=== PATIENT | male | born 1940 | race Two or more races ===

== ENCOUNTER 2016-11-27 21:19 | Inpatient (IN) | payer MEDICARE, OTHER ==
[~2016-11-27] VITALS: Ht 175.3 cm; Wt 65.8 kg
[2016-11-27 21:32] VITALS: BP 90/44
[2016-11-27 21:45] LABS: MEAN CORPUSCULAR HEMOGLOBIN 26.6 PG (27.0-31.0); MEAN CORPUSCULAR HGB CONC 31.5 G/DL (32.0-36.0); MEAN CORPUSCULAR VOLUME 84 FL (80-99); MEAN PLATELET VOLUME 6.8 FL (6.5-10.1); PLATELET COUNT 624 K/UL (150-450); RED BLOOD COUNT 3.85 M/UL (4.70-6.10); RED CELL DISTRIBUTION WIDTH 17.9 % (11.6-14.8)
[2016-11-27 21:49] LABS: WHITE BLOOD COUNT 25.9 K/UL (4.8-10.8)
[2016-11-27 21:55] LABS: ALANINE AMINOTRANSFERASE 12 U/L (3-41); ALBUMIN/GLOBULIN RATIO 0.9 (1.0-2.7); ANION GAP 13 (5-15); ASPARTATE AMINO TRANSFERASE 22 U/L (5-40); CARBON DIOXIDE 32 mEQ/L (20-30); CHLORIDE 96 mEQ/L (98-107); CREATININE 1.5 mg/dL (0.7-1.2); HEMOLYSIS 3; POTASSIUM 4.6 mEQ/L (3.4-4.9); SODIUM 141 mEQ/L (135-145); TOTAL PROTEIN 6.3 g/dL (6.6-8.7); TROPONIN I < 0.30 ng/mL (<=0.30)
[2016-11-27 22:04] LABS: REFLEX LACTIC ACID YES OR NO YES
[2016-11-27 22:06] LABS: CALCIUM 14.7 mg/dL (8.6-10.2)
[2016-11-27] MEDS ORDERED: XANAX0.25 MG ORAL (22:08)
[2016-11-27] MEDS ORDERED: PANTOPRAZOLE SO40 MG GT (22:15)
[2016-11-27] MEDS ORDERED: MILK OF MA400 MG/51 GT (22:15)
[2016-11-27] MEDS ORDERED: ACETAMINOPHEN120 MG GT (22:15)
[2016-11-27] MEDS ORDERED: EPOGEN20000 UNI1 SUBQ (22:15)
[2016-11-27] MEDS ORDERED: FERROUS SULFAT325 MG GT (22:15)
[2016-11-27] MEDS ORDERED: HYDRALAZINE HCL10 MG GT (22:15)
[2016-11-27 22:16] LABS: APPEARANCE,URINE CLOUDY; KETONES,URINE NEGATIVE (NEGATIVE); LEUKOCYTE ESTERASE ,URINE 1+ (NEGATIVE); NITRITE,URINE NEGATIVE (NEGATIVE); PH,URINE 5 (4.5-8.0); PROTEIN,URINE 4+ (NEGATIVE); UROBILINOGEN,URINE NORMAL MG/DL (0.0-1.0)
[2016-11-27 22:24] LABS: RBC,URINE TNTC /HPF (0 - 0)
[2016-11-27 22:27] LABS: AMORPHOUS SEDIMENT,UR MANY /LPF; BACTERIA,URINE MODERATE /HPF
[2016-11-27] MEDS ORDERED: Cefepime HCl 1 GM in NS 55 ML IV ONE (22:30)
[2016-11-27] MEDS ORDERED: Azithromycin 500 MG in NS 275 ML IV ONE (22:30)
[2016-11-27 22:33] LABS: BAND NEUTROPHILS % (MANUAL) 1 % (0-8); EOSINOPHILS % (MANUAL) 1 % (0-3); LYMPHOCYTES % (MANUAL) 1 % (20-45); NEUTROPHILS % (MANUAL) 93 % (45-75); TOTAL CELLS COUNTED 100
[2016-11-27 22:34] LABS: ANISOCYTOSIS 2+; BASOPHILS % (MANUAL) 0 % (0-2); HYPOCHROMASIA 1+; PLATELET ESTIMATE INCREASED; PLATELET MORPHOLOGY NORMAL; POLYCHROMASIA 1+
[2016-11-27] MEDS ORDERED: Acetaminophen 650mg/20.3ml GT ONE (22:45)
[2016-11-27] MEDS ORDERED: Cefepime 1gm vial ONE (22:50)
[2016-11-27 23:13] VITALS: BP 99/44
[2016-11-28] VITALS (18 sets, daily range): BP systolic 85–139; BP diastolic 36–67
[2016-11-28] MEDS ORDERED: Azithromycin Inj IV ONE (00:47)
[2016-11-28] MEDS ORDERED: Lidocaine 1% MPF 10mg/ml 5ml ONE (01:03)
[2016-11-28] MEDS ORDERED: Levophed 4mg/4mL Inj IV ONE (01:26)
[2016-11-28] MEDS ORDERED: Vancomycin 1 GM in NS 275 ML IV ONE (01:45)
[2016-11-28] MEDS ORDERED: Vancomycin 1gm inj IVPB ONE (03:24)
--- NOTE | 2016-11-28 03:53 | Emergency Room Report ---
History of Present Illness General Chief Complaint: Altered Level of Consciousness Source: Family Member, EMS Present Illness HPI 76-year-old male presents ED for evaluation. Per EMS patient noted to be hypotensive and altered at his convalescent home starting today. Patient is on trach collar at facility. Upon arrival patient is hypotensive and tachycardic. Patient has fever in triage. Patient is unable to provide any additional history at this time. No reported cough or shortness of breath. No reported nausea or vomiting. Paperwork shows that patient is a "no code". PMD is Dr. Ayala. No other aggravating or relieving factors. Denies any other associated symptoms Allergies: Coded Allergies: No Known Allergies (Unverified , 11/27/16) Patient History Past Medical History: none Past Surgical History: other - trach Pertinent Family History: none Social History: Denies: alcohol use, drug use, smoking Immunizations: UTD Reviewed Nursing Documentation: PMH: Agreed, PSxH: Agreed Nursing Documentation-PMH Past Medical History: No History, Except For Hx Cardiac Problems: Yes - ANEMIA Hx Gastrointestinal Problems: Yes - BPH Review of Systems All Other Systems: negative except mentioned in HPI Physical Exam Vital Signs Date Time Temp Pulse Resp B/P Pulse Ox O2 Delivery O2 Flow Rate FiO2 11/27/16 21:09 144 12 107/54 98 Ambu-Bag 15.0 11/27/16 21:32 100.2 50 Sp02 EP Interpretation: reviewed, normal General Appearance: lethargic, thin Head: normocephalic Eyes: bilateral eye PERRL, bilateral eye normal inspection ENT: normal ENT inspection Neck: tracheotomy Respiratory: crackles Cardiovascular #1: tachycardia Gastrointestinal: normal inspection Rectal: deferred Genitourinary: no CVA tenderness Musculoskeletal: normal inspection Neurologic: other - altered Psychiatric: other - altered Skin: normal inspection Lymphatic: normal inspection Procedures Critical Care Time Critical Care Time i. I feel this is a highly complex case requiring extensive working including EKG/Rhythm strip, Xray/CT/US, Blood/urine lab work, repeat exams while in ED, and administration of strong opiates/narcotics for pain control, admission to hospital or close patient follow up. Total time: 30 min bedside evaluation and treatment excludes procedures (EKG). Reason for critical care: Septic shock, hypotensive Possible complications: hypotension, hypertension, RI, shock, arrhythmias, metabolic acidosis, end organ damage, respiratory failure. Interventions: Labs, IV fluids, EKG, chest x-ray. Antibiotics. Central line. Pressors Course: Patient brought in for tachycardia, hypotension. Tracheostomy. Labs show severe sepsis. Hypercalcemia. UTI. Chest x-ray shows large lower lobe infiltrate. Despite fluids patient remained hypotensive. Central line placed. Pressors started Consultations: nursing staff, EMS, family Performed by: Dr Hogan Tolerated well condition = critical j. because of unstable vital signs this patient had a condition that could potentially threaten life or limb. I feel this is a critical patient who required my full attention while patient was considered critical. Total Critical Care Time excluding procedures was greater than 35 minutes Central Line Central Line : Consent: Emergent Central Line Lumen: triple Maximal Sterile Barrier Tech: yes cap, yes mask, yes sterile gown, yes sterile gloves, yes large sterile sheet, yes hand hygiene, yes chlorhexidine prep Central Line Postion: femoral (R) Anesthesia: Lidocaine Complications: none Central Line Post Position: sutured, good blood return Attempts: One Patient Tolerated: Well Complications: None Medical Decision Making Diagnostic Impression: Primary Impression: Septic shock Additional Impressions: Pneumonia Qualified Codes: J18.9 - Pneumonia, unspecified organism UTI (urinary tract infection) Qualified Codes: N39.0 - Urinary tract infection, site not specified Hypercalcemia ARF (acute renal failure) Qualified Codes: N17.9 - Acute kidney failure, unspecified ER Course Hospital Course 76-year-old M presents to ED for evaluation of hypotension, tachycardia Differential diagnoses include: Pneumonia, UTI, sepsis, dehydration, RI/ unstable angina Clinical course Patient placed on stretcher. On monitoring analyst with hypotension, tachycardia. After initial history and physical, I ordered labs, IV fluids, EKG, chest x- ray, blood cultures, UA. Labs - BUN/Cr elevated, marked leukocytosis, hypercalcemia, troponins negative, lactate > 2, UA grossly positive for UTI CXR - large RLL infiltrate Abx given. After 30 mL per KG fluid bolus patient remained hypotensive. Right femoral line placed. Pressors started Case discussed with Dr Ayala and they agreed to admit patient to their service for further care and support I feel this is a highly complex case requiring extensive working including EKG/ Rhythm strip, Xray/CT/US, Blood/urine lab work, repeat exams while in ED, and administration of strong opiates/narcotics for pain control, admission to hospital or close patient follow up. Diagnosis - septic shock, pneumonia, UTI, hypercalcemia, ARF Patient admitted to ICU in critical condition Labs Test 11/27/16 21:23 11/27/16 21:58 11/27/16 23:30 White Blood Count 25.9 K/UL (4.8-10.8) Red Blood Count 3.85 M/UL (4.70-6.10) Hemoglobin 10.3 G/DL (14.2-18.0) Hematocrit 32.5 % (42.0-52.0) Mean Corpuscular Volume 84 FL (80-99) Mean Corpuscular Hemoglobin 26.6 PG (27.0-31.0) Mean Corpuscular Hemoglobin Concent 31.5 G/DL (32.0-36.0) Red Cell Distribution Width 17.9 % (11.6-14.8) Platelet Count 624 K/UL (150-450) Mean Platelet Volume 6.8 FL (6.5-10.1) Neutrophils (%) (Auto) % (45.0-75.0) Lymphocytes (%) (Auto) % (20.0-45.0) Monocytes (%) (Auto) % (1.0-10.0) Eosinophils (%) (Auto) % (0.0-3.0) Basophils (%) (Auto) % (0.0-2.0) Differential Total Cells Counted 100 Neutrophils % (Manual) 93 % (45-75) Lymphocytes % (Manual) 1 % (20-45) Monocytes % (Manual) 4 % (1-10) Eosinophils % (Manual) 1 % (0-3) Basophils % (Manual) 0 % (0-2) Band Neutrophils 1 % (0-8) Platelet Estimate Increased Platelet Morphology Normal Polychromasia 1+ Hypochromasia 1+ Anisocytosis 2+ Sodium Level 141 mEQ/L (135-145) Potassium Level 4.6 mEQ/L (3.4-4.9) Chloride Level 96 mEQ/L (98-107) Carbon Dioxide Level 32 mEQ/L (20-30) Anion Gap 13 (5-15) Blood Urea Nitrogen 68 mg/dL (7-23) Creatinine 1.5 mg/dL (0.7-1.2) Estimat Glomerular Filtration Rate mL/min (>60) Glucose Level 193 mg/dL (74-106) Lactic Acid Level 2.20 mmol/L (0.66-2.22) 2.10 mmol/L (0.66-2.22) Calcium Level 14.7 mg/dL (8.6-10.2) Total Bilirubin 0.4 mg/dL (0.0-1.2) Aspartate Amino Transf (AST/SGOT) 22 U/L (5-40) Alanine Aminotransferase (ALT/SGPT) 12 U/L (3-41) Alkaline Phosphatase 172 U/L (40-129) Total Creatine Kinase 26 U/L (38-174) Creatine Kinase MB 4.0 ng/mL (< 6.7) Creatine Kinase MB Relative Index 15.3 Troponin I < 0.30 ng/mL (<=0.30) Pro-B-Type Natriuretic Peptide 2217 pg/mL (0-450) Total Protein 6.3 g/dL (6.6-8.7) Albumin 3.0 g/dL (3.5-5.2) Globulin 3.3 g/dL Albumin/Globulin Ratio 0.9 (1.0-2.7) Urine Color Yellow Urine Appearance Cloudy Urine pH 5 (4.5-8.0) Urine Specific [place] 1.020 (1.005-1.035) Urine Protein 4+ (NEGATIVE) Urine Glucose (UA) Negative (NEGATIVE) Urine Ketones Negative (NEGATIVE) Urine Occult Blood 5+ (NEGATIVE) Urine Nitrite Negative (NEGATIVE) Urine Bilirubin Negative (NEGATIVE) Urine Urobilinogen Normal MG/DL (0.0-1.0) Urine Leukocyte Esterase 1+ (NEGATIVE) Urine RBC Tntc /HPF (0 - 0) Urine WBC 2-4 /HPF (0 - 0) Urine Squamous Epithelial Cells None /LPF (NONE/OCC) Urine Amorphous Sediment Many /LPF (NONE) Urine Bacteria Moderate /HPF (NONE) EKG Diagnostic Results Rate: tachycardiac Rhythm: NSR ST Segments: no acute changes ASA given to the pt in ED: No Rhythm Strip Diag. Results EP Interpretation: yes Rhythm: NSR, no PVC's, no ectopy Chest X-Ray Diagnostic Results EP Interpretation: Yes Findings: no pneumothorax, no acute cardiopulmonary disease, other - RLL infiltrate Number of Views: 1 Last Vital Signs Date Time Temp Pulse Resp B/P Pulse Ox O2 Delivery O2 Flow Rate FiO2 11/28/16 03:03 98.5 11/28/16 02:30 84 23 101/48 99 Endotracheal Tube 10.0 11/27/16 23:13 50 Status: improved Disposition: ADMITTED INPATIENT Condition: Critical Referrals: NON PHYSICIAN (PCP) DANIELA HOGAN M.D. Nov 28, 2016 03:53
[2016-11-28] MEDS ORDERED: Acetaminophen 650mg/20.3ml GT PRN (09:30)
--- NOTE | 2016-11-28 09:55 | Diagnostic Imaging Report ---
Clinical history: Shortness of breath Technique: Portable AP chest radiograph was obtained. Comparison: None Findings: The tip of a left chest subcutaneous port terminates in the lower SVC. Tracheostomy tube is noted. Lung volumes are low. Ill-defined basilar opacities may represent atelectasis or pneumonia. There is mild cardiomegaly with scattered interstitial and perihilar densities likely reflecting moderate pulmonary edema. Moderate right and small left pleural effusions are noted. Visualized osseous structures demonstrate no acute abnormality. Impression: 1. Tracheostomy tube. Left chest subcutaneous port with the catheter tip in the lower SVC. 2. Cardiomegaly with moderate pulmonary edema and small left and moderate right pleural effusions. 3. Low lung volumes with basilar atelectasis or pneumonia. Continued surveillance is recommended.
[2016-11-28] MEDS ORDERED: Pantoprazole Inj IVP SCH (10:00)
[2016-11-28] MEDS ORDERED: HydrALAZINE 10mg Tab GT PRN ×2 (10:00→16:00)
[2016-11-28] MEDS ORDERED: Heparin 5000 units/ml inj SUBQ SCH (10:00)
[2016-11-28] MEDS ORDERED: Ferrous Sulfate 300 MG/5 ML UDC NG SCH (10:00)
[2016-11-28] MEDS ORDERED: Piperacillin/Tazobactam 3.375 GM in D5W 110 ML IVPB SCH (12:00)
[2016-11-28 12:17] LABS: IONIZED CALCIUM 1.82 mmol/L (1.10-1.35)
[2016-11-28 12:21] LABS: ANION GAP 11 (5-15); CARBON DIOXIDE 29 mEQ/L (20-30); CHLORIDE 104 mEQ/L (98-107); CREATININE 1.3 mg/dL (0.7-1.2); HEMOLYSIS 0; POTASSIUM 3.9 mEQ/L (3.4-4.9); SODIUM 144 mEQ/L (135-145)
[2016-11-28 12:23] LABS: CALCIUM 13.3 mg/dL (8.6-10.2)
[2016-11-28] MEDS ORDERED: Pamidronate Disodium Inj 60 MG in Sodium Chloride 550 ML IVPB ONE (13:00)
[2016-11-28] MEDS ORDERED: ALPRAZolam 0.25mg tab GT PRN (14:00)
[2016-11-28] MEDS ORDERED: Tubing IV Secondary IV ONE (17:34)
[2016-11-28] MEDS ORDERED: NS 275ml ONE (17:34)
--- NOTE | 2016-11-28 19:29 | History and Physical Report ---
DATE OF ADMISSION: 11/27/2016 REASON FOR ADMISSION: Respiratory failure and sepsis. HISTORY OF PRESENT ILLNESS: This is a 76-year-old male, who does appear to be acutely ill. The patient was transferred by 911 . He came from the subacute facility. The patient was noted to be hypotensive and altered at the convalescent home as mentioned. The patient was started on pressors in the emergency room and also on IV antibiotics. The patient is not able to give any history at this time. The patient is admitted to the ICU for further intervention and management. On evaluation, the patient was noted to have significant leukocytosis consistent with sepsis as well as evidence of acute renal failure and profound hypercalcemia. The patient's case was discussed and reviewed. The patient's order history was noted and reviewed. The patient has been given antibiotics, as mentioned pressors, and cultures were obtained. The patient was also given IV hydration. PAST MEDICAL HISTORY: Notable for chronic anemia, hypertension, respiratory failure, tracheostomy, G-tube aspiration, chronic cervical myelopathy, history of malignancy of the lungs, and benign prostatic hyperplasia. MEDICATIONS: Reviewed, noted. ALLERGIES: There is no allergy. SOCIAL HISTORY: Resides in [facility], ventilator-dependant, and bedbound. REVIEW OF SYSTEMS: Unobtainable. PHYSICAL EXAMINATION: GENERAL: An ill-appearing male. VITAL SIGNS: Reviewed. Blood pressure 130/49, respirations 26, 82 and temperature is 98.5 degrees. The patient is on 10 liters oxygen flow, 30% FiO2. HEENT: Negative. Pupils are sluggish. No discharge from the nasal cavity. NECK: Supple. Trachea is midline. Carotids 2+. LUNGS: Coarse breath sounds. Moderate air entry. CARDIAC: S1 and S2. Overall, minimally tachycardic on admission. Now, regular rate and rhythm without murmurs, rubs, or gallops. ABDOMEN: Soft and nontender. G-tube in place. EXTREMITIES: No cyanosis and no clubbing. No significant edema. NEUROLOGIC: Poorly responsive and withdrawn. LABORATORY DATA: Reviewed. White count is 25.9, hemoglobin 10.3, and platelets 624,000. Chemistry, sodium 141, potassium 4.6, chloride 106, bicarbonate 32, BUN 68, and creatinine 1.5. Calcium is 14.7. BNP 2217. IMPRESSION: 1. Sepsis. 2. Profound leukocytosis. 3. Protein-calorie malnutrition. 4. Hypercalcemia, possibly due to malignancy. 5. Acute on chronic renal failure. 6. Metabolic alkalosis, possibly contraction in nature. 7. Anemia. 8. Thrombocytosis. 9. Tracheostomy and gastrostomy tube. 10. Chronic respiratory failure. RECOMMENDATIONS: Empiric antibiotics, vancomycin and Zosyn. We will give the patient Aredia and IV hydration. Followup labs. We recommend further to obtain followup x-rays and followup arterial blood gases. At present, the patient is on tracheostomy collar, appears to be comfortable. Taper off pressors with Levophed and optimize further as the patient is critical at present. We will follow up clinically and manage for further changes. [facility] We will consult with the family once available. Kev Ayala M.D. DR: CAR JOB#: [id number] CC: KATJA
[2016-11-28] MEDS ORDERED: Vancomycin 1gm/D5W 275ml IVPB SCH ×2 (20:00)
[2016-11-28] MEDS: Vancomycin 1 GM in D5W 275 ML IVPB SCH (20:10)
[2016-11-28] MEDS: Heparin 5000 units/ml inj SUBQ SCH (20:54)
[2016-11-28 21:28] LABS: ABG ALLEN TEST POSITIVE; ABG BASE EXCESS -2.8; ABG PCO2 68.4 mmHg (35.0-45.0)
[2016-11-28] MEDS: Piperacillin/Tazobactam 3.375 GM in D5W 110 ML IVPB SCH (21:51)
--- NOTE | 2016-11-28 21:59 | Consultation ---
DATE OF CONSULTATION: 11/28/2016 RENAL CONSULTATION CONSULTING PHYSICIAN: Corazon Beard M.D. REFERRING PHYSICIAN: Kev Ayala M.D. REASON FOR CONSULTATION: Hypercalcemia and IRASEMA. HISTORY OF PRESENT ILLNESS: This is a 76-year-old man with a history of CA lung, respiratory failure, on trach, status post cardiac arrest before and BPH. The patient was sent from the alf because of the hypotension episode and the patient was found to have hypotension in the ER and the Levophed was started, and also with the infection and hypercalcemia, normal saline bolus was given in a running 125 mL of normal saline and the Levophed was off this morning. Renal was consulted for the hypercalcemia and IRASEMA. The patient is a poor historian and nonverbal and could not get any detailed history. When I saw the patient in the intensive care unit, according to the nurse Levophed was off this morning and the patient is on intravenous fluid at 125 mL/h. No reported fever, chills, or diarrhea. The blood pressure now is 115/53. PAST MEDICAL HISTORY: 1. Respiratory failure, on trach and lung malignancy. 2. Malignancy of the esophagus cancer. 3. Status post percutaneous endoscopic gastrostomy. 4. History of cardiac arrest before. 5. History of hypertension. 6. BPH. 7. Muscle weakness. 8. Anemia. 9. Anxiety disorder. MEDICATIONS: Reviewed. The current medications are Epogen, magnesium hydroxide, , alprazolam, pamidronate, Zosyn, ferrous sulfate, hydralazine, pantoprazole, heparin subcutaneous, sodium chloride, and acetaminophen. ALLERGIES: No known drug allergies. SOCIAL HISTORY: Resides in the alf. No current smoking, alcohol, or drug use. FAMILY HISTORY: Noncontributory. REVIEW OF SYSTEMS: Could not get any review of systems, as the patient is nonverbal. PHYSICAL EXAMINATION: VITAL SIGNS: Blood pressure 130/49, heart rate 84, respiratory rate 26, temperature 98.5 degrees, and saturation is 97% on trach with FiO2 50%. GENERAL: On exam, the patient is in no acute distress, alert, awake, nonverbal, and on trach. HEENT: Atraumatic. NECK: Supple. LUNGS: Clear to auscultation bilaterally. No rales. No rhonchi. Mildly bibasilar crackles present. HEART: S1 and S2. Regular rate and rhythm. No murmur or gallop. ABDOMEN: Soft and nontender. Bowel sounds present. PEG present. EXTREMITIES: No edema. GENITOURINARY: Polanco catheter present. LABORATORY DATA: White count 25.9, hemoglobin 10.3, hematocrit 32.5, and platelet count is 624,000. Chemistry, sodium 141, potassium 4.6, chloride 96, bicarb 32, BUN 68, and creatinine 1.5. Glucose is 193. Calcium is 14.7. Lactic acid is 2.2. Troponin is less than 0.3. BNP 2217. Albumin is 3.0. The UA showed cloudy, specific gravity of 1.0204, 4+ protein, 5+ blood, negative nitrite, 1+ leukocyte esterase, bay-[id number]-count RBCs, 2 to 4 WBCs, and moderate bacteria. Chest x-ray showed the tracheostomy and the left chest, subcutaneous port, tubing in the lower superior vena cava, cardiomegaly with moderate pulmonary edema, and low lung volumes with basilar atelectasis and pneumonia. ASSESSMENT AND PLAN: 1. Hypercalcemia, most likely due to the cancer related plus dehydration. 2. Acute kidney injury versus chronic kidney disease. We do not have any previous laboratories to compare. Most likely, it is prerenal, secondary to the dehydration. 3. Disproportion of the BUN and creatinine, most likely is prerenal azotemia, but the patient needs to rule out the gastrointestinal bleed as well. 4. Anemia. 5. Sepsis with leukocytosis. 6. Pneumonia. PLan IV fluid renal US urine electrolytes monitor i/o, electrolytes check iron, ferritin, vit B12, folate stool OB Corazon Janice Beard M.D. DR: BENJAMIN JOB#: [id number] CC: KATJA
[2016-11-29] VITALS: BP 115/52
[2016-11-29] MEDS: ALPRAZolam 0.25mg tab GT PRN ×3 (01:18→21:45)
[2016-11-29 04:00] VITALS: BP 110/46
[2016-11-29] MEDS: Piperacillin/Tazobactam 3.375 GM in D5W 110 ML IVPB SCH ×3 (06:13→21:45)
[2016-11-29 06:34] LABS: MEAN CORPUSCULAR HGB CONC 30.4 G/DL (32.0-36.0); MEAN CORPUSCULAR VOLUME 85 FL (80-99); MEAN PLATELET VOLUME 7.4 FL (6.5-10.1); PLATELET COUNT 520 K/UL (150-450); RED CELL DISTRIBUTION WIDTH 18.1 % (11.6-14.8); WHITE BLOOD COUNT 17.3 K/UL (4.8-10.8)
[2016-11-29 06:54] LABS: ANION GAP 12 (5-15); CARBON DIOXIDE 25 mEQ/L (20-30); CHLORIDE 108 mEQ/L (98-107); CREATININE 1.4 mg/dL (0.7-1.2); HEMOLYSIS 24; POTASSIUM 3.9 mEQ/L (3.4-4.9); SODIUM 145 mEQ/L (135-145)
[2016-11-29 07:22] LABS: BAND NEUTROPHILS % (MANUAL) 3 % (0-8); BASOPHILS % (MANUAL) 0 % (0-2); EOSINOPHILS % (MANUAL) 7 % (0-3); LYMPHOCYTES % (MANUAL) 11 % (20-45); NEUTROPHILS % (MANUAL) 73 % (45-75); PLATELET ESTIMATE INCREASED; PLATELET MORPHOLOGY NORMAL; TOTAL CELLS COUNTED 100
[2016-11-29 08:00] VITALS: BP 110/64
--- NOTE | 2016-11-29 08:17 | Pulmonology Progress Note ---
Assessment/Plan Assessment/Plan IMPRESSION: 1. Sepsis. 2. Profound leukocytosis. 3. Protein-calorie malnutrition. 4. 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 5. Acute on chronic renal failure. 6. Metabolic alkalosis, possibly contraction in nature. 7. Anemia. 8. Thrombocytosis. 9. Tracheostomy and gastrostomy tube. 10. Chronic respiratory failure. PLAN supportive care antibiotics iv hydration follow up calcium level ionized calcium high ID evaluation follow up cultures stabilize prognosis poor impression, plan, and exam edited and reviewed in detail care discussed with RN Subjective ROS Limited/Unobtainable: Yes Allergies: Coded Allergies: No Known Allergies (Unverified , 11/27/16) Subjective off pressors on ventilator Objective Last 24 Hour Vital Signs Date Time Temp Pulse Resp B/P Pulse Ox O2 Delivery O2 Flow Rate FiO2 11/29/16 08:01 50 11/29/16 06:44 104 14 50 11/29/16 05:08 108 20 50 11/29/16 04:00 97.2 101 14 110/46 100 Mechanical Ventilator 50 11/29/16 03:46 109 11/29/16 03:16 89 14 50 11/29/16 01:18 102 18 50 11/29/16 00:00 110 11/29/16 00:00 97.4 108 18 115/52 100 Mechanical Ventilator 50 11/29/16 00:00 50 11/28/16 22:47 108 14 50 11/28/16 21:59 117 21 Mechanical Ventilator 50 11/28/16 21:54 117 21 50 11/28/16 20:00 116 11/28/16 19:59 97.7 117 20 139/62 93 11/28/16 16:00 112 11/28/16 16:00 97.3 112 20 133/60 99 11/28/16 14:07 112 32 138/52 97 Trach Collar 10.0 40 11/28/16 13:15 112 35 126/49 96 Trach Collar 10.0 40 11/28/16 12:00 118 11/28/16 12:00 96.8 117 37 139/50 96 Endotracheal Tube 10.0 11/28/16 11:00 100 35 117/48 98 Endotracheal Tube 10.0 11/28/16 10:00 97 34 112/48 98 Endotracheal Tube 10.0 11/28/16 09:00 92 30 112/42 98 Endotracheal Tube 10.0 Intake and Output 11/28/16 11/29/16 19:00 07:00 Intake Total 1420.0 ml 1887.500 ml Output Total 710 ml 1000 ml Balance 710.0 ml 887.500 ml Intake Free Water 100 ml IV Total 1410.0 ml 1607.500 ml Tube Feeding 10 ml 180 ml Output Urine Total 710 ml 1000 ml # Bowel Movements 2 Objective GENERAL: An ill-appearing male. HEENT: Negative. Pupils reactive. NECK: Supple. Trachea is midline. Carotids 2+. LUNGS: Coarse breath sounds. Moderate air entry. CARDIAC: S1 and S2. Overall, minimally tachycardic regular rhythm without murmurs, rubs, or gallops. ABDOMEN: Soft and nontender. G-tube in place. no HSM EXTREMITIES: No cyanosis and no clubbing. No significant edema. NEUROLOGIC: Poorly responsive and withdrawn. Microbiology Date/Time Source Procedure Growth Status 11/27/16 21:23 Blood Blood Culture - Preliminary NO GROWTH AFTER 24 HOURS Resulted 11/27/16 21:13 Blood Blood Culture - Preliminary NO GROWTH AFTER 24 HOURS Resulted Laboratory Tests 11/28/16 11:30: Sodium Level 144, Potassium Level 3.9, Chloride Level 104, Carbon Dioxide Level 29, Anion Gap 11, Blood Urea Nitrogen 53H, Creatinine 1.3H, Estimat Glomerular Filtration Rate , Glucose Level 118H, Calcium Level 13.3*H, Calcium (Send out) [ Pending], Ionized Calcium (Measured) 1.82*H, Angiotensin Converting Enzyme [ Pending], Vitamin D 25-Hydroxy [Pending], 25-Hydroxy Vitamin D2 [Pending], 25- Hydroxy Vitamin D3 [Pending], Parathyroid Hormone (Intact) [Pending], Parathyroid Hormone Related Protein [Pending] 11/28/16 21:11: Arterial Blood pH 7.199*L, Arterial Blood Partial Pressure CO2 68.4*H, Arterial Blood Partial Pressure O2 66.1L, Arterial Blood HCO3 26.1H, Arterial Blood Oxygen Saturation 87.8L, Arterial Blood Base Excess -2.8, Inderjit Test Positive 11/29/16 05:00: Sodium Level 145, Potassium Level 3.9, Chloride Level 108H, Carbon Dioxide Level 25, Anion Gap 12, Blood Urea Nitrogen 44H, Creatinine 1.4H, Estimat Glomerular Filtration Rate , Glucose Level 120H, Calcium Level 13.0H, White Blood Count 17.3H, Red Blood Count 3.20L, Hemoglobin 8.3L, Hematocrit 27.4L, Mean Corpuscular Volume 85, Mean Corpuscular Hemoglobin 26.0L, Mean Corpuscular Hemoglobin Concent 30.4L, Red Cell Distribution Width 18.1H, Platelet Count 520H , Mean Platelet Volume 7.4, Neutrophils (%) (Auto) , Lymphocytes (%) (Auto) , Monocytes (%) (Auto) , Eosinophils (%) (Auto) , Basophils (%) (Auto) , Differential Total Cells Counted 100, Neutrophils % (Manual) 73, Lymphocytes % ( Manual) 11L, Monocytes % (Manual) 6, Eosinophils % (Manual) 7H, Basophils % ( Manual) 0, Band Neutrophils 3, Platelet Estimate IncreasedH, Platelet Morphology Normal, Red Blood Cell Morphology Normal, Lactic Acid Level 1.40 Current Medications Medications (Trade) Dose Ordered Sig/Judith Route PRN Reason Start Time Stop Time Status Last Admin Dose Admin Acetaminophen (Tylenol) 650 mg Q4H PRN GT Mild Pain/Temp > 100.5 11/28/16 17:30 12/28/16 17:29 Alprazolam (Xanax) 0.25 mg Q8H PRN GT ANXIETY 11/28/16 22:00 12/05/16 21:59 11/29/16 01:18 Epoetin Azael (Procrit (for non ESRD use)) 10,000 units MON-WED-FRI SUBQ 11/29/16 21:00 12/29/16 20:59 Ferrous Sulfate (Feosol) 300 mg DAILY NG 11/29/16 09:00 12/29/16 08:59 Heparin Sodium (Porcine) (Heparin 5000 units/ml) 5,000 units Q12HR SUBQ 11/28/16 21:00 12/28/16 20:59 11/28/16 20:54 Hydralazine HCl (Apresoline) 5 mg Q6H PRN GT SBP>170 11/28/16 16:00 12/28/16 15:59 Magnesium Hydroxide (Mom) 30 ml DAILY GT 11/29/16 09:00 12/29/16 08:59 Pantoprazole (Protonix) 40 mg DAILY IVP 11/29/16 09:00 12/29/16 08:59 Piperacillin Sod/ Tazobactam Sod 3.375 gm/Dextrose 110 ml @ 27.5 mls/hr Q8HR IVPB 11/28/16 22:00 12/05/16 21:59 11/29/16 06:13 Sodium Chloride 1,000 ml @ 125 mls/hr Q8H IV 11/28/16 16:00 12/28/16 15:59 11/29/16 01:15 Vancomycin HCl (Vanco rx to dose) 1 ea DAILY PRN MISC Per rx protocol 11/28/16 09:00 12/28/16 08:59 Vancomycin HCl/ Dextrose (Vancomycin/D5W) 275 ml @ 183.708 mls/hr Q24H IVPB 11/28/16 20:00 12/03/16 19:59 11/28/16 20:10 RIZWAN SANDERS Nov 29, 2016 08:17
[2016-11-29] MEDS: Pantoprazole Inj IVP SCH (08:30)
[2016-11-29] MEDS: Ferrous Sulfate 300 MG/5 ML UDC NG SCH (08:30)
[2016-11-29] MEDS: Milk of Magnesia 30ml Ud GT SCH (08:31)
[2016-11-29] MEDS: Heparin 5000 units/ml inj SUBQ SCH ×2 (08:31→21:05)
[2016-11-29] MEDS ORDERED: Milk of Magnesia 30ml Ud GT SCH (09:00)
[2016-11-29 09:04] LABS: ABG ALLEN TEST POSITIVE; ABG BASE EXCESS 1.4; ABG PCO2 40.3 mmHg (35.0-45.0)
--- NOTE | 2016-11-29 09:06 | Cardiology Report ---
APPROVED REPORT EXAM: Two-dimensional and M-mode echocardiogram with Doppler and color Doppler. INDICATION Congestive Heart Failure M-Mode DIMENSIONS IVSd0.7 (0.7-1.1cm)Left Atrium (MM)3.5 (1.6-4.0cm) LVDd3.9 (3.5-5.6cm)Aortic Root2.7 (2.0-3.7cm) PWd1.0 (0.7-1.1cm)Aortic Cusp Exc.1.2 (1.5-2.0cm) LVDs2.4 (2.5-4.0cm) PWs0.8 cm Technically difficult study due to poor acoustic windows. Normal left ventricular chamber size, systolic function and wall motion. Left ventricular ejection fraction estimated to be 70-75%. No evidence of left ventricular hypertrophy. No evidence of pericardial fat or effusion. All other cardiac chamber sizes are within normal limits. Focal aortic valve sclerosis with adequate cusp excursion to extend visualized. Thickened mitral valve leaflets with normal excursion. Moderate mitral annulus and aortic root calcification. Pulmonic valve not well visualized. Normal tricuspid valve structure. IVC is normal in size with physiologic collapse. Echo density seen on anterior mitral valve leaflet (vegitation), consider ASPEN if clinically indicated. A color flow and spectral Doppler study was performed and revealed: No aortic regurgitation. No mitral regurgitation. Left ventricular diastolic dysfunction grade 1. Moderate tricuspid regurgitation. Tricuspid systolic velocities suggests peak right ventricular systolic pressure of 50 mmHg Consistent with moderate pulmonary hypertension.
--- NOTE | 2016-11-29 09:24 | Wound Care Consultation ---
Wound Assessment Wound Assessment : Wound Number: #1 Wound Present on Admission: Yes New Wound: No Status Change of Wound: No Wound Location Body Site Modif: mid Wound Location Body Site: sacral Wound Type: pressure ulcer Ashley Test: Does not Ashley Pressure Ulcer Stage: III - scattered stage III. Wound Thickness: Full Thickness Wound Length: 6.0 Wound Width: 9.0 Wound Depth: 0.3 Percent of Wound [place]/Red: 50 - open scattered wound beds are pink Percent of Wound Purple/Maroon: 50 - surrounding tissue is maroon. Wound Drainage Description: Serosanguineous Wound Drainage Amount: Scant Wound Drainage Odor: None/Absent Tissue Surrounding Wound: Macerated Wound General Appearance: Reddened Wound Comment #1 Mid Sacral scattered pressure ulcers stage III. Recommendation -Local wound care as ordered. -Apply low air loss overlay mattress for wound and skin management. -Turn and reposition. -Keep clean and dry. -Heel protectors. -Offload both feet and heels. -Optimize nutrition. -Avoid shear and friction. -Assess and notify MD for any changes of condition. ALYSON CULVER Nov 29, 2016 09:24
--- NOTE | 2016-11-29 10:04 | Cardiology Report ---
APPROVED REPORT EKG Measurement Heart [id number] Sinus tachycardia Otherwise normal ECG
--- NOTE | 2016-11-29 10:21 | Diagnostic Imaging Report ---
Indication:Elevated Bun and Creatinine. Flank pain Technique: Grayscale and duplex Doppler imaging of the kidneys performed. Comparison: None Findings: There is a questionable stone in the right kidney. There is no hydronephrosis. IVC and urinary bladder are unremarkable. Polanco catheter is present. The right kidney is 11.8 cm the left kidney 10.9 cm in length. Impression: Questionable nonobstructive stone in the right kidney. Suggest noncontrast CT for confirmation
[2016-11-29 12:00] VITALS: BP 117/59
--- NOTE | 2016-11-29 12:04 | Diagnostic Imaging Report ---
Indication: Dyspnea Comparison: 11/27/16 A single view chest radiograph was obtained. Findings: There is evidence of a moderate right pleural effusion and a small left effusion. Pulmonary vascularity is prominent. Tracheostomy is again noted. Heart size is stable. Impression: Bilateral pleural effusions. No interval change appreciated
[2016-11-29] MEDS ORDERED: Pamidronate Disodium Inj 60 MG in Sodium Chloride 550 ML IVPB ONE ×2 (13:00→16:00)
[2016-11-29] MEDS ORDERED: Tubing IV Secondary IV ONE (15:06)
--- NOTE | 2016-11-29 15:45 | Nephrology Progress Note ---
Assessment/Plan Plan Hypercalcemia iof Malignancy with AMS. Use Aredia. Subjective Subjective Very Confused Objective Objective Last 24 Hour Vital Signs Date Time Temp Pulse Resp B/P Pulse Ox O2 Delivery O2 Flow Rate FiO2 11/29/16 14:46 99 14 50 11/29/16 12:45 107 16 50 11/29/16 12:00 87 11/29/16 12:00 97.9 85 14 117/59 100 Mechanical Ventilator 50 11/29/16 11:30 116 16 50 11/29/16 08:30 112 18 50 11/29/16 08:01 50 11/29/16 08:00 98 11/29/16 08:00 97.2 105 14 110/64 100 Mechanical Ventilator 50 11/29/16 06:44 104 14 50 11/29/16 05:08 108 20 50 11/29/16 04:00 97.2 101 14 110/46 100 Mechanical Ventilator 50 11/29/16 03:46 109 11/29/16 03:16 89 14 50 11/29/16 01:18 102 18 50 11/29/16 00:00 110 11/29/16 00:00 97.4 108 18 115/52 100 Mechanical Ventilator 50 11/29/16 00:00 50 11/28/16 22:47 108 14 50 11/28/16 21:59 117 21 Mechanical Ventilator 50 11/28/16 21:54 117 21 50 11/28/16 20:00 116 11/28/16 19:59 97.7 117 20 139/62 93 11/28/16 16:00 112 11/28/16 16:00 97.3 112 20 133/60 99 Intake and Output 11/28/16 11/29/16 19:00 07:00 Intake Total 1420.0 ml 2070.000 ml Output Total 710 ml 1000 ml Balance 710.0 ml 1070.000 ml Intake Free Water 100 ml IV Total 1410.0 ml 1760.000 ml Tube Feeding 10 ml 210 ml Output Urine Total 710 ml 1000 ml # Bowel Movements 2 Laboratory Tests 11/28/16 21:11: Arterial Blood pH 7.199*L, Arterial Blood Partial Pressure CO2 68.4*H, Arterial Blood Partial Pressure O2 66.1L, Arterial Blood HCO3 26.1H, Arterial Blood Oxygen Saturation 87.8L, Arterial Blood Base Excess -2.8, Inderjit Test Positive 11/29/16 05:00: White Blood Count 17.3H, Red Blood Count 3.20L, Hemoglobin 8.3L, Hematocrit 27.4L, Mean Corpuscular Volume 85, Mean Corpuscular Hemoglobin 26.0L, Mean Corpuscular Hemoglobin Concent 30.4L, Red Cell Distribution Width 18.1H, Platelet Count 520H, Mean Platelet Volume 7.4, Neutrophils (%) (Auto) , Lymphocytes (%) (Auto) , Monocytes (%) (Auto) , Eosinophils (%) (Auto) , Basophils (%) (Auto) , Differential Total Cells Counted 100, Neutrophils % ( Manual) 73, Lymphocytes % (Manual) 11L, Monocytes % (Manual) 6, Eosinophils % ( Manual) 7H, Basophils % (Manual) 0, Band Neutrophils 3, Platelet Estimate IncreasedH, Platelet Morphology Normal, Red Blood Cell Morphology Normal, Sodium Level 145, Potassium Level 3.9, Chloride Level 108H, Carbon Dioxide Level 25, Anion Gap 12, Blood Urea Nitrogen 44H, Creatinine 1.4H, Estimat Glomerular Filtration Rate , Glucose Level 120H, Lactic Acid Level 1.40, Calcium Level 13.0H 11/29/16 08:30: Arterial Blood pH 7.426, Arterial Blood Partial Pressure CO2 40.3, Arterial Blood Partial Pressure O2 116.3H, Arterial Blood HCO3 25.9, Arterial Blood Oxygen Saturation 98.0, Arterial Blood Base Excess 1.4, Inderjit Test Positive Height (Feet): 5 Height (Inches): 9.00 Weight (Pounds): 145 Objective Cv Tach Lungs B Ronchi Abd SNT. BS + E No CCE GAGANDEEP PAEZ Nov 29, 2016 15:45
[2016-11-29 16:00] VITALS: BP 98/54
--- NOTE | 2016-11-29 17:28 | Consultation ---
DATE OF CONSULTATION: 11/29/2016 INFECTIOUS DISEASE CONSULTATION REFERRING PHYSICIAN: Kev Ayala M.D. REASON FOR CONSULTATION: Leukocytosis. HISTORY OF PRESENTING ILLNESS: This is a 76-year-old gentleman with history of hypertension, respiratory failure, status post tracheostomy and history of malignancy of the lung who came in with hypotension and leukocytosis. An Infectious Diseases consultation has been obtained for antibiotics. PAST MEDICAL HISTORY: 1. History of hypertension. 2. Respiratory failure, status post tracheostomy. 3. Status post G-tube placement. 4. Myelopathy. 5. Malignancy of the lungs. 6. Benign prostatic hypertrophy. MEDICATIONS: As an inpatient, the patient is on Epogen, ferrous sulfate, milk of magnesia, Protonix, Zosyn, Xanax, subcutaneous heparin, IV vancomycin, Tylenol and hydralazine. ALLERGIES: No known drug allergies. SOCIAL HISTORY: He is a resident of a correction facility. FAMILY HISTORY: Unknown. REVIEW OF SYSTEMS: Unable to obtain currently. PHYSICAL EXAMINATION: VITAL SIGNS: Temperature of 97.2 degrees, T-max of 98.5 degrees, pulse of 112, respiratory of 18, blood pressure 110/64 and O2 saturation of 100%. HEENT: Pupils equally reactive to light and accommodation. Mouth appears clean without thrush. NECK: Supple. No adenopathy. No JVD. CARDIOVASCULAR: Regular rate and rhythm. No murmurs. LUNGS: Clear to auscultation bilaterally. No crackles. No wheezes. ABDOMEN: Soft and nontender. G-tube site appears clean. EXTREMITIES: No cyanosis, no clubbing, and no edema. Right groin catheter noted. LABORATORY AND DIAGNOSTIC DATA: White count of 17.3 today and white count of 25.9 yesterday, hemoglobin 8.3, hematocrit 27.4, MCV 85, and platelet count of 520,000 with neutrophils of 73%. Sodium 145, potassium 3.9, chloride 108, bicarbonate 25, BUN 44, creatinine 1.4 and glucose 120. Calcium of 13. Total bilirubin 0.4. AST 22, ALT 12, and alkaline phosphatase 172. CK of 26 and CK-MB 4. Total protein 6.3. Albumin of 3. Urinalysis is showing 2-4 white cells and RBC too numerous to count. Blood cultures are negative from 11/27/2016. Urine cultures are negative from 11/17/2016. Chest x-ray showing tracheostomy tube left chest subcutaneous port within the catheter tips noted, moderate pulmonary edema, small left and moderate right-sided pleural effusion noted, possible atelectasis or pneumonia noted. Renal ultrasound showing possible nonobstructive stone in the right kidney. A 2D echo showing no aortic regurgitation, no mitral regurgitation, moderate tricuspid regurgitation, and possible echodensity on the anterior mitral valve leaflet noted. ASSESSMENT: 1. This is a 76-year-old gentleman with history of respiratory failure, who comes in with leukocytosis and is found to have possible pneumonia. 2. He could also possibly have an endocarditis where blood cultures are negative so far. 3. Leukocytosis is improving. 4. Respiratory failure. PLAN: 1. Continue vancomycin and Zosyn. 2. We will order sputum for Gram-stain and culture. 3. We will follow up cultures and adjust antibiotics accordingly. I would like to thank, Dr. Ayala, for this consultation. Dave Hernandez M.D. DR: NAJMA JOB#: [id number] CC: Kev Ayala M.D.
--- NOTE | 2016-11-29 19:48 | History and Physical Report ---
DATE OF ADMISSION: 11/27/2016 CHIEF COMPLAINT: Respiratory failure, sepsis, and shock. HISTORY OF PRESENT ILLNESS: The patient is an unfortunate 76-year-old male. He has a history of head and neck cancer, status post tracheostomy. He was transferred from a intermediate facility with complaints of hypotension and confusion. The patient apparently was doing well, but over the weekend developed hypotension and was noted to be significantly altered compared to his baseline. On evaluation in the emergency room, the patient had an elevated white count at 26,000. He had respiratory acidosis with a pH of 7.2 and PCO2 is 68. His ionized calcium was 1.8. Chest x-ray showed small left and moderate right-sided pleural effusions. Questionable pulmonary edema. The patient has been cultured and has been started broad-spectrum IV antibiotics. He is now admitted for further evaluation and care. PAST MEDICAL HISTORY: As above. History of respiratory failure, COPD, anemia, hypertension, and history head and neck cancer. CURRENT MEDICATIONS: Reconciled and reviewed. ALLERGIES: None. FAMILY HISTORY: None. SOCIAL HISTORY: There is no known history of tobacco, ethanol, or drugs. REVIEW OF SYSTEMS: Unobtainable as the patient is confused. PHYSICAL EXAMINATION: VITAL SIGNS: Temperature 97.2, pulse 101, respirations 14, and the patient's blood pressure 110/46. GENERAL: The patient is a chronic ill-appearing thin male. He is awake, but confused. NECK: Supple. Tracheostomy site is clean. HEART: Regular rate and rhythm. LUNGS: Significant for bilateral rhonchi. ABDOMEN: Soft, nontender, and nondistended. EXTREMITIES: Without cyanosis or clubbing. LABORATORY DATA: UA showed too numerous to count RBCs. White count 26, hemoglobin 10, hematocrit 32, and platelets 624,000. Sodium 144, potassium 3.9, creatinine 1.3, and calcium of 13.3 with an ionized calcium of 1.8. ASSESSMENT: This is an unfortunate male with a history of head and neck cancer, respiratory failure, chronic obstructive pulmonary disease, hypertension, and chronic anemia, admitted with sepsis. 1. Sepsis. 2. Hypercalcemia, likely secondary to malignancy. 3. Chronic obstructive pulmonary disease. 4. Chronic respiratory failure. 5. Respiratory acidosis. PLAN: 1. Vent support. 2. Broad-spectrum IV antibiotics. 3. IV fluids. Bisphosphonates for hypercalcemia. 4. Pulmonary and Endo consultations will be obtained, and ID consultation will be obtained. Cash Coughlin M.D. DR: LAQUITA JOB#: [id number] CC:
[2016-11-29 20:00] VITALS: BP 121/58
[2016-11-29] MEDS: Vancomycin 1 GM in D5W 275 ML IVPB SCH (20:59)
[2016-11-29] MEDS ORDERED: Epogen (for non ESRD use) SUBQ SCH (21:00)
[2016-11-29] MEDS: Epogen (for non ESRD use) SUBQ SCH (21:04)
[2016-11-29] MEDS: Acetaminophen 650mg/20.3ml GT PRN (21:45)
[2016-11-30] VITALS (7 sets, daily range): BP systolic 109–141; BP diastolic 52–67
[2016-11-30] MEDS: Piperacillin/Tazobactam 3.375 GM in D5W 110 ML IVPB SCH ×3 (05:39→22:06)
[2016-11-30 07:08] LABS: ANGIOTENSIN CONVERTING ENZYME 29 U/L (14-82)
--- NOTE | 2016-11-30 07:38 | General Progress Note ---
Assessment/Plan Problem List: (1) Hypercalcemia of malignancy ICD Codes: E83.52 - Hypercalcemia SNOMED: 12922973 (2) Esophageal adenocarcinoma ICD Codes: C15.9 - Malignant neoplasm of esophagus, unspecified SNOMED: 783448481 (3) Respiratory failure for > 28 days ICD Codes: J96.90 - Respiratory failure, unspecified, unspecified whether with hypoxia or hypercapnia SNOMED: 648002062 (4) Sepsis ICD Codes: A41.9 - Sepsis, unspecified organism SNOMED: 94815841 Status: stable Assessment/Plan ivf iv aredia as needed abx follow up cultures vent support and resp rx feeds Subjective ROS Limited/Unobtainable: Yes Constitutional: Reports: malaise, weakness HEENT: Reports: no symptoms Cardiovascular: Reports: no symptoms Respiratory: Reports: cough, shortness of breath, sputum Gastrointestinal/Abdominal: Reports: difficulty swallowing Genitourinary: Reports: no symptoms Neurologic/Psychiatric: Reports: no symptoms Endocrine: Reports: no symptoms Hematologic/Lymphatic: Reports: anemia Allergies: Coded Allergies: No Known Allergies (Unverified , 11/27/16) All Systems: reviewed and negative except above Subjective no events. on the vent. mild congested. labs noted. all cultures negative. wbc and ca trending down Objective Last 24 Hour Vital Signs Date Time Temp Pulse Resp B/P Pulse Ox O2 Delivery O2 Flow Rate FiO2 11/30/16 05:34 75 17 50 11/30/16 04:04 79 11/30/16 04:00 97.5 85 18 132/61 97 Mechanical Ventilator 50 11/30/16 03:24 66 14 50 11/30/16 01:43 95 16 50 11/30/16 00:00 66 11/30/16 00:00 50 11/30/16 00:00 97.5 88 16 122/55 99 Mechanical Ventilator 50 11/29/16 22:33 89 17 50 11/29/16 22:29 92 14 50 11/29/16 22:15 97.3 11/29/16 20:00 50 11/29/16 20:00 97.3 91 18 121/58 97 Mechanical Ventilator 50 11/29/16 20:00 89 11/29/16 19:27 89 14 50 11/29/16 16:43 98 14 50 11/29/16 16:00 50 11/29/16 16:00 97.8 102 18 98/54 100 Mechanical Ventilator 50 11/29/16 16:00 100 11/29/16 14:46 99 14 50 11/29/16 12:45 107 16 50 11/29/16 12:00 87 11/29/16 12:00 97.9 85 14 117/59 100 Mechanical Ventilator 50 11/29/16 11:30 116 16 50 11/29/16 08:30 112 18 50 11/29/16 08:01 50 11/29/16 08:00 98 11/29/16 08:00 97.2 105 14 110/64 100 Mechanical Ventilator 50 Intake and Output 11/29/16 11/30/16 19:00 07:00 Intake Total 2197.5 ml 2380.000 ml Output Total 200 ml 1050 ml Balance 1997.5 ml 1330.000 ml Intake Free Water 200 ml 100 ml IV Total 1567.5 ml 1760.000 ml Tube Feeding 400 ml 490 ml Other 30 ml 30 ml Output Urine Total 200 ml 1050 ml # Bowel Movements 2 Laboratory Tests 11/29/16 08:30: Arterial Blood pH 7.426, Arterial Blood Partial Pressure CO2 40.3, Arterial Blood Partial Pressure O2 116.3H, Arterial Blood HCO3 25.9, Arterial Blood Oxygen Saturation 98.0, Arterial Blood Base Excess 1.4, Inderjit Test Positive 11/29/16 19:55: Vancomycin Level Trough 13.7H Height (Feet): 5 Height (Inches): 9.00 Weight (Pounds): 145 General Appearance: WD/WN, confused Neck: supple Cardiovascular: normal rate, regular rhythm Respiratory/Chest: chest wall non-tender, rhonchi - bilaterally Abdomen: normal bowel sounds, non tender, soft, no organomegaly Neurologic: responsive, disoriented, aphasia Skin: normal pigmentation NANCY GARCIA Nov 30, 2016 07:38
[2016-11-30] MEDS: Ferrous Sulfate 300 MG/5 ML UDC NG SCH (08:14)
[2016-11-30] MEDS: Pantoprazole Inj IVP SCH (08:15)
[2016-11-30] MEDS: Heparin 5000 units/ml inj SUBQ SCH ×2 (08:16→20:05)
[2016-11-30] MEDS: Milk of Magnesia 30ml Ud GT SCH (08:18)
[2016-11-30] MEDS: ALPRAZolam 0.25mg tab GT PRN (10:51)
--- NOTE | 2016-11-30 10:56 | Pulmonology Progress Note ---
Assessment/Plan Assessment/Plan IMPRESSION: 1. Sepsis. 2. Profound leukocytosis. 3. Protein-calorie malnutrition. 4. 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 5. Acute on chronic renal failure. 6. Metabolic alkalosis, possibly contraction in nature. 7. Anemia. 8. Thrombocytosis. 9. Tracheostomy and gastrostomy tube. 10. Chronic respiratory failure. PLAN supportive care antibiotics iv hydration as is follow up calcium level ionized calcium high recheck labs ID evaluation noted renal noted follow up cultures stabilize prognosis poor impression, plan, and exam edited and reviewed in detail care discussed with RN Subjective ROS Limited/Unobtainable: Yes Allergies: Coded Allergies: No Known Allergies (Unverified , 11/27/16) Subjective in MORRIS on ventilator Objective Last 24 Hour Vital Signs Date Time Temp Pulse Resp B/P Pulse Ox O2 Delivery O2 Flow Rate FiO2 11/30/16 08:44 83 17 50 11/30/16 08:00 98.4 91 17 135/67 100 Mechanical Ventilator 50 11/30/16 08:00 87 11/30/16 07:55 50 11/30/16 07:27 82 18 50 11/30/16 05:34 75 17 50 11/30/16 04:04 79 11/30/16 04:00 97.5 85 18 132/61 97 Mechanical Ventilator 50 11/30/16 03:24 66 14 50 11/30/16 01:43 95 16 50 11/30/16 00:00 66 11/30/16 00:00 50 11/30/16 00:00 97.5 88 16 122/55 99 Mechanical Ventilator 50 11/29/16 22:33 89 17 50 11/29/16 22:29 92 14 50 11/29/16 22:15 97.3 11/29/16 20:00 50 11/29/16 20:00 97.3 91 18 121/58 97 Mechanical Ventilator 50 11/29/16 20:00 89 11/29/16 19:27 89 14 50 11/29/16 16:43 98 14 50 11/29/16 16:00 50 11/29/16 16:00 97.8 102 18 98/54 100 Mechanical Ventilator 50 11/29/16 16:00 100 11/29/16 14:46 99 14 50 11/29/16 12:45 107 16 50 11/29/16 12:00 87 11/29/16 12:00 97.9 85 14 117/59 100 Mechanical Ventilator 50 11/29/16 11:30 116 16 50 Intake and Output 11/29/16 11/30/16 19:00 07:00 Intake Total 2197.5 ml 2582.500 ml Output Total 200 ml 1050 ml Balance 1997.5 ml 1532.500 ml Intake Free Water 200 ml 100 ml IV Total 1567.5 ml 1912.500 ml Tube Feeding 400 ml 540 ml Other 30 ml 30 ml Output Urine Total 200 ml 1050 ml # Bowel Movements 2 Objective GENERAL: An ill-appearing male. reduced LOC HEENT: Negative. Pupils reactive. NECK: Supple. Trachea is midline. Carotids 2+. on vent LUNGS: Coarse breath sounds. Moderate air entry. without rhonchi CARDIAC: S1 and S2. Overall, regular rate rhythm without murmurs, rubs, or gallops. ABDOMEN: Soft and nontender. G-tube in place. no HSM EXTREMITIES: No cyanosis and no clubbing. No significant edema. NEUROLOGIC: Poorly responsive and withdrawn. Microbiology Date/Time Source Procedure Growth Status 11/27/16 21:23 Blood Blood Culture - Preliminary NO GROWTH AFTER 48 HOURS Resulted 11/27/16 21:13 Blood Blood Culture - Preliminary NO GROWTH AFTER 48 HOURS Resulted 11/29/16 16:00 Sputum Gram Stain - Final Resulted 11/29/16 16:00 Sputum Sputum Culture - Preliminary NO GROWTH Resulted 11/27/16 22:07 Nasal Nares MRSA Culture - Final NO METHICILLIN RESISTANT STAPH AUREUS... Complete 11/27/16 21:58 Urine,Clean Catch Urine Culture - Final NO GROWTH AFTER 48 HOURS Complete 11/27/16 22:07 Rectum VRE Culture - Final Enterococcus Faecalis - Vre Complete Laboratory Tests 11/29/16 19:55: Vancomycin Level Trough 13.7H Current Medications Medications (Trade) Dose Ordered Sig/Judith Route PRN Reason Start Time Stop Time Status Last Admin Dose Admin Acetaminophen (Tylenol) 650 mg Q4H PRN GT Mild Pain/Temp > 100.5 11/28/16 17:30 12/28/16 17:29 11/29/16 21:45 Alprazolam (Xanax) 0.25 mg Q8H PRN GT ANXIETY 11/28/16 22:00 12/05/16 21:59 11/30/16 10:51 Epoetin Azael (Procrit (for non ESRD use)) 10,000 units MON-WED-TUE SUBQ 11/29/16 21:00 12/29/16 20:59 11/29/16 21:04 Ferrous Sulfate (Feosol) 300 mg DAILY NG 11/29/16 09:00 12/29/16 08:59 11/30/16 08:14 Heparin Sodium (Porcine) (Heparin 5000 units/ml) 5,000 units Q12HR SUBQ 11/28/16 21:00 12/28/16 20:59 11/30/16 08:16 Hydralazine HCl (Apresoline) 5 mg Q6H PRN GT SBP>170 11/28/16 16:00 12/28/16 15:59 Magnesium Hydroxide (Mom) 30 ml DAILY GT 11/29/16 09:00 12/29/16 08:59 Pantoprazole (Protonix) 40 mg DAILY IVP 11/29/16 09:00 12/29/16 08:59 11/30/16 08:15 Piperacillin Sod/ Tazobactam Sod 3.375 gm/Dextrose 110 ml @ 27.5 mls/hr Q8HR IVPB 11/28/16 22:00 12/05/16 21:59 11/30/16 05:39 Sodium Chloride 1,000 ml @ 125 mls/hr Q8H IV 11/28/16 16:00 12/28/16 15:59 11/30/16 08:14 Vancomycin HCl (Vanco rx to dose) 1 ea DAILY PRN MISC Per rx protocol 11/28/16 09:00 12/28/16 08:59 Vancomycin HCl/ Dextrose (Vancomycin/D5W) 275 ml @ 183.708 mls/hr Q24H IVPB 11/28/16 20:00 12/03/16 19:59 11/29/16 20:59 RIZWAN SANDERS Nov 30, 2016 10:56
--- NOTE | 2016-11-30 10:59 | Infectious Diseases Prog Note ---
Assessment/Plan Assessment/Plan antibiotics : vancomycin iv, zosyn A 1. pneumonia 2. pleural effusions 3. respiratory failure 4. ? endocarditis 5. leucocytosis improving P 1. continue vancomycin iv, zosyn 2. will follow up cultures Subjective ROS Limited/Unobtainable: Yes Allergies: Coded Allergies: No Known Allergies (Unverified , 11/27/16) Objective Vital Signs Last 24 Hour Vital Signs Date Time Temp Pulse Resp B/P Pulse Ox O2 Delivery O2 Flow Rate FiO2 11/30/16 08:44 83 17 50 11/30/16 08:00 98.4 91 17 135/67 100 Mechanical Ventilator 50 11/30/16 08:00 87 11/30/16 07:55 50 11/30/16 07:27 82 18 50 11/30/16 05:34 75 17 50 11/30/16 04:04 79 11/30/16 04:00 97.5 85 18 132/61 97 Mechanical Ventilator 50 11/30/16 03:24 66 14 50 11/30/16 01:43 95 16 50 11/30/16 00:00 66 11/30/16 00:00 50 11/30/16 00:00 97.5 88 16 122/55 99 Mechanical Ventilator 50 11/29/16 22:33 89 17 50 11/29/16 22:29 92 14 50 11/29/16 22:15 97.3 11/29/16 20:00 50 11/29/16 20:00 97.3 91 18 121/58 97 Mechanical Ventilator 50 11/29/16 20:00 89 11/29/16 19:27 89 14 50 11/29/16 16:43 98 14 50 11/29/16 16:00 50 11/29/16 16:00 97.8 102 18 98/54 100 Mechanical Ventilator 50 11/29/16 16:00 100 11/29/16 14:46 99 14 50 11/29/16 12:45 107 16 50 11/29/16 12:00 87 11/29/16 12:00 97.9 85 14 117/59 100 Mechanical Ventilator 50 11/29/16 11:30 116 16 50 Height (Feet): 5 Height (Inches): 9.00 Weight (Pounds): 145 HEENT: status post trach Respiratory/Chest: lungs clear Cardiovascular: normal rate, regular rhythm, no gallop/murmur Abdomen: soft, non tender, other - GT Extremities: no edema, other - right groin catheter Microbiology Date/Time Source Procedure Growth Status 11/27/16 21:23 Blood Blood Culture - Preliminary NO GROWTH AFTER 48 HOURS Resulted 11/27/16 21:13 Blood Blood Culture - Preliminary NO GROWTH AFTER 48 HOURS Resulted 11/29/16 16:00 Sputum Gram Stain - Final Resulted 11/29/16 16:00 Sputum Sputum Culture - Preliminary NO GROWTH Resulted 11/27/16 22:07 Nasal Nares MRSA Culture - Final NO METHICILLIN RESISTANT STAPH AUREUS... Complete 11/27/16 21:58 Urine,Clean Catch Urine Culture - Final NO GROWTH AFTER 48 HOURS Complete 11/27/16 22:07 Rectum VRE Culture - Final Enterococcus Faecalis - Vre Complete Laboratory Tests Test 11/29/16 19:55 Vancomycin Level Trough 13.7 ug/mL (5.0-12.0) H JORDAN NUNEZ Nov 30, 2016 10:59
[2016-11-30 11:12] LABS: CALCIUM 12.3 mg/dL (8.6-10.2); PTH INTACT <6 pg/mL (15-65)
--- NOTE | 2016-11-30 14:22 | Nephrology Progress Note ---
Assessment/Plan Plan Hypercalcemia iof Malignancy with AMS. Use Aredia - done several days ago. F/u Labs. Subjective Subjective Very Confused Objective Objective Last 24 Hour Vital Signs Date Time Temp Pulse Resp B/P Pulse Ox O2 Delivery O2 Flow Rate FiO2 11/30/16 12:49 83 17 50 11/30/16 12:00 98.1 93 17 134/60 100 Mechanical Ventilator 50 11/30/16 12:00 80 11/30/16 11:53 50 11/30/16 10:47 85 17 50 11/30/16 08:44 83 17 50 11/30/16 08:00 98.4 91 17 135/67 100 Mechanical Ventilator 50 11/30/16 08:00 87 11/30/16 07:55 50 11/30/16 07:27 82 18 50 11/30/16 05:34 75 17 50 11/30/16 04:04 79 11/30/16 04:00 97.5 85 18 132/61 97 Mechanical Ventilator 50 11/30/16 03:24 66 14 50 11/30/16 01:43 95 16 50 11/30/16 00:00 66 11/30/16 00:00 50 11/30/16 00:00 97.5 88 16 122/55 99 Mechanical Ventilator 50 11/29/16 22:33 89 17 50 11/29/16 22:29 92 14 50 11/29/16 22:15 97.3 11/29/16 20:00 50 11/29/16 20:00 97.3 91 18 121/58 97 Mechanical Ventilator 50 11/29/16 20:00 89 11/29/16 19:27 89 14 50 11/29/16 16:43 98 14 50 11/29/16 16:00 50 11/29/16 16:00 97.8 102 18 98/54 100 Mechanical Ventilator 50 11/29/16 16:00 100 11/29/16 14:46 99 14 50 Intake and Output 11/29/16 11/30/16 19:00 07:00 Intake Total 2197.5 ml 2582.500 ml Output Total 200 ml 1050 ml Balance 1997.5 ml 1532.500 ml Intake Free Water 200 ml 100 ml IV Total 1567.5 ml 1912.500 ml Tube Feeding 400 ml 540 ml Other 30 ml 30 ml Output Urine Total 200 ml 1050 ml # Bowel Movements 2 Laboratory Tests 2/20/17 19:55: Vancomycin Level Trough 13.7H Height (Feet): 5 Height (Inches): 9.00 Weight (Pounds): 145 Objective Cv Tach Lungs B Oleg Huddleston SNT. BS + E No CCE GAGANDEEP PAEZ Nov 30, 2016 14:22
[2016-11-30] MEDS: Vancomycin 1 GM in D5W 275 ML IVPB SCH (20:04)
[2016-12-01] VITALS (10 sets, daily range): BP systolic 125–153; BP diastolic 54–79
[2016-12-01] MEDS: Piperacillin/Tazobactam 3.375 GM in D5W 110 ML IVPB SCH ×3 (05:23→22:03)
[2016-12-01 05:42] LABS: MEAN CORPUSCULAR HEMOGLOBIN 26.1 PG (27.0-31.0); MEAN CORPUSCULAR HGB CONC 30.5 G/DL (32.0-36.0); MEAN CORPUSCULAR VOLUME 86 FL (80-99); MEAN PLATELET VOLUME 6.8 FL (6.5-10.1); PLATELET COUNT 458 K/UL (150-450); RED BLOOD COUNT 2.79 M/UL (4.70-6.10); RED CELL DISTRIBUTION WIDTH 18.7 % (11.6-14.8); WHITE BLOOD COUNT 13.5 K/UL (4.8-10.8)
[2016-12-01 06:04] LABS: ANION GAP 11 (5-15); CALCIUM 10.5 mg/dL (8.6-10.2); CARBON DIOXIDE 24 mEQ/L (20-30); CHLORIDE 115 mEQ/L (98-107); CREATININE 1.2 mg/dL (0.7-1.2); HEMOLYSIS 0; POTASSIUM 3.4 mEQ/L (3.4-4.9); SODIUM 150 mEQ/L (135-145)
--- NOTE | 2016-12-01 08:59 | Pulmonology Progress Note ---
Assessment/Plan Assessment/Plan IMPRESSION: 1. Sepsis. 2. Profound leukocytosis. 3. Protein-calorie malnutrition. 4. 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 5. Acute on chronic renal failure. 6. Metabolic alkalosis, possibly contraction in nature. 7. Anemia. 8. Thrombocytosis. 9. Tracheostomy and gastrostomy tube. 10. Chronic respiratory failure. PLAN supportive care antibiotics iv hydration to hypotonic saline follow up calcium level better recheck labs in am ID evaluation noted renal noted follow up cultures stabilize prognosis poor hope to dc in am impression, plan, and exam edited and reviewed in detail care discussed with RN Subjective Allergies: Coded Allergies: No Known Allergies (Unverified , 11/27/16) Subjective in [place] on ventilator poor LOC Objective Last 24 Hour Vital Signs Date Time Temp Pulse Resp B/P Pulse Ox O2 Delivery O2 Flow Rate FiO2 12/01/16 05:25 90 19 50 12/01/16 04:00 88 12/01/16 04:00 98.2 101 20 130/60 100 Mechanical Ventilator 50 12/01/16 04:00 50 12/01/16 02:58 85 16 50 12/01/16 01:06 89 17 50 12/01/16 00:00 50 12/01/16 00:00 85 11/30/16 23:46 98.1 89 20 109/59 100 Mechanical Ventilator 50 11/30/16 23:06 89 18 50 11/30/16 21:13 83 17 50 11/30/16 20:00 98.0 90 18 135/61 99 Mechanical Ventilator 50 11/30/16 20:00 83 11/30/16 20:00 50 11/30/16 19:19 81 15 50 11/30/16 16:51 85 14 50 11/30/16 16:00 98.1 97 18 141/52 99 Mechanical Ventilator 50 11/30/16 16:00 88 11/30/16 16:00 50 11/30/16 14:55 86 14 50 11/30/16 12:49 83 17 50 11/30/16 12:00 98.1 93 17 134/60 100 Mechanical Ventilator 50 11/30/16 12:00 80 11/30/16 11:53 50 11/30/16 10:47 85 17 50 Intake and Output 11/30/16 12/01/16 19:00 07:00 Intake Total 2347.5 ml 2817.416 ml Output Total 475 ml 1700 ml Balance 1872.5 ml 1117.416 ml Intake Free Water 100 ml 200 ml IV Total 1507.5 ml 1897.416 ml Tube Feeding 710 ml 720 ml Other 30 ml Output Urine Total 475 ml 1700 ml # Bowel Movements 1 1 Objective GENERAL: An ill-appearing male. reduced LOC HEENT: Negative. Pupils reactive. NECK: Supple. Trachea is midline. Carotids 2+. on vent LUNGS: Coarse breath sounds. Moderate air entry. without rhonchi CARDIAC: S1 and S2. Overall, regular rate rhythm without murmurs, rubs, or gallops. ABDOMEN: Soft and nontender. G-tube in place. no HSM EXTREMITIES: No cyanosis and no clubbing. No significant edema. NEUROLOGIC: Poorly responsive and withdrawn. reviewed and edited Microbiology Date/Time Source Procedure Growth Status 11/29/16 16:00 Sputum Gram Stain - Final Resulted 11/29/16 16:00 Sputum Sputum Culture - Preliminary NO GROWTH Resulted Laboratory Tests 12/01/16 03:40: Sodium Level 150H, Potassium Level 3.4, Chloride Level 115H, Carbon Dioxide Level 24, Anion Gap 11, Blood Urea Nitrogen 28H, Creatinine 1.2, Estimat Glomerular Filtration Rate , Glucose Level 129H, Calcium Level 10.5H 12/01/16 04:00: White Blood Count 13.5H, Red Blood Count 2.79L, Hemoglobin 7.3L, Hematocrit 23.9L, Mean Corpuscular Volume 86, Mean Corpuscular Hemoglobin 26.1L, Mean Corpuscular Hemoglobin Concent 30.5L, Red Cell Distribution Width 18.7H, Platelet Count 458H, Mean Platelet Volume 6.8, Neutrophils (%) (Auto) , Lymphocytes (%) (Auto) , Monocytes (%) (Auto) , Eosinophils (%) (Auto) , Basophils (%) (Auto) , Neutrophils % (Manual) [Pending], Lymphocytes % (Manual) [Pending], Platelet Estimate [Pending], Platelet Morphology [Pending] Current Medications Medications (Trade) Dose Ordered Sig/Judith Route PRN Reason Start Time Stop Time Status Last Admin Dose Admin Acetaminophen (Tylenol) 650 mg Q4H PRN GT Mild Pain/Temp > 100.5 11/28/16 17:30 12/28/16 17:29 11/29/16 21:45 Alprazolam (Xanax) 0.25 mg Q8H PRN GT ANXIETY 11/28/16 22:00 12/05/16 21:59 11/30/16 10:51 Epoetin Azael (Procrit (for non ESRD use)) 10,000 units MON-WED-TUE SUBQ 11/29/16 21:00 12/29/16 20:59 11/29/16 21:04 Ferrous Sulfate (Feosol) 300 mg DAILY NG 11/29/16 09:00 12/29/16 08:59 11/30/16 08:14 Heparin Sodium (Porcine) (Heparin 5000 units/ml) 5,000 units Q12HR SUBQ 11/28/16 21:00 12/28/16 20:59 11/30/16 20:05 Hydralazine HCl (Apresoline) 5 mg Q6H PRN GT SBP>170 11/28/16 16:00 12/28/16 15:59 Magnesium Hydroxide (Mom) 30 ml DAILY GT 11/29/16 09:00 12/29/16 08:59 Pantoprazole (Protonix) 40 mg DAILY IVP 11/29/16 09:00 12/29/16 08:59 11/30/16 08:15 Piperacillin Sod/ Tazobactam Sod 3.375 gm/Dextrose 110 ml @ 27.5 mls/hr Q8HR IVPB 11/28/16 22:00 12/05/16 21:59 12/01/16 05:23 Sodium Chloride 1,000 ml @ 125 mls/hr Q8H IV 11/28/16 16:00 12/28/16 15:59 12/01/16 08:53 Vancomycin HCl (Vanco rx to dose) 1 ea DAILY PRN MISC Per rx protocol 11/28/16 09:00 12/28/16 08:59 Vancomycin HCl/ Dextrose (Vancomycin/D5W) 275 ml @ 183.708 mls/hr Q24H IVPB 11/28/16 20:00 12/03/16 19:59 11/30/16 20:04 RIZWAN SANDERS Dec 01, 2016 08:59
[2016-12-01] MEDS: Heparin 5000 units/ml inj SUBQ SCH ×2 (09:00→20:14)
[2016-12-01] MEDS: Milk of Magnesia 30ml Ud GT SCH (09:00)
[2016-12-01] MEDS: Pantoprazole Inj IVP SCH (09:30)
[2016-12-01] MEDS: Ferrous Sulfate 300 MG/5 ML UDC NG SCH (09:30)
[2016-12-01 10:58] LABS: BAND NEUTROPHILS % (MANUAL) 1 % (0-8); BASOPHILS % (MANUAL) 0 % (0-2); EOSINOPHILS % (MANUAL) 4 % (0-3); LYMPHOCYTES % (MANUAL) 9 % (20-45); NEUTROPHILS % (MANUAL) 83 % (45-75); PLATELET ESTIMATE INCREASED; PLATELET MORPHOLOGY NORMAL; TOTAL CELLS COUNTED 100
[2016-12-01 10:59] LABS: ANISOCYTOSIS 2+; HYPOCHROMASIA 2+
--- NOTE | 2016-12-01 14:02 | Infectious Diseases Prog Note ---
Assessment/Plan Assessment/Plan A 1. pneumonia 2. pleural effusions 3. respiratory failure 4. ? endocarditis 5. leucocytosis improving P 1. continue vancomycin iv, Zosyn 2. will follow up cultures Subjective ROS Limited/Unobtainable: Yes Allergies: Coded Allergies: No Known Allergies (Unverified , 11/27/16) Objective Vital Signs Last 24 Hour Vital Signs Date Time Temp Pulse Resp B/P Pulse Ox O2 Delivery O2 Flow Rate FiO2 12/01/16 13:06 69 15 50 12/01/16 11:09 89 16 50 12/01/16 09:21 82 16 50 12/01/16 08:22 83 14 50 12/01/16 08:00 99 12/01/16 08:00 97.9 97 21 146/77 100 Mechanical Ventilator 50 12/01/16 08:00 50 12/01/16 05:25 90 19 50 12/01/16 04:00 88 12/01/16 04:00 98.2 101 20 130/60 100 Mechanical Ventilator 50 12/01/16 04:00 50 12/01/16 02:58 85 16 50 12/01/16 01:06 89 17 50 12/01/16 00:00 50 12/01/16 00:00 85 11/30/16 23:46 98.1 89 20 109/59 100 Mechanical Ventilator 50 11/30/16 23:06 89 18 50 11/30/16 21:13 83 17 50 11/30/16 20:00 98.0 90 18 135/61 99 Mechanical Ventilator 50 11/30/16 20:00 83 11/30/16 20:00 50 11/30/16 19:19 81 15 50 11/30/16 16:51 85 14 50 11/30/16 16:00 98.1 97 18 141/52 99 Mechanical Ventilator 50 11/30/16 16:00 88 11/30/16 16:00 50 11/30/16 14:55 86 14 50 Height (Feet): 5 Height (Inches): 9.00 Weight (Pounds): 145 General Appearance: no acute distress HEENT: status post trach Respiratory/Chest: rhonchi - bilaterally, other - on ventilator Cardiovascular: normal rate, other - right femoral line Abdomen: soft, non tender, other - GT feeding Extremities: no edema Neurologic/Psychiatric: alert, responsive Musculoskeletal: atrophy Microbiology Date/Time Source Procedure Growth Status 11/29/16 16:00 Sputum Gram Stain - Final Resulted 11/29/16 16:00 Sputum Sputum Culture - Preliminary NO GROWTH Resulted Laboratory Tests Test 12/01/16 03:40 12/01/16 04:00 Sodium Level 150 mEQ/L (135-145) H Potassium Level 3.4 mEQ/L (3.4-4.9) Chloride Level 115 mEQ/L (98-107) H Carbon Dioxide Level 24 mEQ/L (20-30) Anion Gap 11 (5-15) Blood Urea Nitrogen 28 mg/dL (7-23) H Creatinine 1.2 mg/dL (0.7-1.2) Estimat Glomerular Filtration Rate mL/min (>60) Glucose Level 129 mg/dL (74-106) H Calcium Level 10.5 mg/dL (8.6-10.2) H White Blood Count 13.5 K/UL (4.8-10.8) H Red Blood Count 2.79 M/UL (4.70-6.10) L Hemoglobin 7.3 G/DL (14.2-18.0) L Hematocrit 23.9 % (42.0-52.0) L Mean Corpuscular Volume 86 FL (80-99) Mean Corpuscular Hemoglobin 26.1 PG (27.0-31.0) L Mean Corpuscular Hemoglobin Concent 30.5 G/DL (32.0-36.0) L Red Cell Distribution Width 18.7 % (11.6-14.8) H Platelet Count 458 K/UL (150-450) H Mean Platelet Volume 6.8 FL (6.5-10.1) Neutrophils (%) (Auto) % (45.0-75.0) Lymphocytes (%) (Auto) % (20.0-45.0) Monocytes (%) (Auto) % (1.0-10.0) Eosinophils (%) (Auto) % (0.0-3.0) Basophils (%) (Auto) % (0.0-2.0) Differential Total Cells Counted 100 Neutrophils % (Manual) 83 % (45-75) H Lymphocytes % (Manual) 9 % (20-45) L Monocytes % (Manual) 3 % (1-10) Eosinophils % (Manual) 4 % (0-3) H Basophils % (Manual) 0 % (0-2) Band Neutrophils 1 % (0-8) Platelet Estimate Increased H Platelet Morphology Normal Hypochromasia 2+ Anisocytosis 2+ Current Medications Medications (Trade) Dose Ordered Sig/Judith Route PRN Reason Start Time Stop Time Status Last Admin Dose Admin Acetaminophen (Tylenol) 650 mg Q4H PRN GT Mild Pain/Temp > 100.5 11/28/16 17:30 12/28/16 17:29 11/29/16 21:45 Alprazolam (Xanax) 0.25 mg Q8H PRN GT ANXIETY 11/28/16 22:00 12/05/16 21:59 11/30/16 10:51 Epoetin Azael (Procrit (for non ESRD use)) 10,000 units TUE-TUE-TUE SUBQ 11/29/16 21:00 12/29/16 20:59 11/29/16 21:04 Ferrous Sulfate (Feosol) 300 mg DAILY NG 11/29/16 09:00 12/29/16 08:59 12/01/16 09:30 Heparin Sodium (Porcine) (Heparin 5000 units/ml) 5,000 units Q12HR SUBQ 11/28/16 21:00 12/28/16 20:59 11/30/16 20:05 Hydralazine HCl (Apresoline) 5 mg Q6H PRN GT SBP>170 11/28/16 16:00 12/28/16 15:59 Magnesium Hydroxide (Mom) 30 ml DAILY GT 11/29/16 09:00 12/29/16 08:59 12/01/16 09:00 Pantoprazole (Protonix) 40 mg DAILY IVP 11/29/16 09:00 12/29/16 08:59 12/01/16 09:30 Piperacillin Sod/ Tazobactam Sod 3.375 gm/Dextrose 110 ml @ 27.5 mls/hr Q8HR IVPB 11/28/16 22:00 12/05/16 21:59 12/01/16 05:23 Sodium Chloride (0.45% NS 1000ml) 1,000 ml @ 100 mls/hr Q10H IV 12/01/16 09:30 12/31/16 09:29 12/01/16 09:51 Vancomycin HCl 1 ea 1 ea DAILY PRN MISC Per rx protocol 11/28/16 09:00 12/28/16 08:59 Vancomycin HCl/ Dextrose (Vancomycin/D5W) 275 ml @ 183.708 mls/hr Q24H IVPB 11/28/16 20:00 12/03/16 19:59 11/30/16 20:04 MELISSA BULLARD Dec 01, 2016 14:02
--- NOTE | 2016-12-01 15:11 | Nephrology Progress Note ---
Assessment/Plan Plan Hypercalcemia of Malignancy - calcium down from 13 to 10.5 and patient's mentation improving simultaneously post Aredia - done several days ago. Hypernatremia - IVF changed to 1/2 NS. Subjective Subjective Less Confused Objective Objective Last 24 Hour Vital Signs Date Time Temp Pulse Resp B/P Pulse Ox O2 Delivery O2 Flow Rate FiO2 12/01/16 13:06 69 15 50 12/01/16 12:00 97.3 79 22 153/56 100 Mechanical Ventilator 50 12/01/16 12:00 50 12/01/16 12:00 99 12/01/16 11:09 89 16 50 12/01/16 09:21 82 16 50 12/01/16 08:22 83 14 50 12/01/16 08:00 99 12/01/16 08:00 97.9 97 21 146/77 100 Mechanical Ventilator 50 12/01/16 08:00 50 12/01/16 05:25 90 19 50 12/01/16 04:00 88 12/01/16 04:00 98.2 101 20 130/60 100 Mechanical Ventilator 50 12/01/16 04:00 50 12/01/16 02:58 85 16 50 12/01/16 01:06 89 17 50 12/01/16 00:00 50 12/01/16 00:00 85 11/30/16 23:46 98.1 89 20 109/59 100 Mechanical Ventilator 50 11/30/16 23:06 89 18 50 11/30/16 21:13 83 17 50 11/30/16 20:00 98.0 90 18 135/61 99 Mechanical Ventilator 50 11/30/16 20:00 83 11/30/16 20:00 50 11/30/16 19:19 81 15 50 11/30/16 16:51 85 14 50 11/30/16 16:00 98.1 97 18 141/52 99 Mechanical Ventilator 50 11/30/16 16:00 88 11/30/16 16:00 50 Intake and Output 11/30/16 12/01/16 19:00 07:00 Intake Total 2347.5 ml 2817.416 ml Output Total 475 ml 1700 ml Balance 1872.5 ml 1117.416 ml Intake Free Water 100 ml 200 ml IV Total 1507.5 ml 1897.416 ml Tube Feeding 710 ml 720 ml Other 30 ml Output Urine Total 475 ml 1700 ml # Bowel Movements 1 1 Laboratory Tests 12/01/16 03:40: Sodium Level 150H, Potassium Level 3.4, Chloride Level 115H, Carbon Dioxide Level 24, Anion Gap 11, Blood Urea Nitrogen 28H, Creatinine 1.2, Estimat Glomerular Filtration Rate , Glucose Level 129H, Calcium Level 10.5H 12/01/16 04:00: White Blood Count 13.5H, Red Blood Count 2.79L, Hemoglobin 7.3L, Hematocrit 23.9L, Mean Corpuscular Volume 86, Mean Corpuscular Hemoglobin 26.1L, Mean Corpuscular Hemoglobin Concent 30.5L, Red Cell Distribution Width 18.7H, Platelet Count 458H, Mean Platelet Volume 6.8, Neutrophils (%) (Auto) , Lymphocytes (%) (Auto) , Monocytes (%) (Auto) , Eosinophils (%) (Auto) , Basophils (%) (Auto) , Differential Total Cells Counted 100, Neutrophils % ( Manual) 83H, Lymphocytes % (Manual) 9L, Monocytes % (Manual) 3, Eosinophils % ( Manual) 4H, Basophils % (Manual) 0, Band Neutrophils 1, Platelet Estimate IncreasedH, Platelet Morphology Normal, Hypochromasia 2+, Anisocytosis 2+ Height (Feet): 5 Height (Inches): 9.00 Weight (Pounds): 145 Objective Cv Tach Lungs B Ronchi Abd SNT. BS + E No CCE GAGANDEEP PAEZ Dec 01, 2016 15:11
[2016-12-01] MEDS: Vancomycin 1 GM in D5W 275 ML IVPB SCH (20:04)
[2016-12-01] MEDS: Epogen (for non ESRD use) SUBQ SCH (20:48)
[2016-12-02] VITALS: BP 156/74
[2016-12-02 04:00] VITALS: BP 142/68
[2016-12-02 05:28] LABS: MEAN CORPUSCULAR HEMOGLOBIN 27.3 PG (27.0-31.0); MEAN CORPUSCULAR HGB CONC 31.4 G/DL (32.0-36.0); MEAN CORPUSCULAR VOLUME 87 FL (80-99); MEAN PLATELET VOLUME 6.4 FL (6.5-10.1); PLATELET COUNT 427 K/UL (150-450); RED BLOOD COUNT 3.77 M/UL (4.70-6.10); RED CELL DISTRIBUTION WIDTH 17.1 % (11.6-14.8); WHITE BLOOD COUNT 17.5 K/UL (4.8-10.8)
[2016-12-02 05:59] LABS: ANION GAP 13 (5-15); CALCIUM 10.1 mg/dL (8.6-10.2); CARBON DIOXIDE 22 mEQ/L (20-30); CHLORIDE 111 mEQ/L (98-107); CREATININE 1.2 mg/dL (0.7-1.2); HEMOLYSIS 1; POTASSIUM 3.4 mEQ/L (3.4-4.9); SODIUM 146 mEQ/L (135-145)
[2016-12-02] MEDS: Piperacillin/Tazobactam 3.375 GM in D5W 110 ML IVPB SCH ×3 (06:09→21:18)
[2016-12-02 06:57] LABS: BAND NEUTROPHILS % (MANUAL) 0 % (0-8); BASOPHILS % (MANUAL) 0 % (0-2); EOSINOPHILS % (MANUAL) 2 % (0-3); HYPOCHROMASIA 1+; LYMPHOCYTES % (MANUAL) 8 % (20-45); NEUTROPHILS % (MANUAL) 88 % (45-75); PLATELET ESTIMATE ADEQUATE; TOTAL CELLS COUNTED 100
[2016-12-02 06:58] LABS: ANISOCYTOSIS 1+; PLATELET MORPHOLOGY NORMAL
--- NOTE | 2016-12-02 07:17 | Pulmonology Progress Note ---
Assessment/Plan Assessment/Plan IMPRESSION: 1. Sepsis. 2. Profound leukocytosis. 3. Protein-calorie malnutrition. 4. 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 5. Acute on chronic renal failure. 6. Metabolic alkalosis, possibly contraction in nature. 7. Anemia. 8. Thrombocytosis. 9. Tracheostomy and gastrostomy tube. 10. Chronic respiratory failure. PLAN supportive care antibiotics noted iv hydration to hypotonic saline; may dc soon labs reviwed ID evaluation noted renal noted follow up cultures and adjust antibiotics stabilize prognosis poor hope to dc soon; not ready yet impression, plan, and exam edited and reviewed in detail care discussed with RN Subjective ROS Limited/Unobtainable: Yes Allergies: Coded Allergies: No Known Allergies (Unverified , 11/27/16) Subjective in [place] on ventilator poor LOC tachycardia leukocytosis Objective Last 24 Hour Vital Signs Date Time Temp Pulse Resp B/P Pulse Ox O2 Delivery O2 Flow Rate FiO2 12/02/16 07:04 101 19 30 12/02/16 05:08 113 21 30 12/02/16 04:00 99.1 116 17 142/68 97 Mechanical Ventilator 30 12/02/16 04:00 50 12/02/16 03:45 119 12/02/16 03:28 117 19 30 12/02/16 01:22 121 24 30 12/02/16 00:00 98.8 116 24 156/74 97 12/02/16 00:00 50 12/01/16 23:50 127 12/01/16 23:02 102 22 30 12/01/16 22:30 98.6 86 22 139/72 100 12/01/16 21:11 92 22 30 12/01/16 20:00 50 12/01/16 20:00 83 12/01/16 19:30 96 27 30 12/01/16 19:15 98.7 82 21 138/79 100 12/01/16 19:00 98.6 84 22 138/72 100 12/01/16 18:40 98.7 88 22 148/74 100 12/01/16 17:21 84 19 50 12/01/16 16:40 98.6 78 21 125/60 100 12/01/16 16:25 98.4 80 21 138/62 100 12/01/16 16:00 98.4 80 21 138/54 100 12/01/16 16:00 50 12/01/16 16:00 71 12/01/16 15:14 81 22 50 12/01/16 13:06 69 15 50 12/01/16 12:00 97.3 79 22 153/56 100 Mechanical Ventilator 50 12/01/16 12:00 50 12/01/16 12:00 99 12/01/16 11:09 89 16 50 12/01/16 09:21 82 16 50 12/01/16 08:22 83 14 50 12/01/16 08:00 99 12/01/16 08:00 97.9 97 21 146/77 100 Mechanical Ventilator 50 12/01/16 08:00 50 Intake and Output 12/01/16 12/02/16 19:00 07:00 Intake Total 1955.0 ml 1693.708 ml Output Total 400 ml 1000 ml Balance 1555.0 ml 693.708 ml Intake Free Water 250 ml 100 ml IV Total 985.0 ml 993.708 ml Tube Feeding 720 ml 600 ml Output Urine Total 400 ml 1000 ml # Bowel Movements 1 Objective GENERAL: An ill-appearing male. reduced LOC HEENT: Negative. Pupils reactive. NECK: Supple. Trachea is midline. Carotids 2+. on vent LUNGS: Coarse breath sounds. Moderate air entry. without rhonchi CARDIAC: S1 and S2. Overall, tachycardic regular rhythm without murmurs, rubs, or gallops. ABDOMEN: Soft and nontender. G-tube in place. no HSM EXTREMITIES: No cyanosis and no clubbing. No significant edema. NEUROLOGIC: Poorly responsive and withdrawn. reviewed and edited Microbiology Date/Time Source Procedure Growth Status 11/29/16 16:00 Sputum Gram Stain - Final Resulted 11/29/16 16:00 Sputum Sputum Culture - Preliminary NO GROWTH Resulted Laboratory Tests 12/02/16 05:00: White Blood Count 17.5H, Red Blood Count 3.77L, Hemoglobin 10.3#L, Hematocrit 32.7#L, Mean Corpuscular Volume 87, Mean Corpuscular Hemoglobin 27.3, Mean Corpuscular Hemoglobin Concent 31.4L, Red Cell Distribution Width 17.1H, Platelet Count 427, Mean Platelet Volume 6.4L, Neutrophils (%) (Auto) , Lymphocytes (%) (Auto) , Monocytes (%) (Auto) , Eosinophils (%) (Auto) , Basophils (%) (Auto) , Differential Total Cells Counted 100, Neutrophils % ( Manual) 88H, Lymphocytes % (Manual) 8L, Monocytes % (Manual) 2, Eosinophils % ( Manual) 2, Basophils % (Manual) 0, Band Neutrophils 0, Platelet Estimate Adequate, Platelet Morphology Normal, Hypochromasia 1+, Anisocytosis 1+, Sodium Level 146H, Potassium Level 3.4, Chloride Level 111H, Carbon Dioxide Level 22, Anion Gap 13, Blood Urea Nitrogen 24H, Creatinine 1.2, Estimat Glomerular Filtration Rate , Glucose Level 103, Calcium Level 10.1 Current Medications Medications (Trade) Dose Ordered Sig/Judith Route PRN Reason Start Time Stop Time Status Last Admin Dose Admin Acetaminophen (Tylenol) 650 mg Q4H PRN GT Mild Pain/Temp > 100.5 11/28/16 17:30 12/28/16 17:29 11/29/16 21:45 Alprazolam (Xanax) 0.25 mg Q8H PRN GT ANXIETY 11/28/16 22:00 12/05/16 21:59 11/30/16 10:51 Epoetin Azael (Procrit (for non ESRD use)) 10,000 units MON-WED-FRI SUBQ 11/29/16 21:00 12/29/16 20:59 12/01/16 20:48 Ferrous Sulfate (Feosol) 300 mg DAILY NG 11/29/16 09:00 12/29/16 08:59 12/01/16 09:30 Heparin Sodium (Porcine) (Heparin 5000 units/ml) 5,000 units Q12HR SUBQ 11/28/16 21:00 12/28/16 20:59 11/30/16 20:05 Hydralazine HCl (Apresoline) 5 mg Q6H PRN GT SBP>170 11/28/16 16:00 12/28/16 15:59 Magnesium Hydroxide (Mom) 30 ml DAILY GT 11/29/16 09:00 12/29/16 08:59 12/01/16 09:00 Pantoprazole (Protonix) 40 mg DAILY IVP 11/29/16 09:00 12/29/16 08:59 12/01/16 09:30 Piperacillin Sod/ Tazobactam Sod 3.375 gm/Dextrose 110 ml @ 27.5 mls/hr Q8HR IVPB 11/28/16 22:00 12/05/16 21:59 12/02/16 06:09 Sodium Chloride (0.45% NS 1000ml) 1,000 ml @ 100 mls/hr Q10H IV 12/01/16 09:30 12/31/16 09:29 12/02/16 06:09 Vancomycin HCl 1 ea 1 ea DAILY PRN MISC Per rx protocol 11/28/16 09:00 12/28/16 08:59 Vancomycin HCl/ Dextrose (Vancomycin/D5W) 275 ml @ 183.708 mls/hr Q24H IVPB 11/28/16 20:00 12/03/16 19:59 12/01/16 20:04 RIZWAN SANDERS Dec 02, 2016 07:17
[2016-12-02 08:00] VITALS: BP 127/58
[2016-12-02] MEDS: Milk of Magnesia 30ml Ud GT SCH (09:00)
[2016-12-02] MEDS: Pantoprazole Inj IVP SCH (09:06)
[2016-12-02] MEDS: Ferrous Sulfate 300 MG/5 ML UDC NG SCH (09:06)
[2016-12-02] MEDS: Heparin 5000 units/ml inj SUBQ SCH ×2 (09:07→21:17)
[2016-12-02 09:16] LABS: OTHERS PATHOLOGIST COMMENT
--- NOTE | 2016-12-02 09:28 | Wound Nurse Progress Note ---
Wound RN Progress Note Wound Consult reassessment done to sacral, good progress noted, no further change noted, current treatment is effective. ALYSON CULVER Dec 02, 2016 09:28
--- NOTE | 2016-12-02 11:33 | Infectious Diseases Prog Note ---
Assessment/Plan Assessment/Plan A 1. pneumonia 2. pleural effusions 3. respiratory failure 4. ? endocarditis 5. leucocytosis worsening 6. VRE colonization P 1. continue vancomycin iv, Zosyn 2. will follow up cultures Subjective ROS Limited/Unobtainable: Yes Allergies: Coded Allergies: No Known Allergies (Unverified , 11/27/16) Objective Vital Signs Last 24 Hour Vital Signs Date Time Temp Pulse Resp B/P Pulse Ox O2 Delivery O2 Flow Rate FiO2 12/02/16 09:12 100 17 30 12/02/16 08:00 99 12/02/16 08:00 98.8 98 18 127/58 98 Mechanical Ventilator 30 12/02/16 08:00 50 12/02/16 07:04 101 19 30 12/02/16 05:08 113 21 30 12/02/16 04:00 99.1 116 17 142/68 97 Mechanical Ventilator 30 12/02/16 04:00 50 12/02/16 03:45 119 12/02/16 03:28 117 19 30 12/02/16 01:22 121 24 30 12/02/16 00:00 98.8 116 24 156/74 97 12/02/16 00:00 50 12/01/16 23:50 127 12/01/16 23:02 102 22 30 12/01/16 22:30 98.6 86 22 139/72 100 12/01/16 21:11 92 22 30 12/01/16 20:00 50 12/01/16 20:00 83 12/01/16 19:30 96 27 30 12/01/16 19:15 98.7 82 21 138/79 100 12/01/16 19:00 98.6 84 22 138/72 100 12/01/16 18:40 98.7 88 22 148/74 100 12/01/16 17:21 84 19 50 12/01/16 16:40 98.6 78 21 125/60 100 12/01/16 16:25 98.4 80 21 138/62 100 12/01/16 16:00 98.4 80 21 138/54 100 12/01/16 16:00 50 12/01/16 16:00 71 12/01/16 15:14 81 22 50 12/01/16 13:06 69 15 50 12/01/16 12:00 97.3 79 22 153/56 100 Mechanical Ventilator 50 12/01/16 12:00 50 12/01/16 12:00 99 Height (Feet): 5 Height (Inches): 9.00 Weight (Pounds): 145 General Appearance: no acute distress HEENT: status post trach Respiratory/Chest: lungs clear, other - on ventilator Cardiovascular: normal rate, other - R femoral line Extremities: no edema Neurologic/Psychiatric: alert, responsive Microbiology Date/Time Source Procedure Growth Status 11/29/16 16:00 Sputum Gram Stain - Final Resulted 11/29/16 16:00 Sputum Culture - Preliminary Escherichia Coli Gram Negative Bacillus 2 Resulted Laboratory Tests Test 12/02/16 05:00 White Blood Count 17.5 K/UL (4.8-10.8) H Red Blood Count 3.77 M/UL (4.70-6.10) L Hemoglobin 10.3 G/DL (14.2-18.0) #L Hematocrit 32.7 % (42.0-52.0) #L Mean Corpuscular Volume 87 FL (80-99) Mean Corpuscular Hemoglobin 27.3 PG (27.0-31.0) Mean Corpuscular Hemoglobin Concent 31.4 G/DL (32.0-36.0) L Red Cell Distribution Width 17.1 % (11.6-14.8) H Platelet Count 427 K/UL (150-450) Mean Platelet Volume 6.4 FL (6.5-10.1) L Neutrophils (%) (Auto) % (45.0-75.0) Lymphocytes (%) (Auto) % (20.0-45.0) Monocytes (%) (Auto) % (1.0-10.0) Eosinophils (%) (Auto) % (0.0-3.0) Basophils (%) (Auto) % (0.0-2.0) Differential Total Cells Counted 100 Neutrophils % (Manual) 88 % (45-75) H Lymphocytes % (Manual) 8 % (20-45) L Monocytes % (Manual) 2 % (1-10) Eosinophils % (Manual) 2 % (0-3) Basophils % (Manual) 0 % (0-2) Band Neutrophils 0 % (0-8) Platelet Estimate Adequate Platelet Morphology Normal Hypochromasia 1+ Anisocytosis 1+ Sodium Level 146 mEQ/L (135-145) H Potassium Level 3.4 mEQ/L (3.4-4.9) Chloride Level 111 mEQ/L (98-107) H Carbon Dioxide Level 22 mEQ/L (20-30) Anion Gap 13 (5-15) Blood Urea Nitrogen 24 mg/dL (7-23) H Creatinine 1.2 mg/dL (0.7-1.2) Estimat Glomerular Filtration Rate mL/min (>60) Glucose Level 103 mg/dL (74-106) Calcium Level 10.1 mg/dL (8.6-10.2) Current Medications Medications (Trade) Dose Ordered Sig/Judith Route PRN Reason Start Time Stop Time Status Last Admin Dose Admin Acetaminophen (Tylenol) 650 mg Q4H PRN GT Mild Pain/Temp > 100.5 11/28/16 17:30 12/28/16 17:29 11/29/16 21:45 Alprazolam (Xanax) 0.25 mg Q8H PRN GT ANXIETY 11/28/16 22:00 12/05/16 21:59 11/30/16 10:51 Epoetin Azael (Procrit (for non ESRD use)) 10,000 units MON-WED-TUE SUBQ 11/29/16 21:00 12/29/16 20:59 12/01/16 20:48 Ferrous Sulfate (Feosol) 300 mg DAILY NG 11/29/16 09:00 12/29/16 08:59 12/02/16 09:06 Heparin Sodium (Porcine) (Heparin 5000 units/ml) 5,000 units Q12HR SUBQ 11/28/16 21:00 12/28/16 20:59 12/02/16 09:07 Hydralazine HCl (Apresoline) 5 mg Q6H PRN GT SBP>170 11/28/16 16:00 12/28/16 15:59 Magnesium Hydroxide (Mom) 30 ml DAILY GT 11/29/16 09:00 12/29/16 08:59 12/01/16 09:00 Pantoprazole (Protonix) 40 mg DAILY IVP 11/29/16 09:00 12/29/16 08:59 12/02/16 09:06 Piperacillin Sod/ Tazobactam Sod 3.375 gm/Dextrose 110 ml @ 27.5 mls/hr Q8HR IVPB 11/28/16 22:00 12/05/16 21:59 12/02/16 06:09 Sodium Chloride (0.45% NS 1000ml) 1,000 ml @ 100 mls/hr Q10H IV 12/01/16 09:30 12/31/16 09:29 12/02/16 06:09 Vancomycin HCl 1 ea 1 ea DAILY PRN MISC Per rx protocol 11/28/16 09:00 12/28/16 08:59 Vancomycin HCl/ Dextrose (Vancomycin/D5W) 275 ml @ 183.708 mls/hr Q24H IVPB 11/28/16 20:00 12/03/16 19:59 12/01/16 20:04 MELISSA BULLARD Dec 02, 2016 11:33
[2016-12-02 12:00] VITALS: BP 146/68
[2016-12-02] MEDS: Acetaminophen 650mg/20.3ml GT PRN (13:12)
[2016-12-02 16:00] VITALS: BP 135/65
--- NOTE | 2016-12-02 17:56 | Nephrology Progress Note ---
Assessment/Plan Plan Hypercalcemia of Malignancy - calcium down from 13 to 10.5 and 10.1 today and patient's mentation improving simultaneously post Aredia - done several days ago. Hypernatremia - IVF changed to 1/2 NS. Subjective Subjective Less Confused Objective Objective Last 24 Hour Vital Signs Date Time Temp Pulse Resp B/P Pulse Ox O2 Delivery O2 Flow Rate FiO2 12/02/16 17:01 85 17 30 12/02/16 16:00 96.8 87 20 135/65 96 Trach Collar 30 12/02/16 16:00 50 12/02/16 16:00 81 12/02/16 14:57 83 16 30 12/02/16 13:40 97.9 12/02/16 12:45 98 17 30 12/02/16 12:36 50 12/02/16 12:00 104 12/02/16 12:00 97.9 104 21 146/68 98 Mechanical Ventilator 30 12/02/16 11:22 109 16 30 12/02/16 09:12 100 17 30 12/02/16 08:00 99 12/02/16 08:00 98.8 98 18 127/58 98 Mechanical Ventilator 30 12/02/16 08:00 50 12/02/16 07:04 101 19 30 12/02/16 05:08 113 21 30 12/02/16 04:00 99.1 116 17 142/68 97 Mechanical Ventilator 30 12/02/16 04:00 50 12/02/16 03:45 119 12/02/16 03:28 117 19 30 12/02/16 01:22 121 24 30 12/02/16 00:00 98.8 116 24 156/74 97 12/02/16 00:00 50 12/01/16 23:50 127 12/01/16 23:02 102 22 30 12/01/16 22:30 98.6 86 22 139/72 100 12/01/16 21:11 92 22 30 12/01/16 20:00 50 12/01/16 20:00 83 12/01/16 19:30 96 27 30 12/01/16 19:15 98.7 82 21 138/79 100 12/01/16 19:00 98.6 84 22 138/72 100 12/01/16 18:40 98.7 88 22 148/74 100 Intake and Output 12/01/16 12/02/16 19:00 07:00 Intake Total 1955.0 ml 2041.208 ml Output Total 400 ml 1000 ml Balance 1555.0 ml 1041.208 ml Intake Free Water 250 ml 100 ml IV Total 985.0 ml 1221.208 ml Tube Feeding 720 ml 720 ml Output Urine Total 400 ml 1000 ml # Bowel Movements 2 Laboratory Tests 12/02/16 05:00: White Blood Count 17.5H, Red Blood Count 3.77L, Hemoglobin 10.3#L, Hematocrit 32.7#L, Mean Corpuscular Volume 87, Mean Corpuscular Hemoglobin 27.3, Mean Corpuscular Hemoglobin Concent 31.4L, Red Cell Distribution Width 17.1H, Platelet Count 427, Mean Platelet Volume 6.4L, Neutrophils (%) (Auto) , Lymphocytes (%) (Auto) , Monocytes (%) (Auto) , Eosinophils (%) (Auto) , Basophils (%) (Auto) , Differential Total Cells Counted 100, Neutrophils % ( Manual) 88H, Lymphocytes % (Manual) 8L, Monocytes % (Manual) 2, Eosinophils % ( Manual) 2, Basophils % (Manual) 0, Band Neutrophils 0, Platelet Estimate Adequate, Platelet Morphology Normal, Hypochromasia 1+, Anisocytosis 1+, Sodium Level 146H, Potassium Level 3.4, Chloride Level 111H, Carbon Dioxide Level 22, Anion Gap 13, Blood Urea Nitrogen 24H, Creatinine 1.2, Estimat Glomerular Filtration Rate , Glucose Level 103, Calcium Level 10.1 Height (Feet): 5 Height (Inches): 9.00 Weight (Pounds): 145 Objective Cv Tach Lungs B Jordychi Abd SNT. BS + E No CCE GAGANDEEP PAEZ Dec 02, 2016 17:56
[2016-12-02 19:00] VITALS: BP 134/55
[2016-12-02] MEDS: Vancomycin 1 GM in D5W 275 ML IVPB SCH (19:52)
[2016-12-03] VITALS: BP 134/63
[2016-12-03 03:11] LABS: PTH-RELATED PROTEIN 2.7 pmol/L (.)
[2016-12-03 04:00] VITALS: BP 137/58
[2016-12-03 06:16] LABS: MEAN CORPUSCULAR HEMOGLOBIN 27.6 PG (27.0-31.0); MEAN CORPUSCULAR HGB CONC 31.9 G/DL (32.0-36.0); MEAN CORPUSCULAR VOLUME 86 FL (80-99); PLATELET COUNT 423 K/UL (150-450); RED BLOOD COUNT 3.64 M/UL (4.70-6.10); WHITE BLOOD COUNT 18.5 K/UL (4.8-10.8)
[2016-12-03] MEDS: Piperacillin/Tazobactam 3.375 GM in D5W 110 ML IVPB SCH ×3 (06:30→22:06)
[2016-12-03 07:04] LABS: ANION GAP 17 (5-15); CALCIUM 9.6 mg/dL (8.6-10.2); CARBON DIOXIDE 24 mEQ/L (20-30); CHLORIDE 101 mEQ/L (98-107); CREATININE 1.2 mg/dL (0.7-1.2); HEMOLYSIS 3; POTASSIUM 3.4 mEQ/L (3.4-4.9); SODIUM 142 mEQ/L (135-145)
--- NOTE | 2016-12-03 07:43 | Pulmonology Progress Note ---
Assessment/Plan Assessment/Plan IMPRESSION: 1. Sepsis. 2. Profound leukocytosis. 3. Protein-calorie malnutrition. 4. 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 5. Acute on chronic renal failure. 6. Metabolic alkalosis, possibly contraction in nature. 7. Anemia. 8. Thrombocytosis. 9. Tracheostomy and gastrostomy tube. 10. Chronic respiratory failure. PLAN supportive care antibiotics noted iv hydration dcd labs reviewed ID evaluation noted renal noted follow up for change stabilize prognosis poor hope to dc soon impression, plan, and exam edited and reviewed in detail care discussed with RN Subjective ROS Limited/Unobtainable: Yes Allergies: Coded Allergies: No Known Allergies (Unverified , 11/27/16) Subjective in [place] on ventilator no distress withdrawn Objective Last 24 Hour Vital Signs Date Time Temp Pulse Resp B/P Pulse Ox O2 Delivery O2 Flow Rate FiO2 12/03/16 07:15 101 21 30 12/03/16 05:22 93 17 30 12/03/16 04:00 98.9 93 20 137/58 99 Mechanical Ventilator 30 12/03/16 04:00 50 12/03/16 03:51 90 12/03/16 03:02 81 20 30 12/03/16 01:15 77 20 30 12/03/16 00:00 98.2 76 18 134/63 99 Mechanical Ventilator 30 12/03/16 00:00 50 12/02/16 23:38 75 12/02/16 23:15 75 20 30 12/02/16 22:30 77 12/02/16 20:40 50 12/02/16 20:30 75 15 30 12/02/16 19:00 97.5 74 20 134/55 99 Mechanical Ventilator 30 12/02/16 19:00 73 15 30 12/02/16 17:01 85 17 30 12/02/16 16:00 96.8 87 20 135/65 96 Mechanical Ventilator 30 12/02/16 16:00 50 12/02/16 16:00 81 12/02/16 14:57 83 16 30 12/02/16 13:40 97.9 12/02/16 12:45 98 17 30 12/02/16 12:36 50 12/02/16 12:00 104 12/02/16 12:00 97.9 104 21 146/68 98 Mechanical Ventilator 30 12/02/16 11:22 109 16 30 12/02/16 09:12 100 17 30 12/02/16 08:00 99 12/02/16 08:00 98.8 98 18 127/58 98 Mechanical Ventilator 30 12/02/16 08:00 50 Intake and Output 12/02/16 12/03/16 19:00 07:00 Intake Total 1570.0 ml 750 ml Output Total 750 ml 1900 ml Balance 820.0 ml -1150 ml Intake Free Water 50 ml 150 ml IV Total 755.0 ml Tube Feeding 720 ml 600 ml Other 45 ml Output Urine Total 750 ml 1900 ml # Bowel Movements 2 Objective GENERAL: An ill-appearing male. reduced LOC HEENT: Negative. Pupils reactive. NECK: Supple. Trachea is midline. Carotids 2+. on vent LUNGS: Coarse breath sounds. Moderate air entry. without rhonchi CARDIAC: S1 and S2. Overall, tachycardic regular rhythm without murmurs, rubs, or gallops. ABDOMEN: Soft and nontender. G-tube in place. no HSM EXTREMITIES: No cyanosis and no clubbing. some edema. NEUROLOGIC: Poorly responsive and withdrawn. reviewed and edited Laboratory Tests 12/03/16 05:20: White Blood Count 18.5H, Red Blood Count 3.64L, Hemoglobin 10.1L, Hematocrit 31.5L, Mean Corpuscular Volume 86, Mean Corpuscular Hemoglobin 27.6, Mean Corpuscular Hemoglobin Concent 31.9L, Red Cell Distribution Width 17.0H, Platelet Count 423, Mean Platelet Volume 7.0, Neutrophils (%) (Auto) , Lymphocytes (%) (Auto) , Monocytes (%) (Auto) , Eosinophils (%) (Auto) , Basophils (%) (Auto) , Neutrophils % (Manual) [Pending], Lymphocytes % (Manual) [Pending], Platelet Estimate [Pending], Platelet Morphology [Pending], Sodium Level 142, Potassium Level 3.4, Chloride Level 101, Carbon Dioxide Level 24, Anion Gap 17H, Blood Urea Nitrogen 23, Creatinine 1.2, Estimat Glomerular Filtration Rate , Glucose Level 117H, Calcium Level 9.6 Current Medications Medications (Trade) Dose Ordered Sig/Judith Route PRN Reason Start Time Stop Time Status Last Admin Dose Admin Acetaminophen (Tylenol) 650 mg Q4H PRN GT Mild Pain/Temp > 100.5 11/28/16 17:30 12/28/16 17:29 12/02/16 13:12 Alprazolam (Xanax) 0.25 mg Q8H PRN GT ANXIETY 11/28/16 22:00 12/05/16 21:59 11/30/16 10:51 Epoetin Azael (Procrit (for non ESRD use)) 10,000 units MON-WED-TUE SUBQ 11/29/16 21:00 12/29/16 20:59 12/01/16 20:48 Ferrous Sulfate (Feosol) 300 mg DAILY NG 11/29/16 09:00 12/29/16 08:59 12/02/16 09:06 Heparin Sodium (Porcine) (Heparin 5000 units/ml) 5,000 units Q12HR SUBQ 11/28/16 21:00 12/28/16 20:59 12/02/16 21:17 Hydralazine HCl (Apresoline) 5 mg Q6H PRN GT SBP>170 11/28/16 16:00 12/28/16 15:59 Magnesium Hydroxide (Mom) 30 ml DAILY GT 11/29/16 09:00 12/29/16 08:59 12/01/16 09:00 Pantoprazole (Protonix) 40 mg DAILY IVP 11/29/16 09:00 12/29/16 08:59 12/02/16 09:06 Piperacillin Sod/ Tazobactam Sod 3.375 gm/Dextrose 110 ml @ 27.5 mls/hr Q8HR IVPB 11/28/16 22:00 12/05/16 21:59 12/03/16 06:30 Vancomycin HCl (Vanco rx to dose) 1 ea DAILY PRN MISC Per rx protocol 11/28/16 09:00 12/28/16 08:59 Vancomycin HCl/ Dextrose (Vancomycin/D5W) 275 ml @ 183.708 mls/hr Q24H IVPB 11/28/16 20:00 12/07/16 19:59 12/02/16 19:52 RIZWAN SANDERS Dec 03, 2016 07:42
[2016-12-03 08:00] VITALS: BP 142/73
[2016-12-03] MEDS: Pantoprazole Inj IVP SCH (08:36)
[2016-12-03] MEDS: Ferrous Sulfate 300 MG/5 ML UDC NG SCH (08:36)
[2016-12-03] MEDS: Heparin 5000 units/ml inj SUBQ SCH ×2 (08:41→20:44)
[2016-12-03] MEDS: Milk of Magnesia 30ml Ud GT SCH (08:41)
[2016-12-03 09:47] LABS: ANISOCYTOSIS 1+; BAND NEUTROPHILS % (MANUAL) 1 % (0-8); BASOPHILS % (MANUAL) 0 % (0-2); EOSINOPHILS % (MANUAL) 3 % (0-3); HYPOCHROMASIA 1+; LYMPHOCYTES % (MANUAL) 5 % (20-45); NEUTROPHILS % (MANUAL) 84 % (45-75); PLATELET ESTIMATE ADEQUATE; PLATELET MORPHOLOGY NORMAL; POLYCHROMASIA 1+; TOTAL CELLS COUNTED 100
--- NOTE | 2016-12-03 10:59 | Infectious Diseases Prog Note ---
"Assessment/Plan Assessment/Plan antibiotics : vancomycin iv, zosyn A 1. e.coli | gram negative pneumonia 2. pleural effusions 3. respiratory failure 4. ? endocarditis 5. leucocytosis P 1. continue vancomycin iv, zosyn 2. stool for c.diff 3. add flagyl 4. will follow up cultures Subjective ROS Limited/Unobtainable: Yes Allergies: Coded Allergies: No Known Allergies (Unverified , 11/27/16) Objective Vital Signs Last 24 Hour Vital Signs Date Time Temp Pulse Resp B/P Pulse Ox O2 Delivery O2 Flow Rate FiO2 12/03/16 09:25 98 17 30 12/03/16 08:00 30 12/03/16 08:00 105 12/03/16 08:00 101 16 142/73 Mechanical Ventilator 30 12/03/16 07:15 101 21 30 12/03/16 05:22 93 17 30 12/03/16 04:00 98.9 93 20 137/58 99 Mechanical Ventilator 30 12/03/16 04:00 50 12/03/16 03:51 90 12/03/16 03:02 81 20 30 12/03/16 01:15 77 20 30 12/03/16 00:00 98.2 76 18 134/63 99 Mechanical Ventilator 30 12/03/16 00:00 50 12/02/16 23:38 75 12/02/16 23:15 75 20 30 12/02/16 22:30 77 12/02/16 20:40 50 12/02/16 20:30 75 15 30 12/02/16 19:00 97.5 74 20 134/55 99 Mechanical Ventilator 30 12/02/16 19:00 73 15 30 12/02/16 17:01 85 17 30 12/02/16 16:00 96.8 87 20 135/65 96 Mechanical Ventilator 30 12/02/16 16:00 50 12/02/16 16:00 81 12/02/16 14:57 83 16 30 12/02/16 13:40 97.9 12/02/16 12:45 98 17 30 12/02/16 12:36 50 12/02/16 12:00 104 12/02/16 12:00 97.9 104 21 146/68 98 Mechanical Ventilator 30 12/02/16 11:22 109 16 30 Height (Feet): 5 Height (Inches): 9.00 Weight (Pounds): 145 HEENT: status post trach Respiratory/Chest: lungs clear Cardiovascular: normal rate, regular rhythm, no gallop/murmur Abdomen: soft, non tender, other - GT Extremities: no edema, other - right groin catheter Laboratory Tests Test 12/03/16 05:20 White Blood Count 18.5 K/UL (4.8-10.8) H Red Blood Count 3.64 M/UL (4.70-6.10) L Hemoglobin 10.1 G/DL (14.2-18.0) L Hematocrit 31.5 % (42.0-52.0) L Mean Corpuscular Volume 86 FL (80-99) Mean Corpuscular Hemoglobin 27.6 PG (27.0-31.0) Mean Corpuscular Hemoglobin Concent 31.9 G/DL (32.0-36.0) L Red Cell Distribution Width 17.0 % (11.6-14.8) H Platelet Count 423 K/UL (150-450) Mean Platelet Volume 7.0 FL (6.5-10.1) Neutrophils (%) (Auto) % (45.0-75.0) Lymphocytes (%) (Auto) % (20.0-45.0) Monocytes (%) (Auto) % (1.0-10.0) Eosinophils (%) (Auto) % (0.0-3.0) Basophils (%) (Auto) % (0.0-2.0) Differential Total Cells Counted 100 Neutrophils % (Manual) 84 % (45-75) H Lymphocytes % (Manual) 5 % (20-45) L Monocytes % (Manual) 7 % (1-10) Eosinophils % (Manual) 3 % (0-3) Basophils % (Manual) 0 % (0-2) Band Neutrophils 1 % (0-8) Platelet Estimate Adequate Platelet Morphology Normal Polychromasia 1+ Hypochromasia 1+ Anisocytosis 1+ Sodium Level 142 mEQ/L (135-145) Potassium Level 3.4 mEQ/L (3.4-4.9) Chloride Level 101 mEQ/L (98-107) Carbon Dioxide Level 24 mEQ/L (20-30) Anion Gap 17 (5-15) H Blood Urea Nitrogen 23 mg/dL (7-23) Creatinine 1.2 mg/dL (0.7-1.2) Estimat Glomerular Filtration Rate mL/min (>60) Glucose Level 117 mg/dL (74-106) H Calcium Level 9.6 mg/dL (8.6-10.2) JORDAN NUNEZ Dec 03, 2016 10:59"
[2016-12-03 12:00] VITALS: BP 124/65
--- NOTE | 2016-12-03 12:35 | Nephrology Progress Note ---
Assessment/Plan Plan Hypercalcemia of Malignancy - calcium down from 13 to 9.6 today and patient's mentation improving simultaneously post Aredia - done several days ago. Hypernatremia - IVF changed to 1/2 NS. Subjective Subjective Less Confused Objective Objective Last 24 Hour Vital Signs Date Time Temp Pulse Resp B/P Pulse Ox O2 Delivery O2 Flow Rate FiO2 12/03/16 10:55 102 20 30 12/03/16 09:25 98 17 30 12/03/16 08:00 30 12/03/16 08:00 105 12/03/16 08:00 101 16 142/73 Mechanical Ventilator 30 12/03/16 07:15 101 21 30 12/03/16 05:22 93 17 30 12/03/16 04:00 98.9 93 20 137/58 99 Mechanical Ventilator 30 12/03/16 04:00 50 12/03/16 03:51 90 12/03/16 03:02 81 20 30 12/03/16 01:15 77 20 30 12/03/16 00:00 98.2 76 18 134/63 99 Mechanical Ventilator 30 12/03/16 00:00 50 12/02/16 23:38 75 12/02/16 23:15 75 20 30 12/02/16 22:30 77 12/02/16 20:40 50 12/02/16 20:30 75 15 30 12/02/16 19:00 97.5 74 20 134/55 99 Mechanical Ventilator 30 12/02/16 19:00 73 15 30 12/02/16 17:01 85 17 30 12/02/16 16:00 96.8 87 20 135/65 96 Mechanical Ventilator 30 12/02/16 16:00 50 12/02/16 16:00 81 12/02/16 14:57 83 16 30 12/02/16 13:40 97.9 12/02/16 12:45 98 17 30 12/02/16 12:36 50 Intake and Output 12/02/16 12/03/16 19:00 07:00 Intake Total 1570.0 ml 810 ml Output Total 750 ml 1900 ml Balance 820.0 ml -1090 ml Intake Free Water 50 ml 150 ml IV Total 755.0 ml Tube Feeding 720 ml 660 ml Other 45 ml Output Urine Total 750 ml 1900 ml # Bowel Movements 2 Laboratory Tests 12/03/16 05:20: White Blood Count 18.5H, Red Blood Count 3.64L, Hemoglobin 10.1L, Hematocrit 31.5L, Mean Corpuscular Volume 86, Mean Corpuscular Hemoglobin 27.6, Mean Corpuscular Hemoglobin Concent 31.9L, Red Cell Distribution Width 17.0H, Platelet Count 423, Mean Platelet Volume 7.0, Neutrophils (%) (Auto) , Lymphocytes (%) (Auto) , Monocytes (%) (Auto) , Eosinophils (%) (Auto) , Basophils (%) (Auto) , Differential Total Cells Counted 100, Neutrophils % ( Manual) 84H, Lymphocytes % (Manual) 5L, Monocytes % (Manual) 7, Eosinophils % ( Manual) 3, Basophils % (Manual) 0, Band Neutrophils 1, Platelet Estimate Adequate, Platelet Morphology Normal, Polychromasia 1+, Hypochromasia 1+, Anisocytosis 1+, Sodium Level 142, Potassium Level 3.4, Chloride Level 101, Carbon Dioxide Level 24, Anion Gap 17H, Blood Urea Nitrogen 23, Creatinine 1.2, Estimat Glomerular Filtration Rate , Glucose Level 117H, Calcium Level 9.6 Height (Feet): 5 Height (Inches): 9.00 Weight (Pounds): 145 Objective Cv Tach Lungs B Jordychi Abd SNT. BS + E No CCE GAGANDEEP PAEZ Dec 03, 2016 12:35
[2016-12-03] MEDS: metroNIDAZOLE 500mg tab ORAL SCH ×3 (12:38→22:06)
[2016-12-03] MEDS ORDERED: NS 275ml ONE (15:53)
[2016-12-03] MEDS ORDERED: Tubing IV Secondary IV ONE (15:53)
[2016-12-03] MEDS ORDERED: Sterile Water Irrig 1000ml IRRIG ONE (15:53)
[2016-12-03] MEDS ORDERED: 1/2 NS 1000ml IV ONE (15:53)
[2016-12-03 16:00] VITALS: BP 122/54
[2016-12-03 20:00] VITALS: BP 132/54
[2016-12-03] MEDS: Vancomycin 1 GM in D5W 275 ML IVPB SCH (20:27)
[2016-12-03] MEDS: Epogen (for non ESRD use) SUBQ SCH (21:54)
[2016-12-04] VITALS: BP 122/54
[2016-12-04] MEDS: ALPRAZolam 0.25mg tab GT PRN ×2 (00:49→09:38)
[2016-12-04 04:00] VITALS: BP_SYST 140; BP_SYST 143; BP_DIAS 70; BP_DIAS 74
[2016-12-04] MEDS: Piperacillin/Tazobactam 3.375 GM in D5W 110 ML IVPB SCH ×3 (05:00→22:10)
[2016-12-04] MEDS: metroNIDAZOLE 500mg tab ORAL SCH ×3 (06:18→22:10)
[2016-12-04 08:00] VITALS: BP 127/59
[2016-12-04] MEDS ORDERED: NS 275ml ONE (08:20)
[2016-12-04] MEDS ORDERED: 1/2 NS 1000ml IV ONE (08:20)
[2016-12-04] MEDS ORDERED: Tubing IV Secondary IV ONE (08:20)
[2016-12-04] MEDS: Milk of Magnesia 30ml Ud GT SCH (08:42)
[2016-12-04] MEDS: Pantoprazole Inj IVP SCH (08:43)
[2016-12-04] MEDS: Ferrous Sulfate 300 MG/5 ML UDC NG SCH (08:43)
[2016-12-04] MEDS: Acetaminophen 650mg/20.3ml GT PRN (08:43)
[2016-12-04] MEDS: Heparin 5000 units/ml inj SUBQ SCH ×2 (08:45→21:01)
--- NOTE | 2016-12-04 11:01 | Pulmonology Progress Note ---
Assessment/Plan Assessment/Plan IMPRESSION: 1. Sepsis. 2. Profound leukocytosis. 3. Protein-calorie malnutrition. 4. 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 5. Acute on chronic renal failure. 6. Metabolic alkalosis, possibly contraction in nature. 7. Anemia. 8. Thrombocytosis. 9. Tracheostomy and gastrostomy tube. 10. Chronic respiratory failure. PLAN supportive care antibiotics noted labs reviewed ID evaluation noted still with elevation of wbc renal noted follow up for change stabilize prognosis poor hope to dc soon once cleared by ID impression, plan, and exam edited and reviewed in detail care discussed with RN Subjective ROS Limited/Unobtainable: Yes Allergies: Coded Allergies: No Known Allergies (Unverified , 11/27/16) Subjective in [place] on ventilator no distress withdrawn Objective Last 24 Hour Vital Signs Date Time Temp Pulse Resp B/P Pulse Ox O2 Delivery O2 Flow Rate FiO2 12/04/16 09:14 108 15 30 12/04/16 09:13 99.5 12/04/16 08:00 124 12/04/16 08:00 101.5 117 22 127/59 97 Mechanical Ventilator 30 12/04/16 07:59 30 12/04/16 06:59 117 21 30 12/04/16 04:44 120 24 30 12/04/16 04:00 97.0 98 20 143/70 98 Mechanical Ventilator 12/04/16 04:00 30 12/04/16 04:00 98.9 85 16 140/74 100 Mechanical Ventilator 30 12/04/16 04:00 85 12/04/16 03:04 115 20 30 12/04/16 01:11 74 14 30 12/04/16 00:00 98.5 80 16 122/54 100 Mechanical Ventilator 30 12/04/16 00:00 30 12/03/16 23:48 80 12/03/16 23:25 81 14 30 12/03/16 22:48 90 14 Mechanical Ventilator 30 12/03/16 20:55 90 14 30 12/03/16 20:00 30 12/03/16 20:00 89 12/03/16 20:00 98.1 84 16 132/54 98 Mechanical Ventilator 30 12/03/16 18:32 94 20 30 12/03/16 16:50 94 15 30 12/03/16 16:02 30 12/03/16 16:00 84 12/03/16 16:00 98.1 87 16 122/54 98 Mechanical Ventilator 30 12/03/16 15:10 92 20 30 12/03/16 13:11 88 18 30 12/03/16 12:00 96 12/03/16 12:00 98.1 96 15 124/65 98 Mechanical Ventilator 30 12/03/16 12:00 30 Intake and Output 12/03/16 12/04/16 19:00 07:00 Intake Total 1032.5 ml 1085.0 ml Output Total 600 ml 900 ml Balance 432.5 ml 185.0 ml Intake Free Water 100 ml 150 ml IV Total 242.5 ml 165.0 ml Tube Feeding 660 ml 720 ml Other 30 ml 50 ml Output Urine Total 600 ml 900 ml Objective GENERAL: An ill-appearing male. reduced LOC HEENT: Negative. Pupils reactive. NECK: Supple. Trachea is midline. Carotids 2+. on vent LUNGS: Coarse breath sounds. Moderate air entry. without rhonchi CARDIAC: S1 and S2. Overall, tachycardic regular rhythm without murmurs, rubs, or gallops. ABDOMEN: Soft and nontender. G-tube in place. no HSM EXTREMITIES: No cyanosis and no clubbing. some edema. NEUROLOGIC: Poorly responsive and withdrawn. reviewed and edited Laboratory Tests 12/03/16 19:10: Vancomycin Level Trough 17.5H Current Medications Medications (Trade) Dose Ordered Sig/Judith Route PRN Reason Start Time Stop Time Status Last Admin Dose Admin Acetaminophen (Tylenol) 650 mg Q4H PRN GT Mild Pain/Temp > 100.5 11/28/16 17:30 12/28/16 17:29 12/04/16 08:43 Alprazolam (Xanax) 0.25 mg Q8H PRN GT ANXIETY 11/28/16 22:00 12/05/16 21:59 12/04/16 09:38 Epoetin Azael (Procrit (for non ESRD use)) 10,000 units MON-WED-FRI SUBQ 11/29/16 21:00 12/29/16 20:59 12/03/16 21:54 Ferrous Sulfate (Feosol) 300 mg DAILY NG 11/29/16 09:00 12/29/16 08:59 12/04/16 08:43 Heparin Sodium (Porcine) (Heparin 5000 units/ml) 5,000 units Q12HR SUBQ 11/28/16 21:00 12/28/16 20:59 12/04/16 08:45 Hydralazine HCl (Apresoline) 5 mg Q6H PRN GT SBP>170 11/28/16 16:00 12/28/16 15:59 Magnesium Hydroxide (Mom) 30 ml DAILY GT 11/29/16 09:00 12/29/16 08:59 12/04/16 08:42 Metronidazole (Flagyl) 500 mg EVERY 8 HOURS ORAL 12/03/16 11:00 12/10/16 10:59 12/04/16 06:18 Pantoprazole (Protonix) 40 mg DAILY IVP 11/29/16 09:00 12/29/16 08:59 12/04/16 08:43 Piperacillin Sod/ Tazobactam Sod/ Dextrose (Zosyn/D5W) 110 ml @ 27.5 mls/hr Q8HR IVPB 12/03/16 14:00 12/10/16 23:59 12/04/16 05:00 Vancomycin HCl 1 ea 1 ea DAILY PRN MISC Per rx protocol 11/28/16 09:00 12/28/16 08:59 Vancomycin HCl/ Dextrose (Vancomycin/D5W) 275 ml @ 183.708 mls/hr Q24H IVPB 11/28/16 20:00 12/07/16 19:59 12/03/16 20:27 RIZWAN SANDERS Dec 04, 2016 11:01
[2016-12-04 12:00] VITALS: BP 100/47
--- NOTE | 2016-12-04 12:12 | Infectious Diseases Prog Note ---
"Assessment/Plan Assessment/Plan antibiotics : vancomycin iv, zosyn, flagyl A 1. e.coli | pseudomonas pneumonia 2. pleural effusions 3. respiratory failure 4. ? endocarditis 5. leucocytosis P 1. continue vancomycin iv, zosyn, flagyl 2. will follow up cultures Subjective ROS Limited/Unobtainable: Yes Allergies: Coded Allergies: No Known Allergies (Unverified , 11/27/16) Objective Vital Signs Last 24 Hour Vital Signs Date Time Temp Pulse Resp B/P Pulse Ox O2 Delivery O2 Flow Rate FiO2 12/04/16 10:59 87 15 30 12/04/16 09:14 108 15 30 12/04/16 09:13 99.5 12/04/16 08:00 124 12/04/16 08:00 101.5 117 22 127/59 97 Mechanical Ventilator 30 12/04/16 07:59 30 12/04/16 06:59 117 21 30 12/04/16 04:44 120 24 30 12/04/16 04:00 97.0 98 20 143/70 98 Mechanical Ventilator 12/04/16 04:00 30 12/04/16 04:00 98.9 85 16 140/74 100 Mechanical Ventilator 30 12/04/16 04:00 85 12/04/16 03:04 115 20 30 12/04/16 01:11 74 14 30 12/04/16 00:00 98.5 80 16 122/54 100 Mechanical Ventilator 30 12/04/16 00:00 30 12/03/16 23:48 80 12/03/16 23:25 81 14 30 12/03/16 22:48 90 14 Mechanical Ventilator 30 12/03/16 20:55 90 14 30 12/03/16 20:00 30 12/03/16 20:00 89 12/03/16 20:00 98.1 84 16 132/54 98 Mechanical Ventilator 30 12/03/16 18:32 94 20 30 12/03/16 16:50 94 15 30 12/03/16 16:02 30 12/03/16 16:00 84 12/03/16 16:00 98.1 87 16 122/54 98 Mechanical Ventilator 30 12/03/16 15:10 92 20 30 12/03/16 13:11 88 18 30 Height (Feet): 5 Height (Inches): 9.00 Weight (Pounds): 145 HEENT: status post trach Respiratory/Chest: lungs clear Cardiovascular: normal rate, regular rhythm, no gallop/murmur Abdomen: soft, non tender, other - GT Extremities: no edema Laboratory Tests Test 12/03/16 19:10 Vancomycin Level Trough 17.5 ug/mL (5.0-12.0) H JORDAN NUNEZ Dec 04, 2016 12:12"
--- NOTE | 2016-12-04 13:36 | Nephrology Progress Note ---
Assessment/Plan Plan Hypercalcemia of Malignancy - calcium down from 13 to 9.6 yesterday. Patient's mentation improved simultaneously post Aredia, but today worse. Unclear why? Hypernatremia - IVF changed to 1/2 NS. Subjective Subjective More Confused Objective Objective Last 24 Hour Vital Signs Date Time Temp Pulse Resp B/P Pulse Ox O2 Delivery O2 Flow Rate FiO2 12/04/16 13:20 86 14 30 12/04/16 12:00 30 12/04/16 10:59 87 15 30 12/04/16 09:14 108 15 30 12/04/16 09:13 99.5 12/04/16 08:00 124 12/04/16 08:00 101.5 117 22 127/59 97 Mechanical Ventilator 30 12/04/16 07:59 30 12/04/16 06:59 117 21 30 12/04/16 04:44 120 24 30 12/04/16 04:00 97.0 98 20 143/70 98 Mechanical Ventilator 12/04/16 04:00 30 12/04/16 04:00 98.9 85 16 140/74 100 Mechanical Ventilator 30 12/04/16 04:00 85 12/04/16 03:04 115 20 30 12/04/16 01:11 74 14 30 12/04/16 00:00 98.5 80 16 122/54 100 Mechanical Ventilator 30 12/04/16 00:00 30 12/03/16 23:48 80 12/03/16 23:25 81 14 30 12/03/16 22:48 90 14 Mechanical Ventilator 30 12/03/16 20:55 90 14 30 12/03/16 20:00 30 12/03/16 20:00 89 12/03/16 20:00 98.1 84 16 132/54 98 Mechanical Ventilator 30 12/03/16 18:32 94 20 30 12/03/16 16:50 94 15 30 12/03/16 16:02 30 12/03/16 16:00 84 12/03/16 16:00 98.1 87 16 122/54 98 Mechanical Ventilator 30 12/03/16 15:10 92 20 30 Intake and Output 12/03/16 12/04/16 19:00 07:00 Intake Total 1032.5 ml 1085.0 ml Output Total 600 ml 900 ml Balance 432.5 ml 185.0 ml Intake Free Water 100 ml 150 ml IV Total 242.5 ml 165.0 ml Tube Feeding 660 ml 720 ml Other 30 ml 50 ml Output Urine Total 600 ml 900 ml Laboratory Tests 12/03/16 19:10: Vancomycin Level Trough 17.5H Height (Feet): 5 Height (Inches): 9.00 Weight (Pounds): 145 Objective Cv Tach Lungs B Oleg Huddleston SNT. BS + E No CCE GAGANDEEP PAEZ Dec 04, 2016 13:36
[2016-12-04 16:00] VITALS: BP 103/64
[2016-12-04 20:00] VITALS: BP_SYST 103; BP_SYST 130; BP_DIAS 64; BP_DIAS 69
[2016-12-04] MEDS: Vancomycin 1 GM in D5W 275 ML IVPB SCH (20:50)
[2016-12-05] VITALS (7 sets, daily range): BP systolic 100–134; BP diastolic 55–62
[2016-12-05 05:04] LABS: MEAN CORPUSCULAR HEMOGLOBIN 27.9 PG (27.0-31.0); MEAN CORPUSCULAR HGB CONC 32.5 G/DL (32.0-36.0); MEAN CORPUSCULAR VOLUME 86 FL (80-99); MEAN PLATELET VOLUME 7.8 FL (6.5-10.1); PLATELET COUNT 410 K/UL (150-450); RED BLOOD COUNT 3.83 M/UL (4.70-6.10); RED CELL DISTRIBUTION WIDTH 16.9 % (11.6-14.8)
[2016-12-05 05:14] LABS: WHITE BLOOD COUNT 26.9 K/UL (4.8-10.8)
[2016-12-05 05:49] LABS: ANION GAP 17 (5-15); CALCIUM 8.7 mg/dL (8.6-10.2); CARBON DIOXIDE 25 mEQ/L (20-30); CHLORIDE 101 mEQ/L (98-107); CREATININE 1.4 mg/dL (0.7-1.2); HEMOLYSIS 1; POTASSIUM 3.6 mEQ/L (3.4-4.9); SODIUM 143 mEQ/L (135-145)
[2016-12-05] MEDS: metroNIDAZOLE 500mg tab ORAL SCH ×3 (06:06→21:40)
[2016-12-05] MEDS: Piperacillin/Tazobactam 3.375 GM in D5W 110 ML IVPB SCH ×3 (06:06→21:40)
--- NOTE | 2016-12-05 07:37 | General Progress Note ---
Assessment/Plan Problem List: (1) Hypercalcemia of malignancy ICD Codes: E83.52 - Hypercalcemia SNOMED: 42526084 (2) Esophageal adenocarcinoma ICD Codes: C15.9 - Malignant neoplasm of esophagus, unspecified SNOMED: 807884442 (3) Respiratory failure for > 28 days ICD Codes: J96.90 - Respiratory failure, unspecified, unspecified whether with hypoxia or hypercapnia SNOMED: 707301240 (4) Sepsis ICD Codes: A41.9 - Sepsis, unspecified organism SNOMED: 52861703 Status: stable Assessment/Plan ivf per renal iv aredia as needed abx follow up cultures vent support and resp rx feeds monitor wbc id follow up Subjective ROS Limited/Unobtainable: Yes Constitutional: Reports: malaise, weakness HEENT: Reports: no symptoms Cardiovascular: Reports: no symptoms Respiratory: Reports: shortness of breath, sputum Gastrointestinal/Abdominal: Reports: difficulty swallowing Genitourinary: Reports: no symptoms Neurologic/Psychiatric: Reports: no symptoms Endocrine: Reports: no symptoms Hematologic/Lymphatic: Reports: anemia Allergies: Coded Allergies: No Known Allergies (Unverified , 11/27/16) All Systems: reviewed and negative except above Subjective no events. on the vent. c/o itching from pacer pads. wbc significantly elevated this am. d/w RN. no events. no diarrhea Objective Last 24 Hour Vital Signs Date Time Temp Pulse Resp B/P Pulse Ox O2 Delivery O2 Flow Rate FiO2 12/05/16 07:14 115 19 30 12/05/16 05:07 91 26 30 12/05/16 04:00 30 12/05/16 04:00 99.2 106 19 134/59 95 Mechanical Ventilator 30 12/05/16 04:00 104 12/05/16 03:52 104 12/05/16 02:48 89 26 30 12/05/16 01:01 95 18 30 12/05/16 00:00 98 12/05/16 00:00 30 12/05/16 00:00 97.7 104 19 125/56 97 Mechanical Ventilator 30 12/04/16 23:03 106 20 30 12/04/16 20:39 89 16 30 12/04/16 20:00 92 12/04/16 20:00 30 12/04/16 20:00 97.8 90 18 130/69 99 Mechanical Ventilator 12/04/16 18:49 94 22 30 12/04/16 17:21 91 15 30 12/04/16 16:41 77 12/04/16 16:00 98.1 87 18 103/64 99 Mechanical Ventilator 30 12/04/16 16:00 87 12/04/16 16:00 30 12/04/16 15:28 84 16 30 12/04/16 13:20 86 14 30 12/04/16 12:00 85 12/04/16 12:00 30 12/04/16 12:00 98.6 83 14 100/47 97 Mechanical Ventilator 30 12/04/16 10:59 87 15 30 12/04/16 09:14 108 15 30 12/04/16 09:13 99.5 12/04/16 08:00 124 12/04/16 08:00 101.5 117 22 127/59 97 Mechanical Ventilator 30 12/04/16 07:59 30 Intake and Output 12/04/16 12/05/16 19:00 07:00 Intake Total 765.0 ml 927.5 ml Output Total 125 ml 450 ml Balance 640.0 ml 477.5 ml Intake Free Water 100 ml 200 ml IV Total 165.0 ml 137.5 ml Tube Feeding 480 ml 540 ml Other 20 ml 50 ml Output Urine Total 125 ml 450 ml Laboratory Tests 12/05/16 03:20: White Blood Count 26.9*H, Red Blood Count 3.83L, Hemoglobin 10.7L, Hematocrit 33.0L, Mean Corpuscular Volume 86, Mean Corpuscular Hemoglobin 27.9, Mean Corpuscular Hemoglobin Concent 32.5, Red Cell Distribution Width 16.9H, Platelet Count 410, Mean Platelet Volume 7.8, Neutrophils (%) (Auto) , Lymphocytes (%) (Auto) , Monocytes (%) (Auto) , Eosinophils (%) (Auto) , Basophils (%) (Auto) , Neutrophils % (Manual) [Pending], Lymphocytes % (Manual) [Pending], Platelet Estimate [Pending], Platelet Morphology [Pending], Sodium Level 143, Potassium Level 3.6, Chloride Level 101, Carbon Dioxide Level 25, Anion Gap 17H, Blood Urea Nitrogen 28H, Creatinine 1.4H, Estimat Glomerular Filtration Rate , Glucose Level 157H, Calcium Level 8.7 Height (Feet): 5 Height (Inches): 9.00 Weight (Pounds): 145 General Appearance: WD/WN, alert, cachetic, thin Neck: supple Cardiovascular: regular rhythm Respiratory/Chest: chest wall non-tender, lungs clear, normal breath sounds, no respiratory distress, no accessory muscle use Abdomen: normal bowel sounds, non tender, soft, no organomegaly Edema: no edema noted Arm (L), no edema noted Arm (R), no edema noted Leg (L), no edema noted Leg (R), no edema noted Pedal (L), no edema noted Pedal (R), no edema noted Generalized Skin: normal pigmentation NANCY GARCIA Dec 05, 2016 07:37
[2016-12-05] MEDS: Milk of Magnesia 30ml Ud GT SCH (08:15)
[2016-12-05] MEDS: Ferrous Sulfate 300 MG/5 ML UDC NG SCH (08:15)
[2016-12-05] MEDS: Pantoprazole Inj IVP SCH (08:15)
[2016-12-05] MEDS: Heparin 5000 units/ml inj SUBQ SCH ×2 (08:18→20:55)
[2016-12-05] MEDS: Acetaminophen 650mg/20.3ml GT PRN (09:51)
[2016-12-05] MEDS: ALPRAZolam 0.25mg tab GT PRN (09:51)
--- NOTE | 2016-12-05 10:02 | Pulmonology Progress Note ---
Assessment/Plan Assessment/Plan IMPRESSION: 1. Sepsis. 2. Profound leukocytosis. now worse 3. Protein-calorie malnutrition. 4. 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 improved 5. Acute on chronic renal failure. 6. Metabolic alkalosis, possibly contraction in nature. 7. Anemia. 8. Thrombocytosis. 9. Tracheostomy and gastrostomy tube. 10. Chronic respiratory failure. PLAN supportive care antibiotics noted; defer to ID with noted elevation of wbc labs reviewed ID evaluation noted renal noted follow up for change stabilize no wean suction aspiration precautions prognosis poor hope to dc soon once once cleared by ID impression, plan, and exam edited and reviewed in detail care discussed with RN Subjective ROS Limited/Unobtainable: Yes Allergies: Coded Allergies: No Known Allergies (Unverified , 11/27/16) Subjective in [place] on ventilator wbc spike noted withdrawn Objective Last 24 Hour Vital Signs Date Time Temp Pulse Resp B/P Pulse Ox O2 Delivery O2 Flow Rate FiO2 12/05/16 09:30 104 18 30 12/05/16 08:00 104 12/05/16 08:00 98.1 110 22 123/62 95 Mechanical Ventilator 30 12/05/16 07:51 30 12/05/16 07:14 115 19 30 12/05/16 05:07 91 26 30 12/05/16 04:00 30 12/05/16 04:00 99.2 106 19 134/59 95 Mechanical Ventilator 30 12/05/16 04:00 104 12/05/16 03:52 104 12/05/16 02:48 89 26 30 12/05/16 01:01 95 18 30 12/05/16 00:00 98 12/05/16 00:00 30 12/05/16 00:00 97.7 104 19 125/56 97 Mechanical Ventilator 30 12/04/16 23:03 106 20 30 12/04/16 20:39 89 16 30 12/04/16 20:00 92 12/04/16 20:00 30 12/04/16 20:00 97.8 90 18 130/69 99 Mechanical Ventilator 12/04/16 18:49 94 22 30 12/04/16 17:21 91 15 30 12/04/16 16:41 77 12/04/16 16:00 98.1 87 18 103/64 99 Mechanical Ventilator 30 12/04/16 16:00 87 12/04/16 16:00 30 12/04/16 15:28 84 16 30 12/04/16 13:20 86 14 30 12/04/16 12:00 85 12/04/16 12:00 30 12/04/16 12:00 98.6 83 14 100/47 97 Mechanical Ventilator 30 12/04/16 10:59 87 15 30 Intake and Output 12/04/16 12/05/16 18:59 06:59 Intake Total 852.5 ml 900.0 ml Output Total 125 ml 450 ml Balance 727.5 ml 450.0 ml Intake Free Water 100 ml 200 ml IV Total 192.5 ml 110.0 ml Tube Feeding 540 ml 540 ml Other 20 ml 50 ml Output Urine Total 125 ml 450 ml Objective GENERAL: An ill-appearing male. reduced LOC HEENT: Negative. Pupils reactive. NECK: Supple. Trachea is midline. Carotids 2+. on vent LUNGS: Coarse breath sounds. Moderate air entry. no rhonchi or wheeze CARDIAC: S1 and S2. Overall, regular rhythm without murmurs, rubs, or gallops. ABDOMEN: Soft and nontender. G-tube in place. no HSM EXTREMITIES: No cyanosis and no clubbing. some mild edema. NEUROLOGIC: Poorly responsive and withdrawn. reviewed and edited Laboratory Tests 12/05/16 03:20: White Blood Count 26.9*H, Red Blood Count 3.83L, Hemoglobin 10.7L, Hematocrit 33.0L, Mean Corpuscular Volume 86, Mean Corpuscular Hemoglobin 27.9, Mean Corpuscular Hemoglobin Concent 32.5, Red Cell Distribution Width 16.9H, Platelet Count 410, Mean Platelet Volume 7.8, Neutrophils (%) (Auto) , Lymphocytes (%) (Auto) , Monocytes (%) (Auto) , Eosinophils (%) (Auto) , Basophils (%) (Auto) , Neutrophils % (Manual) [Pending], Lymphocytes % (Manual) [Pending], Platelet Estimate [Pending], Platelet Morphology [Pending], Sodium Level 143, Potassium Level 3.6, Chloride Level 101, Carbon Dioxide Level 25, Anion Gap 17H, Blood Urea Nitrogen 28H, Creatinine 1.4H, Estimat Glomerular Filtration Rate , Glucose Level 157H, Calcium Level 8.7 Current Medications Medications (Trade) Dose Ordered Sig/Judith Route PRN Reason Start Time Stop Time Status Last Admin Dose Admin Acetaminophen (Tylenol) 650 mg Q4H PRN GT Mild Pain/Temp > 100.5 11/28/16 17:30 12/28/16 17:29 12/05/16 09:51 Alprazolam (Xanax) 0.25 mg Q8H PRN GT ANXIETY 11/28/16 22:00 12/05/16 21:59 12/05/16 09:51 Epoetin Azael (Procrit (for non ESRD use)) 10,000 units TUE-TUE-TUE SUBQ 11/29/16 21:00 12/29/16 20:59 12/03/16 21:54 Ferrous Sulfate (Feosol) 300 mg DAILY NG 11/29/16 09:00 12/29/16 08:59 12/05/16 08:15 Heparin Sodium (Porcine) (Heparin 5000 units/ml) 5,000 units Q12HR SUBQ 11/28/16 21:00 12/28/16 20:59 12/05/16 08:18 Hydralazine HCl (Apresoline) 5 mg Q6H PRN GT SBP>170 11/28/16 16:00 12/28/16 15:59 Magnesium Hydroxide (Mom) 30 ml DAILY GT 11/29/16 09:00 12/29/16 08:59 12/05/16 08:15 Metronidazole (Flagyl) 500 mg EVERY 8 HOURS ORAL 12/03/16 11:00 12/10/16 10:59 12/05/16 06:06 Pantoprazole (Protonix) 40 mg DAILY IVP 11/29/16 09:00 12/29/16 08:59 12/05/16 08:15 Piperacillin Sod/ Tazobactam Sod/ Dextrose (Zosyn/D5W) 110 ml @ 27.5 mls/hr Q8HR IVPB 12/03/16 14:00 12/10/16 23:59 12/05/16 06:06 Vancomycin HCl 1 ea 1 ea DAILY PRN MISC Per rx protocol 11/28/16 09:00 12/28/16 08:59 Vancomycin HCl/ Dextrose (Vancomycin/D5W) 275 ml @ 183.708 mls/hr Q24H IVPB 11/28/16 20:00 12/07/16 19:59 12/04/16 20:50 RIZWAN SANDERS Dec 05, 2016 10:02
[2016-12-05 10:57] LABS: ANISOCYTOSIS 1+; BAND NEUTROPHILS % (MANUAL) 0 % (0-8); BASOPHILS % (MANUAL) 0 % (0-2); EOSINOPHILS % (MANUAL) 0 % (0-3); LYMPHOCYTES % (MANUAL) 6 % (20-45); NEUTROPHILS % (MANUAL) 90 % (45-75); PLATELET ESTIMATE INCREASED; PLATELET MORPHOLOGY NORMAL; TOTAL CELLS COUNTED 100
[2016-12-05 10:59] LABS: HYPOCHROMASIA 1+
--- NOTE | 2016-12-05 12:42 | Nephrology Progress Note ---
Assessment/Plan Plan Hypercalcemia of Malignancy - calcium down from 13 to 8.7 today. Patient's mentation improved simultaneously post aredia Subjective Subjective Confused Objective Objective Last 24 Hour Vital Signs Date Time Temp Pulse Resp B/P Pulse Ox O2 Delivery O2 Flow Rate FiO2 12/05/16 11:20 110 24 30 12/05/16 09:30 104 18 30 12/05/16 08:00 104 12/05/16 08:00 98.1 110 22 123/62 95 Mechanical Ventilator 30 12/05/16 07:51 30 12/05/16 07:14 115 19 30 12/05/16 05:07 91 26 30 12/05/16 04:00 30 12/05/16 04:00 99.2 106 19 134/59 95 Mechanical Ventilator 30 12/05/16 04:00 104 12/05/16 03:52 104 12/05/16 02:48 89 26 30 12/05/16 01:01 95 18 30 12/05/16 00:00 98 12/05/16 00:00 30 12/05/16 00:00 97.7 104 19 125/56 97 Mechanical Ventilator 30 12/04/16 23:03 106 20 30 12/04/16 20:39 89 16 30 12/04/16 20:00 92 12/04/16 20:00 30 12/04/16 20:00 97.8 90 18 130/69 99 Mechanical Ventilator 12/04/16 18:49 94 22 30 12/04/16 17:21 91 15 30 12/04/16 16:41 77 12/04/16 16:00 98.1 87 18 103/64 99 Mechanical Ventilator 30 12/04/16 16:00 87 12/04/16 16:00 30 12/04/16 15:28 84 16 30 12/04/16 13:20 86 14 30 Intake and Output 12/04/16 12/05/16 19:00 07:00 Intake Total 765.0 ml 927.5 ml Output Total 125 ml 450 ml Balance 640.0 ml 477.5 ml Intake Free Water 100 ml 200 ml IV Total 165.0 ml 137.5 ml Tube Feeding 480 ml 540 ml Other 20 ml 50 ml Output Urine Total 125 ml 450 ml Laboratory Tests 12/05/16 03:20: White Blood Count 26.9*H, Red Blood Count 3.83L, Hemoglobin 10.7L, Hematocrit 33.0L, Mean Corpuscular Volume 86, Mean Corpuscular Hemoglobin 27.9, Mean Corpuscular Hemoglobin Concent 32.5, Red Cell Distribution Width 16.9H, Platelet Count 410, Mean Platelet Volume 7.8, Neutrophils (%) (Auto) , Lymphocytes (%) (Auto) , Monocytes (%) (Auto) , Eosinophils (%) (Auto) , Basophils (%) (Auto) , Differential Total Cells Counted 100, Neutrophils % ( Manual) 90H, Lymphocytes % (Manual) 6L, Monocytes % (Manual) 4, Eosinophils % ( Manual) 0, Basophils % (Manual) 0, Band Neutrophils 0, Platelet Estimate IncreasedH, Platelet Morphology Normal, Hypochromasia 1+, Anisocytosis 1+, Sodium Level 143, Potassium Level 3.6, Chloride Level 101, Carbon Dioxide Level 25, Anion Gap 17H, Blood Urea Nitrogen 28H, Creatinine 1.4H, Estimat Glomerular Filtration Rate , Glucose Level 157H, Calcium Level 8.7 Height (Feet): 5 Height (Inches): 9.00 Weight (Pounds): 145 Objective Cv Tach Lungs B Oleg Huddleston SNT. BS + E No CCE GAGANDEEP PAEZ Dec 05, 2016 12:41
--- NOTE | 2016-12-05 14:05 | Infectious Diseases Prog Note ---
Assessment/Plan Assessment/Plan A 1. pneumonia 2. pleural effusions 3. respiratory failure 4. Probable endocarditis 5. leucocytosis worsening 6. VRE colonization P 1. continue vancomycin iv, Zosyn & Flagyl 2. will follow up cultures Subjective ROS Limited/Unobtainable: Yes Constitutional: Reports: other - no fever Gastrointestinal/Abdominal: Reports: other - no diarrhea Allergies: Coded Allergies: No Known Allergies (Unverified , 11/27/16) Objective Vital Signs Last 24 Hour Vital Signs Date Time Temp Pulse Resp B/P Pulse Ox O2 Delivery O2 Flow Rate FiO2 12/05/16 13:15 86 14 30 12/05/16 12:00 98.2 98 18 104/59 96 Mechanical Ventilator 30 12/05/16 12:00 30 12/05/16 12:00 99 12/05/16 11:20 110 24 30 12/05/16 09:30 104 18 30 12/05/16 08:00 104 12/05/16 08:00 98.1 110 22 123/62 95 Mechanical Ventilator 30 12/05/16 07:51 30 12/05/16 07:14 115 19 30 12/05/16 05:07 91 26 30 12/05/16 04:00 30 12/05/16 04:00 99.2 106 19 134/59 95 Mechanical Ventilator 30 12/05/16 04:00 104 12/05/16 03:52 104 12/05/16 02:48 89 26 30 12/05/16 01:01 95 18 30 12/05/16 00:00 98 12/05/16 00:00 30 12/05/16 00:00 97.7 104 19 125/56 97 Mechanical Ventilator 30 12/04/16 23:03 106 20 30 12/04/16 20:39 89 16 30 12/04/16 20:00 92 12/04/16 20:00 30 12/04/16 20:00 97.8 90 18 130/69 99 Mechanical Ventilator 12/04/16 18:49 94 22 30 12/04/16 17:21 91 15 30 12/04/16 16:41 77 12/04/16 16:00 98.1 87 18 103/64 99 Mechanical Ventilator 30 12/04/16 16:00 87 12/04/16 16:00 30 12/04/16 15:28 84 16 30 Height (Feet): 5 Height (Inches): 9.00 Weight (Pounds): 145 General Appearance: no acute distress HEENT: status post trach Respiratory/Chest: rhonchi - bilaterally, other - on ventilator Cardiovascular: normal rate Abdomen: soft, non tender, other - GT feeding Extremities: no edema Neurologic/Psychiatric: other - sleeping Laboratory Tests Test 12/05/16 03:20 White Blood Count 26.9 K/UL (4.8-10.8) *H Red Blood Count 3.83 M/UL (4.70-6.10) L Hemoglobin 10.7 G/DL (14.2-18.0) L Hematocrit 33.0 % (42.0-52.0) L Mean Corpuscular Volume 86 FL (80-99) Mean Corpuscular Hemoglobin 27.9 PG (27.0-31.0) Mean Corpuscular Hemoglobin Concent 32.5 G/DL (32.0-36.0) Red Cell Distribution Width 16.9 % (11.6-14.8) H Platelet Count 410 K/UL (150-450) Mean Platelet Volume 7.8 FL (6.5-10.1) Neutrophils (%) (Auto) % (45.0-75.0) Lymphocytes (%) (Auto) % (20.0-45.0) Monocytes (%) (Auto) % (1.0-10.0) Eosinophils (%) (Auto) % (0.0-3.0) Basophils (%) (Auto) % (0.0-2.0) Differential Total Cells Counted 100 Neutrophils % (Manual) 90 % (45-75) H Lymphocytes % (Manual) 6 % (20-45) L Monocytes % (Manual) 4 % (1-10) Eosinophils % (Manual) 0 % (0-3) Basophils % (Manual) 0 % (0-2) Band Neutrophils 0 % (0-8) Platelet Estimate Increased H Platelet Morphology Normal Hypochromasia 1+ Anisocytosis 1+ Sodium Level 143 mEQ/L (135-145) Potassium Level 3.6 mEQ/L (3.4-4.9) Chloride Level 101 mEQ/L (98-107) Carbon Dioxide Level 25 mEQ/L (20-30) Anion Gap 17 (5-15) H Blood Urea Nitrogen 28 mg/dL (7-23) H Creatinine 1.4 mg/dL (0.7-1.2) H Estimat Glomerular Filtration Rate mL/min (>60) Glucose Level 157 mg/dL (74-106) H Calcium Level 8.7 mg/dL (8.6-10.2) Current Medications Medications (Trade) Dose Ordered Sig/Judith Route PRN Reason Start Time Stop Time Status Last Admin Dose Admin Acetaminophen (Tylenol) 650 mg Q4H PRN GT Mild Pain/Temp > 100.5 11/28/16 17:30 12/28/16 17:29 12/05/16 09:51 Alprazolam (Xanax) 0.25 mg Q8H PRN GT ANXIETY 11/28/16 22:00 12/05/16 21:59 12/05/16 09:51 Epoetin Azael (Procrit (for non ESRD use)) 10,000 units TUE-WED-TUE SUBQ 11/29/16 21:00 12/29/16 20:59 12/03/16 21:54 Ferrous Sulfate (Feosol) 300 mg DAILY NG 11/29/16 09:00 12/29/16 08:59 12/05/16 08:15 Heparin Sodium (Porcine) (Heparin 5000 units/ml) 5,000 units Q12HR SUBQ 11/28/16 21:00 12/28/16 20:59 12/05/16 08:18 Hydralazine HCl (Apresoline) 5 mg Q6H PRN GT SBP>170 11/28/16 16:00 12/28/16 15:59 Magnesium Hydroxide (Mom) 30 ml DAILY GT 11/29/16 09:00 12/29/16 08:59 12/05/16 08:15 Metronidazole (Flagyl) 500 mg EVERY 8 HOURS ORAL 12/03/16 11:00 12/10/16 10:59 12/05/16 06:06 Pantoprazole (Protonix) 40 mg DAILY IVP 11/29/16 09:00 12/29/16 08:59 12/05/16 08:15 Piperacillin Sod/ Tazobactam Sod/ Dextrose (Zosyn/D5W) 110 ml @ 27.5 mls/hr Q8HR IVPB 12/03/16 14:00 12/10/16 23:59 12/05/16 06:06 Vancomycin HCl 1 ea 1 ea DAILY PRN MISC Per rx protocol 11/28/16 09:00 12/28/16 08:59 Vancomycin HCl/ Dextrose (Vancomycin/D5W) 275 ml @ 183.708 mls/hr Q24H IVPB 11/28/16 20:00 12/07/16 19:59 12/04/16 20:50 MELISSA BULLARD Dec 05, 2016 14:05
--- NOTE | 2016-12-05 17:23 | Wound Care Consultation ---
Wound Assessment Wound Assessment #1: Wound Present on Admission: Yes New Wound: No Status Change of Wound: No Wound Location Body Site Modif: mid Wound Location Body Site: sacral Wound Type: pressure ulcer Ashley Test: Does not Ashley Pressure Ulcer Stage: III - scattered stage III. Wound Thickness: Full Thickness Wound Length: 6.0 Wound Width: 9.0 Wound Depth: 0.3 Percent of Wound [place]/Red: 50 - open scattered wound beds are pink Percent of Wound Purple/Maroon: 50 - surrounding tissue is maroon. Wound Drainage Description: Serosanguineous Wound Drainage Amount: Scant Wound Drainage Odor: None/Absent Tissue Surrounding Wound: Macerated Wound General Appearance: Reddened Wound Assessment #2: Wound Number: #2 Wound Present on Admission: Yes New Wound: No Status Change of Wound: No Wound Location Body Site Modif: mid Wound Location Body Site: sacral - and perineal Wound Type: rash Aslhey Test: Does not Ashley Wound Drainage Amount: None Wound Drainage Odor: None/Absent Tissue Surrounding Wound: Erythemic Wound General Appearance: Reddened Wound Comment #2 sacral and perineal fungal rash Recommendation -Cleanse with saline pat dry apply Nystatin powder TID -Keep clean and dry -Turn and reposition -Optimize nutrition -Cont same treatment plan for scattered stage III pressure ulcers -Assess and f/u accordingly for any changes MYESHA SAWYER RN Dec 05, 2016 17:23
[2016-12-05] MEDS: Nystatin Powder 100,000 units/gm 15gm TOPIC SCH (18:23)
[2016-12-05] MEDS: Vancomycin 1 GM in D5W 275 ML IVPB SCH (19:59)
[2016-12-06] VITALS: BP 122/62
[2016-12-06 04:00] VITALS: BP 112/58
[2016-12-06] MEDS: metroNIDAZOLE 500mg tab ORAL SCH ×3 (05:25→21:00)
[2016-12-06] MEDS: Piperacillin/Tazobactam 3.375 GM in D5W 110 ML IVPB SCH ×3 (05:25→22:41)
[2016-12-06 07:16] LABS: ALANINE AMINOTRANSFERASE 7 U/L (3-41); ALBUMIN/GLOBULIN RATIO 0.4 (1.0-2.7); ANION GAP 15 (5-15); ASPARTATE AMINO TRANSFERASE 14 U/L (5-40); CALCIUM 8.4 mg/dL (8.6-10.2); CARBON DIOXIDE 26 mEQ/L (20-30); CHLORIDE 98 mEQ/L (98-107); CREATININE 1.5 mg/dL (0.7-1.2); HEMOLYSIS 5; POTASSIUM 3.8 mEQ/L (3.4-4.9); SODIUM 139 mEQ/L (135-145); TOTAL PROTEIN 5.3 g/dL (6.6-8.7)
[2016-12-06 07:17] LABS: MEAN CORPUSCULAR HEMOGLOBIN 27.9 PG (27.0-31.0); MEAN CORPUSCULAR HGB CONC 32.3 G/DL (32.0-36.0); MEAN CORPUSCULAR VOLUME 86 FL (80-99); MEAN PLATELET VOLUME 7.8 FL (6.5-10.1); PLATELET COUNT 412 K/UL (150-450); RED BLOOD COUNT 3.72 M/UL (4.70-6.10); RED CELL DISTRIBUTION WIDTH 17.4 % (11.6-14.8)
[2016-12-06 07:28] LABS: WHITE BLOOD COUNT 25.4 K/UL (4.8-10.8)
[2016-12-06 08:00] VITALS: BP_SYST 105; BP_SYST 113; BP_DIAS 60; BP_DIAS 72
--- NOTE | 2016-12-06 08:41 | Nephrology Progress Note ---
Assessment/Plan Plan Hypercalcemia of Malignancy - calcium down from 13 to 8.7 yesterday. Patient's mentation improved simultaneously post aredia Subjective Subjective Confused Objective Objective Last 24 Hour Vital Signs Date Time Temp Pulse Resp B/P Pulse Ox O2 Delivery O2 Flow Rate FiO2 12/06/16 07:10 103 22 30 12/06/16 05:10 98 15 30 12/06/16 04:00 30 12/06/16 04:00 90 12/06/16 04:00 99.0 95 20 112/58 100 Mechanical Ventilator 30 12/06/16 02:52 95 20 30 12/06/16 01:20 82 16 30 12/06/16 00:00 98.1 93 18 122/62 100 Mechanical Ventilator 30 12/06/16 00:00 30 12/06/16 00:00 88 12/05/16 23:21 85 21 30 12/05/16 21:07 86 15 30 12/05/16 20:00 82 12/05/16 20:00 30 12/05/16 20:00 97.5 82 18 112/61 100 Mechanical Ventilator 30 12/05/16 19:18 86 18 30 12/05/16 16:46 78 14 30 12/05/16 16:00 97.5 80 18 100/55 100 Mechanical Ventilator 30 12/05/16 16:00 85 12/05/16 16:00 30 12/05/16 15:23 84 15 30 12/05/16 13:15 86 14 30 12/05/16 12:00 98.2 98 18 104/59 96 Mechanical Ventilator 30 12/05/16 12:00 30 12/05/16 12:00 99 12/05/16 11:20 110 24 30 12/05/16 09:30 104 18 30 Intake and Output 12/05/16 12/06/16 19:00 07:00 Intake Total 910.0 ml 1410.0 ml Output Total 350 ml 750 ml Balance 560.0 ml 660.0 ml Intake Free Water 50 ml 200 ml IV Total 110.0 ml 440.0 ml Tube Feeding 720 ml 660 ml Other 30 ml 110 ml Output Urine Total 350 ml 750 ml Laboratory Tests 12/06/16 05:55: White Blood Count 25.4*H, Red Blood Count 3.72L, Hemoglobin 10.4L, Hematocrit 32.2L, Mean Corpuscular Volume 86, Mean Corpuscular Hemoglobin 27.9, Mean Corpuscular Hemoglobin Concent 32.3, Red Cell Distribution Width 17.4H, Platelet Count 412, Mean Platelet Volume 7.8, Neutrophils (%) (Auto) , Lymphocytes (%) (Auto) , Monocytes (%) (Auto) , Eosinophils (%) (Auto) , Basophils (%) (Auto) , Neutrophils % (Manual) [Pending], Lymphocytes % (Manual) [Pending], Platelet Estimate [Pending], Platelet Morphology [Pending], Sodium Level 139, Potassium Level 3.8, Chloride Level 98, Carbon Dioxide Level 26, Anion Gap 15, Blood Urea Nitrogen 33H, Creatinine 1.5H, Estimat Glomerular Filtration Rate , Glucose Level 123H, Calcium Level 8.4L, Total Bilirubin 0.5, Aspartate Amino Transf (AST/SGOT) 14, Alanine Aminotransferase (ALT/SGPT) 7, Alkaline Phosphatase 117, Total Protein 5.3L, Albumin 1.7L, Globulin 3.6, Albumin/Globulin Ratio 0.4L Height (Feet): 5 Height (Inches): 9.00 Weight (Pounds): 145 Objective Cv Tach Lungs B Jordychi Karo SNT. BS + E No ERIKE GAGANDEEP PAEZ Dec 06, 2016 08:41
[2016-12-06] MEDS: Nystatin Powder 100,000 units/gm 15gm TOPIC SCH ×3 (09:00→18:41)
--- NOTE | 2016-12-06 09:24 | Pulmonology Progress Note ---
Assessment/Plan Assessment/Plan IMPRESSION: 1. Sepsis. 2. Profound leukocytosis. now worse 3. Protein-calorie malnutrition. 4. 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 improved 5. Acute on chronic renal failure. 6. Metabolic alkalosis, possibly contraction in nature. 7. Anemia. 8. Thrombocytosis. 9. Tracheostomy and gastrostomy tube. 10. Chronic respiratory failure. PLAN exams without change supportive care antibiotics noted; per ID labs reviewed ID evaluation noted renal noted and discussed follow up for change stabilize no wean suction aspiration precautions prognosis poor hope to dc soon once once cleared by ID not ready as patient likely septic impression, plan, and exam edited and reviewed in detail care discussed with RN Subjective ROS Limited/Unobtainable: Yes Allergies: Coded Allergies: No Known Allergies (Unverified , 11/27/16) Subjective in [place] on ventilator wbc spike noted and not improved d/w ID withdrawn Objective Last 24 Hour Vital Signs Date Time Temp Pulse Resp B/P Pulse Ox O2 Delivery O2 Flow Rate FiO2 12/06/16 09:14 95 20 30 12/06/16 07:10 103 22 30 12/06/16 05:10 98 15 30 12/06/16 04:00 30 12/06/16 04:00 90 12/06/16 04:00 99.0 95 20 112/58 100 Mechanical Ventilator 30 12/06/16 02:52 95 20 30 12/06/16 01:20 82 16 30 12/06/16 00:00 98.1 93 18 122/62 100 Mechanical Ventilator 30 12/06/16 00:00 30 12/06/16 00:00 88 12/05/16 23:21 85 21 30 12/05/16 21:07 86 15 30 12/05/16 20:00 82 12/05/16 20:00 30 12/05/16 20:00 97.5 82 18 112/61 100 Mechanical Ventilator 30 12/05/16 19:18 86 18 30 12/05/16 16:46 78 14 30 12/05/16 16:00 97.5 80 18 100/55 100 Mechanical Ventilator 30 12/05/16 16:00 85 12/05/16 16:00 30 12/05/16 15:23 84 15 30 12/05/16 13:15 86 14 30 12/05/16 12:00 98.2 98 18 104/59 96 Mechanical Ventilator 30 12/05/16 12:00 30 12/05/16 12:00 99 12/05/16 11:20 110 24 30 12/05/16 09:30 104 18 30 Intake and Output 12/05/16 12/06/16 19:00 07:00 Intake Total 910.0 ml 1410.0 ml Output Total 350 ml 750 ml Balance 560.0 ml 660.0 ml Intake Free Water 50 ml 200 ml IV Total 110.0 ml 440.0 ml Tube Feeding 720 ml 660 ml Other 30 ml 110 ml Output Urine Total 350 ml 750 ml Objective GENERAL: An ill-appearing male. reduced LOC HEENT: Negative. Pupils reactive. NECK: Supple. Trachea is midline. Carotids 2+. on vent LUNGS: Coarse breath sounds. Moderate air entry. no rhonchi or wheeze CARDIAC: S1 and S2. Overall, regular rhythm without murmurs, rubs, or gallops. ABDOMEN: Soft and nontender. G-tube in place. no HSM no distention EXTREMITIES: No cyanosis and no clubbing. some mild edema. NEUROLOGIC: Poorly responsive and withdrawn. reviewed and edited Laboratory Tests 12/06/16 05:55: White Blood Count 25.4*H, Red Blood Count 3.72L, Hemoglobin 10.4L, Hematocrit 32.2L, Mean Corpuscular Volume 86, Mean Corpuscular Hemoglobin 27.9, Mean Corpuscular Hemoglobin Concent 32.3, Red Cell Distribution Width 17.4H, Platelet Count 412, Mean Platelet Volume 7.8, Neutrophils (%) (Auto) , Lymphocytes (%) (Auto) , Monocytes (%) (Auto) , Eosinophils (%) (Auto) , Basophils (%) (Auto) , Neutrophils % (Manual) [Pending], Lymphocytes % (Manual) [Pending], Platelet Estimate [Pending], Platelet Morphology [Pending], Sodium Level 139, Potassium Level 3.8, Chloride Level 98, Carbon Dioxide Level 26, Anion Gap 15, Blood Urea Nitrogen 33H, Creatinine 1.5H, Estimat Glomerular Filtration Rate , Glucose Level 123H, Calcium Level 8.4L, Total Bilirubin 0.5, Aspartate Amino Transf (AST/SGOT) 14, Alanine Aminotransferase (ALT/SGPT) 7, Alkaline Phosphatase 117, Total Protein 5.3L, Albumin 1.7L, Globulin 3.6, Albumin/Globulin Ratio 0.4L Current Medications Medications (Trade) Dose Ordered Sig/Judith Route PRN Reason Start Time Stop Time Status Last Admin Dose Admin Acetaminophen (Tylenol) 650 mg Q4H PRN GT Mild Pain/Temp > 100.5 11/28/16 17:30 12/28/16 17:29 12/05/16 09:51 Epoetin Azael (Procrit (for non ESRD use)) 10,000 units TUE-TUE-TUE SUBQ 11/29/16 21:00 12/29/16 20:59 12/03/16 21:54 Ferrous Sulfate (Feosol) 300 mg DAILY NG 11/29/16 09:00 12/29/16 08:59 12/05/16 08:15 Heparin Sodium (Porcine) (Heparin 5000 units/ml) 5,000 units Q12HR SUBQ 11/28/16 21:00 12/28/16 20:59 12/05/16 20:55 Hydralazine HCl (Apresoline) 5 mg Q6H PRN GT SBP>170 11/28/16 16:00 12/28/16 15:59 Magnesium Hydroxide (Mom) 30 ml DAILY GT 11/29/16 09:00 12/29/16 08:59 12/05/16 08:15 Metronidazole (Flagyl) 500 mg EVERY 8 HOURS ORAL 12/03/16 11:00 12/10/16 10:59 12/06/16 05:25 Nystatin (Nystop Powder) 1 applic THREE TIMES A DAY TOPIC 12/05/16 18:00 01/04/17 17:59 12/05/16 18:23 Pantoprazole (Protonix) 40 mg DAILY IVP 11/29/16 09:00 12/29/16 08:59 12/05/16 08:15 Piperacillin Sod/ Tazobactam Sod/ Dextrose (Zosyn/D5W) 110 ml @ 27.5 mls/hr Q8HR IVPB 12/03/16 14:00 12/10/16 23:59 12/06/16 05:25 Vancomycin HCl 1 ea 1 ea DAILY PRN MISC Per rx protocol 11/28/16 09:00 12/28/16 08:59 Vancomycin HCl/ Dextrose (Vancomycin/D5W) 275 ml @ 183.708 mls/hr Q24H IVPB 11/28/16 20:00 12/07/16 19:59 12/05/16 19:59 RIZWAN SANDERS Dec 06, 2016 09:24
[2016-12-06] MEDS: Heparin 5000 units/ml inj SUBQ SCH ×2 (09:27→21:02)
[2016-12-06] MEDS: Milk of Magnesia 30ml Ud GT SCH (09:28)
[2016-12-06] MEDS: Ferrous Sulfate 300 MG/5 ML UDC NG SCH (09:28)
[2016-12-06] MEDS: Pantoprazole Inj IVP SCH (09:28)
--- NOTE | 2016-12-06 10:12 | Infectious Diseases Prog Note ---
Assessment/Plan Assessment/Plan A 1. pneumonia 2. pleural effusions 3. respiratory failure 4. Probable endocarditis 5. leucocytosis worsening 6. VRE colonization P 1. continue vancomycin iv, Zosyn & Flagyl 2. will follow up cultures Subjective ROS Limited/Unobtainable: Yes Respiratory: Reports: other - discomfort with tracheostomy tube Allergies: Coded Allergies: No Known Allergies (Unverified , 11/27/16) Objective Vital Signs Last 24 Hour Vital Signs Date Time Temp Pulse Resp B/P Pulse Ox O2 Delivery O2 Flow Rate FiO2 12/06/16 09:14 95 20 30 12/06/16 08:00 98.4 97 20 113/60 100 Mechanical Ventilator 30 12/06/16 08:00 102 12/06/16 08:00 98.4 97 16 113/60 98 Mechanical Ventilator 30 12/06/16 08:00 30 12/06/16 07:10 103 22 30 12/06/16 05:10 98 15 30 12/06/16 04:00 30 12/06/16 04:00 90 12/06/16 04:00 99.0 95 20 112/58 100 Mechanical Ventilator 30 12/06/16 02:52 95 20 30 12/06/16 01:20 82 16 30 12/06/16 00:00 98.1 93 18 122/62 100 Mechanical Ventilator 30 12/06/16 00:00 30 12/06/16 00:00 88 12/05/16 23:21 85 21 30 12/05/16 21:07 86 15 30 12/05/16 20:00 82 12/05/16 20:00 30 12/05/16 20:00 97.5 82 18 112/61 100 Mechanical Ventilator 30 12/05/16 19:18 86 18 30 12/05/16 16:46 78 14 30 12/05/16 16:00 97.5 80 18 100/55 100 Mechanical Ventilator 12/05/16 16:00 85 12/05/16 16:00 30 12/05/16 15:23 84 15 30 12/05/16 13:15 86 14 30 12/05/16 12:00 98.2 98 18 104/59 96 Mechanical Ventilator 30 12/05/16 12:00 30 12/05/16 12:00 99 12/05/16 11:20 110 24 30 Height (Feet): 5 Height (Inches): 9.00 Weight (Pounds): 145 General Appearance: no acute distress HEENT: status post trach Respiratory/Chest: rhonchi - bilaterally, other - on ventilator Cardiovascular: normal rate Abdomen: soft, non tender, other - GT feeding Extremities: no edema Neurologic/Psychiatric: alert, responsive Laboratory Tests Test 12/06/16 05:55 White Blood Count 25.4 K/UL (4.8-10.8) *H Red Blood Count 3.72 M/UL (4.70-6.10) L Hemoglobin 10.4 G/DL (14.2-18.0) L Hematocrit 32.2 % (42.0-52.0) L Mean Corpuscular Volume 86 FL (80-99) Mean Corpuscular Hemoglobin 27.9 PG (27.0-31.0) Mean Corpuscular Hemoglobin Concent 32.3 G/DL (32.0-36.0) Red Cell Distribution Width 17.4 % (11.6-14.8) H Platelet Count 412 K/UL (150-450) Mean Platelet Volume 7.8 FL (6.5-10.1) Neutrophils (%) (Auto) % (45.0-75.0) Lymphocytes (%) (Auto) % (20.0-45.0) Monocytes (%) (Auto) % (1.0-10.0) Eosinophils (%) (Auto) % (0.0-3.0) Basophils (%) (Auto) % (0.0-2.0) Neutrophils % (Manual) Pending Lymphocytes % (Manual) Pending Platelet Estimate Pending Platelet Morphology Pending Sodium Level 139 mEQ/L (135-145) Potassium Level 3.8 mEQ/L (3.4-4.9) Chloride Level 98 mEQ/L (98-107) Carbon Dioxide Level 26 mEQ/L (20-30) Anion Gap 15 (5-15) Blood Urea Nitrogen 33 mg/dL (7-23) H Creatinine 1.5 mg/dL (0.7-1.2) H Estimat Glomerular Filtration Rate mL/min (>60) Glucose Level 123 mg/dL (74-106) H Calcium Level 8.4 mg/dL (8.6-10.2) L Total Bilirubin 0.5 mg/dL (0.0-1.2) Aspartate Amino Transf (AST/SGOT) 14 U/L (5-40) Alanine Aminotransferase (ALT/SGPT) 7 U/L (3-41) Alkaline Phosphatase 117 U/L (40-129) Total Protein 5.3 g/dL (6.6-8.7) L Albumin 1.7 g/dL (3.5-5.2) L Globulin 3.6 g/dL Albumin/Globulin Ratio 0.4 (1.0-2.7) L Current Medications Medications (Trade) Dose Ordered Sig/Judith Route PRN Reason Start Time Stop Time Status Last Admin Dose Admin Acetaminophen (Tylenol) 650 mg Q4H PRN GT Mild Pain/Temp > 100.5 11/28/16 17:30 12/28/16 17:29 12/05/16 09:51 Epoetin Azael (Procrit (for non ESRD use)) 10,000 units TUE-TUE-TUE SUBQ 11/29/16 21:00 12/29/16 20:59 12/03/16 21:54 Ferrous Sulfate (Feosol) 300 mg DAILY NG 11/29/16 09:00 12/29/16 08:59 12/06/16 09:28 Heparin Sodium (Porcine) (Heparin 5000 units/ml) 5,000 units Q12HR SUBQ 11/28/16 21:00 12/28/16 20:59 12/06/16 09:27 Hydralazine HCl (Apresoline) 5 mg Q6H PRN GT SBP>170 11/28/16 16:00 12/28/16 15:59 Magnesium Hydroxide (Mom) 30 ml DAILY GT 11/29/16 09:00 12/29/16 08:59 12/06/16 09:28 Metronidazole (Flagyl) 500 mg EVERY 8 HOURS ORAL 12/03/16 11:00 12/10/16 10:59 12/06/16 05:25 Nystatin (Nystop Powder) 1 applic THREE TIMES A DAY TOPIC 12/05/16 18:00 01/04/17 17:59 12/05/16 18:23 Pantoprazole (Protonix) 40 mg DAILY IVP 11/29/16 09:00 12/29/16 08:59 12/06/16 09:28 Piperacillin Sod/ Tazobactam Sod/ Dextrose (Zosyn/D5W) 110 ml @ 27.5 mls/hr Q8HR IVPB 12/03/16 14:00 12/10/16 23:59 12/06/16 05:25 Vancomycin HCl 1 ea 1 ea DAILY PRN MISC Per rx protocol 11/28/16 09:00 12/28/16 08:59 Vancomycin HCl/ Dextrose (Vancomycin/D5W) 275 ml @ 183.708 mls/hr Q24H IVPB 11/28/16 20:00 12/07/16 19:59 12/05/16 19:59 MELISSA BULLARD Dec 06, 2016 10:12
[2016-12-06 10:30] LABS: ANISOCYTOSIS 1+; BAND NEUTROPHILS % (MANUAL) 0 % (0-8); BASOPHILS % (MANUAL) 0 % (0-2); EOSINOPHILS % (MANUAL) 2 % (0-3); HYPOCHROMASIA 1+; LYMPHOCYTES % (MANUAL) 4 % (20-45); NEUTROPHILS % (MANUAL) 92 % (45-75); PLATELET ESTIMATE ADEQUATE; PLATELET MORPHOLOGY NORMAL; TOTAL CELLS COUNTED 100
[2016-12-06 12:00] VITALS: BP 119/65
--- NOTE | 2016-12-06 12:20 | Diagnostic Imaging Report ---
Indications: Shortness of breath Technique: Portable AP chest Findings: Comparison: 11/29/2016 Cardiac silhouette remains partially obscured. Pulmonary vascular redistribution, bilateral interstitial infiltrates, bibasal pleural effusions, suggestion of left retrocardiac opacification persists, unchanged. Lines and tubes remain in place. No new abnormality identified. IMPRESSION: Stable bilateral congestive changes Underlying atelectasis or pneumonia in left lower lobe not excludable, unchanged
[2016-12-06] MEDS: Acetaminophen 650mg/20.3ml GT PRN (13:45)
[2016-12-06 14:20] LABS: VITAMIN D 25-OH TOTAL 42 ng/mL (.)
[2016-12-06 16:00] VITALS: BP 117/62
--- NOTE | 2016-12-06 18:04 | General Progress Note ---
Assessment/Plan Problem List: (1) Hypercalcemia of malignancy ICD Codes: E83.52 - Hypercalcemia SNOMED: 49060943 (2) Esophageal adenocarcinoma ICD Codes: C15.9 - Malignant neoplasm of esophagus, unspecified SNOMED: 970854916 (3) Respiratory failure for > 28 days ICD Codes: J96.90 - Respiratory failure, unspecified, unspecified whether with hypoxia or hypercapnia SNOMED: 786963427 (4) Sepsis ICD Codes: A41.9 - Sepsis, unspecified organism SNOMED: 34111072 Status: stable, not improved, unchanged Assessment/Plan ivf per renal iv aredia as needed. monitor Ca level abx follow up cultures vent support and resp rx feeds monitor wbc- significantly elevated id follow up Subjective ROS Limited/Unobtainable: No Constitutional: Reports: malaise, weakness HEENT: Reports: no symptoms Cardiovascular: Reports: no symptoms Respiratory: Reports: cough, sputum Gastrointestinal/Abdominal: Reports: difficulty swallowing Genitourinary: Reports: no symptoms Neurologic/Psychiatric: Reports: no symptoms Endocrine: Reports: no symptoms Hematologic/Lymphatic: Reports: anemia Allergies: Coded Allergies: No Known Allergies (Unverified , 11/27/16) All Systems: reviewed and negative except above Subjective no events. on the vent. id and pulm noted. on multiple iv abx. WBC remains elevated >20K. pt w/o complaints. no distress. Objective Last 24 Hour Vital Signs Date Time Temp Pulse Resp B/P Pulse Ox O2 Delivery O2 Flow Rate FiO2 12/06/16 17:15 90 15 30 12/06/16 16:00 30 12/06/16 16:00 84 12/06/16 16:00 97.5 91 15 117/62 97 Mechanical Ventilator 30 12/06/16 14:40 88 15 30 12/06/16 13:03 98 18 30 12/06/16 12:00 98.1 102 16 119/65 97 Mechanical Ventilator 30 12/06/16 12:00 86 12/06/16 12:00 30 12/06/16 10:30 96 19 30 12/06/16 09:14 95 20 30 12/06/16 08:00 89 12/06/16 08:00 98.4 97 20 113/60 100 Mechanical Ventilator 30 12/06/16 08:00 98.4 97 16 113/60 98 Mechanical Ventilator 30 12/06/16 08:00 30 12/06/16 07:10 103 22 30 12/06/16 05:10 98 15 30 12/06/16 04:00 30 12/06/16 04:00 90 12/06/16 04:00 99.0 95 20 112/58 100 Mechanical Ventilator 30 12/06/16 02:52 95 20 30 12/06/16 01:20 82 16 30 12/06/16 00:00 98.1 93 18 122/62 100 Mechanical Ventilator 30 12/06/16 00:00 30 12/06/16 00:00 88 12/05/16 23:21 85 21 30 12/05/16 21:07 86 15 30 12/05/16 20:00 82 12/05/16 20:00 30 12/05/16 20:00 97.5 82 18 112/61 100 Mechanical Ventilator 30 12/05/16 19:18 86 18 30 Intake and Output 12/05/16 12/06/16 19:00 07:00 Intake Total 910.0 ml 1570.0 ml Output Total 350 ml 750 ml Balance 560.0 ml 820.0 ml Intake Free Water 50 ml 300 ml IV Total 110.0 ml 440.0 ml Tube Feeding 720 ml 720 ml Other 30 ml 110 ml Output Urine Total 350 ml 750 ml Laboratory Tests 12/06/16 05:55: White Blood Count 25.4*H, Red Blood Count 3.72L, Hemoglobin 10.4L, Hematocrit 32.2L, Mean Corpuscular Volume 86, Mean Corpuscular Hemoglobin 27.9, Mean Corpuscular Hemoglobin Concent 32.3, Red Cell Distribution Width 17.4H, Platelet Count 412, Mean Platelet Volume 7.8, Neutrophils (%) (Auto) , Lymphocytes (%) (Auto) , Monocytes (%) (Auto) , Eosinophils (%) (Auto) , Basophils (%) (Auto) , Differential Total Cells Counted 100, Neutrophils % ( Manual) 92H, Lymphocytes % (Manual) 4L, Monocytes % (Manual) 2, Eosinophils % ( Manual) 2, Basophils % (Manual) 0, Band Neutrophils 0, Platelet Estimate Adequate, Platelet Morphology Normal, Hypochromasia 1+, Anisocytosis 1+, Sodium Level 139, Potassium Level 3.8, Chloride Level 98, Carbon Dioxide Level 26, Anion Gap 15, Blood Urea Nitrogen 33H, Creatinine 1.5H, Estimat Glomerular Filtration Rate , Glucose Level 123H, Calcium Level 8.4L, Total Bilirubin 0.5, Aspartate Amino Transf (AST/SGOT) 14, Alanine Aminotransferase (ALT/SGPT) 7, Alkaline Phosphatase 117, Total Protein 5.3L, Albumin 1.7L, Globulin 3.6, Albumin/Globulin Ratio 0.4L Height (Feet): 5 Height (Inches): 9.00 Weight (Pounds): 145 Objective General Appearance: WD/WN, alert, cachetic, thin Neck: supple Cardiovascular: regular rhythm Respiratory/Chest: chest wall non-tender, lungs clear, normal breath sounds, no respiratory distress, no accessory muscle use Abdomen: normal bowel sounds, non tender, soft, no organomegaly Edema: no edema noted Arm (L), no edema noted Arm (R), no edema noted Leg (L), no edema noted Leg (R), no edema noted Pedal (L), no edema noted Pedal (R), no edema noted Generalized Skin: normal pigmentation NANCY GARCIA Dec 06, 2016 18:04
[2016-12-06 20:00] VITALS: BP 117/59
[2016-12-06] MEDS ORDERED: Vancomycin 750 MG in D5W 275 ML IVPB SCH (20:00)
[2016-12-06] MEDS: Epogen (for non ESRD use) SUBQ SCH (21:06)
[2016-12-07] VITALS: BP 103/57
[2016-12-07 04:00] VITALS: BP 126/64
[2016-12-07] MEDS: Piperacillin/Tazobactam 3.375 GM in D5W 110 ML IVPB SCH ×3 (06:00→21:36)
[2016-12-07 08:00] VITALS: BP 122/62
--- NOTE | 2016-12-07 08:26 | Pulmonology Progress Note ---
Assessment/Plan Assessment/Plan IMPRESSION: 1. Sepsis. 2. Profound leukocytosis. now worse 3. Protein-calorie malnutrition. 4. 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 improved 5. Acute on chronic renal failure. 6. Metabolic alkalosis, possibly contraction in nature. 7. Anemia. 8. Thrombocytosis. 9. Tracheostomy and gastrostomy tube. 10. Chronic respiratory failure. PLAN exams without change from yesterday supportive care antibiotics noted; per ID labs reviewed ID evaluation noted and discussed follow up for change stabilize no wean suction aspiration precautions prognosis poor hope to dc soon once once cleared by ID not ready as patient likely septic with noted elevation of wbc impression, plan, and exam edited and reviewed in detail care discussed with RN Subjective ROS Limited/Unobtainable: Yes Allergies: Coded Allergies: No Known Allergies (Unverified , 11/27/16) Subjective in [place] on ventilator wbc spike noted d/w ID-abx noted withdrawn Objective Last 24 Hour Vital Signs Date Time Temp Pulse Resp B/P Pulse Ox O2 Delivery O2 Flow Rate FiO2 12/07/16 04:57 90 18 30 12/07/16 04:00 30 12/07/16 04:00 105 12/07/16 04:00 98.4 105 20 126/64 98 Room Air 12/07/16 03:12 91 18 30 12/07/16 01:30 87 18 30 12/07/16 00:00 30 12/07/16 00:00 97.4 73 14 103/57 98 Room Air 12/07/16 00:00 84 12/06/16 23:30 75 14 30 12/06/16 21:30 75 16 30 12/06/16 20:00 85 12/06/16 20:00 97.0 82 14 117/59 98 Room Air 12/06/16 20:00 30 12/06/16 19:30 78 14 30 12/06/16 17:15 90 15 30 12/06/16 16:00 30 12/06/16 16:00 84 12/06/16 16:00 97.5 91 15 117/62 97 Mechanical Ventilator 30 12/06/16 14:40 88 15 30 12/06/16 13:03 98 18 30 12/06/16 12:00 98.1 102 16 119/65 97 Mechanical Ventilator 30 12/06/16 12:00 86 12/06/16 12:00 30 12/06/16 10:30 96 19 30 12/06/16 09:14 95 20 30 Intake and Output 12/06/16 12/07/16 19:00 07:00 Intake Total 800.0 ml 700 ml Output Total 250 ml 500 ml Balance 550.0 ml 200 ml Intake Free Water 150 ml 100 ml IV Total 110.0 ml Tube Feeding 540 ml 600 ml Output Urine Total 250 ml 500 ml # Bowel Movements 1 Objective GENERAL: An ill-appearing male. reduced LOC HEENT: Negative. Pupils reactive. NECK: Supple. Trachea is midline. Carotids 2+. on vent LUNGS: Coarse breath sounds. Moderate air entry. no rhonchi or wheeze CARDIAC: S1 and S2. Overall, regular rhythm without murmurs, rubs, or gallops. ABDOMEN: Soft and nontender. G-tube in place. no HSM no distention EXTREMITIES: No cyanosis and no clubbing. some mild edema. NEUROLOGIC: Poorly responsive and withdrawn. reviewed and edited Current Medications Medications (Trade) Dose Ordered Sig/Judith Route PRN Reason Start Time Stop Time Status Last Admin Dose Admin Acetaminophen (Tylenol) 650 mg Q4H PRN GT Mild Pain/Temp > 100.5 11/28/16 17:30 12/28/16 17:29 12/06/16 13:45 Epoetin Azael (Procrit (for non ESRD use)) 10,000 units MON-WED-FRI SUBQ 11/29/16 21:00 12/29/16 20:59 12/06/16 21:06 Ferrous Sulfate (Feosol) 300 mg DAILY NG 11/29/16 09:00 12/29/16 08:59 12/06/16 09:28 Heparin Sodium (Porcine) (Heparin 5000 units/ml) 5,000 units Q12HR SUBQ 11/28/16 21:00 12/28/16 20:59 12/06/16 21:02 Hydralazine HCl (Apresoline) 5 mg Q6H PRN GT SBP>170 11/28/16 16:00 12/28/16 15:59 Magnesium Hydroxide (Mom) 30 ml DAILY GT 11/29/16 09:00 12/29/16 08:59 12/06/16 09:28 Metronidazole (Flagyl) 500 mg EVERY 8 HOURS ORAL 12/03/16 11:00 12/10/16 10:59 12/06/16 21:00 Nystatin 1 applic 1 applic THREE TIMES A DAY TOPIC 12/05/16 18:00 01/04/17 17:59 12/06/16 18:41 Pantoprazole (Protonix) 40 mg DAILY IVP 11/29/16 09:00 12/29/16 08:59 12/06/16 09:28 Piperacillin Sod/ Tazobactam Sod/ Dextrose (Zosyn/D5W) 110 ml @ 27.5 mls/hr Q8HR IVPB 12/03/16 14:00 12/10/16 23:59 12/07/16 06:00 Vancomycin HCl 1 ea 1 ea DAILY PRN MISC Per rx protocol 11/28/16 09:00 12/28/16 08:59 Vancomycin HCl/ Dextrose (Vancomycin/D5W) 275 ml @ 183.708 mls/hr Q24H IVPB 12/06/16 20:00 12/11/16 19:59 12/06/16 22:35 RIZWAN SANDERS Dec 07, 2016 08:26
[2016-12-07] MEDS: Pantoprazole Inj IVP SCH (08:42)
[2016-12-07] MEDS: Ferrous Sulfate 300 MG/5 ML UDC NG SCH (08:42)
[2016-12-07] MEDS: Heparin 5000 units/ml inj SUBQ SCH ×2 (08:44→20:48)
[2016-12-07] MEDS: Milk of Magnesia 30ml Ud GT SCH (08:49)
[2016-12-07] MEDS: Nystatin Powder 100,000 units/gm 15gm TOPIC SCH ×3 (08:50→17:38)
[2016-12-07 09:40] LABS: MEAN CORPUSCULAR HEMOGLOBIN 27.4 PG (27.0-31.0); MEAN CORPUSCULAR HGB CONC 31.7 G/DL (32.0-36.0); MEAN CORPUSCULAR VOLUME 86 FL (80-99); MEAN PLATELET VOLUME 7.9 FL (6.5-10.1); PLATELET COUNT 432 K/UL (150-450); RED BLOOD COUNT 3.67 M/UL (4.70-6.10); RED CELL DISTRIBUTION WIDTH 17.2 % (11.6-14.8); WHITE BLOOD COUNT 19.3 K/UL (4.8-10.8)
[2016-12-07] MEDS: metroNIDAZOLE 500mg tab ORAL SCH ×3 (09:58→21:36)
[2016-12-07 10:20] LABS: EOSINOPHILS % (MANUAL) 3 % (0-3); LYMPHOCYTES % (MANUAL) 2 % (20-45); NEUTROPHILS % (MANUAL) 90 % (45-75); TOTAL CELLS COUNTED 100
[2016-12-07 10:21] LABS: BAND NEUTROPHILS % (MANUAL) 0 % (0-8); BASOPHILS % (MANUAL) 0 % (0-2); PLATELET ESTIMATE INCREASED; PLATELET MORPHOLOGY NORMAL
[2016-12-07 10:22] LABS: HYPOCHROMASIA 1+
[2016-12-07 10:23] LABS: ANISOCYTOSIS 1+
[2016-12-07 12:00] VITALS: BP 125/63
--- NOTE | 2016-12-07 12:20 | Infectious Diseases Prog Note ---
"Assessment/Plan Assessment/Plan antibiotics : vancomycin iv, zosyn, flagyl A 1. e.coli | pseudomonas pneumonia 2. pleural effusions 3. respiratory failure 4. ? endocarditis 5. leucocytosis improving P 1. continue zosyn, flagyl 2. d/c iv vancomycin 3. will follow up cultures Subjective ROS Limited/Unobtainable: Yes Allergies: Coded Allergies: No Known Allergies (Unverified , 11/27/16) Objective Vital Signs Last 24 Hour Vital Signs Date Time Temp Pulse Resp B/P Pulse Ox O2 Delivery O2 Flow Rate FiO2 12/07/16 08:00 98.2 109 20 122/62 97 Room Air 30 12/07/16 08:00 110 12/07/16 08:00 30 12/07/16 06:44 91 22 30 12/07/16 04:57 90 18 30 12/07/16 04:00 30 12/07/16 04:00 105 12/07/16 04:00 98.4 105 20 126/64 98 Room Air 12/07/16 03:12 91 18 30 12/07/16 01:30 87 18 30 12/07/16 00:00 30 12/07/16 00:00 97.4 73 14 103/57 98 Room Air 12/07/16 00:00 84 12/06/16 23:30 75 14 30 12/06/16 21:30 75 16 30 12/06/16 20:00 85 12/06/16 20:00 97.0 82 14 117/59 98 Room Air 12/06/16 20:00 30 12/06/16 19:30 78 14 30 12/06/16 17:15 90 15 30 12/06/16 16:00 30 12/06/16 16:00 84 12/06/16 16:00 97.5 91 15 117/62 97 Mechanical Ventilator 30 12/06/16 14:40 88 15 30 12/06/16 13:03 98 18 30 Height (Feet): 5 Height (Inches): 9.00 Weight (Pounds): 145 HEENT: status post trach Respiratory/Chest: lungs clear Cardiovascular: normal rate, regular rhythm, no gallop/murmur Abdomen: soft, non tender, other - GT Extremities: no edema Laboratory Tests Test 12/07/16 09:00 White Blood Count 19.3 K/UL (4.8-10.8) H Red Blood Count 3.67 M/UL (4.70-6.10) L Hemoglobin 10.1 G/DL (14.2-18.0) L Hematocrit 31.7 % (42.0-52.0) L Mean Corpuscular Volume 86 FL (80-99) Mean Corpuscular Hemoglobin 27.4 PG (27.0-31.0) Mean Corpuscular Hemoglobin Concent 31.7 G/DL (32.0-36.0) L Red Cell Distribution Width 17.2 % (11.6-14.8) H Platelet Count 432 K/UL (150-450) Mean Platelet Volume 7.9 FL (6.5-10.1) Neutrophils (%) (Auto) % (45.0-75.0) Lymphocytes (%) (Auto) % (20.0-45.0) Monocytes (%) (Auto) % (1.0-10.0) Eosinophils (%) (Auto) % (0.0-3.0) Basophils (%) (Auto) % (0.0-2.0) Differential Total Cells Counted 100 Neutrophils % (Manual) 90 % (45-75) H Lymphocytes % (Manual) 2 % (20-45) L Monocytes % (Manual) 5 % (1-10) Eosinophils % (Manual) 3 % (0-3) Basophils % (Manual) 0 % (0-2) Band Neutrophils 0 % (0-8) Platelet Estimate Increased H Platelet Morphology Normal Hypochromasia 1+ Anisocytosis 1+ JORDAN NUNEZ Dec 07, 2016 12:20"
--- NOTE | 2016-12-07 15:03 | Nephrology Progress Note ---
Assessment/Plan Plan Hypercalcemia of Malignancy - calcium down from 13 to 8.7 yesterday. Today 8.4. Patient's mentation improved simultaneously post aredia Subjective Subjective Confused Objective Objective Last 24 Hour Vital Signs Date Time Temp Pulse Resp B/P Pulse Ox O2 Delivery O2 Flow Rate FiO2 12/07/16 12:00 30 12/07/16 11:13 95 14 30 12/07/16 09:12 96 19 30 12/07/16 08:00 98.2 109 20 122/62 97 Mechanical Ventilator 30 12/07/16 08:00 110 12/07/16 08:00 30 12/07/16 06:44 91 22 30 12/07/16 04:57 90 18 30 12/07/16 04:00 30 12/07/16 04:00 105 12/07/16 04:00 98.4 105 20 126/64 98 Room Air 12/07/16 03:12 91 18 30 12/07/16 01:30 87 18 30 12/07/16 00:00 30 12/07/16 00:00 97.4 73 14 103/57 98 Room Air 12/07/16 00:00 84 12/06/16 23:30 75 14 30 12/06/16 21:30 75 16 30 12/06/16 20:00 85 12/06/16 20:00 97.0 82 14 117/59 98 Room Air 12/06/16 20:00 30 12/06/16 19:30 78 14 30 12/06/16 17:15 90 15 30 12/06/16 16:00 30 12/06/16 16:00 84 12/06/16 16:00 97.5 91 15 117/62 97 Mechanical Ventilator 30 Intake and Output 12/06/16 12/07/16 19:00 07:00 Intake Total 800.0 ml 700 ml Output Total 250 ml 500 ml Balance 550.0 ml 200 ml Intake Free Water 150 ml 100 ml IV Total 110.0 ml Tube Feeding 540 ml 600 ml Output Urine Total 250 ml 500 ml # Bowel Movements 1 Laboratory Tests 12/07/16 09:00: White Blood Count 19.3H, Red Blood Count 3.67L, Hemoglobin 10.1L, Hematocrit 31.7L, Mean Corpuscular Volume 86, Mean Corpuscular Hemoglobin 27.4, Mean Corpuscular Hemoglobin Concent 31.7L, Red Cell Distribution Width 17.2H, Platelet Count 432, Mean Platelet Volume 7.9, Neutrophils (%) (Auto) , Lymphocytes (%) (Auto) , Monocytes (%) (Auto) , Eosinophils (%) (Auto) , Basophils (%) (Auto) , Differential Total Cells Counted 100, Neutrophils % ( Manual) 90H, Lymphocytes % (Manual) 2L, Monocytes % (Manual) 5, Eosinophils % ( Manual) 3, Basophils % (Manual) 0, Band Neutrophils 0, Platelet Estimate IncreasedH, Platelet Morphology Normal, Hypochromasia 1+, Anisocytosis 1+ Height (Feet): 5 Height (Inches): 9.00 Weight (Pounds): 145 Objective Cv Tach Lungs B Ronchi Abd SNT. BS + E No CCE GAGANDEEP PAEZ Dec 07, 2016 15:03
[2016-12-07 16:00] VITALS: BP 111/54
--- NOTE | 2016-12-07 17:15 | General Progress Note ---
Assessment/Plan Problem List: (1) Hypercalcemia of malignancy ICD Codes: E83.52 - Hypercalcemia SNOMED: 15629697 (2) Esophageal adenocarcinoma ICD Codes: C15.9 - Malignant neoplasm of esophagus, unspecified SNOMED: 807390203 (3) Respiratory failure for > 28 days ICD Codes: J96.90 - Respiratory failure, unspecified, unspecified whether with hypoxia or hypercapnia SNOMED: 266415892 (4) Sepsis ICD Codes: A41.9 - Sepsis, unspecified organism SNOMED: 63338037 Status: stable, progressing Assessment/Plan iv aredia as needed. monitor Ca level abx follow up cultures vent support and resp rx feeds monitor wbc- significantly elevated id follow up monitor bun/cr- may need to resume ivf or increase water flush Subjective ROS Limited/Unobtainable: No Constitutional: Reports: malaise, weakness HEENT: Reports: no symptoms Cardiovascular: Reports: no symptoms Respiratory: Reports: cough, shortness of breath, sputum Gastrointestinal/Abdominal: Reports: difficulty swallowing Genitourinary: Reports: no symptoms Neurologic/Psychiatric: Reports: pre-existing deficit Endocrine: Reports: no symptoms Hematologic/Lymphatic: Reports: anemia Allergies: Coded Allergies: No Known Allergies (Unverified , 11/27/16) All Systems: reviewed and negative except above Subjective no events. on the vent. id and pulm noted. on multiple iv abx. WBC remains elevated. cr slightly higher. pt w/o complaints. Objective Last 24 Hour Vital Signs Date Time Temp Pulse Resp B/P Pulse Ox O2 Delivery O2 Flow Rate FiO2 12/07/16 16:49 86 14 30 12/07/16 16:00 97.9 90 18 111/54 98 Mechanical Ventilator 30 12/07/16 15:30 93 15 30 12/07/16 13:23 96 15 30 12/07/16 12:00 30 12/07/16 12:00 98.2 106 28 125/63 97 Mechanical Ventilator 30 12/07/16 11:13 95 14 30 12/07/16 09:12 96 19 30 12/07/16 08:00 98.2 109 20 122/62 97 Mechanical Ventilator 30 12/07/16 08:00 110 12/07/16 08:00 30 12/07/16 06:44 91 22 30 12/07/16 04:57 90 18 30 12/07/16 04:00 30 12/07/16 04:00 105 12/07/16 04:00 98.4 105 20 126/64 98 Room Air 12/07/16 03:12 91 18 30 12/07/16 01:30 87 18 30 12/07/16 00:00 30 12/07/16 00:00 97.4 73 14 103/57 98 Room Air 12/07/16 00:00 84 12/06/16 23:30 75 14 30 12/06/16 21:30 75 16 30 12/06/16 20:00 85 12/06/16 20:00 97.0 82 14 117/59 98 Room Air 12/06/16 20:00 30 12/06/16 19:30 78 14 30 12/06/16 17:15 90 15 30 Intake and Output 12/06/16 12/07/16 19:00 07:00 Intake Total 800.0 ml 760 ml Output Total 250 ml 500 ml Balance 550.0 ml 260 ml Intake Free Water 150 ml 100 ml IV Total 110.0 ml Tube Feeding 540 ml 660 ml Output Urine Total 250 ml 500 ml # Bowel Movements 1 Laboratory Tests 12/07/16 09:00: White Blood Count 19.3H, Red Blood Count 3.67L, Hemoglobin 10.1L, Hematocrit 31.7L, Mean Corpuscular Volume 86, Mean Corpuscular Hemoglobin 27.4, Mean Corpuscular Hemoglobin Concent 31.7L, Red Cell Distribution Width 17.2H, Platelet Count 432, Mean Platelet Volume 7.9, Neutrophils (%) (Auto) , Lymphocytes (%) (Auto) , Monocytes (%) (Auto) , Eosinophils (%) (Auto) , Basophils (%) (Auto) , Differential Total Cells Counted 100, Neutrophils % ( Manual) 90H, Lymphocytes % (Manual) 2L, Monocytes % (Manual) 5, Eosinophils % ( Manual) 3, Basophils % (Manual) 0, Band Neutrophils 0, Platelet Estimate IncreasedH, Platelet Morphology Normal, Hypochromasia 1+, Anisocytosis 1+ Height (Feet): 5 Height (Inches): 9.00 Weight (Pounds): 145 Objective General Appearance: WD/WN, alert, cachetic, thin Neck: supple Cardiovascular: regular rhythm Respiratory/Chest: chest wall non-tender, lungs clear, normal breath sounds, no respiratory distress, no accessory muscle use Abdomen: normal bowel sounds, non tender, soft, no organomegaly Edema: no edema noted Arm (L), no edema noted Arm (R), no edema noted Leg (L), no edema noted Leg (R), no edema noted Pedal (L), no edema noted Pedal (R), no edema noted Generalized Skin: normal pigmentation NANCY GARCIA Dec 07, 2016 17:15
[2016-12-07 20:00] VITALS: BP 129/60
[2016-12-08] VITALS (19 sets, daily range): BP systolic 82–134; BP diastolic 23–68
[2016-12-08] MEDS: metroNIDAZOLE 500mg tab ORAL SCH ×3 (05:11→21:31)
[2016-12-08] MEDS: Piperacillin/Tazobactam 3.375 GM in D5W 110 ML IVPB SCH ×3 (05:11→21:31)
[2016-12-08 06:03] LABS: MEAN CORPUSCULAR HEMOGLOBIN 27.2 PG (27.0-31.0); MEAN CORPUSCULAR VOLUME 88 FL (80-99); MEAN PLATELET VOLUME 7.4 FL (6.5-10.1); PLATELET COUNT 444 K/UL (150-450); RED BLOOD COUNT 4.03 M/UL (4.70-6.10); RED CELL DISTRIBUTION WIDTH 17.4 % (11.6-14.8); WHITE BLOOD COUNT 17.7 K/UL (4.8-10.8)
[2016-12-08 07:30] LABS: BAND NEUTROPHILS % (MANUAL) 0 % (0-8); BASOPHILS % (MANUAL) 0 % (0-2); EOSINOPHILS % (MANUAL) 4 % (0-3); LYMPHOCYTES % (MANUAL) 5 % (20-45); NEUTROPHILS % (MANUAL) 84 % (45-75); PLATELET ESTIMATE ADEQUATE; PLATELET MORPHOLOGY NORMAL; TOTAL CELLS COUNTED 100
--- NOTE | 2016-12-08 08:07 | General Progress Note ---
Assessment/Plan Problem List: (1) Hypercalcemia of malignancy ICD Codes: E83.52 - Hypercalcemia SNOMED: 93295367 (2) Esophageal adenocarcinoma ICD Codes: C15.9 - Malignant neoplasm of esophagus, unspecified SNOMED: 756739773 (3) Respiratory failure for > 28 days ICD Codes: J96.90 - Respiratory failure, unspecified, unspecified whether with hypoxia or hypercapnia SNOMED: 118043083 (4) Sepsis ICD Codes: A41.9 - Sepsis, unspecified organism SNOMED: 70126514 Status: stable, progressing Assessment/Plan iv aredia as needed. monitor Ca level abx follow up cultures vent support and resp rx feeds monitor wbc-remains high but is trending down id follow up monitor bun/cr- may need to resume ivf or increase water flush poor mcc prognosis Subjective ROS Limited/Unobtainable: No Constitutional: Reports: malaise, weakness HEENT: Reports: no symptoms Cardiovascular: Reports: no symptoms Respiratory: Reports: shortness of breath, sputum Gastrointestinal/Abdominal: Reports: difficulty swallowing Genitourinary: Reports: no symptoms Neurologic/Psychiatric: Reports: no symptoms Endocrine: Reports: no symptoms Hematologic/Lymphatic: Reports: anemia Allergies: Coded Allergies: No Known Allergies (Unverified , 11/27/16) All Systems: reviewed and negative except above Subjective no events. on the vent. id and pulm noted. on multiple iv abx. WBC remains elevated but is trending down. pt w/o complaints. Objective Last 24 Hour Vital Signs Date Time Temp Pulse Resp B/P Pulse Ox O2 Delivery O2 Flow Rate FiO2 12/08/16 06:56 88 15 30 12/08/16 05:25 86 15 30 12/08/16 04:00 96.9 83 18 134/68 99 Mechanical Ventilator 12/08/16 04:00 82 12/08/16 04:00 30 12/08/16 03:08 86 22 30 12/08/16 01:30 85 21 30 12/08/16 00:00 85 12/08/16 00:00 97.5 82 18 117/60 99 Mechanical Ventilator 12/08/16 00:00 30 12/07/16 23:15 78 16 30 12/07/16 21:30 71 14 30 12/07/16 20:00 30 12/07/16 20:00 97.8 84 18 129/60 99 Mechanical Ventilator 30 12/07/16 20:00 84 12/07/16 19:30 81 16 30 12/07/16 16:49 86 14 30 12/07/16 16:00 30 12/07/16 16:00 84 12/07/16 16:00 97.9 90 18 111/54 98 Mechanical Ventilator 30 12/07/16 15:30 93 15 30 12/07/16 13:23 96 15 30 12/07/16 12:00 30 12/07/16 12:00 98.2 106 28 125/63 97 Mechanical Ventilator 30 12/07/16 12:00 101 12/07/16 11:13 95 14 30 12/07/16 09:12 96 19 30 Intake and Output 12/07/16 12/08/16 19:00 07:00 Intake Total 650.0 ml 985.0 ml Output Total 340 ml 600 ml Balance 310.0 ml 385.0 ml IV Total 110.0 ml 165.0 ml Tube Feeding 540 ml 720 ml Other 100 ml Output Urine Total 340 ml 600 ml # Bowel Movements 3 1 Laboratory Tests 12/07/16 09:00: White Blood Count 19.3H, Red Blood Count 3.67L, Hemoglobin 10.1L, Hematocrit 31.7L, Mean Corpuscular Volume 86, Mean Corpuscular Hemoglobin 27.4, Mean Corpuscular Hemoglobin Concent 31.7L, Red Cell Distribution Width 17.2H, Platelet Count 432, Mean Platelet Volume 7.9, Neutrophils (%) (Auto) , Lymphocytes (%) (Auto) , Monocytes (%) (Auto) , Eosinophils (%) (Auto) , Basophils (%) (Auto) , Differential Total Cells Counted 100, Neutrophils % ( Manual) 90H, Lymphocytes % (Manual) 2L, Monocytes % (Manual) 5, Eosinophils % ( Manual) 3, Basophils % (Manual) 0, Band Neutrophils 0, Platelet Estimate IncreasedH, Platelet Morphology Normal, Hypochromasia 1+, Anisocytosis 1+ 12/08/16 03:50: White Blood Count 17.7H, Red Blood Count 4.03L, Hemoglobin 11.0L, Hematocrit 35.4L, Mean Corpuscular Volume 88, Mean Corpuscular Hemoglobin 27.2, Mean Corpuscular Hemoglobin Concent 31.0L, Red Cell Distribution Width 17.4H, Platelet Count 444, Mean Platelet Volume 7.4, Neutrophils (%) (Auto) , Lymphocytes (%) (Auto) , Monocytes (%) (Auto) , Eosinophils (%) (Auto) , Basophils (%) (Auto) , Differential Total Cells Counted 100, Neutrophils % ( Manual) 84H, Lymphocytes % (Manual) 5L, Monocytes % (Manual) 7, Eosinophils % ( Manual) 4H, Basophils % (Manual) 0, Band Neutrophils 0, Platelet Estimate Adequate, Platelet Morphology Normal, Red Blood Cell Morphology Normal Height (Feet): 5 Height (Inches): 9.00 Weight (Pounds): 145 Objective General Appearance: WD/WN, alert, cachetic, thin Neck: supple Cardiovascular: regular rhythm Respiratory/Chest: chest wall non-tender, lungs clear, normal breath sounds, no respiratory distress, no accessory muscle use Abdomen: normal bowel sounds, non tender, soft, no organomegaly Edema: no edema noted Arm (L), no edema noted Arm (R), no edema noted Leg (L), no edema noted Leg (R), no edema noted Pedal (L), no edema noted Pedal (R), no edema noted Generalized Skin: normal pigmentation NANCY GARCIA Dec 08, 2016 08:07
[2016-12-08] MEDS: Ferrous Sulfate 300 MG/5 ML UDC NG SCH (08:20)
[2016-12-08] MEDS: Milk of Magnesia 30ml Ud GT SCH (08:20)
[2016-12-08] MEDS: Pantoprazole Inj IVP SCH (08:21)
[2016-12-08] MEDS: Nystatin Powder 100,000 units/gm 15gm TOPIC SCH ×3 (08:22→17:45)
[2016-12-08] MEDS: Heparin 5000 units/ml inj SUBQ SCH ×2 (08:25→20:37)
--- NOTE | 2016-12-08 09:58 | Pulmonology Progress Note ---
Assessment/Plan Assessment/Plan IMPRESSION: 1. Sepsis. 2. Profound leukocytosis. 3. Protein-calorie malnutrition. 4. Hypercalcemia, 5. Acute on chronic renal failure. 6. Metabolic alkalosis, possibly contraction in nature. 7. Anemia. 8. Thrombocytosis. 9. Tracheostomy and gastrostomy tube. 10. Chronic respiratory failure. PLAN exams edited supportive care antibiotics noted; per ID labs reviewed ID evaluation noted and discussed follow up for change stabilize no wean at present suction aspiration precautions prognosis poor hope to dc soon once once cleared by ID need to see further improvement in WBC care discussed in detail impression, plan, and exam edited and reviewed in detail care discussed with RN Subjective ROS Limited/Unobtainable: Yes Allergies: Coded Allergies: No Known Allergies (Unverified , 11/27/16) Subjective in [place] on ventilator wbc improved ID recommendations noted withdrawn Objective Last 24 Hour Vital Signs Date Time Temp Pulse Resp B/P Pulse Ox O2 Delivery O2 Flow Rate FiO2 12/08/16 09:37 87 18 30 12/08/16 08:00 97.9 89 18 118/61 99 Mechanical Ventilator 30 12/08/16 08:00 30 12/08/16 06:56 88 15 30 12/08/16 05:25 86 15 30 12/08/16 04:00 96.9 83 18 134/68 99 Mechanical Ventilator 12/08/16 04:00 82 12/08/16 04:00 30 12/08/16 03:08 86 22 30 12/08/16 01:30 85 21 30 12/08/16 00:00 85 12/08/16 00:00 97.5 82 18 117/60 99 Mechanical Ventilator 12/08/16 00:00 30 12/07/16 23:15 78 16 30 12/07/16 21:30 71 14 30 12/07/16 20:00 30 12/07/16 20:00 97.8 84 18 129/60 99 Mechanical Ventilator 30 12/07/16 20:00 84 12/07/16 19:30 81 16 30 12/07/16 16:49 86 14 30 12/07/16 16:00 30 12/07/16 16:00 84 12/07/16 16:00 97.9 90 18 111/54 98 Mechanical Ventilator 30 12/07/16 15:30 93 15 30 12/07/16 13:23 96 15 30 12/07/16 12:00 30 12/07/16 12:00 98.2 106 28 125/63 97 Mechanical Ventilator 30 12/07/16 12:00 101 12/07/16 11:13 95 14 30 Intake and Output 12/07/16 12/08/16 19:00 07:00 Intake Total 650.0 ml 985.0 ml Output Total 340 ml 600 ml Balance 310.0 ml 385.0 ml IV Total 110.0 ml 165.0 ml Tube Feeding 540 ml 720 ml Other 100 ml Output Urine Total 340 ml 600 ml # Bowel Movements 3 1 Objective GENERAL: An ill-appearing male. reduced LOC HEENT: Negative. Pupils reactive. NECK: Supple. Trachea is midline. Carotids 2+. on vent LUNGS: Coarse breath sounds. Moderate air entry. no rhonchi or wheeze CARDIAC: S1 and S2. Overall, regular rhythm without murmurs, rubs, or gallops. ABDOMEN: Soft and nontender. G-tube in place. no HSM no distention EXTREMITIES: No cyanosis and no clubbing. some mild edema. NEUROLOGIC: Poorly responsive and withdrawn. reduced LOC reviewed and edited Laboratory Tests 12/08/16 03:50: White Blood Count 17.7H, Red Blood Count 4.03L, Hemoglobin 11.0L, Hematocrit 35.4L, Mean Corpuscular Volume 88, Mean Corpuscular Hemoglobin 27.2, Mean Corpuscular Hemoglobin Concent 31.0L, Red Cell Distribution Width 17.4H, Platelet Count 444, Mean Platelet Volume 7.4, Neutrophils (%) (Auto) , Lymphocytes (%) (Auto) , Monocytes (%) (Auto) , Eosinophils (%) (Auto) , Basophils (%) (Auto) , Differential Total Cells Counted 100, Neutrophils % ( Manual) 84H, Lymphocytes % (Manual) 5L, Monocytes % (Manual) 7, Eosinophils % ( Manual) 4H, Basophils % (Manual) 0, Band Neutrophils 0, Platelet Estimate Adequate, Platelet Morphology Normal, Red Blood Cell Morphology Normal Current Medications Medications (Trade) Dose Ordered Sig/Judith Route PRN Reason Start Time Stop Time Status Last Admin Dose Admin Acetaminophen (Tylenol) 650 mg Q4H PRN GT Mild Pain/Temp > 100.5 11/28/16 17:30 12/28/16 17:29 12/06/16 13:45 Epoetin Azael (Procrit (for non ESRD use)) 10,000 units MON-WED-TUE SUBQ 11/29/16 21:00 12/29/16 20:59 12/06/16 21:06 Ferrous Sulfate (Feosol) 300 mg DAILY NG 11/29/16 09:00 12/29/16 08:59 12/08/16 08:20 Heparin Sodium (Porcine) (Heparin 5000 units/ml) 5,000 units Q12HR SUBQ 11/28/16 21:00 12/28/16 20:59 12/08/16 08:25 Hydralazine HCl (Apresoline) 5 mg Q6H PRN GT SBP>170 11/28/16 16:00 12/28/16 15:59 Magnesium Hydroxide (Mom) 30 ml DAILY GT 11/29/16 09:00 12/29/16 08:59 12/08/16 08:20 Metronidazole (Flagyl) 500 mg EVERY 8 HOURS ORAL 12/03/16 11:00 12/10/16 10:59 12/08/16 05:11 Nystatin (Nystop Powder) 1 applic THREE TIMES A DAY TOPIC 12/05/16 18:00 01/04/17 17:59 12/08/16 08:22 Pantoprazole 40 mg 40 mg DAILY IVP 11/29/16 09:00 12/29/16 08:59 12/08/16 08:21 Piperacillin Sod/ Tazobactam Sod/ Dextrose (Zosyn/D5W) 110 ml @ 27.5 mls/hr Q8HR IVPB 12/03/16 14:00 12/10/16 23:59 12/08/16 05:11 RIZWAN SANDERS Dec 08, 2016 09:58
[2016-12-08] MEDS: Acetaminophen 650mg/20.3ml GT PRN (11:59)
[2016-12-08] MEDS ORDERED: Surgicel 4in x 8in TOPIC ONE ×2 (12:03)
--- NOTE | 2016-12-08 12:43 | Nephrology Progress Note ---
Assessment/Plan Plan Hypercalcemia of Malignancy - calcium down from 13 t8.4. Patient's mentation improved simultaneously post aredia Subjective Subjective Confused Objective Objective Last 24 Hour Vital Signs Date Time Temp Pulse Resp B/P Pulse Ox O2 Delivery O2 Flow Rate FiO2 12/08/16 12:37 97.9 12/08/16 12:04 85 20 30 12/08/16 12:00 30 12/08/16 09:37 87 18 30 12/08/16 08:00 97.9 89 18 118/61 99 Mechanical Ventilator 30 12/08/16 08:00 30 12/08/16 08:00 88 12/08/16 06:56 88 15 30 12/08/16 05:25 86 15 30 12/08/16 04:00 96.9 83 18 134/68 99 Mechanical Ventilator 12/08/16 04:00 82 12/08/16 04:00 30 12/08/16 03:08 86 22 30 12/08/16 01:30 85 21 30 12/08/16 00:00 85 12/08/16 00:00 97.5 82 18 117/60 99 Mechanical Ventilator 12/08/16 00:00 30 12/07/16 23:15 78 16 30 12/07/16 21:30 71 14 30 12/07/16 20:00 30 12/07/16 20:00 97.8 84 18 129/60 99 Mechanical Ventilator 30 12/07/16 20:00 84 12/07/16 19:30 81 16 30 12/07/16 16:49 86 14 30 12/07/16 16:00 30 12/07/16 16:00 84 12/07/16 16:00 97.9 90 18 111/54 98 Mechanical Ventilator 30 12/07/16 15:30 93 15 30 12/07/16 13:23 96 15 30 Intake and Output 12/07/16 12/08/16 19:00 07:00 Intake Total 650.0 ml 985.0 ml Output Total 340 ml 600 ml Balance 310.0 ml 385.0 ml IV Total 110.0 ml 165.0 ml Tube Feeding 540 ml 720 ml Other 100 ml Output Urine Total 340 ml 600 ml # Bowel Movements 3 1 Laboratory Tests 12/08/16 03:50: White Blood Count 17.7H, Red Blood Count 4.03L, Hemoglobin 11.0L, Hematocrit 35.4L, Mean Corpuscular Volume 88, Mean Corpuscular Hemoglobin 27.2, Mean Corpuscular Hemoglobin Concent 31.0L, Red Cell Distribution Width 17.4H, Platelet Count 444, Mean Platelet Volume 7.4, Neutrophils (%) (Auto) , Lymphocytes (%) (Auto) , Monocytes (%) (Auto) , Eosinophils (%) (Auto) , Basophils (%) (Auto) , Differential Total Cells Counted 100, Neutrophils % ( Manual) 84H, Lymphocytes % (Manual) 5L, Monocytes % (Manual) 7, Eosinophils % ( Manual) 4H, Basophils % (Manual) 0, Band Neutrophils 0, Platelet Estimate Adequate, Platelet Morphology Normal, Red Blood Cell Morphology Normal 12/08/16 12:15: Prothrombin Time [Pending], Prothromb Time International Ratio [Pending] Height (Feet): 5 Height (Inches): 9.00 Weight (Pounds): 145 Objective Cv Tach Lungs B Oleg Huddleston SNT. BS + E No CCE GAGANDEEP PAEZ Dec 08, 2016 12:43
[2016-12-08 12:47] LABS: INR 1.2 (0.9-1.1); PROTHROMBIN TIME 12.7 SEC (9.30-11.50)
[2016-12-08] MEDS ORDERED: Diltiazem 25mg/5ml IV ONE (14:30)
[2016-12-08] MEDS ORDERED: Amiodarone 200mg tab ORAL SCH (14:30)
--- NOTE | 2016-12-08 14:43 | Infectious Diseases Prog Note ---
Assessment/Plan Assessment/Plan A 1. pneumonia with Pseudomonas & E. coli 2. pleural effusions 3. respiratory failure 4. Probable endocarditis 5. leucocytosis worsening 6. VRE colonization 7. GI bleeding P 1. continue Zosyn & Flagyl 2. will follow up cultures Subjective ROS Limited/Unobtainable: Yes Constitutional: Reports: no symptoms Cardiovascular: Reports: palpitations Gastrointestinal/Abdominal: Reports: other - fresh bleeding from GT site Allergies: Coded Allergies: No Known Allergies (Unverified , 11/27/16) Objective Vital Signs Last 24 Hour Vital Signs Date Time Temp Pulse Resp B/P Pulse Ox O2 Delivery O2 Flow Rate FiO2 12/08/16 14:26 144 106/52 12/08/16 12:42 114 17 30 12/08/16 12:37 97.9 12/08/16 12:04 85 20 30 12/08/16 12:00 30 12/08/16 12:00 113 12/08/16 12:00 97.9 107 19 104/56 100 Mechanical Ventilator 30 12/08/16 09:37 87 18 30 12/08/16 08:00 97.9 89 18 118/61 99 Mechanical Ventilator 30 12/08/16 08:00 30 12/08/16 08:00 88 12/08/16 06:56 88 15 30 12/08/16 05:25 86 15 30 12/08/16 04:00 96.9 83 18 134/68 99 Mechanical Ventilator 12/08/16 04:00 82 12/08/16 04:00 30 12/08/16 03:08 86 22 30 12/08/16 01:30 85 21 30 12/08/16 00:00 85 12/08/16 00:00 97.5 82 18 117/60 99 Mechanical Ventilator 12/08/16 00:00 30 12/07/16 23:15 78 16 30 12/07/16 21:30 71 14 30 12/07/16 20:00 30 12/07/16 20:00 97.8 84 18 129/60 99 Mechanical Ventilator 30 12/07/16 20:00 84 12/07/16 19:30 81 16 30 12/07/16 16:49 86 14 30 12/07/16 16:00 30 12/07/16 16:00 84 12/07/16 16:00 97.9 90 18 111/54 98 Mechanical Ventilator 30 12/07/16 15:30 93 15 30 Height (Feet): 5 Height (Inches): 9.00 Weight (Pounds): 145 HEENT: status post trach Respiratory/Chest: rhonchi - bilaterally, other - on venilator Cardiovascular: tachycardia Abdomen: soft, non tender, other - bleeding around GT Extremities: no edema Neurologic/Psychiatric: alert, responsive Laboratory Tests Test 12/08/16 03:50 12/08/16 12:15 White Blood Count 17.7 K/UL (4.8-10.8) H Red Blood Count 4.03 M/UL (4.70-6.10) L Hemoglobin 11.0 G/DL (14.2-18.0) L Hematocrit 35.4 % (42.0-52.0) L Mean Corpuscular Volume 88 FL (80-99) Mean Corpuscular Hemoglobin 27.2 PG (27.0-31.0) Mean Corpuscular Hemoglobin Concent 31.0 G/DL (32.0-36.0) L Red Cell Distribution Width 17.4 % (11.6-14.8) H Platelet Count 444 K/UL (150-450) Mean Platelet Volume 7.4 FL (6.5-10.1) Neutrophils (%) (Auto) % (45.0-75.0) Lymphocytes (%) (Auto) % (20.0-45.0) Monocytes (%) (Auto) % (1.0-10.0) Eosinophils (%) (Auto) % (0.0-3.0) Basophils (%) (Auto) % (0.0-2.0) Differential Total Cells Counted 100 Neutrophils % (Manual) 84 % (45-75) H Lymphocytes % (Manual) 5 % (20-45) L Monocytes % (Manual) 7 % (1-10) Eosinophils % (Manual) 4 % (0-3) H Basophils % (Manual) 0 % (0-2) Band Neutrophils 0 % (0-8) Platelet Estimate Adequate Platelet Morphology Normal Red Blood Cell Morphology Normal Prothrombin Time 12.7 SEC (9.30-11.50) H Prothromb Time International Ratio 1.2 (0.9-1.1) H Current Medications Medications (Trade) Dose Ordered Sig/Judith Route PRN Reason Start Time Stop Time Status Last Admin Dose Admin Acetaminophen (Tylenol) 650 mg Q4H PRN GT Mild Pain/Temp > 100.5 11/28/16 17:30 12/28/16 17:29 12/08/16 11:59 Amiodarone HCl (Cordarone) 200 mg EVERY 12 HOURS ORAL 12/08/16 14:30 01/07/17 14:29 12/08/16 14:37 Epoetin Azael (Procrit (for non ESRD use)) 10,000 units TUE-TUE-TUE SUBQ 11/29/16 21:00 12/29/16 20:59 12/06/16 21:06 Ferrous Sulfate (Feosol) 300 mg DAILY NG 11/29/16 09:00 12/29/16 08:59 12/08/16 08:20 Heparin Sodium (Porcine) (Heparin 5000 units/ml) 5,000 units Q12HR SUBQ 11/28/16 21:00 12/28/16 20:59 12/08/16 08:25 Hydralazine HCl (Apresoline) 5 mg Q6H PRN GT SBP>170 11/28/16 16:00 12/28/16 15:59 Magnesium Hydroxide (Mom) 30 ml DAILY GT 11/29/16 09:00 12/29/16 08:59 12/08/16 08:20 Metronidazole (Flagyl) 500 mg EVERY 8 HOURS ORAL 12/03/16 11:00 12/10/16 10:59 12/08/16 13:18 Nystatin (Nystop Powder) 1 applic THREE TIMES A DAY TOPIC 12/05/16 18:00 01/04/17 17:59 12/08/16 13:17 Pantoprazole 40 mg 40 mg DAILY IVP 11/29/16 09:00 12/29/16 08:59 12/08/16 08:21 Piperacillin Sod/ Tazobactam Sod/ Dextrose (Zosyn/D5W) 110 ml @ 27.5 mls/hr Q8HR IVPB 12/03/16 14:00 12/10/16 23:59 12/08/16 13:16 MELISSA BULLARD Dec 08, 2016 14:43
[2016-12-08] MEDS ORDERED: DuoNeb 0.5-3(2.5)mg/3ml neb HHN PRN ×2 (16:15→20:15)
[2016-12-08] MEDS: Epogen (for non ESRD use) SUBQ SCH (21:00)
[2016-12-08] MEDS: Amiodarone 200mg tab ORAL SCH (21:00)
[2016-12-08 21:15] LABS: ALANINE AMINOTRANSFERASE 9 U/L (3-41); ALBUMIN/GLOBULIN RATIO 0.4 (1.0-2.7); ANION GAP 18 (5-15); ASPARTATE AMINO TRANSFERASE 23 U/L (5-40); CALCIUM 8.4 mg/dL (8.6-10.2); CARBON DIOXIDE 24 mEQ/L (20-30); CHLORIDE 100 mEQ/L (98-107); CREATININE 1.4 mg/dL (0.7-1.2); HEMOLYSIS 9; POTASSIUM 3.7 mEQ/L (3.4-4.9); SODIUM 142 mEQ/L (135-145); TOTAL PROTEIN 5.6 g/dL (6.6-8.7)
[2016-12-08] MEDS ORDERED: HydrALAZINE 10mg Tab GT PRN (22:00)
--- NOTE | 2016-12-08 23:51 | Cardiology Report ---
APPROVED REPORT EKG Measurement Heart [id number] Normal sinus rhythm Septal infarct, age undetermined Nonspecific T wave abnormality Abnormal ECG
[2016-12-09] VITALS (33 sets, daily range): BP systolic 98–149; BP diastolic 33–107
[2016-12-09] MEDS: Piperacillin/Tazobactam 3.375 GM in D5W 110 ML IVPB SCH ×3 (05:40→21:42)
[2016-12-09] MEDS: metroNIDAZOLE 500mg tab ORAL SCH ×3 (05:40→21:41)
[2016-12-09 06:23] LABS: MEAN CORPUSCULAR HEMOGLOBIN 27.5 PG (27.0-31.0); MEAN CORPUSCULAR HGB CONC 31.5 G/DL (32.0-36.0); MEAN CORPUSCULAR VOLUME 87 FL (80-99); MEAN PLATELET VOLUME 8.1 FL (6.5-10.1); PLATELET COUNT 404 K/UL (150-450); RED BLOOD COUNT 2.56 M/UL (4.70-6.10); RED CELL DISTRIBUTION WIDTH 17.7 % (11.6-14.8)
[2016-12-09 06:28] LABS: WHITE BLOOD COUNT 25.3 K/UL (4.8-10.8)
--- NOTE | 2016-12-09 06:28 | Consultation ---
DATE OF CONSULTATION: 12/08/2016 Cardiology Consultation REQUESTING PHYSICIAN: Kev Ayala M.D. HISTORY OF PRESENT ILLNESS: This is a debilitated male, who is presently on mechanical ventilation due to respiratory failure and esophageal adenocarcinoma complicated by hypercalcemia as well as sepsis with positive sputum cultures and concern over endocarditis has prompted this consultation. The patient had an echocardiogram on 11/28/2016 which revealed a normal ejection fraction with thickened mitral valve leaflet, focal aortic valve sclerosis, and moderate tricuspid regurgitation with pulmonary hypertension. The patient also had transient episodes of supraventricular tachycardia, and was started on amiodarone today. PAST MEDICAL HISTORY: Chronic obstructive pulmonary disease. PHYSICAL EXAMINATION: VITAL SIGNS: Afebrile, blood pressure 108/60, pulse 104, and respirations 18. HEENT: Trachea with thin secretions. Ventilated with bilateral breath sounds and few rhonchi. HEART: Regular rhythm and rate. Normal S1 and S2 with no murmur. ABDOMEN: Soft. EXTREMITIES: Revealed trace edema. LABORATORY DATA: Reviewed. IMPRESSION: Adenocarcinoma of the esophagus with complications including respiratory failure, sepsis, pneumonia and hypercalcemia. He is certainly at risk for endocarditis. He has had episodes of supraventricular tachycardia, and secondary sinus tachycardia. PLAN: Because of his malignancy involving the esophagus and prior history of head and neck cancer transesophageal echocardiogram is contraindicated due to extremely high risk of complications such as perforation. I recommend reculture, if positive blood cultures, empiric therapy for endocarditis should be considered. Otherwise, management of current infection with antibiotics as usual course. With regard to his arrhythmias, IV cardizem can be given prn for sustained SVT. Will reassess benefit of continued use of amiodarone over next 24 hrs. Emil Duarte M.D. DR: Sheldon JOB#: [id number] CC: [id number]
[2016-12-09 07:34] LABS: ALANINE AMINOTRANSFERASE 52 U/L (3-41); ALBUMIN/GLOBULIN RATIO 0.6 (1.0-2.7); ANION GAP 16 (5-15); ASPARTATE AMINO TRANSFERASE 133 U/L (5-40); CALCIUM 7.5 mg/dL (8.6-10.2); CARBON DIOXIDE 25 mEQ/L (20-30); CHLORIDE 102 mEQ/L (98-107); HEMOLYSIS 3; POTASSIUM 3.7 mEQ/L (3.4-4.9); SODIUM 143 mEQ/L (135-145); TOTAL PROTEIN 4.8 g/dL (6.6-8.7)
[2016-12-09] MEDS: Amiodarone 200mg tab ORAL SCH ×2 (08:11→21:41)
[2016-12-09] MEDS: Pantoprazole Inj IVP SCH (08:12)
[2016-12-09] MEDS: Heparin 5000 units/ml inj SUBQ SCH ×2 (08:14→21:00)
[2016-12-09] MEDS: Nystatin Powder 100,000 units/gm 15gm TOPIC SCH ×3 (08:17→18:08)
[2016-12-09 08:42] LABS: ANISOCYTOSIS 1+; HYPOCHROMASIA 1+; LYMPHOCYTES % (MANUAL) 5 % (20-45); NEUTROPHILS % (MANUAL) 92 % (45-75); TOTAL CELLS COUNTED 100
[2016-12-09 08:43] LABS: POLYCHROMASIA OCCASIONAL
[2016-12-09] MEDS ORDERED: Milk of Magnesia 30ml Ud GT SCH (09:00)
[2016-12-09] MEDS ORDERED: Ferrous Sulfate 300 MG/5 ML UDC NG SCH (09:00)
--- NOTE | 2016-12-09 09:26 | Infectious Diseases Prog Note ---
Assessment/Plan Assessment/Plan A 1. pneumonia with Pseudomonas & E. coli 2. pleural effusions 3. respiratory failure 4. Probable endocarditis 5. leucocytosis worsening 6. VRE colonization 7. GI bleeding 8. Esophageal cancer P 1. continue Zosyn & Flagyl 2. will follow up cultures Subjective ROS Limited/Unobtainable: Yes Constitutional: Reports: other - transferred to ICU Allergies: Coded Allergies: No Known Allergies (Unverified , 11/27/16) Objective Vital Signs Last 24 Hour Vital Signs Date Time Temp Pulse Resp B/P Pulse Ox O2 Delivery O2 Flow Rate FiO2 12/09/16 08:00 30 12/09/16 07:00 92 20 149/43 100 Mechanical Ventilator 80 12/09/16 06:52 84 15 30 12/09/16 06:00 81 20 119/44 100 Mechanical Ventilator 80 12/09/16 05:08 81 14 30 12/09/16 05:00 84 24 147/99 100 Mechanical Ventilator 80 12/09/16 04:00 91 12/09/16 04:00 80 12/09/16 04:00 97.4 92 16 126/48 100 Mechanical Ventilator 80 12/09/16 03:16 96 20 30 12/09/16 03:00 91 15 112/99 100 Mechanical Ventilator 80 12/09/16 02:45 90 14 128/49 100 Mechanical Ventilator 80 12/09/16 02:30 88 14 106/85 100 Mechanical Ventilator 80 12/09/16 02:15 89 14 120/39 100 Mechanical Ventilator 80 12/09/16 02:00 92 19 115/41 100 Mechanical Ventilator 80 12/09/16 01:45 93 15 133/33 100 Mechanical Ventilator 80 12/09/16 01:30 100 18 115/47 100 Mechanical Ventilator 80 12/09/16 01:15 89 15 133/47 100 Mechanical Ventilator 80 12/09/16 01:11 98 20 30 12/09/16 01:00 92 21 120/40 100 Mechanical Ventilator 80 12/09/16 00:45 90 17 128/53 100 Mechanical Ventilator 80 12/09/16 00:30 89 20 112/44 100 Mechanical Ventilator 80 12/09/16 00:15 94 17 126/47 100 Mechanical Ventilator 80 12/09/16 00:00 80 12/09/16 00:00 94 18 131/53 100 Mechanical Ventilator 80 12/09/16 00:00 100 3/1/17 23:45 92 19 125/54 100 Mechanical Ventilator 80 12/08/16 23:30 91 19 108/23 100 Mechanical Ventilator 80 12/08/16 23:30 104 20 30 12/08/16 23:00 90 16 102/42 100 Mechanical Ventilator 80 12/08/16 22:45 92 15 121/42 100 Mechanical Ventilator 80 12/08/16 22:30 98 21 82/39 98 Mechanical Ventilator 80 12/08/16 22:15 98 16 115/49 98 Mechanical Ventilator 80 12/08/16 22:00 93 21 112/39 98 Mechanical Ventilator 80 12/08/16 21:54 96 14 Mechanical Ventilator 30 12/08/16 21:45 93 21 106/28 98 Mechanical Ventilator 80 12/08/16 21:30 98 21 82/39 98 Mechanical Ventilator 80 12/08/16 21:25 97 18 30 12/08/16 21:15 97 21 89/34 98 Mechanical Ventilator 80 12/08/16 21:00 98 21 82/39 98 Mechanical Ventilator 80 12/08/16 21:00 75/34 12/08/16 20:00 100 12/08/16 20:00 98.9 97 19 108/34 90 Mechanical Ventilator 100 12/08/16 20:00 100 12/08/16 19:15 108/34 12/08/16 19:00 102 19 88/43 90 Mechanical Ventilator 100 12/08/16 18:36 89 26 30 12/08/16 18:30 115 12/08/16 18:30 100 12/08/16 18:30 99.7 113 19 85/55 90 Mechanical Ventilator 100 12/08/16 17:45 137 28 30 12/08/16 16:00 121 12/08/16 16:00 98.2 128 20 87/48 98 Mechanical Ventilator 30 12/08/16 16:00 30 12/08/16 14:32 62 22 30 12/08/16 14:26 144 106/52 12/08/16 12:42 114 17 30 12/08/16 12:37 97.9 12/08/16 12:04 85 20 30 12/08/16 12:00 30 12/08/16 12:00 113 12/08/16 12:00 97.9 107 19 104/56 100 Mechanical Ventilator 30 12/08/16 09:37 87 18 30 Height (Feet): 5 Height (Inches): 9.00 Weight (Pounds): 145 General Appearance: no acute distress HEENT: status post trach Respiratory/Chest: lungs clear, other - on ventilator Cardiovascular: normal rate, other - left chest PortaCath Abdomen: soft, non tender, other - GT in place Extremities: no edema Neurologic/Psychiatric: alert, responsive Laboratory Tests Test 12/08/16 12:15 12/09/16 04:15 Prothrombin Time 12.7 SEC (9.30-11.50) H Prothromb Time International Ratio 1.2 (0.9-1.1) H White Blood Count 25.3 K/UL (4.8-10.8) *H Red Blood Count 2.56 M/UL (4.70-6.10) L Hemoglobin 7.0 G/DL (14.2-18.0) #L Hematocrit 22.3 % (42.0-52.0) #L Mean Corpuscular Volume 87 FL (80-99) Mean Corpuscular Hemoglobin 27.5 PG (27.0-31.0) Mean Corpuscular Hemoglobin Concent 31.5 G/DL (32.0-36.0) L Red Cell Distribution Width 17.7 % (11.6-14.8) H Platelet Count 404 K/UL (150-450) Mean Platelet Volume 8.1 FL (6.5-10.1) Neutrophils (%) (Auto) % (45.0-75.0) Lymphocytes (%) (Auto) % (20.0-45.0) Monocytes (%) (Auto) % (1.0-10.0) Eosinophils (%) (Auto) % (0.0-3.0) Basophils (%) (Auto) % (0.0-2.0) Differential Total Cells Counted 100 Neutrophils % (Manual) 92 % (45-75) H Lymphocytes % (Manual) 5 % (20-45) L Monocytes % (Manual) 3 % (1-10) Platelet Estimate Pending Platelet Morphology Pending Polychromasia Occasional Hypochromasia 1+ Anisocytosis 1+ Sodium Level 143 mEQ/L (135-145) Potassium Level 3.7 mEQ/L (3.4-4.9) Chloride Level 102 mEQ/L (98-107) Carbon Dioxide Level 25 mEQ/L (20-30) Anion Gap 16 (5-15) H Blood Urea Nitrogen 44 mg/dL (7-23) H Creatinine 2.0 mg/dL (0.7-1.2) H Estimat Glomerular Filtration Rate mL/min (>60) Glucose Level 147 mg/dL (74-106) H Calcium Level 7.5 mg/dL (8.6-10.2) L Total Bilirubin 0.4 mg/dL (0.0-1.2) Aspartate Amino Transf (AST/SGOT) 133 U/L (5-40) H Alanine Aminotransferase (ALT/SGPT) 52 U/L (3-41) H Alkaline Phosphatase 106 U/L (40-129) Total Protein 4.8 g/dL (6.6-8.7) L Albumin 1.8 g/dL (3.5-5.2) L Globulin 3.0 g/dL Albumin/Globulin Ratio 0.6 (1.0-2.7) L Current Medications Medications (Trade) Dose Ordered Sig/Judith Route PRN Reason Start Time Stop Time Status Last Admin Dose Admin Acetaminophen (Tylenol) 650 mg Q4H PRN GT Mild Pain/Temp > 100.5 12/08/16 19:00 01/07/17 18:59 Albuterol/ Ipratropium (DuoNeb 0.5-3(2.5)mg/3ml) 3 ml Q4H PRN HHN Shortness of Breath 12/08/16 20:15 12/13/16 20:14 Amiodarone HCl (Cordarone) 200 mg EVERY 12 HOURS ORAL 12/08/16 21:00 01/07/17 20:59 12/09/16 08:11 Epoetin Azael (Procrit (for non ESRD use)) 10,000 units MON-WED-FRI SUBQ 12/08/16 21:00 01/07/17 20:59 Heparin Sodium (Porcine) (Heparin 5000 units/ml) 5,000 units Q12HR SUBQ 12/08/16 21:00 01/07/17 20:59 12/09/16 08:14 Hydralazine HCl (Apresoline) 5 mg Q6H PRN GT SBP>170 12/08/16 22:00 01/07/17 21:59 Metronidazole (Flagyl) 500 mg EVERY 8 HOURS ORAL 12/08/16 22:00 12/15/16 21:59 12/09/16 05:40 Norepinephrine Bitartrate 4 mg/ Dextrose 250 ml @ 0 mls/hr Q24H IV 12/08/16 19:15 01/07/17 19:14 12/08/16 21:00 Nystatin (Nystop Powder) 1 applic THREE TIMES A DAY TOPIC 12/09/16 09:00 01/08/17 08:59 12/09/16 08:17 Pantoprazole (Protonix) 40 mg DAILY IVP 12/09/16 09:00 01/08/17 08:59 12/09/16 08:12 Piperacillin Sod/ Tazobactam Sod/ Dextrose (Zosyn/D5W) 110 ml @ 27.5 mls/hr Q8HR IVPB 12/08/16 22:00 12/15/16 21:59 12/09/16 05:40 Silver Nitrate (Silver Nitrate Applicators) 10 applic ONCE ONCE TOPIC 12/09/16 10:00 12/09/16 10:01 MELISSA BULLARD Dec 09, 2016 09:26
--- NOTE | 2016-12-09 09:34 | General Progress Note ---
Assessment/Plan Assessment/Plan Assessment - GT site bleeding - GT site TF leak - Esophageal CA - Resp failure / Trach - Dysphagia/PEG - hypotension - off pressors now - Azotemia Recommendations - transfuse - IVF - EGD in am - PPI - d/c FeSO4 - d/c MOM Thank you Ginger Meeks MD Subjective Allergies: Coded Allergies: No Known Allergies (Unverified , 11/27/16) Objective Last 24 Hour Vital Signs Date Time Temp Pulse Resp B/P Pulse Ox O2 Delivery O2 Flow Rate FiO2 12/09/16 08:00 30 12/09/16 07:00 92 20 149/43 100 Mechanical Ventilator 80 12/09/16 06:52 84 15 30 12/09/16 06:00 81 20 119/44 100 Mechanical Ventilator 80 12/09/16 05:08 81 14 30 12/09/16 05:00 84 24 147/99 100 Mechanical Ventilator 80 12/09/16 04:00 91 12/09/16 04:00 80 12/09/16 04:00 97.4 92 16 126/48 100 Mechanical Ventilator 80 12/09/16 03:16 96 20 30 12/09/16 03:00 91 15 112/99 100 Mechanical Ventilator 80 12/09/16 02:45 90 14 128/49 100 Mechanical Ventilator 80 12/09/16 02:30 88 14 106/85 100 Mechanical Ventilator 80 12/09/16 02:15 89 14 120/39 100 Mechanical Ventilator 80 12/09/16 02:00 92 19 115/41 100 Mechanical Ventilator 80 12/09/16 01:45 93 15 133/33 100 Mechanical Ventilator 80 12/09/16 01:30 100 18 115/47 100 Mechanical Ventilator 80 12/09/16 01:15 89 15 133/47 100 Mechanical Ventilator 80 12/09/16 01:11 98 20 30 12/09/16 01:00 92 21 120/40 100 Mechanical Ventilator 80 12/09/16 00:45 90 17 128/53 100 Mechanical Ventilator 80 12/09/16 00:30 89 20 112/44 100 Mechanical Ventilator 80 12/09/16 00:15 94 17 126/47 100 Mechanical Ventilator 80 12/09/16 00:00 80 12/09/16 00:00 94 18 131/53 100 Mechanical Ventilator 80 12/09/16 00:00 100 12/08/16 23:45 92 19 125/54 100 Mechanical Ventilator 80 12/08/16 23:30 91 19 108/23 100 Mechanical Ventilator 80 12/08/16 23:30 104 20 30 12/08/16 23:00 90 16 102/42 100 Mechanical Ventilator 80 12/08/16 22:45 92 15 121/42 100 Mechanical Ventilator 80 12/08/16 22:30 98 21 82/39 98 Mechanical Ventilator 80 12/08/16 22:15 98 16 115/49 98 Mechanical Ventilator 80 12/08/16 22:00 93 21 112/39 98 Mechanical Ventilator 80 12/08/16 21:54 96 14 Mechanical Ventilator 30 12/08/16 21:45 93 21 106/28 98 Mechanical Ventilator 80 12/08/16 21:30 98 21 82/39 98 Mechanical Ventilator 80 12/08/16 21:25 97 18 30 12/08/16 21:15 97 21 89/34 98 Mechanical Ventilator 80 12/08/16 21:00 98 21 82/39 98 Mechanical Ventilator 80 12/08/16 21:00 75/34 12/08/16 20:00 100 12/08/16 20:00 98.9 97 19 108/34 90 Mechanical Ventilator 100 12/08/16 20:00 100 12/08/16 19:15 108/34 12/08/16 19:00 102 19 88/43 90 Mechanical Ventilator 100 12/08/16 18:36 89 26 30 12/08/16 18:30 115 12/08/16 18:30 100 12/08/16 18:30 99.7 113 19 85/55 90 Mechanical Ventilator 100 12/08/16 17:45 137 28 30 12/08/16 16:00 121 12/08/16 16:00 98.2 128 20 87/48 98 Mechanical Ventilator 30 12/08/16 16:00 30 12/08/16 14:32 62 22 30 12/08/16 14:26 144 106/52 12/08/16 12:42 114 17 30 12/08/16 12:37 97.9 12/08/16 12:04 85 20 30 12/08/16 12:00 30 12/08/16 12:00 113 12/08/16 12:00 97.9 107 19 104/56 100 Mechanical Ventilator 30 12/08/16 09:37 87 18 30 Intake and Output 12/08/16 12/09/16 19:00 07:00 Intake Total 340.0 ml 877.45 ml Output Total 500 ml 370 ml Balance -160.0 ml 507.45 ml IV Total 110.0 ml 227.45 ml Tube Feeding 180 ml 600 ml Other 50 ml 50 ml Output Urine Total 500 ml 170 ml Stool Total 200 ml # Bowel Movements 5 1 Laboratory Tests 12/08/16 12:15: Prothrombin Time 12.7H, Prothromb Time International Ratio 1.2H 12/09/16 04:15: White Blood Count 25.3*H, Red Blood Count 2.56L, Hemoglobin 7.0#L, Hematocrit 22.3#L, Mean Corpuscular Volume 87, Mean Corpuscular Hemoglobin 27.5, Mean Corpuscular Hemoglobin Concent 31.5L, Red Cell Distribution Width 17.7H, Platelet Count 404, Mean Platelet Volume 8.1, Neutrophils (%) (Auto) , Lymphocytes (%) (Auto) , Monocytes (%) (Auto) , Eosinophils (%) (Auto) , Basophils (%) (Auto) , Differential Total Cells Counted 100, Neutrophils % ( Manual) 92H, Lymphocytes % (Manual) 5L, Monocytes % (Manual) 3, Platelet Estimate [Pending], Platelet Morphology [Pending], Polychromasia Occasional, Hypochromasia 1+, Anisocytosis 1+, Sodium Level 143, Potassium Level 3.7, Chloride Level 102, Carbon Dioxide Level 25, Anion Gap 16H, Blood Urea Nitrogen 44H, Creatinine 2.0H, Estimat Glomerular Filtration Rate , Glucose Level 147H, Calcium Level 7.5L, Total Bilirubin 0.4, Aspartate Amino Transf (AST/SGOT) 133H , Alanine Aminotransferase (ALT/SGPT) 52H, Alkaline Phosphatase 106, Total Protein 4.8L, Albumin 1.8L, Globulin 3.0, Albumin/Globulin Ratio 0.6L Height (Feet): 5 Height (Inches): 9.00 Weight (Pounds): 145 GINGER MEEKS Dec 09, 2016 09:34
[2016-12-09 09:56] LABS: BAND NEUTROPHILS % (MANUAL) 0 % (0-8); BASOPHILS % (MANUAL) 0 % (0-2); EOSINOPHILS % (MANUAL) 0 % (0-3); PLATELET ESTIMATE ADEQUATE; PLATELET MORPHOLOGY NORMAL
[2016-12-09] MEDS ORDERED: Silver Nitrate Stick TOPIC ONE (10:00)
--- NOTE | 2016-12-09 11:05 | Nephrology Progress Note ---
Assessment/Plan Plan Hypercalcemia of Malignancy - calcium down. Now hypocalcemic 7.5. Patient's mentation improved simultaneously post aredia GI bleed MOF Poor Prognosis Subjective Subjective Transferred to ICU due to GI bleed and Shock. Objective Objective Last 24 Hour Vital Signs Date Time Temp Pulse Resp B/P Pulse Ox O2 Delivery O2 Flow Rate FiO2 12/09/16 10:00 91 22 114/42 100 Mechanical Ventilator 30 12/09/16 09:08 93 20 30 12/09/16 09:00 93 22 132/107 100 Mechanical Ventilator 30 12/09/16 08:00 97.0 96 22 146/94 100 Mechanical Ventilator 30 12/09/16 08:00 30 12/09/16 07:00 92 20 149/43 100 Mechanical Ventilator 80 12/09/16 06:52 84 15 30 12/09/16 06:00 81 20 119/44 100 Mechanical Ventilator 80 12/09/16 05:08 81 14 30 12/09/16 05:00 84 24 147/99 100 Mechanical Ventilator 80 12/09/16 04:00 91 12/09/16 04:00 80 12/09/16 04:00 97.4 92 16 126/48 100 Mechanical Ventilator 80 12/09/16 03:16 96 20 30 12/09/16 03:00 91 15 112/99 100 Mechanical Ventilator 80 12/09/16 02:45 90 14 128/49 100 Mechanical Ventilator 80 12/09/16 02:30 88 14 106/85 100 Mechanical Ventilator 80 12/09/16 02:15 89 14 120/39 100 Mechanical Ventilator 80 12/09/16 02:00 92 19 115/41 100 Mechanical Ventilator 80 12/09/16 01:45 93 15 133/33 100 Mechanical Ventilator 80 12/09/16 01:30 100 18 115/47 100 Mechanical Ventilator 80 12/09/16 01:15 89 15 133/47 100 Mechanical Ventilator 80 12/09/16 01:11 98 20 30 12/09/16 01:00 92 21 120/40 100 Mechanical Ventilator 80 12/09/16 00:45 90 17 128/53 100 Mechanical Ventilator 80 12/09/16 00:30 89 20 112/44 100 Mechanical Ventilator 80 12/09/16 00:15 94 17 126/47 100 Mechanical Ventilator 80 12/09/16 00:00 80 12/09/16 00:00 94 18 131/53 100 Mechanical Ventilator 80 12/09/16 00:00 100 12/08/16 23:45 92 19 125/54 100 Mechanical Ventilator 80 12/08/16 23:30 91 19 108/23 100 Mechanical Ventilator 80 12/08/16 23:30 104 20 30 12/08/16 23:00 90 16 102/42 100 Mechanical Ventilator 80 12/08/16 22:45 92 15 121/42 100 Mechanical Ventilator 80 12/08/16 22:30 98 21 82/39 98 Mechanical Ventilator 80 12/08/16 22:15 98 16 115/49 98 Mechanical Ventilator 80 12/08/16 22:00 93 21 112/39 98 Mechanical Ventilator 80 12/08/16 21:54 96 14 Mechanical Ventilator 30 12/08/16 21:45 93 21 106/28 98 Mechanical Ventilator 80 12/08/16 21:30 98 21 82/39 98 Mechanical Ventilator 80 12/08/16 21:25 97 18 30 12/08/16 21:15 97 21 89/34 98 Mechanical Ventilator 80 12/08/16 21:00 98 21 82/39 98 Mechanical Ventilator 80 12/08/16 21:00 75/34 12/08/16 20:00 100 12/08/16 20:00 98.9 97 19 108/34 90 Mechanical Ventilator 100 12/08/16 20:00 100 12/08/16 19:15 108/34 12/08/16 19:00 102 19 88/43 90 Mechanical Ventilator 100 12/08/16 18:36 89 26 30 12/08/16 18:30 115 12/08/16 18:30 100 12/08/16 18:30 99.7 113 19 85/55 90 Mechanical Ventilator 100 12/08/16 17:45 137 28 30 12/08/16 16:00 121 12/08/16 16:00 98.2 128 20 87/48 98 Mechanical Ventilator 30 12/08/16 16:00 30 12/08/16 14:32 62 22 30 12/08/16 14:26 144 106/52 12/08/16 12:42 114 17 30 12/08/16 12:37 97.9 12/08/16 12:04 85 20 30 12/08/16 12:00 30 12/08/16 12:00 113 12/08/16 12:00 97.9 107 19 104/56 100 Mechanical Ventilator 30 Intake and Output 12/08/16 12/09/16 19:00 07:00 Intake Total 340.0 ml 877.45 ml Output Total 500 ml 370 ml Balance -160.0 ml 507.45 ml IV Total 110.0 ml 227.45 ml Tube Feeding 180 ml 600 ml Other 50 ml 50 ml Output Urine Total 500 ml 170 ml Stool Total 200 ml # Bowel Movements 5 1 Laboratory Tests 12/08/16 12:15: Prothrombin Time 12.7H, Prothromb Time International Ratio 1.2H 12/09/16 04:15: White Blood Count 25.3*H, Red Blood Count 2.56L, Hemoglobin 7.0#L, Hematocrit 22.3#L, Mean Corpuscular Volume 87, Mean Corpuscular Hemoglobin 27.5, Mean Corpuscular Hemoglobin Concent 31.5L, Red Cell Distribution Width 17.7H, Platelet Count 404, Mean Platelet Volume 8.1, Neutrophils (%) (Auto) , Lymphocytes (%) (Auto) , Monocytes (%) (Auto) , Eosinophils (%) (Auto) , Basophils (%) (Auto) , Differential Total Cells Counted 100, Neutrophils % ( Manual) 92H, Lymphocytes % (Manual) 5L, Monocytes % (Manual) 3, Eosinophils % ( Manual) 0, Basophils % (Manual) 0, Band Neutrophils 0, Platelet Estimate Adequate, Platelet Morphology Normal, Polychromasia Occasional, Hypochromasia 1+ , Anisocytosis 1+, Sodium Level 143, Potassium Level 3.7, Chloride Level 102, Carbon Dioxide Level 25, Anion Gap 16H, Blood Urea Nitrogen 44H, Creatinine 2.0H , Estimat Glomerular Filtration Rate , Glucose Level 147H, Calcium Level 7.5L, Total Bilirubin 0.4, Aspartate Amino Transf (AST/SGOT) 133H, Alanine Aminotransferase (ALT/SGPT) 52H, Alkaline Phosphatase 106, Total Protein 4.8L, Albumin 1.8L, Globulin 3.0, Albumin/Globulin Ratio 0.6L Height (Feet): 5 Height (Inches): 9.00 Weight (Pounds): 145 Objective Pale On vent Cv Tach Lungs B Ronchi Abd SNT. BS + E No CCE GAGANDEEP PAEZ Dec 09, 2016 11:05
--- NOTE | 2016-12-09 14:10 | General Progress Note ---
Assessment/Plan Problem List: (1) Hypercalcemia of malignancy ICD Codes: E83.52 - Hypercalcemia SNOMED: 59083790 (2) Esophageal adenocarcinoma ICD Codes: C15.9 - Malignant neoplasm of esophagus, unspecified SNOMED: 958798857 (3) Respiratory failure for > 28 days ICD Codes: J96.90 - Respiratory failure, unspecified, unspecified whether with hypoxia or hypercapnia SNOMED: 297878807 (4) Sepsis ICD Codes: A41.9 - Sepsis, unspecified organism SNOMED: 26871084 Status: stable, progressing Assessment/Plan monitor h/h transfuse prn EGD abx follow up cultures vent support and resp rx feeds monitor wbc-remains high but is trending down id follow up monitor for svt poor [place] terminal supervisor prognosis Subjective ROS Limited/Unobtainable: No Constitutional: Reports: malaise, weakness HEENT: Reports: no symptoms Cardiovascular: Reports: no symptoms Respiratory: Reports: no symptoms Gastrointestinal/Abdominal: Reports: blood in stool, tarry stools Genitourinary: Reports: no symptoms Neurologic/Psychiatric: Reports: no symptoms Endocrine: Reports: no symptoms Hematologic/Lymphatic: Reports: anemia Allergies: Coded Allergies: No Known Allergies (Unverified , 11/27/16) All Systems: reviewed and negative except above Subjective transferred to icu for svt and gib. s/p transfusion. awake and alert. denies pain. Objective Last 24 Hour Vital Signs Date Time Temp Pulse Resp B/P Pulse Ox O2 Delivery O2 Flow Rate FiO2 12/09/16 13:11 91 21 30 12/09/16 12:00 92 12/09/16 12:00 30 12/09/16 10:51 81 17 30 12/09/16 10:00 91 22 114/42 100 Mechanical Ventilator 30 12/09/16 09:08 93 20 30 12/09/16 09:00 93 22 132/107 100 Mechanical Ventilator 30 12/09/16 08:00 90 12/09/16 08:00 97.0 96 22 146/94 100 Mechanical Ventilator 30 12/09/16 08:00 30 12/09/16 07:00 92 20 149/43 100 Mechanical Ventilator 80 12/09/16 06:52 84 15 30 12/09/16 06:00 81 20 119/44 100 Mechanical Ventilator 80 12/09/16 05:08 81 14 30 12/09/16 05:00 84 24 147/99 100 Mechanical Ventilator 80 12/09/16 04:00 91 12/09/16 04:00 80 12/09/16 04:00 97.4 92 16 126/48 100 Mechanical Ventilator 80 3 03:16 96 20 30 12/09/16 03:00 91 15 112/99 100 Mechanical Ventilator 80 3 02:45 90 14 128/49 100 Mechanical Ventilator 80 3 02:30 88 14 106/85 100 Mechanical Ventilator 80 12/09/16 02:15 89 14 120/39 100 Mechanical Ventilator 80 12/09/16 02:00 92 19 115/41 100 Mechanical Ventilator 80 12/09/16 01:45 93 15 133/33 100 Mechanical Ventilator 80 12/09/16 01:30 100 18 115/47 100 Mechanical Ventilator 80 12/09/16 01:15 89 15 133/47 100 Mechanical Ventilator 80 12/09/16 01:11 98 20 30 12/09/16 01:00 92 21 120/40 100 Mechanical Ventilator 80 12/09/16 00:45 90 17 128/53 100 Mechanical Ventilator 80 12/09/16 00:30 89 20 112/44 100 Mechanical Ventilator 80 12/09/16 00:15 94 17 126/47 100 Mechanical Ventilator 80 12/09/16 00:00 80 12/09/16 00:00 94 18 131/53 100 Mechanical Ventilator 80 12/09/16 00:00 100 12/08/16 23:45 92 19 125/54 100 Mechanical Ventilator 80 12/08/16 23:30 91 19 108/23 100 Mechanical Ventilator 80 12/08/16 23:30 104 20 30 12/08/16 23:00 90 16 102/42 100 Mechanical Ventilator 80 12/08/16 22:45 92 15 121/42 100 Mechanical Ventilator 80 12/08/16 22:30 98 21 82/39 98 Mechanical Ventilator 80 12/08/16 22:15 98 16 115/49 98 Mechanical Ventilator 80 12/08/16 22:00 93 21 112/39 98 Mechanical Ventilator 80 12/08/16 21:54 96 14 Mechanical Ventilator 30 12/08/16 21:45 93 21 106/28 98 Mechanical Ventilator 80 12/08/16 21:30 98 21 82/39 98 Mechanical Ventilator 80 12/08/16 21:25 97 18 30 12/08/16 21:15 97 21 89/34 98 Mechanical Ventilator 80 12/08/16 21:00 98 21 82/39 98 Mechanical Ventilator 80 12/08/16 21:00 75/34 12/08/16 20:00 100 12/08/16 20:00 98.9 97 19 108/34 90 Mechanical Ventilator 100 12/08/16 20:00 100 12/08/16 19:15 108/34 12/08/16 19:00 102 19 88/43 90 Mechanical Ventilator 100 12/08/16 18:36 89 26 30 12/08/16 18:30 115 12/08/16 18:30 100 12/08/16 18:30 99.7 113 19 85/55 90 Mechanical Ventilator 100 12/08/16 17:45 137 28 30 12/08/16 16:00 121 12/08/16 16:00 98.2 128 20 87/48 98 Mechanical Ventilator 30 12/08/16 16:00 30 12/08/16 14:32 62 22 30 12/08/16 14:26 144 106/52 Intake and Output 12/08/16 12/09/16 19:00 07:00 Intake Total 340.0 ml 877.45 ml Output Total 500 ml 370 ml Balance -160.0 ml 507.45 ml IV Total 110.0 ml 227.45 ml Tube Feeding 180 ml 600 ml Other 50 ml 50 ml Output Urine Total 500 ml 170 ml Stool Total 200 ml # Bowel Movements 5 1 Laboratory Tests 12/09/16 04:15: White Blood Count 25.3*H, Red Blood Count 2.56L, Hemoglobin 7.0#L, Hematocrit 22.3#L, Mean Corpuscular Volume 87, Mean Corpuscular Hemoglobin 27.5, Mean Corpuscular Hemoglobin Concent 31.5L, Red Cell Distribution Width 17.7H, Platelet Count 404, Mean Platelet Volume 8.1, Neutrophils (%) (Auto) , Lymphocytes (%) (Auto) , Monocytes (%) (Auto) , Eosinophils (%) (Auto) , Basophils (%) (Auto) , Differential Total Cells Counted 100, Neutrophils % ( Manual) 92H, Lymphocytes % (Manual) 5L, Monocytes % (Manual) 3, Eosinophils % ( Manual) 0, Basophils % (Manual) 0, Band Neutrophils 0, Platelet Estimate Adequate, Platelet Morphology Normal, Polychromasia Occasional, Hypochromasia 1+ , Anisocytosis 1+, Sodium Level 143, Potassium Level 3.7, Chloride Level 102, Carbon Dioxide Level 25, Anion Gap 16H, Blood Urea Nitrogen 44H, Creatinine 2.0H , Estimat Glomerular Filtration Rate , Glucose Level 147H, Calcium Level 7.5L, Total Bilirubin 0.4, Aspartate Amino Transf (AST/SGOT) 133H, Alanine Aminotransferase (ALT/SGPT) 52H, Alkaline Phosphatase 106, Total Protein 4.8L, Albumin 1.8L, Globulin 3.0, Albumin/Globulin Ratio 0.6L Height (Feet): 5 Height (Inches): 9.00 Weight (Pounds): 145 Objective General Appearance: WD/WN, alert, cachetic, thin Neck: supple Cardiovascular: regular rhythm Respiratory/Chest: chest wall non-tender, lungs clear, normal breath sounds, no respiratory distress, no accessory muscle use Abdomen: normal bowel sounds, non tender, soft, no organomegaly Edema: no edema noted Arm (L), no edema noted Arm (R), no edema noted Leg (L), no edema noted Leg (R), no edema noted Pedal (L), no edema noted Pedal (R), no edema noted Generalized Skin: normal pigmentation NANCY GARCIA Dec 09, 2016 14:10
--- NOTE | 2016-12-09 16:30 | Consultation ---
DATE OF CONSULTATION: 12/09/2016 GASTROLOGY CONSULTATION CONSULTING PHYSICIAN: Ginger Meeks M.D. CHIEF COMPLAINT: I was asked to see this patient by Dr. Kev Ayala for evaluation of anemia and gastrostomy site bleeding . HISTORY OF PRESENT ILLNESS: The patient is a debilitated 76-year-old man, who is tracheostomy and gastrostomy tube patient from a long-term, was brought into the hospital due to acute episode of respiratory failure and sepsis. The patient himself is unable to provide any history and I discussed the matter with his daughter, Carmenza over the phone. She was able to give some scattered information there but no details available since none of his previous care was in this hospital. The patient reportedly has had a history of esophageal cancer which apparently was diagnosed about two years ago. There is also malignancy in her lungs in the medical records. According to the daughter, the patient was diagnosed with esophageal cancer about three years ago. At that time, he had this gastrostomy tube placed which has been used since. The patient had received some form of treatment and apparently there was some degree of remission but esophageal cancer returned late last year and at that time the patient had a tracheostomy tube placed which is about three months ago. The patient reportedly had course of chemotherapy. The results responsive is not clear. Now the patient is in a long-term long-term facility and he receives [id number]-tcp-tpsor care. He has a gastrostomy tube which has had some degree of bloody drainage around it. His hematocrit yesterday was reasonably intact but overnight he was somewhat hypotensive and received some intravenous fluid boluses and now his hematocrit dropped significantly. In addition, the he also has azotemia which is worsening. He did have a finding of urolithiasis on ultrasound which was done on his renal system a few days ago. The patient has been receiving tube feeding and has been tolerating well. PAST MEDICAL HISTORY: History of esophageal cancer, respiratory failure status post tracheostomy tube placement, dysphagia status post gastrostomy tube placement, renal failure, urolithiasis, history of chronic anemia according to chart records, history of cervical myelopathy, benign prostatic hyperplasia, chronic obstructive pulmonary disease, hypertension. MEDICATIONS: See chart list for details. FAMILY HISTORY: Noncontributory. SOCIAL HISTORY: The patient has a known history of smoking or drinking. REVIEW OF SYSTEMS: Otherwise negative. PHYSICAL EXAMINATION: GENERAL: The patient is a debilitated elderly man, seen in his room in the intensive care unit HEENT: Normocephalic and atraumatic. Tracheostomy catheter was in place. CHEST: Coarse breath sounds. CARDIOVASCULAR: Regular rate. ABDOMEN: Soft. There is a gastrostomy tube in the left upper quadrant. Gastrostomy tube appeared old both functional, it was in good position but there appeared to be some leaking of tube feeding and bloody gastric secretions around it. EXTREMITIES: Revealed no edema. RECTAL: Attached to the bag which had thin dark liquid. The patient is on iron as well as milk of magnesia on his medications. ASSESSMENT: This patient's hematocrit dropped overnight which may be mostly due to intravenous hydration and not gastrointestinal bleeding. His stool effluent in the rectal bag is dark but it appears to be type of dark that typically seen with iron tablets and not classic melena color. In addition, he takes milk of magnesia which should be held for now. He does have some degree of worsening azotemia and renal service is following him for this. He should be monitored closely for that. In addition, his gastrostomy tube appears to have some degree of possible tunnel Infection. Endoscopy can be done to look into the stomach to see if there is any internal bleeding or bleeding source. He has had esophageal cancer and therefore there is a concern that endoscopy may not be feasible or physically challenging. This will be evaluated at time of procedure. The indications risks, alternatives, and possible complications of endoscopy and dilation were explained to the patient's daughter and all questions were answered. An attempt will also be made to possibly change gastrostomy tube if possible at the time of endoscopy since the current gastrostomy appears to be somewhat old. If necessary then possible treatment with silver nitrate sticks can also be given to the gastrostomy tube tunnel to reduce bleeding. RECOMMENDATIONS: Per above discussion and per orders written in the chart. Thank you for asking me to participate in the care of this patient. Ginger Meeks M.D. DR: Vernon JOB#: [id number] CC:
--- NOTE | 2016-12-09 19:55 | Pulmonology Progress Note ---
Assessment/Plan Assessment/Plan IMPRESSION: 1. Sepsis. 2. Profound leukocytosis. 3. Protein-calorie malnutrition. 4. Hypercalcemia, 5. Acute on chronic renal failure. 6. Metabolic alkalosis, possibly contraction in nature. 7. Anemia. 8. Thrombocytosis. 9. Tracheostomy and gastrostomy tube. 10. Chronic respiratory failure. 11. tachyarrythmias 12. hypotension 13. GT site bleeding 14. esophageal ca PLAN exams edited and reviewed supportive care antibiotics noted; labs reviewed ID evaluation noted follow up for change stabilize WBC worse EGD in am hold feeds no wean at present suction aspiration precautions prognosis poor amiodarone ICU care reviewed in detail medications/laboratory data/nursing notes/ICU care reviewed in detail note reviewed and edited care discussed with RN and RT ICU time spent 36 minutes Subjective ROS Limited/Unobtainable: Yes Allergies: Coded Allergies: No Known Allergies (Unverified , 11/27/16) Subjective t/f to icu tachycardic gt site bleeding hypotensive specialist noted and discussed Objective Last 24 Hour Vital Signs Date Time Temp Pulse Resp B/P Pulse Ox O2 Delivery O2 Flow Rate FiO2 12/09/16 19:03 88 15 30 12/09/16 17:02 95 23 30 12/09/16 16:38 30 12/09/16 16:00 90 12/09/16 15:00 85 21 115/45 100 Mechanical Ventilator 30 12/09/16 14:55 93 25 30 12/09/16 14:00 91 21 119/43 100 Mechanical Ventilator 30 12/09/16 13:11 91 21 30 12/09/16 13:00 93 21 110/43 100 Mechanical Ventilator 30 12/09/16 12:00 92 12/09/16 12:00 97.0 91 22 111/40 100 Mechanical Ventilator 30 12/09/16 12:00 30 12/09/16 11:00 94 21 98/41 100 Mechanical Ventilator 30 12/09/16 10:51 81 17 30 12/09/16 10:00 91 22 114/42 100 Mechanical Ventilator 30 12/09/16 09:08 93 20 30 12/09/16 09:00 93 22 132/107 100 Mechanical Ventilator 30 12/09/16 08:00 90 12/09/16 08:00 97.0 96 22 146/94 100 Mechanical Ventilator 30 12/09/16 08:00 30 12/09/16 07:00 92 20 149/43 100 Mechanical Ventilator 80 12/09/16 06:52 84 15 30 12/09/16 06:00 81 20 119/44 100 Mechanical Ventilator 80 12/09/16 05:08 81 14 30 12/09/16 05:00 84 24 147/99 100 Mechanical Ventilator 80 12/09/16 04:00 91 12/09/16 04:00 80 12/09/16 04:00 97.4 92 16 126/48 100 Mechanical Ventilator 80 12/09/16 03:16 96 20 30 12/09/16 03:00 91 15 112/99 100 Mechanical Ventilator 80 12/09/16 02:45 90 14 128/49 100 Mechanical Ventilator 80 12/09/16 02:30 88 14 106/85 100 Mechanical Ventilator 80 12/09/16 02:15 89 14 120/39 100 Mechanical Ventilator 80 12/09/16 02:00 92 19 115/41 100 Mechanical Ventilator 80 12/09/16 01:45 93 15 133/33 100 Mechanical Ventilator 80 12/09/16 01:30 100 18 115/47 100 Mechanical Ventilator 80 12/09/16 01:15 89 15 133/47 100 Mechanical Ventilator 80 12/09/16 01:11 98 20 30 12/09/16 01:00 92 21 120/40 100 Mechanical Ventilator 80 12/09/16 00:45 90 17 128/53 100 Mechanical Ventilator 80 12/09/16 00:30 89 20 112/44 100 Mechanical Ventilator 80 12/09/16 00:15 94 17 126/47 100 Mechanical Ventilator 80 12/09/16 00:00 80 12/09/16 00:00 94 18 131/53 100 Mechanical Ventilator 80 12/09/16 00:00 100 12/08/16 23:45 92 19 125/54 100 Mechanical Ventilator 80 12/08/16 23:30 91 19 108/23 100 Mechanical Ventilator 80 12/08/16 23:30 104 20 30 12/08/16 23:00 90 16 102/42 100 Mechanical Ventilator 80 12/08/16 22:45 92 15 121/42 100 Mechanical Ventilator 80 12/08/16 22:30 98 21 82/39 98 Mechanical Ventilator 80 12/08/16 22:15 98 16 115/49 98 Mechanical Ventilator 80 12/08/16 22:00 93 21 112/39 98 Mechanical Ventilator 80 12/08/16 21:54 96 14 Mechanical Ventilator 30 12/08/16 21:45 93 21 106/28 98 Mechanical Ventilator 80 12/08/16 21:30 98 21 82/39 98 Mechanical Ventilator 80 12/08/16 21:25 97 18 30 12/08/16 21:15 97 21 89/34 98 Mechanical Ventilator 80 12/08/16 21:00 98 21 82/39 98 Mechanical Ventilator 80 12/08/16 21:00 75/34 12/08/16 20:00 100 12/08/16 20:00 98.9 97 19 108/34 90 Mechanical Ventilator 100 12/08/16 20:00 100 Intake and Output 12/08/16 12/09/16 19:00 07:00 Intake Total 340.0 ml 877.45 ml Output Total 500 ml 370 ml Balance -160.0 ml 507.45 ml IV Total 110.0 ml 227.45 ml Tube Feeding 180 ml 600 ml Other 50 ml 50 ml Output Urine Total 500 ml 170 ml Stool Total 200 ml # Bowel Movements 5 1 Objective GENERAL: An ill-appearing male. reduced LOC HEENT: Negative. Pupils reactive. NECK: Supple. Trachea is midline. Carotids 2+. on vent LUNGS: Coarse breath sounds. Moderate air entry. no rhonchi or wheeze CARDIAC: S1 and S2. Overall, regular rhythm without murmurs, rubs, or gallops. now with rate control ABDOMEN: Soft and nontender. G-tube in place. no HSM no distention; bleeding noted EXTREMITIES: No cyanosis and no clubbing. some mild edema. now worse NEUROLOGIC: Poorly responsive and withdrawn. reduced LOC reviewed and edited Microbiology Date/Time Source Procedure Growth Status 12/08/16 10:50 Stool Clostridium difficile Toxin Assay - Final Complete Laboratory Tests 12/09/16 04:15: White Blood Count 25.3*H, Red Blood Count 2.56L, Hemoglobin 7.0#L, Hematocrit 22.3#L, Mean Corpuscular Volume 87, Mean Corpuscular Hemoglobin 27.5, Mean Corpuscular Hemoglobin Concent 31.5L, Red Cell Distribution Width 17.7H, Platelet Count 404, Mean Platelet Volume 8.1, Neutrophils (%) (Auto) , Lymphocytes (%) (Auto) , Monocytes (%) (Auto) , Eosinophils (%) (Auto) , Basophils (%) (Auto) , Differential Total Cells Counted 100, Neutrophils % ( Manual) 92H, Lymphocytes % (Manual) 5L, Monocytes % (Manual) 3, Eosinophils % ( Manual) 0, Basophils % (Manual) 0, Band Neutrophils 0, Platelet Estimate Adequate, Platelet Morphology Normal, Polychromasia Occasional, Hypochromasia 1+ , Anisocytosis 1+, Sodium Level 143, Potassium Level 3.7, Chloride Level 102, Carbon Dioxide Level 25, Anion Gap 16H, Blood Urea Nitrogen 44H, Creatinine 2.0H , Estimat Glomerular Filtration Rate , Glucose Level 147H, Calcium Level 7.5L, Total Bilirubin 0.4, Aspartate Amino Transf (AST/SGOT) 133H, Alanine Aminotransferase (ALT/SGPT) 52H, Alkaline Phosphatase 106, Total Protein 4.8L, Albumin 1.8L, Globulin 3.0, Albumin/Globulin Ratio 0.6L Current Medications Medications (Trade) Dose Ordered Sig/Judith Route PRN Reason Start Time Stop Time Status Last Admin Dose Admin Acetaminophen (Tylenol) 650 mg Q4H PRN GT Mild Pain/Temp > 100.5 12/08/16 19:00 01/07/17 18:59 Albuterol/ Ipratropium (DuoNeb 0.5-3(2.5)mg/3ml) 3 ml Q4H PRN HHN Shortness of Breath 12/08/16 20:15 12/13/16 20:14 Amiodarone HCl (Cordarone) 200 mg EVERY 12 HOURS ORAL 12/08/16 21:00 01/07/17 20:59 12/09/16 08:11 Epoetin Azael (Procrit (for non ESRD use)) 10,000 units TUE-TUE-TUE SUBQ 12/08/16 21:00 01/07/17 20:59 Heparin Sodium (Porcine) (Heparin 5000 units/ml) 5,000 units Q12HR SUBQ 12/08/16 21:00 01/07/17 20:59 12/09/16 08:14 Hydralazine HCl (Apresoline) 5 mg Q6H PRN GT SBP>170 12/08/16 22:00 01/07/17 21:59 Metronidazole (Flagyl) 500 mg EVERY 8 HOURS ORAL 12/08/16 22:00 12/15/16 21:59 12/09/16 14:23 Norepinephrine Bitartrate 4 mg/ Dextrose 250 ml @ 0 mls/hr Q24H IV 12/08/16 19:15 01/07/17 19:14 12/08/16 21:00 Nystatin (Nystop Powder) 1 applic THREE TIMES A DAY TOPIC 12/09/16 09:00 01/08/17 08:59 12/09/16 18:08 Pantoprazole (Protonix) 40 mg DAILY IVP 12/09/16 09:00 01/08/17 08:59 12/09/16 08:12 Piperacillin Sod/ Tazobactam Sod/ Dextrose (Zosyn/D5W) 110 ml @ 27.5 mls/hr Q8HR IVPB 12/08/16 22:00 12/15/16 21:59 12/09/16 14:23 Silver Nitrate (Silver Nitrate Applicators) 10 applic ONCE ONCE TOPIC 12/10/16 09:00 12/10/16 09:01 RIZWAN SANDERS Dec 09, 2016 19:55
[2016-12-10] VITALS (16 sets, daily range): BP systolic 111–137; BP diastolic 39–60
--- NOTE | 2016-12-10 02:49 | Progress Note ---
DATE: 12/09/2016 SUBJECTIVE: The patient remains critical. Prognosis is grave. He is in the intensive care unit. OBJECTIVE: VITAL SIGNS: Blood pressure 140/42, pulse 91, and respiratory rate 22. HEART: Monitored sinus and sinus tachycardia. NECK: Orally intubated. Thin trach secretions. LUNGS: Bilateral breath sounds. CARDIAC: Regular rhythm and rate. ABDOMEN: Soft. EXTREMITIES: No edema. LABORATORY DATA: White count 25 and hemoglobin 7. Sodium 143, potassium 3.7, bicarbonate 25, BUN 44, and creatinine 2.0. Albumin 1.8. IMPRESSION: 1. Respiratory failure. 2. Sepsis. 3. Hypercalcemia. 4. Malignancy. 5. Metastatic carcinoma involving the esophagus. 6. Bacteremia. 7. Paroxysmal supraventricular tachycardia, secondary sinus tachycardia. PLAN: 1. Discontinue amiodarone for now. IV Cardizem for supraventricular arrhythmias. 2. Antibiotics per Infectious Disease area development consultant. No plan for a transesophageal echocardiogram in view of high risk of perforation in setting of esophageal carcinoma. Emil Duarte M.D. DR: SAMARA JOB#: [id number] CC:
[2016-12-10] MEDS: Piperacillin/Tazobactam 3.375 GM in D5W 110 ML IVPB SCH ×3 (05:50→21:59)
[2016-12-10] MEDS: metroNIDAZOLE 500mg tab ORAL SCH ×4 (05:50→22:47)
[2016-12-10 06:12] LABS: MEAN CORPUSCULAR HGB CONC 32.3 G/DL (32.0-36.0); MEAN CORPUSCULAR VOLUME 87 FL (80-99); PLATELET COUNT 387 K/UL (150-450); RED BLOOD COUNT 3.33 M/UL (4.70-6.10); RED CELL DISTRIBUTION WIDTH 16.4 % (11.6-14.8); WHITE BLOOD COUNT 19.7 K/UL (4.8-10.8)
[2016-12-10 06:30] LABS: ALANINE AMINOTRANSFERASE 39 U/L (3-41); ALBUMIN/GLOBULIN RATIO 0.5 (1.0-2.7); ANION GAP 17 (5-15); ASPARTATE AMINO TRANSFERASE 56 U/L (5-40); CALCIUM 7.7 mg/dL (8.6-10.2); CARBON DIOXIDE 23 mEQ/L (20-30); CHLORIDE 105 mEQ/L (98-107); CREATININE 2.3 mg/dL (0.7-1.2); HEMOLYSIS 2; POTASSIUM 3.4 mEQ/L (3.4-4.9); SODIUM 145 mEQ/L (135-145); TOTAL PROTEIN 5.1 g/dL (6.6-8.7)
--- NOTE | 2016-12-10 07:05 | Anethesia Preoperative Eval ---
Anesthesia Pre-op PMH/ROS General Date of Evaluation: Dec 10, 2016 Time of Evaluation: 07:03 Anesthesiologist: Ed ASA Score: ASA 3 Mallampati Score Class I : Soft palate, uvula, fauces, pillars visible Class II: Soft palate, uvula, fauces visible Class III: Soft palate, base of uvula visible Class IV: Only hard plate visible Mallampati Classification: Class III Surgeon: sita Diagnosis: GERD/ Colon polyp Surgical Procedure: EGD/Colonoscopy Anesthesia History: none Family History: no anesthesia problems Allergies: Coded Allergies: No Known Allergies (Unverified , 11/27/16) Medications: see eMAR Past Medical History Cardiovascular: Reports: HTN Pulmonary: Denies: COPD, [place], asthma, other Gastrointestinal/Genitourinary: Reports: GERD Neurologic/Psychiatric: Reports: dementia Endocrine: Denies: DM, hypothyroidism, other, steroids HEENT: Denies: [place] (L), [place] (R), cataract (L), cataract (R), glaucoma, other Hematology/Immune: Reports: anemia Musculoskeletal/Integumentary: Denies: DDD, DJD, OA, RA, edema, other PMH Narrative: esophageal cancer, respiratory failure status post tracheostomy tube placement, dysphagia status post gastrostomy tube placement, renal failure, urolithiasis, history of chronic anemia according to chart records, history of cervical myelopathy, benign prostatic hyperplasia, chronic obstructive pulmonary disease, hypertension. PSxH Narrative: EGD/Colonoscopy Anesthesia Pre-op Phys. Exam Physician Exam Last Vital Signs Date Time Temp Pulse Resp B/P Pulse Ox O2 Delivery O2 Flow Rate FiO2 12/10/16 05:25 97 20 30 12/10/16 04:00 97.8 115/45 100 Mechanical Ventilator Constitutional: NAD Neurologic: CN 2-12 intact Cardiovascular: RRR Respiratory: CTA Gastrointestinal: S/NT/ND Airway Exam Mallampati Classification 2 Mallampati Score: Class II MO: full ROM: full Dentures: no lower, no upper Anesthesia Pre-op A/P Labs Hematology Test 12/10/16 04:00 White Blood Count 19.7 K/UL (4.8-10.8) H Red Blood Count 3.33 M/UL (4.70-6.10) L Hemoglobin 9.3 G/DL (14.2-18.0) #L Hematocrit 28.9 % (42.0-52.0) L Mean Corpuscular Volume 87 FL (80-99) Mean Corpuscular Hemoglobin 28.0 PG (27.0-31.0) Mean Corpuscular Hemoglobin Concent 32.3 G/DL (32.0-36.0) Red Cell Distribution Width 16.4 % (11.6-14.8) H Platelet Count 387 K/UL (150-450) Mean Platelet Volume 8.0 FL (6.5-10.1) Neutrophils (%) (Auto) % (45.0-75.0) Lymphocytes (%) (Auto) % (20.0-45.0) Monocytes (%) (Auto) % (1.0-10.0) Eosinophils (%) (Auto) % (0.0-3.0) Basophils (%) (Auto) % (0.0-2.0) Neutrophils % (Manual) Pending Lymphocytes % (Manual) Pending Platelet Estimate Pending Platelet Morphology Pending Coagulation Test 12/10/16 04:00 Activated Partial Thromboplast Time 33 SEC (23-33) Chemistry Test 12/10/16 04:00 Sodium Level 145 mEQ/L (135-145) Potassium Level 3.4 mEQ/L (3.4-4.9) Chloride Level 105 mEQ/L (98-107) Carbon Dioxide Level 23 mEQ/L (20-30) Anion Gap 17 (5-15) H Blood Urea Nitrogen 50 mg/dL (7-23) H Creatinine 2.3 mg/dL (0.7-1.2) H Estimat Glomerular Filtration Rate mL/min (>60) Glucose Level 121 mg/dL (74-106) H Calcium Level 7.7 mg/dL (8.6-10.2) L Total Bilirubin 0.6 mg/dL (0.0-1.2) Aspartate Amino Transf (AST/SGOT) 56 U/L (5-40) H Alanine Aminotransferase (ALT/SGPT) 39 U/L (3-41) Alkaline Phosphatase 107 U/L (40-129) Total Protein 5.1 g/dL (6.6-8.7) L Albumin 1.8 g/dL (3.5-5.2) L Globulin 3.3 g/dL Albumin/Globulin Ratio 0.5 (1.0-2.7) L Risk Assessment & Plan Plan: mac Status Change Before Surgery: No Pre-Antibiotics Drug: none LIV GRIMES CRNA Dec 10, 2016 07:05
--- NOTE | 2016-12-10 07:53 | Anethesia Preoperative Eval ---
Anesthesia Pre-op PMH/ROS General Date of Evaluation: Dec 10, 2016 Time of Evaluation: 07:51 Anesthesiologist: inga ASA Score: ASA 3 Mallampati Score Class I : Soft palate, uvula, fauces, pillars visible Class II: Soft palate, uvula, fauces visible Class III: Soft palate, base of uvula visible Class IV: Only hard plate visible Mallampati Classification: Class III Surgeon: sita Anesthesia History: none Family History: no anesthesia problems Allergies: Coded Allergies: No Known Allergies (Unverified , 11/27/16) Medications: see eMAR Past Medical History Neurologic/Psychiatric: Reports: dementia HEENT: Denies: [place]R), cataract (L), cataract (R), glaucoma, other Hematology/Immune: Reports: anemia Musculoskeletal/Integumentary: Denies: DDD, DJD, OA, RA, edema, other PMH Narrative: history of esophageal cancer, respiratory failure status post tracheostomy tube placement, dysphagia status post gastrostomy tube placement, renal failure, urolithiasis, history of chronic anemia according to chart records, history of cervical myelopathy, benign prostatic hyperplasia, chronic obstructive pulmonary disease, hypertension. Anesthesia Pre-op Phys. Exam Physician Exam Last Vital Signs Date Time Temp Pulse Resp B/P Pulse Ox O2 Delivery O2 Flow Rate FiO2 12/10/16 06:45 99 20 30 12/10/16 06:00 115/60 100 Mechanical Ventilator 12/10/16 04:00 97.8 Constitutional: NAD Neurologic: CN 2-12 intact Cardiovascular: RRR Respiratory: CTA Gastrointestinal: S/NT/ND Airway Exam Mallampati Score: Class II Dentures: no lower, no upper Anesthesia Pre-op A/P Labs Hematology Test 12/10/16 04:00 White Blood Count 19.7 K/UL (4.8-10.8) H Red Blood Count 3.33 M/UL (4.70-6.10) L Hemoglobin 9.3 G/DL (14.2-18.0) #L Hematocrit 28.9 % (42.0-52.0) L Mean Corpuscular Volume 87 FL (80-99) Mean Corpuscular Hemoglobin 28.0 PG (27.0-31.0) Mean Corpuscular Hemoglobin Concent 32.3 G/DL (32.0-36.0) Red Cell Distribution Width 16.4 % (11.6-14.8) H Platelet Count 387 K/UL (150-450) Mean Platelet Volume 8.0 FL (6.5-10.1) Neutrophils (%) (Auto) % (45.0-75.0) Lymphocytes (%) (Auto) % (20.0-45.0) Monocytes (%) (Auto) % (1.0-10.0) Eosinophils (%) (Auto) % (0.0-3.0) Basophils (%) (Auto) % (0.0-2.0) Neutrophils % (Manual) Pending Lymphocytes % (Manual) Pending Platelet Estimate Pending Platelet Morphology Pending Coagulation Test 12/10/16 04:00 Activated Partial Thromboplast Time 33 SEC (23-33) Chemistry Test 12/10/16 04:00 Sodium Level 145 mEQ/L (135-145) Potassium Level 3.4 mEQ/L (3.4-4.9) Chloride Level 105 mEQ/L (98-107) Carbon Dioxide Level 23 mEQ/L (20-30) Anion Gap 17 (5-15) H Blood Urea Nitrogen 50 mg/dL (7-23) H Creatinine 2.3 mg/dL (0.7-1.2) H Estimat Glomerular Filtration Rate mL/min (>60) Glucose Level 121 mg/dL (74-106) H Calcium Level 7.7 mg/dL (8.6-10.2) L Total Bilirubin 0.6 mg/dL (0.0-1.2) Aspartate Amino Transf (AST/SGOT) 56 U/L (5-40) H Alanine Aminotransferase (ALT/SGPT) 39 U/L (3-41) Alkaline Phosphatase 107 U/L (40-129) Total Protein 5.1 g/dL (6.6-8.7) L Albumin 1.8 g/dL (3.5-5.2) L Globulin 3.3 g/dL Albumin/Globulin Ratio 0.5 (1.0-2.7) L Risk Assessment & Plan Plan: LIV Guevara CRNA Dec 10, 2016 07:53
[2016-12-10 08:12] LABS: ANISOCYTOSIS 1+; BAND NEUTROPHILS % (MANUAL) 1 % (0-8); HYPOCHROMASIA 1+; LYMPHOCYTES % (MANUAL) 4 % (20-45); NEUTROPHILS % (MANUAL) 90 % (45-75); POLYCHROMASIA OCCASIONAL; TOTAL CELLS COUNTED 100
--- NOTE | 2016-12-10 08:15 | General Progress Note ---
Assessment/Plan Problem List: (1) Hypercalcemia of malignancy ICD Codes: E83.52 - Hypercalcemia SNOMED: 36246287 (2) Esophageal adenocarcinoma ICD Codes: C15.9 - Malignant neoplasm of esophagus, unspecified SNOMED: 516092372 (3) Respiratory failure for > 28 days ICD Codes: J96.90 - Respiratory failure, unspecified, unspecified whether with hypoxia or hypercapnia SNOMED: 469476114 (4) Sepsis ICD Codes: A41.9 - Sepsis, unspecified organism SNOMED: 98769714 Status: stable Assessment/Plan monitor h/h transfuse prn EGD today abx follow up cultures vent support and resp rx feeds monitor wbc-remains high but is trending down id follow up monitor for svt repeat renal ayah- poor nursing home prognosis Subjective ROS Limited/Unobtainable: No Constitutional: Reports: malaise, weakness HEENT: Reports: no symptoms Cardiovascular: Reports: no symptoms Respiratory: Reports: no symptoms Gastrointestinal/Abdominal: Reports: blood in stool Genitourinary: Reports: no symptoms Neurologic/Psychiatric: Reports: pre-existing deficit Endocrine: Reports: no symptoms Hematologic/Lymphatic: Reports: anemia Allergies: Coded Allergies: No Known Allergies (Unverified , 11/27/16) All Systems: reviewed and negative except above Subjective transferred to icu for svt and gib. s/p transfusion. awake and alert. denies pain. renal fxn worse. no bleeding. npo for endoscopy. Objective Last 24 Hour Vital Signs Date Time Temp Pulse Resp B/P Pulse Ox O2 Delivery O2 Flow Rate FiO2 12/10/16 07:00 98.2 104 24 125/52 100 Mechanical Ventilator 30 12/10/16 06:45 99 20 30 12/10/16 06:00 90 17 115/60 100 Mechanical Ventilator 30 12/10/16 05:25 97 20 30 12/10/16 05:00 91 17 125/50 100 Mechanical Ventilator 30 12/10/16 04:00 97.8 85 14 115/45 100 Mechanical Ventilator 30 12/10/16 04:00 80 12/10/16 04:00 30 12/10/16 03:09 83 16 30 12/10/16 03:00 89 12 123/50 100 Mechanical Ventilator 30 12/10/16 02:00 98 20 129/50 99 Mechanical Ventilator 30 12/10/16 01:30 82 14 30 12/10/16 01:00 75 20 137/49 100 Mechanical Ventilator 30 12/10/16 00:00 30 12/10/16 00:00 77 12/10/16 00:00 96.8 76 19 120/48 100 Mechanical Ventilator 30 12/09/16 23:08 85 14 30 12/09/16 23:01 90 19 126/48 100 Mechanical Ventilator 30 12/09/16 22:00 93 18 117/46 100 Mechanical Ventilator 30 12/09/16 21:14 90 18 30 12/09/16 21:00 87 17 110/62 100 Mechanical Ventilator 30 12/09/16 20:00 97.2 87 16 107/44 100 Mechanical Ventilator 30 12/09/16 20:00 91 12/09/16 20:00 30 12/09/16 19:03 88 15 30 12/09/16 19:00 87 17 109/45 100 Mechanical Ventilator 30 12/09/16 18:00 89 16 117/46 100 Mechanical Ventilator 30 12/09/16 17:02 95 23 30 12/09/16 17:00 88 15 118/45 100 Mechanical Ventilator 30 12/09/16 16:38 30 12/09/16 16:00 97.2 87 16 107/44 100 Mechanical Ventilator 30 12/09/16 16:00 90 12/09/16 15:00 85 21 115/45 100 Mechanical Ventilator 30 12/09/16 14:55 93 25 30 12/09/16 14:00 91 21 119/43 100 Mechanical Ventilator 30 12/09/16 13:11 91 21 30 12/09/16 13:00 93 21 110/43 100 Mechanical Ventilator 30 12/09/16 12:00 92 12/09/16 12:00 97.0 91 22 111/40 100 Mechanical Ventilator 30 12/09/16 12:00 30 12/09/16 11:00 94 21 98/41 100 Mechanical Ventilator 30 12/09/16 10:51 81 17 30 12/09/16 10:00 91 22 114/42 100 Mechanical Ventilator 30 12/09/16 09:08 93 20 30 12/09/16 09:00 93 22 132/107 100 Mechanical Ventilator 30 Intake and Output 12/09/16 12/10/16 19:00 07:00 Intake Total 56477.04 ml 420.0 ml Output Total 690 ml 1160 ml Balance 49751.04 ml -740.0 ml IV Total 90637.04 ml 110.0 ml Tube Feeding 480 ml Blood Product 260 ml Other 50 ml Output Urine Total 340 ml 510 ml Stool Total 350 ml 650 ml # Voids 70 # Bowel Movements 2 Laboratory Tests 12/10/16 04:00: White Blood Count 19.7H, Red Blood Count 3.33L, Hemoglobin 9.3#L, Hematocrit 28.9L, Mean Corpuscular Volume 87, Mean Corpuscular Hemoglobin 28.0, Mean Corpuscular Hemoglobin Concent 32.3, Red Cell Distribution Width 16.4H, Platelet Count 387, Mean Platelet Volume 8.0, Neutrophils (%) (Auto) , Lymphocytes (%) (Auto) , Monocytes (%) (Auto) , Eosinophils (%) (Auto) , Basophils (%) (Auto) , Neutrophils % (Manual) [Pending], Lymphocytes % (Manual) [Pending], Platelet Estimate [Pending], Platelet Morphology [Pending], Activated Partial Thromboplast Time 33, Sodium Level 145, Potassium Level 3.4, Chloride Level 105, Carbon Dioxide Level 23, Anion Gap 17H, Blood Urea Nitrogen 50H, Creatinine 2.3H, Estimat Glomerular Filtration Rate , Glucose Level 121H, Calcium Level 7.7L, Total Bilirubin 0.6, Aspartate Amino Transf (AST/SGOT) 56H, Alanine Aminotransferase (ALT/SGPT) 39, Alkaline Phosphatase 107, Total Protein 5.1L, Albumin 1.8L, Globulin 3.3, Albumin/Globulin Ratio 0.5L Height (Feet): 5 Height (Inches): 9.00 Weight (Pounds): 145 Objective General Appearance: WD/WN, alert, cachetic, thin Neck: supple Cardiovascular: regular rhythm Respiratory/Chest: chest wall non-tender, lungs clear, normal breath sounds, no respiratory distress, no accessory muscle use Abdomen: normal bowel sounds, non tender, soft, no organomegaly Edema: no edema noted Arm (L), no edema noted Arm (R), no edema noted Leg (L), no edema noted Leg (R), no edema noted Pedal (L), no edema noted Pedal (R), no edema noted Generalized Skin: normal pigmentation NANCY GARCIA Dec 10, 2016 08:15
--- NOTE | 2016-12-10 08:59 | Immediate Post-Op Evaluation ---
Immediate Post-Op Evalulation Immediate Post-Op Evalulation Procedure: EGD Date of Evaluation: Dec 10, 2016 Time of Evaluation: 08:50 IV Fluids: 200 Blood Pressure Systolic: 94 Blood Pressure Diastolic: 30 Pulse Rate: 95 O2 Sat by Pulse Oximetry: 98 Nausea: No Vomiting: No Complications none Patient Status: awake, patent, ventilated Hydration Status: adequate Drug: none LIV GRIMES CRNA Dec 10, 2016 08:59
[2016-12-10] MEDS: KCl 10% 20 mEq/15ml liquid NG ONE ×2 (09:00→11:00)
[2016-12-10] MEDS: Pantoprazole Inj IVP SCH (09:00)
[2016-12-10] MEDS: Nystatin Powder 100,000 units/gm 15gm TOPIC SCH ×3 (09:00→18:00)
[2016-12-10] MEDS: Heparin 5000 units/ml inj SUBQ SCH ×2 (09:00→21:11)
[2016-12-10] MEDS ORDERED: Silver Nitrate Stick TOPIC ONE (09:00)
--- NOTE | 2016-12-10 09:01 | 48 Hour Post Anesthesia Eval ---
Post Anesthesia Evaluation Procedure: EGD Date of Evaluation: Dec 10, 2016 Time of Evaluation: 09:00 Blood Pressure Systolic: 105 0: 70 Pulse Rate: 95 Respiratory Rate: 14 O2 Sat by Pulse Oximetry: 100 Airway: patent, other - trached and vented Nausea: No Vomiting: No Hydration Status: adequate Mental Status/LOC: patient returned to baseline Post-Anesthesia Complications: baseline /see anesthesia record Follow-up care needed: N/A LIV GRIMES CRNA Dec 10, 2016 09:01
--- NOTE | 2016-12-10 09:08 | Pulmonology Progress Note ---
Assessment/Plan Assessment/Plan IMPRESSION: 1. Sepsis. 2. Profound leukocytosis. 3. Protein-calorie malnutrition. 4. Hypercalcemia, 5. Acute on chronic renal failure. 6. Metabolic alkalosis, possibly contraction in nature. 7. Anemia. 8. Thrombocytosis. 9. Tracheostomy and gastrostomy tube. 10. Chronic respiratory failure. 11. tachyarrythmias 12. hypotension 13. GT site bleeding 14. esophageal ca PLAN exams edited and reviewed supportive care antibiotics noted; labs reviewed ID evaluation noted follow up for change stabilize transfuse WBC still elevated EGD today hold feeds no wean at present suction aspiration precautions prognosis poor amiodarone and titrate support and advise family as to update ICU care reviewed in detail medications/laboratory data/nursing notes/ICU care reviewed in detail note reviewed and edited care discussed with RN and RT ICU time spent 35 minutes Subjective ROS Limited/Unobtainable: Yes Allergies: Coded Allergies: No Known Allergies (Unverified , 11/27/16) Subjective t/f to icu tachycardia better gt site bleeding for endoscopy hypotension better specialist noted and discussed Objective Last 24 Hour Vital Signs Date Time Temp Pulse Resp B/P Pulse Ox O2 Delivery O2 Flow Rate FiO2 12/10/16 09:01 95 14 100 12/10/16 08:59 95 98 12/10/16 08:00 97.5 95 19 128/52 100 Mechanical Ventilator 30 12/10/16 08:00 95 12/10/16 08:00 30 12/10/16 07:00 98.2 104 24 125/52 100 Mechanical Ventilator 30 12/10/16 06:45 99 20 30 12/10/16 06:00 90 17 115/60 100 Mechanical Ventilator 30 12/10/16 05:25 97 20 30 12/10/16 05:00 91 17 125/50 100 Mechanical Ventilator 30 12/10/16 04:00 97.8 85 14 115/45 100 Mechanical Ventilator 30 12/10/16 04:00 80 12/10/16 04:00 30 12/10/16 03:09 83 16 30 12/10/16 03:00 89 12 123/50 100 Mechanical Ventilator 30 12/10/16 02:00 98 20 129/50 99 Mechanical Ventilator 30 12/10/16 01:30 82 14 30 12/10/16 01:00 75 20 137/49 100 Mechanical Ventilator 30 12/10/16 00:00 30 12/10/16 00:00 77 12/10/16 00:00 96.8 76 19 120/48 100 Mechanical Ventilator 30 12/09/16 23:08 85 14 30 12/09/16 23:01 90 19 126/48 100 Mechanical Ventilator 30 12/09/16 22:00 93 18 117/46 100 Mechanical Ventilator 30 12/09/16 21:14 90 18 30 12/09/16 21:00 87 17 110/62 100 Mechanical Ventilator 30 12/09/16 20:00 97.2 87 16 107/44 100 Mechanical Ventilator 30 12/09/16 20:00 91 12/09/16 20:00 30 12/09/16 19:03 88 15 30 12/09/16 19:00 87 17 109/45 100 Mechanical Ventilator 30 12/09/16 18:00 89 16 117/46 100 Mechanical Ventilator 30 12/09/16 17:02 95 23 30 12/09/16 17:00 88 15 118/45 100 Mechanical Ventilator 30 12/09/16 16:38 30 12/09/16 16:00 97.2 87 16 107/44 100 Mechanical Ventilator 30 12/09/16 16:00 90 12/09/16 15:00 85 21 115/45 100 Mechanical Ventilator 30 12/09/16 14:55 93 25 30 12/09/16 14:00 91 21 119/43 100 Mechanical Ventilator 30 12/09/16 13:11 91 21 30 12/09/16 13:00 93 21 110/43 100 Mechanical Ventilator 30 12/09/16 12:00 92 12/09/16 12:00 97.0 91 22 111/40 100 Mechanical Ventilator 30 12/09/16 12:00 30 12/09/16 11:00 94 21 98/41 100 Mechanical Ventilator 30 12/09/16 10:51 81 17 30 12/09/16 10:00 91 22 114/42 100 Mechanical Ventilator 30 12/09/16 09:08 93 20 30 Intake and Output 12/09/16 12/10/16 19:00 07:00 Intake Total 35801.04 ml 420.0 ml Output Total 690 ml 1160 ml Balance 75102.04 ml -740.0 ml IV Total 50956.04 ml 110.0 ml Tube Feeding 480 ml Blood Product 260 ml Other 50 ml Output Urine Total 340 ml 510 ml Stool Total 350 ml 650 ml # Voids 70 # Bowel Movements 2 Objective GENERAL: An ill-appearing male. reduced LOC HEENT: Negative. Pupils reactive. NECK: Supple. Trachea is midline. Carotids 2+. on vent; trach in place LUNGS: Coarse breath sounds. Moderate air entry. no rhonchi or wheeze CARDIAC: S1 and S2. Overall, regular rhythm without murmurs, rubs, or gallops. mostly rate control ABDOMEN: Soft and nontender. G-tube in place. no HSM no distention; EXTREMITIES: No cyanosis and no clubbing. some edema. NEUROLOGIC: Poorly responsive and withdrawn. reduced LOC reviewed and edited Microbiology Date/Time Source Procedure Growth Status 12/08/16 10:50 Stool Clostridium difficile Toxin Assay - Final Complete Laboratory Tests 12/10/16 04:00: White Blood Count 19.7H, Red Blood Count 3.33L, Hemoglobin 9.3#L, Hematocrit 28.9L, Mean Corpuscular Volume 87, Mean Corpuscular Hemoglobin 28.0, Mean Corpuscular Hemoglobin Concent 32.3, Red Cell Distribution Width 16.4H, Platelet Count 387, Mean Platelet Volume 8.0, Neutrophils (%) (Auto) , Lymphocytes (%) (Auto) , Monocytes (%) (Auto) , Eosinophils (%) (Auto) , Basophils (%) (Auto) , Differential Total Cells Counted 100, Neutrophils % ( Manual) 90H, Lymphocytes % (Manual) 4L, Monocytes % (Manual) 5, Band Neutrophils 1, Platelet Estimate [Pending], Platelet Morphology [Pending], Polychromasia Occasional, Hypochromasia 1+, Anisocytosis 1+, Activated Partial Thromboplast Time 33, Sodium Level 145, Potassium Level 3.4, Chloride Level 105 , Carbon Dioxide Level 23, Anion Gap 17H, Blood Urea Nitrogen 50H, Creatinine 2.3H, Estimat Glomerular Filtration Rate , Glucose Level 121H, Calcium Level 7.7L, Total Bilirubin 0.6, Aspartate Amino Transf (AST/SGOT) 56H, Alanine Aminotransferase (ALT/SGPT) 39, Alkaline Phosphatase 107, Total Protein 5.1L, Albumin 1.8L, Globulin 3.3, Albumin/Globulin Ratio 0.5L Current Medications Medications (Trade) Dose Ordered Sig/Judith Route PRN Reason Start Time Stop Time Status Last Admin Dose Admin Acetaminophen (Tylenol) 650 mg Q4H PRN GT Mild Pain/Temp > 100.5 12/08/16 19:00 01/07/17 18:59 Albuterol/ Ipratropium (DuoNeb 0.5-3(2.5)mg/3ml) 3 ml Q4H PRN HHN Shortness of Breath 12/08/16 20:15 12/13/16 20:14 Dextrose/Sodium Chloride (D5ns) 1,000 ml @ 100 mls/hr Q10H IV 12/10/16 09:00 01/09/17 08:59 Epoetin Azael (Procrit (for non ESRD use)) 10,000 units TUE-TUE-TUE SUBQ 12/08/16 21:00 01/07/17 20:59 Heparin Sodium (Porcine) (Heparin 5000 units/ml) 5,000 units Q12HR SUBQ 12/08/16 21:00 01/07/17 20:59 12/09/16 08:14 Hydralazine HCl (Apresoline) 5 mg Q6H PRN GT SBP>170 12/08/16 22:00 01/07/17 21:59 Metronidazole (Flagyl) 500 mg EVERY 8 HOURS ORAL 12/08/16 22:00 12/15/16 21:59 12/09/16 21:41 Norepinephrine Bitartrate 4 mg/ Dextrose 250 ml @ 0 mls/hr Q24H IV 12/08/16 19:15 01/07/17 19:14 12/08/16 21:00 Nystatin (Nystop Powder) 1 applic THREE TIMES A DAY TOPIC 12/09/16 09:00 01/08/17 08:59 12/09/16 18:08 Pantoprazole 40 mg 40 mg DAILY IVP 12/09/16 09:00 01/08/17 08:59 12/09/16 08:12 Piperacillin Sod/ Tazobactam Sod/ Dextrose (Zosyn/D5W) 110 ml @ 27.5 mls/hr Q8HR IVPB 12/08/16 22:00 12/15/16 21:59 12/10/16 05:50 RIZWAN SANDERS 3, 2017 09:08
[2016-12-10 09:47] LABS: BASOPHILS % (MANUAL) 0 % (0-2); EOSINOPHILS % (MANUAL) 0 % (0-3); PLATELET ESTIMATE ADEQUATE; PLATELET MORPHOLOGY NORMAL
--- NOTE | 2016-12-10 10:14 | Nephrology Progress Note ---
Assessment/Plan Plan Hypercalcemia of Malignancy - calcium down. Now hypocalcemic 7.2. MOF Acute Renal Failure Poor Prognosis Subjective Subjective In ICU due to GI bleed and Shock. Objective Objective Last 24 Hour Vital Signs Date Time Temp Pulse Resp B/P Pulse Ox O2 Delivery O2 Flow Rate FiO2 12/10/16 10:00 97.5 90 15 113/44 100 Mechanical Ventilator 30 12/10/16 09:10 95 20 30 12/10/16 09:01 95 14 100 12/10/16 09:00 97.6 91 18 111/44 100 Mechanical Ventilator 30 12/10/16 08:59 95 98 12/10/16 08:00 97.5 95 19 128/52 100 Mechanical Ventilator 30 12/10/16 08:00 95 12/10/16 08:00 30 12/10/16 07:00 98.2 104 24 125/52 100 Mechanical Ventilator 30 12/10/16 06:45 99 20 30 12/10/16 06:00 90 17 115/60 100 Mechanical Ventilator 30 12/10/16 05:25 97 20 30 12/10/16 05:00 91 17 125/50 100 Mechanical Ventilator 30 12/10/16 04:00 97.8 85 14 115/45 100 Mechanical Ventilator 30 12/10/16 04:00 80 12/10/16 04:00 30 12/10/16 03:09 83 16 30 12/10/16 03:00 89 12 123/50 100 Mechanical Ventilator 30 12/10/16 02:00 98 20 129/50 99 Mechanical Ventilator 30 12/10/16 01:30 82 14 30 12/10/16 01:00 75 20 137/49 100 Mechanical Ventilator 30 12/10/16 00:00 30 12/10/16 00:00 77 12/10/16 00:00 96.8 76 19 120/48 100 Mechanical Ventilator 30 12/09/16 23:08 85 14 30 12/09/16 23:01 90 19 126/48 100 Mechanical Ventilator 30 12/09/16 22:00 93 18 117/46 100 Mechanical Ventilator 30 12/09/16 21:14 90 18 30 12/09/16 21:00 87 17 110/62 100 Mechanical Ventilator 30 12/09/16 20:00 97.2 87 16 107/44 100 Mechanical Ventilator 30 12/09/16 20:00 91 12/09/16 20:00 30 12/09/16 19:03 88 15 30 12/09/16 19:00 87 17 109/45 100 Mechanical Ventilator 30 12/09/16 18:00 89 16 117/46 100 Mechanical Ventilator 30 12/09/16 17:02 95 23 30 12/09/16 17:00 88 15 118/45 100 Mechanical Ventilator 30 12/09/16 16:38 30 12/09/16 16:00 97.2 87 16 107/44 100 Mechanical Ventilator 30 12/09/16 16:00 90 12/09/16 15:00 85 21 115/45 100 Mechanical Ventilator 30 12/09/16 14:55 93 25 30 12/09/16 14:00 91 21 119/43 100 Mechanical Ventilator 30 12/09/16 13:11 91 21 30 12/09/16 13:00 93 21 110/43 100 Mechanical Ventilator 30 12/09/16 12:00 92 12/09/16 12:00 97.0 91 22 111/40 100 Mechanical Ventilator 30 12/09/16 12:00 30 12/09/16 11:00 94 21 98/41 100 Mechanical Ventilator 30 12/09/16 10:51 81 17 30 Intake and Output 12/09/16 12/10/16 19:00 07:00 Intake Total 30923.04 ml 420.0 ml Output Total 690 ml 1160 ml Balance 37115.04 ml -740.0 ml IV Total 20298.04 ml 110.0 ml Tube Feeding 480 ml Blood Product 260 ml Other 50 ml Output Urine Total 340 ml 510 ml Stool Total 350 ml 650 ml # Voids 70 # Bowel Movements 2 Laboratory Tests 12/10/16 04:00: White Blood Count 19.7H, Red Blood Count 3.33L, Hemoglobin 9.3#L, Hematocrit 28.9L, Mean Corpuscular Volume 87, Mean Corpuscular Hemoglobin 28.0, Mean Corpuscular Hemoglobin Concent 32.3, Red Cell Distribution Width 16.4H, Platelet Count 387, Mean Platelet Volume 8.0, Neutrophils (%) (Auto) , Lymphocytes (%) (Auto) , Monocytes (%) (Auto) , Eosinophils (%) (Auto) , Basophils (%) (Auto) , Differential Total Cells Counted 100, Neutrophils % ( Manual) 90H, Lymphocytes % (Manual) 4L, Monocytes % (Manual) 5, Eosinophils % ( Manual) 0, Basophils % (Manual) 0, Band Neutrophils 1, Platelet Estimate Adequate, Platelet Morphology Normal, Polychromasia Occasional, Hypochromasia 1+ , Anisocytosis 1+, Activated Partial Thromboplast Time 33, Sodium Level 145, Potassium Level 3.4, Chloride Level 105, Carbon Dioxide Level 23, Anion Gap 17H , Blood Urea Nitrogen 50H, Creatinine 2.3H, Estimat Glomerular Filtration Rate , Glucose Level 121H, Calcium Level 7.7L, Total Bilirubin 0.6, Aspartate Amino Transf (AST/SGOT) 56H, Alanine Aminotransferase (ALT/SGPT) 39, Alkaline Phosphatase 107, Total Protein 5.1L, Albumin 1.8L, Globulin 3.3, Albumin/ Globulin Ratio 0.5L Height (Feet): 5 Height (Inches): 9.00 Weight (Pounds): 145 Objective Pale On vent Cv Tach Lungs B Oleg Huddleston SNT. BS + E No CCE GAGANDEEP PAEZ Dec 10, 2016 10:14
[2016-12-10] MEDS: D5NS 1,000 ML IV SCH ×3 (11:02→21:59)
--- NOTE | 2016-12-10 11:54 | Infectious Diseases Prog Note ---
"Assessment/Plan Assessment/Plan antibiotics : zosyn, flagyl A 1. e.coli | pseudomonas pneumonia 2. pleural effusions 3. respiratory failure 4. ? endocarditis 5. leucocytosis improving 6. shock P 1. continue zosyn, flagyl 2. will follow up cultures Subjective ROS Limited/Unobtainable: Yes Allergies: Coded Allergies: No Known Allergies (Unverified , 11/27/16) Objective Vital Signs Last 24 Hour Vital Signs Date Time Temp Pulse Resp B/P Pulse Ox O2 Delivery O2 Flow Rate FiO2 12/10/16 11:15 93 18 30 12/10/16 10:00 97.5 90 15 113/44 100 Mechanical Ventilator 30 12/10/16 09:10 95 20 30 12/10/16 09:01 95 14 100 12/10/16 09:00 97.6 91 18 111/44 100 Mechanical Ventilator 30 12/10/16 08:59 95 98 12/10/16 08:00 97.5 95 19 128/52 100 Mechanical Ventilator 30 12/10/16 08:00 95 12/10/16 08:00 30 12/10/16 07:00 98.2 104 24 125/52 100 Mechanical Ventilator 30 12/10/16 06:45 99 20 30 12/10/16 06:00 90 17 115/60 100 Mechanical Ventilator 30 12/10/16 05:25 97 20 30 12/10/16 05:00 91 17 125/50 100 Mechanical Ventilator 30 12/10/16 04:00 97.8 85 14 115/45 100 Mechanical Ventilator 30 12/10/16 04:00 80 12/10/16 04:00 30 12/10/16 03:09 83 16 30 12/10/16 03:00 89 12 123/50 100 Mechanical Ventilator 30 12/10/16 02:00 98 20 129/50 99 Mechanical Ventilator 30 12/10/16 01:30 82 14 30 12/10/16 01:00 75 20 137/49 100 Mechanical Ventilator 30 12/10/16 00:00 30 12/10/16 00:00 77 12/10/16 00:00 96.8 76 19 120/48 100 Mechanical Ventilator 30 12/09/16 23:08 85 14 30 12/09/16 23:01 90 19 126/48 100 Mechanical Ventilator 30 12/09/16 22:00 93 18 117/46 100 Mechanical Ventilator 30 12/09/16 21:14 90 18 30 12/09/16 21:00 87 17 110/62 100 Mechanical Ventilator 30 12/09/16 20:00 97.2 87 16 107/44 100 Mechanical Ventilator 30 12/09/16 20:00 91 12/09/16 20:00 30 12/09/16 19:03 88 15 30 12/09/16 19:00 87 17 109/45 100 Mechanical Ventilator 30 12/09/16 18:00 89 16 117/46 100 Mechanical Ventilator 30 12/09/16 17:02 95 23 30 12/09/16 17:00 88 15 118/45 100 Mechanical Ventilator 30 12/09/16 16:38 30 12/09/16 16:00 97.2 87 16 107/44 100 Mechanical Ventilator 30 12/09/16 16:00 90 12/09/16 15:00 85 21 115/45 100 Mechanical Ventilator 30 12/09/16 14:55 93 25 30 12/09/16 14:00 91 21 119/43 100 Mechanical Ventilator 30 12/09/16 13:11 91 21 30 12/09/16 13:00 93 21 110/43 100 Mechanical Ventilator 30 12/09/16 12:00 92 12/09/16 12:00 97.0 91 22 111/40 100 Mechanical Ventilator 30 12/09/16 12:00 30 Height (Feet): 5 Height (Inches): 9.00 Weight (Pounds): 145 HEENT: status post trach Respiratory/Chest: lungs clear Cardiovascular: normal rate, regular rhythm, no gallop/murmur Abdomen: soft, non tender, other - GT Extremities: no edema, other - left subclavian Microbiology Date/Time Source Procedure Growth Status 12/08/16 10:50 Stool Clostridium difficile Toxin Assay - Final Complete Laboratory Tests Test 12/10/16 04:00 White Blood Count 19.7 K/UL (4.8-10.8) H Red Blood Count 3.33 M/UL (4.70-6.10) L Hemoglobin 9.3 G/DL (14.2-18.0) #L Hematocrit 28.9 % (42.0-52.0) L Mean Corpuscular Volume 87 FL (80-99) Mean Corpuscular Hemoglobin 28.0 PG (27.0-31.0) Mean Corpuscular Hemoglobin Concent 32.3 G/DL (32.0-36.0) Red Cell Distribution Width 16.4 % (11.6-14.8) H Platelet Count 387 K/UL (150-450) Mean Platelet Volume 8.0 FL (6.5-10.1) Neutrophils (%) (Auto) % (45.0-75.0) Lymphocytes (%) (Auto) % (20.0-45.0) Monocytes (%) (Auto) % (1.0-10.0) Eosinophils (%) (Auto) % (0.0-3.0) Basophils (%) (Auto) % (0.0-2.0) Differential Total Cells Counted 100 Neutrophils % (Manual) 90 % (45-75) H Lymphocytes % (Manual) 4 % (20-45) L Monocytes % (Manual) 5 % (1-10) Eosinophils % (Manual) 0 % (0-3) Basophils % (Manual) 0 % (0-2) Band Neutrophils 1 % (0-8) Platelet Estimate Adequate Platelet Morphology Normal Polychromasia Occasional Hypochromasia 1+ Anisocytosis 1+ Activated Partial Thromboplast Time 33 SEC (23-33) Sodium Level 145 mEQ/L (135-145) Potassium Level 3.4 mEQ/L (3.4-4.9) Chloride Level 105 mEQ/L (98-107) Carbon Dioxide Level 23 mEQ/L (20-30) Anion Gap 17 (5-15) H Blood Urea Nitrogen 50 mg/dL (7-23) H Creatinine 2.3 mg/dL (0.7-1.2) H Estimat Glomerular Filtration Rate mL/min (>60) Glucose Level 121 mg/dL (74-106) H Calcium Level 7.7 mg/dL (8.6-10.2) L Total Bilirubin 0.6 mg/dL (0.0-1.2) Aspartate Amino Transf (AST/SGOT) 56 U/L (5-40) H Alanine Aminotransferase (ALT/SGPT) 39 U/L (3-41) Alkaline Phosphatase 107 U/L (40-129) Total Protein 5.1 g/dL (6.6-8.7) L Albumin 1.8 g/dL (3.5-5.2) L Globulin 3.3 g/dL Albumin/Globulin Ratio 0.5 (1.0-2.7) L JORDAN NUNEZ Dec 10, 2016 11:54"
[2016-12-10 12:28] LABS: OTHERS PATHOLOGIST COMMENT
--- NOTE | 2016-12-10 16:14 | Diagnostic Imaging Report ---
Indications: Acute renal failure, elevated renal function tests Technique: Transabdominal real-time grayscale and duplex Doppler imaging of the kidneys, retroperitoneum, and urinary bladder was performed Findings: Comparison: 11/28/16 Right kidney measures 12.5 cm in length. Normal contour, echotexture, cortical thickness. 12 mm circumscribed anechoic focus in the upper pole cortex. Small linear echogenic non-shadowing focus in lower pole sinus. No additional focal lesions, hydronephrosis, or obvious perinephric abnormalities. Left kidney measures 11.4 cm in length. Normal contour, echotexture, cortical thickness. No stones, other focal lesions, hydronephrosis, or obvious perinephric abnormalities. The intrahepatic portion of inferior vena cava is patent and normal caliber. Left pleural effusion incidentally noted. The urinary bladder is collapsed around Polanco catheter. Enlarged heterogeneous prostate, 7.4 x 5.3 x 6.8 cm, volume not calculated.. Impression: Small right renal cortical cyst Small right renal sinus echogenic focus likely vascular or other nonspecific specular reflector, less likely stone Otherwise sonographically unremarkable kidneys Enlarged heterogeneous prostate Left pleural effusion
--- NOTE | 2016-12-10 16:43 | General Progress Note ---
Assessment/Plan Assessment/Plan Assessment - GT site bilious leak - GT site TF leak - Esophageal CA - unable to do EGD - Resp failure / Trach - Dysphagia/PEG - hypotension - off pressors now - Azotemia Recommendations - transfuse PRN - check CT N/C/A/P - IVF - PPI - f/u path from EGD/Bx - consider oncology opinion Subjective Allergies: Coded Allergies: No Known Allergies (Unverified , 11/27/16) Subjective GT with significant bilious leak d/w family unable to do EGD due to pharyngeal obstruction with tumor family not sure of tumor type they will try to get me prior oncologist name Objective Last 24 Hour Vital Signs Date Time Temp Pulse Resp B/P Pulse Ox O2 Delivery O2 Flow Rate FiO2 12/10/16 14:40 90 18 30 12/10/16 14:00 97.9 87 16 116/42 100 Mechanical Ventilator 30 12/10/16 13:02 92 16 30 12/10/16 13:00 98.2 82 19 112/48 100 Mechanical Ventilator 30 12/10/16 12:00 30 12/10/16 12:00 78 14 117/39 100 Mechanical Ventilator 30.0 12/10/16 12:00 78 12/10/16 11:15 93 18 30 12/10/16 11:00 92 15 124/51 100 Mechanical Ventilator 30 12/10/16 10:00 97.5 90 15 113/44 100 Mechanical Ventilator 30 12/10/16 09:10 95 20 30 12/10/16 09:01 95 14 100 12/10/16 09:00 97.6 91 18 111/44 100 Mechanical Ventilator 30 12/10/16 08:59 95 98 12/10/16 08:00 97.5 95 19 128/52 100 Mechanical Ventilator 30 12/10/16 08:00 95 12/10/16 08:00 30 12/10/16 07:00 98.2 104 24 125/52 100 Mechanical Ventilator 30 12/10/16 06:45 99 20 30 12/10/16 06:00 90 17 115/60 100 Mechanical Ventilator 30 12/10/16 05:25 97 20 30 12/10/16 05:00 91 17 125/50 100 Mechanical Ventilator 30 12/10/16 04:00 97.8 85 14 115/45 100 Mechanical Ventilator 30 12/10/16 04:00 80 12/10/16 04:00 30 12/10/16 03:09 83 16 30 12/10/16 03:00 89 12 123/50 100 Mechanical Ventilator 30 12/10/16 02:00 98 20 129/50 99 Mechanical Ventilator 30 12/10/16 01:30 82 14 30 12/10/16 01:00 75 20 137/49 100 Mechanical Ventilator 30 12/10/16 00:00 30 12/10/16 00:00 77 12/10/16 00:00 96.8 76 19 120/48 100 Mechanical Ventilator 30 12/09/16 23:08 85 14 30 12/09/16 23:01 90 19 126/48 100 Mechanical Ventilator 30 12/09/16 22:00 93 18 117/46 100 Mechanical Ventilator 30 12/09/16 21:14 90 18 30 12/09/16 21:00 87 17 110/62 100 Mechanical Ventilator 30 12/09/16 20:00 97.2 87 16 107/44 100 Mechanical Ventilator 30 12/09/16 20:00 91 12/09/16 20:00 30 12/09/16 19:03 88 15 30 12/09/16 19:00 87 17 109/45 100 Mechanical Ventilator 30 12/09/16 18:00 89 16 117/46 100 Mechanical Ventilator 30 12/09/16 17:02 95 23 30 12/09/16 17:00 88 15 118/45 100 Mechanical Ventilator 30 12/09/16 16:38 30 Intake and Output 12/09/16 12/10/16 19:00 07:00 Intake Total 52038.04 ml 420.0 ml Output Total 690 ml 1160 ml Balance 12119.04 ml -740.0 ml IV Total 06054.04 ml 110.0 ml Tube Feeding 480 ml Blood Product 260 ml Other 50 ml Output Urine Total 340 ml 510 ml Stool Total 350 ml 650 ml # Voids 70 # Bowel Movements 2 Laboratory Tests 12/10/16 04:00: White Blood Count 19.7H, Red Blood Count 3.33L, Hemoglobin 9.3#L, Hematocrit 28.9L, Mean Corpuscular Volume 87, Mean Corpuscular Hemoglobin 28.0, Mean Corpuscular Hemoglobin Concent 32.3, Red Cell Distribution Width 16.4H, Platelet Count 387, Mean Platelet Volume 8.0, Neutrophils (%) (Auto) , Lymphocytes (%) (Auto) , Monocytes (%) (Auto) , Eosinophils (%) (Auto) , Basophils (%) (Auto) , Differential Total Cells Counted 100, Neutrophils % ( Manual) 90H, Lymphocytes % (Manual) 4L, Monocytes % (Manual) 5, Eosinophils % ( Manual) 0, Basophils % (Manual) 0, Band Neutrophils 1, Platelet Estimate Adequate, Platelet Morphology Normal, Polychromasia Occasional, Hypochromasia 1+ , Anisocytosis 1+, Activated Partial Thromboplast Time 33, Sodium Level 145, Potassium Level 3.4, Chloride Level 105, Carbon Dioxide Level 23, Anion Gap 17H , Blood Urea Nitrogen 50H, Creatinine 2.3H, Estimat Glomerular Filtration Rate , Glucose Level 121H, Calcium Level 7.7L, Total Bilirubin 0.6, Aspartate Amino Transf (AST/SGOT) 56H, Alanine Aminotransferase (ALT/SGPT) 39, Alkaline Phosphatase 107, Total Protein 5.1L, Albumin 1.8L, Globulin 3.3, Albumin/ Globulin Ratio 0.5L Height (Feet): 5 Height (Inches): 9.00 Weight (Pounds): 145 Objective WDWN NCAT (+) trach CTA RRR Soft Flat, GT with significant bilious drainage no edema JA CHAHAL Dec 10, 2016 16:43
[2016-12-10] MEDS: Epogen (for non ESRD use) SUBQ SCH (21:10)
[2016-12-10] MEDS ORDERED: Tubing Blood Filter IV ONE (22:50)
[2016-12-10] MEDS ORDERED: NS 275ml ONE (22:50)
--- NOTE | 2016-12-10 23:08 | Progress Note ---
DATE: 12/10/2016 CARDIOLOGY PROGRESS NOTE: SUBJECTIVE: The patient remains in the intensive care unit. Condition remains critical. Prognosis guarded. The patient is on full ventilator support. OBJECTIVE: VITAL SIGNS: Blood pressure 113/44, heart rate 90, respiratory rate 20, monitored sinus rhythm and sinus tachycardia. No history of supraventricular tachycardias. LUNGS: Bilateral breath sounds. Scattered rhonchi. HEART: Regular rhythm and rate. Normal S1, S2. ABDOMEN: Soft. EXTREMITIES: No edema. LABORATORY DATA: White count 19.7 and hemoglobin 9.3. Potassium 3.4, BUN 50, and creatinine 2.3. PTT 33. IMPRESSION: 1. Respiratory failure. 2. Sepsis with shock. 3. Metastatic esophageal carcinoma. 4. Paroxysmal supraventricular tachycardia, now resolved. 5. Anemia, multifactorial. PLAN: Antibiotics. No plan for transesophageal echocardiogram. Transfuse for hemoglobin less than 8. Monitor calcium. Correction has been able with pamidronate and/or hydration. Beta-blockade for arrhythmia suppression and be given p.r.n. by IV route. No role for amiodarone at this time. Tapering of pressors as able. Emil Duarte M.D. DR: Jackelyn JOB#: [id number] CC:
[2016-12-11] VITALS: BP 107/60
[2016-12-11 04:00] VITALS: BP 116/59
[2016-12-11] MEDS: Piperacillin/Tazobactam 3.375 GM in D5W 110 ML IVPB SCH ×3 (05:19→22:15)
[2016-12-11] MEDS: metroNIDAZOLE 500mg tab ORAL SCH ×3 (05:19→22:15)
[2016-12-11 08:00] VITALS: BP 128/59
[2016-12-11] MEDS: D5NS 1,000 ML IV SCH ×2 (08:33→22:22)
[2016-12-11] MEDS: Pantoprazole Inj IVP SCH (08:34)
[2016-12-11] MEDS: Nystatin Powder 100,000 units/gm 15gm TOPIC SCH ×3 (08:37→18:12)
[2016-12-11] MEDS: Heparin 5000 units/ml inj SUBQ SCH ×2 (08:37→22:16)
--- NOTE | 2016-12-11 09:05 | General Progress Note ---
Assessment/Plan Problem List: (1) Hypercalcemia of malignancy ICD Codes: E83.52 - Hypercalcemia SNOMED: 20006283 (2) Esophageal adenocarcinoma ICD Codes: C15.9 - Malignant neoplasm of esophagus, unspecified SNOMED: 790061978 (3) Respiratory failure for > 28 days ICD Codes: J96.90 - Respiratory failure, unspecified, unspecified whether with hypoxia or hypercapnia SNOMED: 587386345 (4) Sepsis ICD Codes: A41.9 - Sepsis, unspecified organism SNOMED: 42035790 Status: stable Assessment/Plan monitor h/h transfuse prn abx follow up biopsy results vent support and resp rx feeds monitor wbc-remains high but is trending down id follow up monitor for svt renal ayah noted ivf/monitor renal fxn poor jail prognosis Subjective ROS Limited/Unobtainable: No Constitutional: Reports: malaise, weakness HEENT: Reports: no symptoms Cardiovascular: Reports: no symptoms Respiratory: Reports: shortness of breath Gastrointestinal/Abdominal: Reports: difficulty swallowing Genitourinary: Reports: no symptoms Neurologic/Psychiatric: Reports: no symptoms Endocrine: Reports: no symptoms Hematologic/Lymphatic: Reports: anemia Allergies: Coded Allergies: No Known Allergies (Unverified , 11/27/16) All Systems: reviewed and negative except above Subjective gi noted- obstructing tumor in the esophagus. unable to pass peds scope. no signs of additional bleeding. remains on the vent without distress. Objective Last 24 Hour Vital Signs Date Time Temp Pulse Resp B/P Pulse Ox O2 Delivery O2 Flow Rate FiO2 12/11/16 06:36 87 18 30 12/11/16 04:53 82 18 30 12/11/16 04:00 70 12/11/16 04:00 98.1 86 17 116/59 98 Mechanical Ventilator 30 12/11/16 04:00 30 12/11/16 02:48 81 18 30 12/11/16 01:10 80 18 30 12/11/16 00:00 78 12/11/16 00:00 30 12/11/16 00:00 97.7 85 14 107/60 100 Mechanical Ventilator 30 12/10/16 22:55 83 18 30 12/10/16 20:45 89 18 30 12/10/16 20:00 76 12/10/16 20:00 30 12/10/16 20:00 98.0 91 22 111/59 99 Mechanical Ventilator 30 12/10/16 18:32 86 18 30 12/10/16 16:30 88 18 30 12/10/16 16:00 30 12/10/16 16:00 80 12/10/16 14:40 90 18 30 12/10/16 14:00 97.9 87 16 116/42 100 Mechanical Ventilator 30 12/10/16 13:02 92 16 30 12/10/16 13:00 98.2 82 19 112/48 100 Mechanical Ventilator 30 12/10/16 12:00 30 12/10/16 12:00 78 14 117/39 100 Mechanical Ventilator 30.0 12/10/16 12:00 78 12/10/16 11:15 93 18 30 12/10/16 11:00 92 15 124/51 100 Mechanical Ventilator 30 12/10/16 10:00 97.5 90 15 113/44 100 Mechanical Ventilator 30 12/10/16 09:10 95 20 30 Intake and Output 12/10/16 12/11/16 19:00 07:00 Intake Total 910 ml 1165.0 ml Output Total 250 ml 1600 ml Balance 660 ml -435.0 ml IV Total 910 ml 1165.0 ml Output Urine Total 1100 ml Stool Total 250 ml 500 ml # Voids 330 # Bowel Movements 1 Height (Feet): 5 Height (Inches): 9.00 Weight (Pounds): 145 Objective General Appearance: WD/WN, alert, cachetic, thin Neck: supple Cardiovascular: regular rhythm Respiratory/Chest: chest wall non-tender, lungs clear, normal breath sounds, no respiratory distress, no accessory muscle use Abdomen: normal bowel sounds, non tender, soft, no organomegaly Edema: no edema noted Arm (L), no edema noted Arm (R), no edema noted Leg (L), no edema noted Leg (R), no edema noted Pedal (L), no edema noted Pedal (R), no edema noted Generalized Skin: normal pigmentation NANCY GARCIA Dec 11, 2016 09:05
--- NOTE | 2016-12-11 10:55 | Infectious Diseases Prog Note ---
"Assessment/Plan Assessment/Plan antibiotics : zosyn, flagyl A 1. e.coli | pseudomonas pneumonia 2. pleural effusions 3. respiratory failure 4. esophageal cancer 5. leucocytosis improving 6. shock resolved 7. renal failure P 1. continue zosyn, flagyl 2. will follow up cultures Subjective ROS Limited/Unobtainable: Yes Allergies: Coded Allergies: No Known Allergies (Unverified , 11/27/16) Objective Vital Signs Last 24 Hour Vital Signs Date Time Temp Pulse Resp B/P Pulse Ox O2 Delivery O2 Flow Rate FiO2 12/11/16 08:00 98.1 100 22 128/59 98 Mechanical Ventilator 30 12/11/16 08:00 82 12/11/16 08:00 30 12/11/16 06:36 87 18 30 12/11/16 04:53 82 18 30 12/11/16 04:00 70 12/11/16 04:00 98.1 86 17 116/59 98 Mechanical Ventilator 30 12/11/16 04:00 30 12/11/16 02:48 81 18 30 12/11/16 01:10 80 18 30 12/11/16 00:00 78 12/11/16 00:00 30 12/11/16 00:00 97.7 85 14 107/60 100 Mechanical Ventilator 30 12/10/16 22:55 83 18 30 12/10/16 20:45 89 18 30 12/10/16 20:00 76 12/10/16 20:00 30 12/10/16 20:00 98.0 91 22 111/59 99 Mechanical Ventilator 30 12/10/16 18:32 86 18 30 12/10/16 16:30 88 18 30 12/10/16 16:00 30 12/10/16 16:00 80 12/10/16 14:40 90 18 30 12/10/16 14:00 97.9 87 16 116/42 100 Mechanical Ventilator 30 12/10/16 13:02 92 16 30 12/10/16 13:00 98.2 82 19 112/48 100 Mechanical Ventilator 30 12/10/16 12:00 30 12/10/16 12:00 78 14 117/39 100 Mechanical Ventilator 30.0 12/10/16 12:00 78 12/10/16 11:15 93 18 30 12/10/16 11:00 92 15 124/51 100 Mechanical Ventilator 30 Height (Feet): 5 Height (Inches): 9.00 Weight (Pounds): 145 HEENT: status post trach Respiratory/Chest: lungs clear Cardiovascular: normal rate, regular rhythm, no gallop/murmur Abdomen: soft, non tender, other - GT Extremities: no edema JORDAN NUNEZ Dec 11, 2016 10:55"
--- NOTE | 2016-12-11 11:52 | General Progress Note ---
Assessment/Plan Problem List: (1) Sepsis ICD Codes: A41.9 - Sepsis, unspecified organism SNOMED: 65130140 (2) Esophageal adenocarcinoma ICD Codes: C15.9 - Malignant neoplasm of esophagus, unspecified SNOMED: 971742600 (3) Hypercalcemia of malignancy ICD Codes: E83.52 - Hypercalcemia SNOMED: 99576588 (4) Respiratory failure for > 28 days ICD Codes: J96.90 - Respiratory failure, unspecified, unspecified whether with hypoxia or hypercapnia SNOMED: 868876812 Assessment/Plan TF fu H&H prn blood transfusion fu oncology recs overall poor prognosis Subjective ROS Limited/Unobtainable: No Allergies: Coded Allergies: No Known Allergies (Unverified , 11/27/16) Objective Last 24 Hour Vital Signs Date Time Temp Pulse Resp B/P Pulse Ox O2 Delivery O2 Flow Rate FiO2 12/11/16 11:05 93 17 30 12/11/16 08:48 91 18 30 12/11/16 08:00 98.1 100 22 128/59 98 Mechanical Ventilator 30 12/11/16 08:00 82 12/11/16 08:00 30 12/11/16 06:36 87 18 30 12/11/16 04:53 82 18 30 12/11/16 04:00 70 12/11/16 04:00 98.1 86 17 116/59 98 Mechanical Ventilator 30 12/11/16 04:00 30 12/11/16 02:48 81 18 30 12/11/16 01:10 80 18 30 12/11/16 00:00 78 12/11/16 00:00 30 12/11/16 00:00 97.7 85 14 107/60 100 Mechanical Ventilator 30 12/10/16 22:55 83 18 30 12/10/16 20:45 89 18 30 12/10/16 20:00 76 12/10/16 20:00 30 12/10/16 20:00 98.0 91 22 111/59 99 Mechanical Ventilator 30 12/10/16 18:32 86 18 30 12/10/16 16:30 88 18 30 12/10/16 16:00 30 12/10/16 16:00 80 12/10/16 14:40 90 18 30 12/10/16 14:00 97.9 87 16 116/42 100 Mechanical Ventilator 30 12/10/16 13:02 92 16 30 3/3/17 13:00 98.2 82 19 112/48 100 Mechanical Ventilator 30 12/10/16 12:00 30 12/10/16 12:00 78 14 117/39 100 Mechanical Ventilator 30.0 12/10/16 12:00 78 Intake and Output 12/10/16 12/11/16 19:00 07:00 Intake Total 910 ml 1165.0 ml Output Total 250 ml 1600 ml Balance 660 ml -435.0 ml IV Total 910 ml 1165.0 ml Output Urine Total 1100 ml Stool Total 250 ml 500 ml # Voids 330 # Bowel Movements 1 Height (Feet): 5 Height (Inches): 9.00 Weight (Pounds): 145 General Appearance: no apparent distress EENT: normal ENT inspection Neck: supple Cardiovascular: normal rate Respiratory/Chest: decreased breath sounds Abdomen: normal bowel sounds, non tender, soft Extremities: non-tender ROHAN JAIME Dec 11, 2016 11:52
[2016-12-11 12:00] VITALS: BP 136/80
[2016-12-11 16:55] VITALS: BP 112/56
[2016-12-11] MEDS ORDERED: NS 275ml ONE (17:32)
[2016-12-11] MEDS ORDERED: Tubing Blood Filter IV ONE (17:32)
[2016-12-11 20:00] VITALS: BP 112/65
--- NOTE | 2016-12-11 21:30 | Pulmonology Progress Note ---
Assessment/Plan Assessment/Plan IMPRESSION: 1. Sepsis. 2. Leukocytosis. 3. Protein-calorie malnutrition. 4. Hypercalcemia, 5. Acute on chronic renal failure. 6. Metabolic alkalosis, possibly contraction in nature. 7. Anemia. 8. Thrombocytosis. 9. Tracheostomy and gastrostomy tube. 10. Chronic respiratory failure. 11. tachyarrythmias 12. hypotension 13. GT site bleeding 14. esophageal ca PLAN exams edited and reviewed supportive care antibiotics noted; labs reviewed ID evaluation noted GI recom noted stabilize no wean at present suction aspiration precautions prognosis poor amiodarone support and advise family as to update onco evaluation medications/laboratory data/nursing notes reviewed in detail note reviewed and edited care discussed with RN and RT Subjective ROS Limited/Unobtainable: Yes Allergies: Coded Allergies: No Known Allergies (Unverified , 11/27/16) Subjective t/f to [facility] tachycardia better GI noted needs onco opinion Objective Last 24 Hour Vital Signs Date Time Temp Pulse Resp B/P Pulse Ox O2 Delivery O2 Flow Rate FiO2 12/11/16 20:39 86 22 30 12/11/16 19:20 91 23 30 12/11/16 17:30 89 20 30 12/11/16 16:55 98.0 94 19 112/56 97 Mechanical Ventilator 30 12/11/16 16:00 30 12/11/16 16:00 94 12/11/16 14:59 85 17 30 12/11/16 13:07 92 25 30 12/11/16 12:00 102 12/11/16 12:00 97.7 102 21 136/80 98 Mechanical Ventilator 30 12/11/16 12:00 30 12/11/16 11:05 93 17 30 12/11/16 08:48 91 18 30 12/11/16 08:00 98.1 100 22 128/59 98 Mechanical Ventilator 30 12/11/16 08:00 82 12/11/16 08:00 30 12/11/16 06:36 87 18 30 12/11/16 04:53 82 18 30 12/11/16 04:00 70 12/11/16 04:00 98.1 86 17 116/59 98 Mechanical Ventilator 30 12/11/16 04:00 30 12/11/16 02:48 81 18 30 12/11/16 01:10 80 18 30 12/11/16 00:00 78 12/11/16 00:00 30 12/11/16 00:00 97.7 85 14 107/60 100 Mechanical Ventilator 30 12/10/16 22:55 83 18 30 Intake and Output 12/10/16 12/11/16 19:00 07:00 Intake Total 910 ml 1265.0 ml Output Total 250 ml 1600 ml Balance 660 ml -335.0 ml IV Total 910 ml 1265.0 ml Output Urine Total 1100 ml Stool Total 250 ml 500 ml # Voids 330 # Bowel Movements 1 Objective GENERAL: An ill-appearing male. reduced LOC HEENT: Negative. Pupils reactive. NECK: Supple. Trachea is midline. Carotids 2+. on vent; trach in place LUNGS: Coarse breath sounds. Moderate air entry. no rhonchi or wheeze CARDIAC: S1 and S2. Overall, regular rhythm without murmurs, rubs, or gallops. rate control ABDOMEN: Soft and nontender. G-tube in place. no HSM no distention; EXTREMITIES: No cyanosis and no clubbing. some edema. NEUROLOGIC: Poorly responsive and withdrawn. reduced LOC reviewed and edited Current Medications Medications (Trade) Dose Ordered Sig/Judith Route PRN Reason Start Time Stop Time Status Last Admin Dose Admin Acetaminophen (Tylenol) 650 mg Q4H PRN GT Mild Pain/Temp > 100.5 12/08/16 19:00 01/07/17 18:59 Albuterol/ Ipratropium (DuoNeb 0.5-3(2.5)mg/3ml) 3 ml Q4H PRN HHN Shortness of Breath 12/08/16 20:15 12/13/16 20:14 Dextrose/Sodium Chloride (D5ns) 1,000 ml @ 100 mls/hr Q10H IV 12/10/16 09:00 01/09/17 08:59 12/11/16 08:33 Epoetin Azael (Procrit (for non ESRD use)) 10,000 units MON-WED-FRI SUBQ 12/08/16 21:00 01/07/17 20:59 12/10/16 21:10 Heparin Sodium (Porcine) (Heparin 5000 units/ml) 5,000 units Q12HR SUBQ 12/08/16 21:00 01/07/17 20:59 12/11/16 08:37 Hydralazine HCl (Apresoline) 5 mg Q6H PRN GT SBP>170 12/08/16 22:00 01/07/17 21:59 Metronidazole (Flagyl) 500 mg EVERY 8 HOURS ORAL 12/08/16 22:00 12/15/16 21:59 12/11/16 13:40 Nystatin (Nystop Powder) 1 applic THREE TIMES A DAY TOPIC 12/09/16 09:00 01/08/17 08:59 12/11/16 18:12 Pantoprazole 40 mg 40 mg DAILY IVP 12/09/16 09:00 01/08/17 08:59 12/11/16 08:34 Piperacillin Sod/ Tazobactam Sod/ Dextrose (Zosyn/D5W) 110 ml @ 27.5 mls/hr Q8HR IVPB 12/08/16 22:00 12/15/16 21:59 12/11/16 13:40 RIZWAN SANDERS Dec 11, 2016 21:30
[2016-12-12] VITALS: BP 132/64
[2016-12-12 04:00] VITALS: BP 135/65
[2016-12-12] MEDS: Piperacillin/Tazobactam 3.375 GM in D5W 110 ML IVPB SCH ×3 (05:32→21:22)
[2016-12-12] MEDS: metroNIDAZOLE 500mg tab ORAL SCH ×3 (05:32→21:22)
[2016-12-12 05:59] LABS: MEAN CORPUSCULAR HEMOGLOBIN 28.3 PG (27.0-31.0); MEAN CORPUSCULAR HGB CONC 31.8 G/DL (32.0-36.0); MEAN CORPUSCULAR VOLUME 89 FL (80-99); MEAN PLATELET VOLUME 7.1 FL (6.5-10.1); PLATELET COUNT 459 K/UL (150-450); RED BLOOD COUNT 3.21 M/UL (4.70-6.10); RED CELL DISTRIBUTION WIDTH 17.2 % (11.6-14.8)
[2016-12-12 06:53] LABS: CALCIUM 7.9 mg/dL (8.6-10.2); CARBON DIOXIDE 22 mEQ/L (20-30); CHLORIDE 113 mEQ/L (98-107); CREATININE 1.6 mg/dL (0.7-1.2); HEMOLYSIS 2; SODIUM 150 mEQ/L (135-145)
[2016-12-12 06:58] LABS: ANION GAP 15 (5-15); POTASSIUM 2.8 mEQ/L (3.4-4.9)
[2016-12-12 08:00] VITALS: BP 147/60
[2016-12-12] MEDS: Pantoprazole Inj IVP SCH (09:21)
[2016-12-12] MEDS: Nystatin Powder 100,000 units/gm 15gm TOPIC SCH ×3 (09:21→17:34)
[2016-12-12] MEDS: Heparin 5000 units/ml inj SUBQ SCH ×2 (09:24→21:29)
[2016-12-12] MEDS ORDERED: KCl 10% 40mEq/30ml liquid NG ONE (09:30)
[2016-12-12] MEDS: D5NS 1,000 ML IV SCH (10:56)
--- NOTE | 2016-12-12 11:32 | General Progress Note ---
Assessment/Plan Problem List: (1) Sepsis ICD Codes: A41.9 - Sepsis, unspecified organism SNOMED: 70415505 (2) Esophageal adenocarcinoma ICD Codes: C15.9 - Malignant neoplasm of esophagus, unspecified SNOMED: 805615126 (3) Hypercalcemia of malignancy ICD Codes: E83.52 - Hypercalcemia SNOMED: 59860624 (4) Respiratory failure for > 28 days ICD Codes: J96.90 - Respiratory failure, unspecified, unspecified whether with hypoxia or hypercapnia SNOMED: 302118365 Assessment/Plan TF GT was changed yesterday fu H&H prn blood transfusion fu oncology recs overall poor prognosis Subjective ROS Limited/Unobtainable: No Allergies: Coded Allergies: No Known Allergies (Unverified , 11/27/16) Objective Last 24 Hour Vital Signs Date Time Temp Pulse Resp B/P Pulse Ox O2 Delivery O2 Flow Rate FiO2 12/12/16 11:06 86 16 30 12/12/16 09:11 94 17 30 12/12/16 08:00 97.5 102 24 147/60 100 Mechanical Ventilator 30 12/12/16 08:00 96 12/12/16 08:00 30 12/12/16 06:58 102 20 30 12/12/16 05:20 93 14 30 12/12/16 04:00 97.9 89 16 135/65 100 Mechanical Ventilator 12/12/16 04:00 80 12/12/16 04:00 30 12/12/16 03:13 89 14 30 12/12/16 01:15 92 19 30 12/12/16 00:00 82 12/12/16 00:00 30 12/12/16 00:00 97.5 97 18 132/64 100 Mechanical Ventilator 12/11/16 22:54 88 14 30 12/11/16 20:39 86 22 30 12/11/16 20:00 78 12/11/16 20:00 30 12/11/16 20:00 98.2 86 14 112/65 99 Mechanical Ventilator 30 12/11/16 19:20 91 23 30 12/11/16 17:30 89 20 30 12/11/16 16:55 98.0 94 19 112/56 97 Mechanical Ventilator 30 12/11/16 16:00 30 12/11/16 16:00 94 12/11/16 14:59 85 17 30 12/11/16 13:07 92 25 30 12/11/16 12:00 102 12/11/16 12:00 97.7 102 21 136/80 98 Mechanical Ventilator 30 12/11/16 12:00 30 Intake and Output 12/11/16 12/12/16 19:00 07:00 Intake Total 1345.0 ml 1402.5 ml Output Total 450 ml 730 ml Balance 895.0 ml 672.5 ml Intake Free Water 50 ml 100 ml IV Total 1210.0 ml 937.5 ml Tube Feeding 85 ml 365 ml Output Urine Total 450 ml 580 ml Stool Total 150 ml Laboratory Tests 12/12/16 04:00: White Blood Count 14.0H, Red Blood Count 3.21L, Hemoglobin 9.1L, Hematocrit 28.6L, Mean Corpuscular Volume 89, Mean Corpuscular Hemoglobin 28.3, Mean Corpuscular Hemoglobin Concent 31.8L, Red Cell Distribution Width 17.2H, Platelet Count 459H, Mean Platelet Volume 7.1, Neutrophils (%) (Auto) , Lymphocytes (%) (Auto) , Monocytes (%) (Auto) , Eosinophils (%) (Auto) , Basophils (%) (Auto) , Sodium Level 150H, Potassium Level 2.8L, Chloride Level 113H, Carbon Dioxide Level 22, Anion Gap 15, Blood Urea Nitrogen 29H, Creatinine 1.6H, Estimat Glomerular Filtration Rate , Glucose Level 139H, Calcium Level 7.9L Height (Feet): 5 Height (Inches): 9.00 Weight (Pounds): 145 General Appearance: no apparent distress EENT: normal ENT inspection Neck: supple Cardiovascular: normal rate Respiratory/Chest: decreased breath sounds Abdomen: normal bowel sounds, non tender, soft Extremities: non-tender ROHAN JAIME Dec 12, 2016 11:32
[2016-12-12 12:00] VITALS: BP 105/56
--- NOTE | 2016-12-12 13:49 | General Progress Note ---
Assessment/Plan Problem List: (1) Hypercalcemia of malignancy ICD Codes: E83.52 - Hypercalcemia SNOMED: 73504484 (2) Esophageal adenocarcinoma ICD Codes: C15.9 - Malignant neoplasm of esophagus, unspecified SNOMED: 159199301 (3) Respiratory failure for > 28 days ICD Codes: J96.90 - Respiratory failure, unspecified, unspecified whether with hypoxia or hypercapnia SNOMED: 103941407 (4) Sepsis ICD Codes: A41.9 - Sepsis, unspecified organism SNOMED: 50307365 Status: stable, progressing Assessment/Plan monitor h/h transfuse prn abx follow up biopsy results vent support and resp rx feeds id follow up monitor for svt ivf/monitor renal fxn poor nursing home prognosis Subjective ROS Limited/Unobtainable: No Constitutional: Reports: malaise, weakness HEENT: Reports: no symptoms Cardiovascular: Reports: no symptoms Respiratory: Reports: cough, shortness of breath, sputum Gastrointestinal/Abdominal: Reports: blood in stool Genitourinary: Reports: no symptoms Neurologic/Psychiatric: Reports: no symptoms Endocrine: Reports: no symptoms Hematologic/Lymphatic: Reports: anemia Allergies: Coded Allergies: No Known Allergies (Unverified , 11/27/16) All Systems: reviewed and negative except above Subjective no overnite events. obstructing tumor in the esophagus. unable to pass peds scope. no signs of additional bleeding. remains on the vent without distress. low k noted. sodium trending up Objective Last 24 Hour Vital Signs Date Time Temp Pulse Resp B/P Pulse Ox O2 Delivery O2 Flow Rate FiO2 12/12/16 11:06 86 16 30 12/12/16 09:11 94 17 30 12/12/16 08:00 97.5 102 24 147/60 100 Mechanical Ventilator 30 12/12/16 08:00 96 12/12/16 08:00 30 12/12/16 06:58 102 20 30 12/12/16 05:20 93 14 30 12/12/16 04:00 97.9 89 16 135/65 100 Mechanical Ventilator 12/12/16 04:00 80 12/12/16 04:00 30 12/12/16 03:13 89 14 30 12/12/16 01:15 92 19 30 12/12/16 00:00 82 12/12/16 00:00 30 3/5/17 00:00 97.5 97 18 132/64 100 Mechanical Ventilator 12/11/16 22:54 88 14 30 12/11/16 20:39 86 22 30 12/11/16 20:00 78 12/11/16 20:00 30 12/11/16 20:00 98.2 86 14 112/65 99 Mechanical Ventilator 30 12/11/16 19:20 91 23 30 12/11/16 17:30 89 20 30 12/11/16 16:55 98.0 94 19 112/56 97 Mechanical Ventilator 30 12/11/16 16:00 30 12/11/16 16:00 94 12/11/16 14:59 85 17 30 Intake and Output 12/11/16 12/12/16 19:00 07:00 Intake Total 1345.0 ml 1402.5 ml Output Total 450 ml 730 ml Balance 895.0 ml 672.5 ml Intake Free Water 50 ml 100 ml IV Total 1210.0 ml 937.5 ml Tube Feeding 85 ml 365 ml Output Urine Total 450 ml 580 ml Stool Total 150 ml Laboratory Tests 12/12/16 04:00: White Blood Count 14.0H, Red Blood Count 3.21L, Hemoglobin 9.1L, Hematocrit 28.6L, Mean Corpuscular Volume 89, Mean Corpuscular Hemoglobin 28.3, Mean Corpuscular Hemoglobin Concent 31.8L, Red Cell Distribution Width 17.2H, Platelet Count 459H, Mean Platelet Volume 7.1, Neutrophils (%) (Auto) , Lymphocytes (%) (Auto) , Monocytes (%) (Auto) , Eosinophils (%) (Auto) , Basophils (%) (Auto) , Sodium Level 150H, Potassium Level 2.8L, Chloride Level 113H, Carbon Dioxide Level 22, Anion Gap 15, Blood Urea Nitrogen 29H, Creatinine 1.6H, Estimat Glomerular Filtration Rate , Glucose Level 139H, Calcium Level 7.9L Height (Feet): 5 Height (Inches): 9.00 Weight (Pounds): 145 Objective General Appearance: WD/WN, alert, cachetic, thin Neck: supple Cardiovascular: regular rhythm Respiratory/Chest: chest wall non-tender, lungs clear, normal breath sounds, no respiratory distress, no accessory muscle use Abdomen: normal bowel sounds, non tender, soft, no organomegaly Edema: no edema noted Arm (L), no edema noted Arm (R), no edema noted Leg (L), no edema noted Leg (R), no edema noted Pedal (L), no edema noted Pedal (R), no edema noted Generalized Skin: normal pigmentation NANCY GARCIA Dec 12, 2016 13:49
--- NOTE | 2016-12-12 13:59 | Pulmonology Progress Note ---
Assessment/Plan Assessment/Plan IMPRESSION: 1. Sepsis. 2. Leukocytosis. 3. Protein-calorie malnutrition. 4. Hypercalcemia, 5. Acute on chronic renal failure. 6. Metabolic alkalosis, possibly contraction in nature. 7. Anemia. 8. Thrombocytosis. 9. Tracheostomy and gastrostomy tube. 10. Chronic respiratory failure. 11. tachyarrythmias 12. hypotension 13. GT site bleeding 14. esophageal ca PLAN exams edited and reviewed supportive care antibiotics noted; labs reviewed ID evaluation noted and discussed GI recom noted stabilize no wean at present suction aspiration precautions prognosis poor amiodarone support and advise family as to update onco evaluation if able stabilize and dc once improved medications/laboratory data/nursing notes reviewed in detail note reviewed and edited care discussed with RN and RT Subjective ROS Limited/Unobtainable: Yes Allergies: Coded Allergies: No Known Allergies (Unverified , 11/27/16) Subjective t/f to [facility] hemodynamics improved GI noted needs oncology opinion Objective Last 24 Hour Vital Signs Date Time Temp Pulse Resp B/P Pulse Ox O2 Delivery O2 Flow Rate FiO2 12/12/16 11:06 86 16 30 12/12/16 09:11 94 17 30 12/12/16 08:00 97.5 102 24 147/60 100 Mechanical Ventilator 30 12/12/16 08:00 96 12/12/16 08:00 30 12/12/16 06:58 102 20 30 12/12/16 05:20 93 14 30 12/12/16 04:00 97.9 89 16 135/65 100 Mechanical Ventilator 12/12/16 04:00 80 12/12/16 04:00 30 12/12/16 03:13 89 14 30 12/12/16 01:15 92 19 30 12/12/16 00:00 82 12/12/16 00:00 30 12/12/16 00:00 97.5 97 18 132/64 100 Mechanical Ventilator 12/11/16 22:54 88 14 30 12/11/16 20:39 86 22 30 12/11/16 20:00 78 12/11/16 20:00 30 12/11/16 20:00 98.2 86 14 112/65 99 Mechanical Ventilator 30 12/11/16 19:20 91 23 30 12/11/16 17:30 89 20 30 12/11/16 16:55 98.0 94 19 112/56 97 Mechanical Ventilator 30 12/11/16 16:00 30 12/11/16 16:00 94 12/11/16 14:59 85 17 30 Intake and Output 12/11/16 12/12/16 19:00 07:00 Intake Total 1345.0 ml 1402.5 ml Output Total 450 ml 730 ml Balance 895.0 ml 672.5 ml Intake Free Water 50 ml 100 ml IV Total 1210.0 ml 937.5 ml Tube Feeding 85 ml 365 ml Output Urine Total 450 ml 580 ml Stool Total 150 ml Objective GENERAL: An ill-appearing male. reduced LOC HEENT: Negative. Pupils reactive. NECK: Supple. Trachea is midline. Carotids 2+. on vent; trach in place LUNGS: Coarse breath sounds. Moderate air entry. no rhonchi or wheeze CARDIAC: S1 and S2. Overall, regular rhythm without murmurs, rubs, or gallops. rate control ABDOMEN: Soft and nontender. G-tube in place. no HSM no distention; EXTREMITIES: No cyanosis and no clubbing. some edema. NEUROLOGIC: Poorly responsive and withdrawn. reduced LOC reviewed and edited Laboratory Tests 12/12/16 04:00: White Blood Count 14.0H, Red Blood Count 3.21L, Hemoglobin 9.1L, Hematocrit 28.6L, Mean Corpuscular Volume 89, Mean Corpuscular Hemoglobin 28.3, Mean Corpuscular Hemoglobin Concent 31.8L, Red Cell Distribution Width 17.2H, Platelet Count 459H, Mean Platelet Volume 7.1, Neutrophils (%) (Auto) , Lymphocytes (%) (Auto) , Monocytes (%) (Auto) , Eosinophils (%) (Auto) , Basophils (%) (Auto) , Sodium Level 150H, Potassium Level 2.8L, Chloride Level 113H, Carbon Dioxide Level 22, Anion Gap 15, Blood Urea Nitrogen 29H, Creatinine 1.6H, Estimat Glomerular Filtration Rate , Glucose Level 139H, Calcium Level 7.9L Current Medications Medications (Trade) Dose Ordered Sig/Judith Route PRN Reason Start Time Stop Time Status Last Admin Dose Admin Acetaminophen (Tylenol) 650 mg Q4H PRN GT Mild Pain/Temp > 100.5 12/08/16 19:00 01/07/17 18:59 Albuterol/ Ipratropium (DuoNeb 0.5-3(2.5)mg/3ml) 3 ml Q4H PRN HHN Shortness of Breath 12/08/16 20:15 12/13/16 20:14 Dextrose/Sodium Chloride (D5ns) 1,000 ml @ 100 mls/hr Q10H IV 12/10/16 09:00 01/09/17 08:59 12/12/16 10:56 Epoetin Azael (Procrit (for non ESRD use)) 10,000 units TUE-TUE-TUE SUBQ 12/08/16 21:00 01/07/17 20:59 12/10/16 21:10 Heparin Sodium (Porcine) (Heparin 5000 units/ml) 5,000 units Q12HR SUBQ 12/08/16 21:00 01/07/17 20:59 12/12/16 09:24 Hydralazine HCl (Apresoline) 5 mg Q6H PRN GT SBP>170 12/08/16 22:00 01/07/17 21:59 Metronidazole (Flagyl) 500 mg EVERY 8 HOURS ORAL 12/08/16 22:00 12/15/16 21:59 12/12/16 05:32 Nystatin (Nystop Powder) 1 applic THREE TIMES A DAY TOPIC 12/09/16 09:00 01/08/17 08:59 12/12/16 13:05 Pantoprazole 40 mg 40 mg DAILY IVP 12/09/16 09:00 01/08/17 08:59 12/12/16 09:21 Piperacillin Sod/ Tazobactam Sod/ Dextrose (Zosyn/D5W) 110 ml @ 27.5 mls/hr Q8HR IVPB 12/08/16 22:00 12/15/16 21:59 12/12/16 13:05 RIZWAN SANDERS Dec 12, 2016 13:59
[2016-12-12] MEDS ORDERED: Tubing IV Secondary IV ONE (15:17)
[2016-12-12] MEDS ORDERED: D5NS 1000ml IV ONE (15:17)
[2016-12-12 16:00] VITALS: BP 121/65
--- NOTE | 2016-12-12 17:48 | Progress Note ---
DATE: 12/11/2016 CARDIOLOGY PROGRESS NOTE SUBJECTIVE: The patient remains in the intensive care unit. No new tachyarrhythmias noted, but he continues to have episodes of sinus tachycardia, less frequent. Blood pressure has stabilized. The patient is off pressors. OBJECTIVE: LUNGS: Bilateral breath sounds. Diminished at bases. CARDIOVASCULAR: Regular rhythm and rate. Normal S1 and S2. ABDOMEN: Distended with ascites and dependent edema. LABORATORY AND DIAGNOSTIC DATA: No new labs today. IMPRESSION: 1. Respiratory failure. 2. Sepsis with recovering shock. 3. 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 4. Paroxysmal supraventricular tachycardia without recurrence. 5. Anemia, multifactorial. PLAN: 1. Ventilator support. 2. No antiarrhythmics at this time other than beta-jony with titration based on clinical parameters. 3. Avoid pressors. 4. Oncology followup management of ascites, long time may require diuretic therapy. Emil Duarte M.D. DR: MAX JOB#: [id number] CC:
[2016-12-12 20:00] VITALS: BP 123/57
[2016-12-12] MEDS: LORazepam Inj 2mg/ml 1ml IV PRN (21:23)
--- NOTE | 2016-12-12 22:28 | Operative Note - Dictated ---
DATE OF OPERATION: 12/10/2016 PROCEDURE: An attempt at upper gastrointestinal endoscopy resulting in esophagoscopy with biopsy. SURGEON: Ginger Meeks M.D. ANESTHESIA: Please see the separate anesthesiologist notes for details. PREENDOSCOPIC DIAGNOSES: Dysphagia and gastrointestinal bleeding. POSTENDOSCOPIC DIAGNOSES: Upper esophageal and oropharyngeal tumor causing complete obstruction and obstruction of the lumen, status post biopsy. DESCRIPTION OF PROCEDURE: The procedure, its risks, indications, alternatives, and possible complications were explained to the patient's family and informed consent was obtained. The patient was then sedated in the supine position and a diagnostic upper endoscope was introduced through the oropharynx and advanced to the pharynx. At this juncture near the airway inlet, there was complete occlusion up to esophageal lumen with a tumor-like material. It was not feasible to pass the endoscope beyond this area. The biopsy of the tumor was sent to Pathology for review. The endoscope was removed and the patient left to recovery in good condition. COMPLICATIONS: None. ASSESSMENT: This patient has an advanced tumor of the upper esophagus versus pharynx. The procedure, therefore, could not be completed as such. The patient's family was counseled and further plan should be made accordingly. RECOMMENDATIONS: 1. Resume current intensive care unit care. 2. discussion with the family. 3. Follow up biopsy results. Ginger Meeks M.D. DR: JOYA JOB#: [id number] CC:
[2016-12-13] VITALS: BP 119/68
[2016-12-13 04:00] VITALS: BP 126/64
[2016-12-13] MEDS: Piperacillin/Tazobactam 3.375 GM in D5W 110 ML IVPB SCH ×3 (05:09→21:43)
[2016-12-13] MEDS: metroNIDAZOLE 500mg tab ORAL SCH ×3 (05:32→21:42)
[2016-12-13 06:55] LABS: ALANINE AMINOTRANSFERASE 49 U/L (3-41); ALBUMIN/GLOBULIN RATIO 0.5 (1.0-2.7); ANION GAP 17 (5-15); ASPARTATE AMINO TRANSFERASE 50 U/L (5-40); CALCIUM 7.7 mg/dL (8.6-10.2); CARBON DIOXIDE 18 mEQ/L (20-30); CHLORIDE 113 mEQ/L (98-107); CREATININE 1.6 mg/dL (0.7-1.2); HEMOLYSIS 12; MAGNESIUM 1.6 mg/dL (1.7-2.5); POTASSIUM 3.1 mEQ/L (3.4-4.9); SODIUM 148 mEQ/L (135-145); TOTAL PROTEIN 4.9 g/dL (6.6-8.7)
[2016-12-13 08:00] VITALS: BP 145/119
--- NOTE | 2016-12-13 08:09 | Diagnostic Imaging Report ---
Indication: Esophageal cancer and dysphagia Technique: CT scan of the neck was performed utilizing automated exposure control without intravenous contrast material. Continuous helical scanning was obtained with displayed 5 mm sections in axial, sagittal and coronal planes. Comparison: None CT dose: Total DLP 957 mGycm; CTDI vol 14.2 mGy Findings: Nasopharynx is grossly unremarkable. The bilateral parotid and submandibular glands are unremarkable. There is an irregular mass with ulceration seen within the upper cervical esophagus and hypopharynx with apparent invasion of the left thyroid lobe measuring 4.7 x 6.7 x 10.2 cm. Fluid is noted dependently in the oropharynx. Left supraclavicular adenopathy is present measuring up to 1.5 cm.Tracheostomy is present. Degenerative changes of the cervical spine are seen. Left mastoid and paranasal sinus disease are seen. The oral tongue, tongue base and floor of mouth demonstrate no obvious mass. Impression: Irregular mass with ulceration seen within the hypopharynx/upper esophagus measuring approximately 4.7 x 6.7 x 10.2 cm with apparent invasion of the left thyroid lobe. Dependent fluid in the oropharynx. Findings compatible with reported history of esophageal cancer with suspected obstruction. Clinical correlation recommended. Left supraclavicular adenopathy. Other findings as above. The CT scanner at [facility] is accredited by the [employer] and the scans are performed using protocols designed to limit radiation exposure to as low as reasonably achievable to attain images of sufficient resolution adequate for diagnostic evaluation.
--- NOTE | 2016-12-13 08:09 | Diagnostic Imaging Report ---
Indication: Esophageal cancer and respiratory failure Technique: CT chest was performed utilizing automated exposure control without intravenous contrast material. Axial and coronal images were generated. CT dose: Total DLP 957 mGycm; CTDI vol 14.2 mGy Findings: Tracheostomy is present with secretions within the bilateral mainstem bronchi. Moderate left greater than right bilateral pleural effusions are seen with compressive atelectasis. The right lower lobe 8.2 cm necrotic mass is present. Bilateral lung nodules are demonstrated measuring up to 1.5 cm in the left upper lobe, 1.6 cm in the right upper lobe and 1.8 cm in the lingula. Bilateral emphysema is noted. There is mediastinal adenopathy measuring up to 1.6 cm in the pretracheal location. The heart size is normal. Atherosclerotic changes are present. There is a left chest Port-A-Cath. Subcutaneous edema is noted of the chest wall. Chronic appearing left-sided rib fracture deformities are seen. Degenerative changes of the spine are noted. Impression: Tracheostomy with secretions of the bilateral mainstem bronchi. Moderate left greater than right pleural effusions. Approximately 8.2 cm right lower lobe necrotic mass or infectious/inflammatory process. Bilateral lung nodules suggestive of metastatic disease. Mediastinal adenopathy described above. Small pericardial effusion. Chronic left rib fracture deformities. Other findings as above. The CT scanner at [facility] is accredited by the [employer] and the scans are performed using protocols designed to limit radiation exposure to as low as reasonably achievable to attain images of sufficient resolution adequate for diagnostic evaluation.
--- NOTE | 2016-12-13 08:09 | Diagnostic Imaging Report ---
Indication: Dysphagia and esophageal cancer Technique: CT scan of the abdomen and pelvis utilizing automated exposure control without intravenous or oral contrast. Axial, sagittal and coronal images were obtained. CT dose: Total DLP 957 mGycm; CTDI vol 14.2 mGy Comparison: None Findings: Evaluation of the solid organs is limited without intravenous contrast material. Percutaneous gastrostomy is present within the stomach without adjacent drainable fluid collection. Liver, adrenal glands, spleen and pancreas are grossly unremarkable. The gallbladder is distended. There is no hydronephrosis. Punctate nonobstructive calculi are seen of the left kidney. There is no mechanical small bowel obstruction. There is no evidence of appendicitis. Polanco and rectal catheters are seen. There is a small amount of free fluid in the pelvis. There is bladder wall thickening. Mesenteric and retroperitoneal adenopathy are noted grossly measuring up to 2.3 cm. There is compression of L1 which appears chronic. Degenerative changes of the spine are seen. Impression: Gastrostomy within the stomach without drainable fluid collection along the gastrostomy tract. Polanco catheter and rectal catheter. Small amount of free fluid in the pelvis. Bladder wall thickening with mild increased density within the bladder. Correlation with urinalysis recommended. Mesenteric and retroperitoneal adenopathy. Nonobstructive left renal calculi. No hydronephrosis. Gallbladder distention with suspected sludge or small stones. Further evaluation recommended as indicated. Other findings as above. The CT scanner at [facility] is accredited by the [employer] and the scans are performed using protocols designed to limit radiation exposure to as low as reasonably achievable to attain images of sufficient resolution adequate for diagnostic evaluation.
--- NOTE | 2016-12-13 08:13 | Pulmonology Progress Note ---
Assessment/Plan Assessment/Plan IMPRESSION: 1. Sepsis. 2. Leukocytosis. 3. Protein-calorie malnutrition. 4. Hypercalcemia, 5. Acute on chronic renal failure. 6. Metabolic alkalosis, possibly contraction in nature. 7. Anemia. 8. Thrombocytosis. 9. Tracheostomy and gastrostomy tube. 10. Chronic respiratory failure. 11. tachyarrythmias 12. hypotension 13. GT site bleeding 14. esophageal ca PLAN exams edited and reviewed no substantial changes supportive care antibiotics noted; labs reviewed may need transfusion no wean at present suction aspiration precautions prognosis poor stabilize and dc hopefully in am medications/laboratory data/nursing notes reviewed in detail note reviewed and edited care discussed with RN and RT Subjective ROS Limited/Unobtainable: Yes Allergies: Coded Allergies: No Known Allergies (Unverified , 11/27/16) Subjective stable vital signs labs improving Objective Last 24 Hour Vital Signs Date Time Temp Pulse Resp B/P Pulse Ox O2 Delivery O2 Flow Rate FiO2 12/13/16 06:41 92 23 30 12/13/16 05:38 97 21 30 12/13/16 04:00 30 12/13/16 04:00 108 12/13/16 04:00 97.3 109 22 126/64 99 Mechanical Ventilator 12/13/16 03:37 95 22 30 12/13/16 01:27 99 14 30 12/13/16 00:00 30 12/13/16 00:00 97.3 102 22 119/68 99 Mechanical Ventilator 12/13/16 00:00 101 12/12/16 23:44 103 20 30 12/12/16 21:10 99 22 30 12/12/16 20:00 98.1 97 22 123/57 99 Mechanical Ventilator 12/12/16 20:00 30 12/12/16 20:00 101 12/12/16 18:51 95 22 30 12/12/16 16:00 99.3 104 19 121/65 99 Mechanical Ventilator 30 12/12/16 16:00 111 12/12/16 16:00 30 12/12/16 16:00 99.3 109 19 121/65 99 Mechanical Ventilator 30 12/12/16 15:38 111 22 30 12/12/16 15:11 109 22 30 12/12/16 13:25 116 26 30 12/12/16 12:00 110 12/12/16 12:00 30 12/12/16 12:00 98.1 104 16 105/56 100 Mechanical Ventilator 30 12/12/16 12:00 98.1 104 16 105/56 100 Mechanical Ventilator 30 12/12/16 11:06 86 16 30 12/12/16 09:11 94 17 30 Intake and Output 12/12/16 12/13/16 19:00 07:00 Intake Total 1210.0 ml 1830.00 ml Output Total 700 ml 200 ml Balance 510.0 ml 1630.00 ml Intake Free Water 50 ml 60 ml IV Total 910.0 ml 1365.00 ml Tube Feeding 250 ml 405 ml Output Urine Total 700 ml 200 ml Stool Total 0 ml Objective GENERAL: An ill-appearing male. reduced LOC HEENT: Negative. Pupils reactive. NECK: Supple. Trachea is midline. Carotids 2+. on vent; trach in place LUNGS: Coarse breath sounds. Moderate air entry. no rhonchi or wheeze CARDIAC: S1 and S2. Overall, regular rhythm without murmurs, rubs, or gallops. rate control ABDOMEN: Soft and nontender. G-tube in place. no HSM no distention; EXTREMITIES: No cyanosis and no clubbing. some edema. NEUROLOGIC: Poorly responsive and withdrawn. reduced LOC reviewed and edited Laboratory Tests 12/13/16 04:50: Sodium Level 148H, Potassium Level 3.1L, Chloride Level 113H, Carbon Dioxide Level 18L, Anion Gap 17H, Blood Urea Nitrogen 28H, Creatinine 1.6H, Estimat Glomerular Filtration Rate , Glucose Level 119H, Calcium Level 7.7L, Magnesium Level 1.6L, Total Bilirubin 0.4, Aspartate Amino Transf (AST/SGOT) 50H, Alanine Aminotransferase (ALT/SGPT) 49H, Alkaline Phosphatase 107, Total Protein 4.9L, Albumin 1.7L, Globulin 3.2, Albumin/Globulin Ratio 0.5L Current Medications Medications (Trade) Dose Ordered Sig/Judith Route PRN Reason Start Time Stop Time Status Last Admin Dose Admin Acetaminophen (Tylenol) 650 mg Q4H PRN GT Mild Pain/Temp > 100.5 12/08/16 19:00 01/07/17 18:59 Albuterol/ Ipratropium (DuoNeb 0.5-3(2.5)mg/3ml) 3 ml Q4H PRN HHN Shortness of Breath 12/08/16 20:15 12/13/16 20:14 Dextrose (D5W 1000ml) 1,000 ml @ 100 mls/hr Q10H IV 12/12/16 16:30 01/11/17 16:29 12/13/16 07:24 Epoetin Azael (Procrit (for non ESRD use)) 10,000 units TUE-TUE-TUE SUBQ 12/08/16 21:00 01/07/17 20:59 12/10/16 21:10 Heparin Sodium (Porcine) (Heparin 5000 units/ml) 5,000 units Q12HR SUBQ 12/08/16 21:00 01/07/17 20:59 12/12/16 21:29 Hydralazine HCl (Apresoline) 5 mg Q6H PRN GT SBP>170 12/08/16 22:00 01/07/17 21:59 Lorazepam 1 mg 1 mg Q3H PRN IV For Anxiety 12/12/16 16:00 12/19/16 15:59 12/12/16 21:23 Metronidazole (Flagyl) 500 mg EVERY 8 HOURS ORAL 12/08/16 22:00 12/15/16 21:59 12/13/16 05:32 Nystatin (Nystop Powder) 1 applic THREE TIMES A DAY TOPIC 12/09/16 09:00 01/08/17 08:59 12/12/16 17:34 Pantoprazole (Protonix) 40 mg DAILY IVP 12/09/16 09:00 01/08/17 08:59 12/12/16 09:21 Piperacillin Sod/ Tazobactam Sod/ Dextrose (Zosyn/D5W) 110 ml @ 27.5 mls/hr Q8HR IVPB 12/08/16 22:00 12/15/16 21:59 12/13/16 05:09 RIZWAN SANDERS Dec 13, 2016 08:13
[2016-12-13] MEDS: Heparin 5000 units/ml inj SUBQ SCH (09:00)
[2016-12-13] MEDS: LORazepam Inj 2mg/ml 1ml IV PRN (09:39)
[2016-12-13] MEDS: Pantoprazole Inj IVP SCH (09:51)
[2016-12-13] MEDS: Nystatin Powder 100,000 units/gm 15gm TOPIC SCH ×3 (09:52→17:29)
--- NOTE | 2016-12-13 10:00 | General Progress Note ---
Assessment/Plan Problem List: (1) Hypercalcemia of malignancy ICD Codes: E83.52 - Hypercalcemia SNOMED: 37053114 (2) Esophageal adenocarcinoma ICD Codes: C15.9 - Malignant neoplasm of esophagus, unspecified SNOMED: 097829778 (3) Respiratory failure for > 28 days ICD Codes: J96.90 - Respiratory failure, unspecified, unspecified whether with hypoxia or hypercapnia SNOMED: 624272848 (4) Sepsis ICD Codes: A41.9 - Sepsis, unspecified organism SNOMED: 13511253 Status: stable, progressing Assessment/Plan monitor h/h transfuse prn dc heparin due to bleeding from trach abx replace lytes follow up biopsy results vent support and resp rx feeds id follow up monitor for svt ivf/monitor renal fxn poor front office java developer prognosis Subjective ROS Limited/Unobtainable: No Constitutional: Reports: malaise, weakness HEENT: Reports: no symptoms Cardiovascular: Reports: no symptoms Respiratory: Reports: shortness of breath Gastrointestinal/Abdominal: Reports: difficulty swallowing Genitourinary: Reports: no symptoms Neurologic/Psychiatric: Reports: no symptoms Endocrine: Reports: no symptoms Hematologic/Lymphatic: Reports: anemia Allergies: Coded Allergies: No Known Allergies (Unverified , 11/27/16) All Systems: reviewed and negative except above Subjective bleeding from trach site. obstructing tumor in the esophagus. unable to pass peds scope. no signs of additional bleeding. remains on the vent without distress. low k noted. low mg noted Objective Last 24 Hour Vital Signs Date Time Temp Pulse Resp B/P Pulse Ox O2 Delivery O2 Flow Rate FiO2 12/13/16 09:10 90 22 30 12/13/16 08:00 97.9 121 22 145/119 97 Mechanical Ventilator 30 12/13/16 06:41 92 23 30 12/13/16 05:38 97 21 30 12/13/16 04:00 30 12/13/16 04:00 108 12/13/16 04:00 97.3 109 22 126/64 99 Mechanical Ventilator 12/13/16 03:37 95 22 30 12/13/16 01:27 99 14 30 12/13/16 00:00 30 12/13/16 00:00 97.3 102 22 119/68 99 Mechanical Ventilator 12/13/16 00:00 101 12/12/16 23:44 103 20 30 12/12/16 21:10 99 22 30 12/12/16 20:00 98.1 97 22 123/57 99 Mechanical Ventilator 12/12/16 20:00 30 12/12/16 20:00 101 12/12/16 18:51 95 22 30 12/12/16 16:00 99.3 104 19 121/65 99 Mechanical Ventilator 30 12/12/16 16:00 111 12/12/16 16:00 30 12/12/16 16:00 99.3 109 19 121/65 99 Mechanical Ventilator 30 12/12/16 15:38 111 22 30 12/12/16 15:11 109 22 30 12/12/16 13:25 116 26 30 12/12/16 12:00 110 12/12/16 12:00 30 12/12/16 12:00 98.1 104 16 105/56 100 Mechanical Ventilator 30 12/12/16 12:00 98.1 104 16 105/56 100 Mechanical Ventilator 30 12/12/16 11:06 86 16 30 Intake and Output 12/12/16 12/13/16 18:59 06:59 Intake Total 1155.0 ml 1757.50 ml Output Total 700 ml 200 ml Balance 455.0 ml 1557.50 ml Intake Free Water 50 ml 60 ml IV Total 810.0 ml 1337.50 ml Tube Feeding 295 ml 360 ml Output Urine Total 700 ml 200 ml Stool Total 0 ml Laboratory Tests 12/13/16 04:50: Sodium Level 148H, Potassium Level 3.1L, Chloride Level 113H, Carbon Dioxide Level 18L, Anion Gap 17H, Blood Urea Nitrogen 28H, Creatinine 1.6H, Estimat Glomerular Filtration Rate , Glucose Level 119H, Calcium Level 7.7L, Magnesium Level 1.6L, Total Bilirubin 0.4, Aspartate Amino Transf (AST/SGOT) 50H, Alanine Aminotransferase (ALT/SGPT) 49H, Alkaline Phosphatase 107, Total Protein 4.9L, Albumin 1.7L, Globulin 3.2, Albumin/Globulin Ratio 0.5L Height (Feet): 5 Height (Inches): 9.00 Weight (Pounds): 145 Objective General Appearance: WD/WN, alert, cachetic, thin Neck: supple Cardiovascular: regular rhythm Respiratory/Chest: chest wall non-tender, lungs clear, normal breath sounds, no respiratory distress, no accessory muscle use Abdomen: normal bowel sounds, non tender, soft, no organomegaly Edema: no edema noted Arm (L), no edema noted Arm (R), no edema noted Leg (L), no edema noted Leg (R), no edema noted Pedal (L), no edema noted Pedal (R), no edema noted Generalized Skin: normal pigmentation NANCY GARCIA Dec 13, 2016 10:00
[2016-12-13] MEDS ORDERED: Metoprolol 5mg/5ml Inj IVP SCH (11:00)
--- NOTE | 2016-12-13 11:03 | Infectious Diseases Prog Note ---
"Assessment/Plan Assessment/Plan antibiotics : zosyn, flagyl A 1. e.coli | pseudomonas pneumonia 2. pleural effusions 3. respiratory failure 4. esophageal cancer 5. leucocytosis improving 6. shock resolved 7. renal failure improving P 1. continue zosyn, flagyl 2. will follow up cultures Subjective ROS Limited/Unobtainable: Yes Allergies: Coded Allergies: No Known Allergies (Unverified , 11/27/16) Objective Vital Signs Last 24 Hour Vital Signs Date Time Temp Pulse Resp B/P Pulse Ox O2 Delivery O2 Flow Rate FiO2 12/13/16 09:10 90 22 30 12/13/16 08:00 97.9 121 22 145/119 97 Mechanical Ventilator 30 12/13/16 06:41 92 23 30 12/13/16 05:38 97 21 30 12/13/16 04:00 30 12/13/16 04:00 108 12/13/16 04:00 97.3 109 22 126/64 99 Mechanical Ventilator 12/13/16 03:37 95 22 30 12/13/16 01:27 99 14 30 12/13/16 00:00 30 12/13/16 00:00 97.3 102 22 119/68 99 Mechanical Ventilator 12/13/16 00:00 101 12/12/16 23:44 103 20 30 12/12/16 21:10 99 22 30 12/12/16 20:00 98.1 97 22 123/57 99 Mechanical Ventilator 12/12/16 20:00 30 12/12/16 20:00 101 12/12/16 18:51 95 22 30 12/12/16 16:00 99.3 104 19 121/65 99 Mechanical Ventilator 30 12/12/16 16:00 111 12/12/16 16:00 30 12/12/16 16:00 99.3 109 19 121/65 99 Mechanical Ventilator 30 12/12/16 15:38 111 22 30 12/12/16 15:11 109 22 30 12/12/16 13:25 116 26 30 12/12/16 12:00 110 12/12/16 12:00 30 12/12/16 12:00 98.1 104 16 105/56 100 Mechanical Ventilator 30 12/12/16 12:00 98.1 104 16 105/56 100 Mechanical Ventilator 30 12/12/16 11:06 86 16 30 Height (Feet): 5 Height (Inches): 9.00 Weight (Pounds): 145 HEENT: status post trach - with bleeding Respiratory/Chest: lungs clear Cardiovascular: normal rate, regular rhythm, no gallop/murmur Abdomen: soft, non tender, other - GT Extremities: no edema Laboratory Tests Test 12/13/16 04:50 Sodium Level 148 mEQ/L (135-145) H Potassium Level 3.1 mEQ/L (3.4-4.9) L Chloride Level 113 mEQ/L (98-107) H Carbon Dioxide Level 18 mEQ/L (20-30) L Anion Gap 17 (5-15) H Blood Urea Nitrogen 28 mg/dL (7-23) H Creatinine 1.6 mg/dL (0.7-1.2) H Estimat Glomerular Filtration Rate mL/min (>60) Glucose Level 119 mg/dL (74-106) H Calcium Level 7.7 mg/dL (8.6-10.2) L Magnesium Level 1.6 mg/dL (1.7-2.5) L Total Bilirubin 0.4 mg/dL (0.0-1.2) Aspartate Amino Transf (AST/SGOT) 50 U/L (5-40) H Alanine Aminotransferase (ALT/SGPT) 49 U/L (3-41) H Alkaline Phosphatase 107 U/L (40-129) Total Protein 4.9 g/dL (6.6-8.7) L Albumin 1.7 g/dL (3.5-5.2) L Globulin 3.2 g/dL Albumin/Globulin Ratio 0.5 (1.0-2.7) L JORDAN NUNEZ Dec 13, 2016 11:03"
[2016-12-13] MEDS: Metoprolol 25mg tab ORAL SCH ×2 (11:14→21:42)
[2016-12-13] MEDS: KCl 10% 40mEq/30ml liquid NG SCH (11:14)
[2016-12-13] MEDS: Metoprolol 5mg/5ml Inj IVP SCH ×3 (11:15→11:25)
--- NOTE | 2016-12-13 11:32 | Wound Care Consultation ---
Wound Assessment Wound Assessment #1: Wound Number: #1 Wound Present on Admission: Yes New Wound: No Status Change of Wound: No Wound Location Body Site Modif: mid Wound Location Body Site: sacral Wound Type: pressure ulcer Ashley Test: Does not Ashley Pressure Ulcer Stage: III - scattered stage III.,surrounding tissue noted maroon. Wound Thickness: Full Thickness Wound Length: 6.0 Wound Width: 9.0 Wound Depth: 0.3 Percent of Wound Millry/Red: 50 - open scattered wound beds are pink Percent of Wound Purple/Maroon: 50 - surrounding tissue is maroon. Wound Drainage Description: Serosanguineous Wound Drainage Amount: Scant Wound Drainage Odor: None/Absent Tissue Surrounding Wound: Macerated Wound General Appearance: Reddened Wound Assessment #2: Wound Number: #2 Wound Present on Admission: Yes New Wound: No Status Change of Wound: No Wound Location Body Site: sacral - extending to perineal rash Wound Type: rash - scattered Ashley Test: Does not Ashley Percent of Wound Millry/Red: 100 Wound Drainage Amount: None Wound Drainage Odor: None/Absent Tissue Surrounding Wound: Macerated Wound General Appearance: Reddened, Open to air Wound Comment #1 mid sacral scattered stage III. #2 sacral extending to perineal area fungal rash. Recommendation. -Local wound care as ordered. -Turn and reposition. -Keep clean and dry. -Optimize nutrition. -Heel protectors. -Avoid shear and friction. -Low air loss overlay mattress (SPR). -Assess and notify MD for any changes of condition in skin. upon reassessment noted scattered stage III pressure ulcers remains present , also noted surrounding skin maroon as seen on admission, no further deterioration present, wound beds remains pink,current treatment is effective. upon assessment noted patient is able to reposition self back to supine position , reminded patient in [place] risks and benefits of repositioning,and side repositioning. patient was left in side position to offload affected area. remains comfortable at this time , call light within reach. ALYSON CULVER Dec 13, 2016 11:32
[2016-12-13 12:04] VITALS: BP 132/64
[2016-12-13] MEDS: Acetaminophen 650mg/20.3ml GT PRN (12:35)
--- NOTE | 2016-12-13 14:57 | Nephrology Progress Note ---
Assessment/Plan Plan Hypercalcemia of Malignancy - calcium down. Yesterday 7.7 MOF Poor Prognosis Subjective Subjective In [facility]. Objective Objective Last 24 Hour Vital Signs Date Time Temp Pulse Resp B/P Pulse Ox O2 Delivery O2 Flow Rate FiO2 12/13/16 13:03 105 18 30 12/13/16 12:04 102.0 112 19 132/64 98 30 12/13/16 12:00 30 12/13/16 12:00 113 12/13/16 11:25 112 132/64 12/13/16 11:20 112 132/64 12/13/16 11:15 112 132/64 12/13/16 11:14 152 135/75 12/13/16 10:51 95 22 30 12/13/16 09:10 90 22 30 12/13/16 08:00 127 12/13/16 08:00 30 12/13/16 08:00 97.9 121 22 145/119 97 Mechanical Ventilator 30 12/13/16 06:41 92 23 30 12/13/16 05:38 97 21 30 12/13/16 04:00 30 12/13/16 04:00 108 12/13/16 04:00 97.3 109 22 126/64 99 Mechanical Ventilator 12/13/16 03:37 95 22 30 12/13/16 01:27 99 14 30 12/13/16 00:00 30 12/13/16 00:00 97.3 102 22 119/68 99 Mechanical Ventilator 12/13/16 00:00 101 12/12/16 23:44 103 20 30 12/12/16 21:10 99 22 30 12/12/16 20:00 98.1 97 22 123/57 99 Mechanical Ventilator 12/12/16 20:00 30 12/12/16 20:00 101 12/12/16 18:51 95 22 30 12/12/16 16:00 99.3 104 19 121/65 99 Mechanical Ventilator 30 12/12/16 16:00 111 12/12/16 16:00 30 12/12/16 16:00 99.3 109 19 121/65 99 Mechanical Ventilator 30 12/12/16 15:38 111 22 30 12/12/16 15:11 109 22 30 Intake and Output 12/12/16 12/13/16 19:00 07:00 Intake Total 1210.0 ml 1830.00 ml Output Total 700 ml 200 ml Balance 510.0 ml 1630.00 ml Intake Free Water 50 ml 60 ml IV Total 910.0 ml 1365.00 ml Tube Feeding 250 ml 405 ml Output Urine Total 700 ml 200 ml Stool Total 0 ml Laboratory Tests 12/13/16 04:50: Sodium Level 148H, Potassium Level 3.1L, Chloride Level 113H, Carbon Dioxide Level 18L, Anion Gap 17H, Blood Urea Nitrogen 28H, Creatinine 1.6H, Estimat Glomerular Filtration Rate , Glucose Level 119H, Calcium Level 7.7L, Magnesium Level 1.6L, Total Bilirubin 0.4, Aspartate Amino Transf (AST/SGOT) 50H, Alanine Aminotransferase (ALT/SGPT) 49H, Alkaline Phosphatase 107, Total Protein 4.9L, Albumin 1.7L, Globulin 3.2, Albumin/Globulin Ratio 0.5L Height (Feet): 5 Height (Inches): 9.00 Weight (Pounds): 145 Objective On vent Cv Tach Lungs B Oleg Huddleston SNT. BS + E No CCE GAGANDEEP PAEZ Dec 13, 2016 14:57
--- NOTE | 2016-12-13 15:28 | Progress Note ---
DATE: 12/12/2016 CARDIOLOGY PROGRESS NOTE SUBJECTIVE: The patient remains on ventilator support. Nursing notes reviewed. OBJECTIVE: VITAL SIGNS: Afebrile, blood pressure 147/60, pulse 102, respiratory rate 24, sinus rhythm and sinus tachycardia. No SVT on monitor. LUNGS: Bilateral breath sounds. CARDIAC: Regular rhythm and rate. Normal S1 and S2. ABDOMEN: Soft. EXTREMITIES: Continued with dependent edema. LABORATORY AND DIAGNOSTIC DATA: White count 14 and hemoglobin 9.1. Sodium 150, potassium 3.8, chloride 113, BUN 29 and creatinine 1.6. IMPRESSION: 1. Sepsis shock. 2. Respiratory failure. 3. Metastatic esophageal carcinoma. 4. Hypovolemia. 5. Dehydration. 6. Hypernatremia. 7. Hyperchloremia. 8. Anemia. 9. Recovering sepsis. PLAN: 1. Hypotonic IV fluids. 2. Replace potassium. 3. Continue cardiac monitoring. 4. No role for antiarrhythmics presently. 5. Beta-jony for sustained supraventricular tachyarrhythmias only. Emil Duarte M.D. DR: MAX JOB#: [id number] CC:
[2016-12-13 16:00] VITALS: BP 108/59
[2016-12-13 20:38] VITALS: BP 129/78
--- NOTE | 2016-12-13 20:43 | General Progress Note ---
Assessment/Plan Assessment/Plan Assessment - GT site bilious leak - GT site TF leak - Esophageal CA - unable to do EGD - Resp failure / Trach - Trach site bleed - ? TE fistula - Dysphagia/PEG - Azotemia - Terminal Px Recommendations - transfuse PRN - IVF - PPI - f/u path from EGD/Bx - consider oncology opinion Subjective Allergies: Coded Allergies: No Known Allergies (Unverified , 11/27/16) Subjective awake, calm d/w staffing executive (+) Trach bleeding noted still with GT site drainage Objective Last 24 Hour Vital Signs Date Time Temp Pulse Resp B/P Pulse Ox O2 Delivery O2 Flow Rate FiO2 12/13/16 19:19 89 22 30 12/13/16 16:33 96 17 30 12/13/16 16:00 94 12/13/16 16:00 30 12/13/16 16:00 97.3 95 18 108/59 94 Mechanical Ventilator 12/13/16 14:32 91 18 30 12/13/16 13:03 105 18 30 12/13/16 12:04 102.0 112 19 132/64 98 30 12/13/16 12:00 30 12/13/16 12:00 113 12/13/16 11:25 112 132/64 12/13/16 11:20 112 132/64 12/13/16 11:15 112 132/64 12/13/16 11:14 152 135/75 12/13/16 10:51 95 22 30 12/13/16 09:10 90 22 30 12/13/16 08:00 127 12/13/16 08:00 30 12/13/16 08:00 97.9 121 22 145/119 97 Mechanical Ventilator 30 12/13/16 06:41 92 23 30 12/13/16 05:38 97 21 30 12/13/16 04:00 30 12/13/16 04:00 108 12/13/16 04:00 97.3 109 22 126/64 99 Mechanical Ventilator 12/13/16 03:37 95 22 30 12/13/16 01:27 99 14 30 12/13/16 00:00 30 12/13/16 00:00 97.3 102 22 119/68 99 Mechanical Ventilator 12/13/16 00:00 101 12/12/16 23:44 103 20 30 12/12/16 21:10 99 22 30 Intake and Output 12/12/16 12/13/16 19:00 07:00 Intake Total 1210.0 ml 1830.00 ml Output Total 700 ml 200 ml Balance 510.0 ml 1630.00 ml Intake Free Water 50 ml 60 ml IV Total 910.0 ml 1365.00 ml Tube Feeding 250 ml 405 ml Output Urine Total 700 ml 200 ml Stool Total 0 ml Laboratory Tests 12/13/16 04:50: Sodium Level 148H, Potassium Level 3.1L, Chloride Level 113H, Carbon Dioxide Level 18L, Anion Gap 17H, Blood Urea Nitrogen 28H, Creatinine 1.6H, Estimat Glomerular Filtration Rate , Glucose Level 119H, Calcium Level 7.7L, Magnesium Level 1.6L, Total Bilirubin 0.4, Aspartate Amino Transf (AST/SGOT) 50H, Alanine Aminotransferase (ALT/SGPT) 49H, Alkaline Phosphatase 107, Total Protein 4.9L, Albumin 1.7L, Globulin 3.2, Albumin/Globulin Ratio 0.5L Height (Feet): 5 Height (Inches): 9.00 Weight (Pounds): 145 Objective WDWN NCAT (+) trach CTA RRR Soft Flat, GT with significant bilious drainage no edema JA CHAHAL Dec 13, 2016 20:43
[2016-12-13] MEDS: Epogen (for non ESRD use) SUBQ SCH (21:43)
[2016-12-14] VITALS: BP 125/75
[2016-12-14 04:00] VITALS: BP 126/56
[2016-12-14] MEDS: metroNIDAZOLE 500mg tab ORAL SCH ×3 (05:52→21:58)
[2016-12-14] MEDS: Piperacillin/Tazobactam 3.375 GM in D5W 110 ML IVPB SCH ×3 (05:52→21:55)
[2016-12-14 05:55] LABS: MEAN CORPUSCULAR HEMOGLOBIN 28.5 PG (27.0-31.0); MEAN CORPUSCULAR HGB CONC 31.6 G/DL (32.0-36.0); MEAN CORPUSCULAR VOLUME 90 FL (80-99); MEAN PLATELET VOLUME 6.9 FL (6.5-10.1); PLATELET COUNT 525 K/UL (150-450); RED CELL DISTRIBUTION WIDTH 17.6 % (11.6-14.8)
[2016-12-14 06:03] LABS: ALANINE AMINOTRANSFERASE 23 U/L (3-41); ALBUMIN/GLOBULIN RATIO 0.5 (1.0-2.7); ANION GAP 16 (5-15); ASPARTATE AMINO TRANSFERASE 12 U/L (5-40); CALCIUM 8.2 mg/dL (8.6-10.2); CARBON DIOXIDE 18 mEQ/L (20-30); CHLORIDE 109 mEQ/L (98-107); CREATININE 1.5 mg/dL (0.7-1.2); HEMOLYSIS 1; POTASSIUM 3.6 mEQ/L (3.4-4.9); SODIUM 143 mEQ/L (135-145)
--- NOTE | 2016-12-14 06:38 | Progress Note ---
DATE: 12/13/2016 CARDIOLOGY PROGRESS NOTE SUBJECTIVE: The patient has a G-tube with leak. He continues to require ventilator support. There is possible re-consideration of tracheoesophageal fistula as noted earlier due to bleeding. OBJECTIVE: VITAL SIGNS: Blood pressure 108/59, pulse 95, and respirations 19. Heart rate ranging from 90 to 113 and T-max 102. LUNGS: Bilateral rhonchi. HEART: Regular rhythm. Rapid rate. Normal S1 and S2. ABDOMEN: Soft and distended. EXTREMITIES: With dependent edema. LABORATORY DATA: Albumin is 1.7. Sodium 148, potassium 3.1, bicarbonate 18, chloride 113, BUN 28, creatinine 1.6, and glucose 119. Magnesium is 1.6. IMPRESSION: 1. Metastatic esophageal carcinoma. 2. Dehydration. 3. Hypernatremia. 4. Hyperchloremia. 5. [id number] renal failure. 6. Metabolic acidosis. 7. Hypomagnesemia. 8. Severe protein-calorie malnutrition. 9. Prognosis is terminal. 10. Condition is critical. PLAN: 1. Plan of care is hypotonic IV fluids. 2. Nutrition by G-tube as tolerated. 3. Adjust hydration. 4. Transfuse for hemoglobin below 7. 5. No diuretics at this time. 6. Beta-blockers for high catecholamine state. Emil Duarte M.D. DR: WILLY JOB#: [id number] CC:
[2016-12-14 08:00] VITALS: BP 119/70
[2016-12-14 08:05] LABS: BAND NEUTROPHILS % (MANUAL) 3 % (0-8); EOSINOPHILS % (MANUAL) 2 % (0-3); LYMPHOCYTES % (MANUAL) 2 % (20-45); NEUTROPHILS % (MANUAL) 89 % (45-75); TOTAL CELLS COUNTED 100
[2016-12-14 08:06] LABS: BASOPHILS % (MANUAL) 0 % (0-2); PLATELET ESTIMATE INCREASED; PLATELET MORPHOLOGY NORMAL
[2016-12-14 08:07] LABS: HYPOCHROMASIA 1+
[2016-12-14 08:08] LABS: ANISOCYTOSIS 1+
[2016-12-14] MEDS: KCl 10% 40mEq/30ml liquid NG SCH (08:49)
[2016-12-14] MEDS: Nystatin Powder 100,000 units/gm 15gm TOPIC SCH ×3 (08:49→17:33)
[2016-12-14] MEDS: Pantoprazole Inj IVP SCH (08:50)
[2016-12-14] MEDS: Metoprolol 25mg tab ORAL SCH ×2 (08:50→21:59)
--- NOTE | 2016-12-14 10:48 | Infectious Diseases Prog Note ---
"Assessment/Plan Assessment/Plan antibiotics : zosyn, flagyl A 1. e.coli | pseudomonas pneumonia 2. pleural effusions 3. respiratory failure 4. esophageal cancer 5. leucocytosis increasing 6. shock resolved 7. renal failure improving P 1. continue zosyn, flagyl 2. sputum culture 3. start iv vancomycin 4. will follow up cultures Subjective ROS Limited/Unobtainable: Yes Allergies: Coded Allergies: No Known Allergies (Unverified , 11/27/16) Objective Vital Signs Last 24 Hour Vital Signs Date Time Temp Pulse Resp B/P Pulse Ox O2 Delivery O2 Flow Rate FiO2 12/14/16 09:15 101 19 30 12/14/16 08:50 116 119/70 12/14/16 08:00 98.2 116 22 119/70 99 Mechanical Ventilator 30 12/14/16 08:00 112 12/14/16 08:00 30 12/14/16 06:40 98 21 30 12/14/16 05:19 101 19 30 12/14/16 04:00 100 12/14/16 04:00 99.0 107 19 126/56 99 Mechanical Ventilator 30 12/14/16 04:00 30 12/14/16 03:15 106 21 30 12/14/16 01:01 96 19 30 12/14/16 00:00 30 12/14/16 00:00 97.9 92 20 125/75 99 Mechanical Ventilator 30 12/14/16 00:00 86 12/13/16 23:20 90 19 30 12/13/16 23:18 103 21 Mechanical Ventilator 30 12/13/16 21:42 88 129/78 12/13/16 20:58 88 16 30 12/13/16 20:38 97.7 89 18 129/78 100 Mechanical Ventilator 30 12/13/16 20:00 30 12/13/16 20:00 98 12/13/16 19:19 89 22 30 12/13/16 16:33 96 17 30 12/13/16 16:00 94 12/13/16 16:00 30 12/13/16 16:00 97.3 95 18 108/59 94 Mechanical Ventilator 12/13/16 14:32 91 18 30 12/13/16 13:03 105 18 30 12/13/16 12:04 102.0 112 19 132/64 98 30 12/13/16 12:00 30 12/13/16 12:00 113 12/13/16 11:25 112 132/64 12/13/16 11:20 112 132/64 12/13/16 11:15 112 132/64 12/13/16 11:14 152 135/75 12/13/16 10:51 95 22 30 Height (Feet): 5 Height (Inches): 9.00 Weight (Pounds): 145 HEENT: status post trach Respiratory/Chest: lungs clear Cardiovascular: normal rate, regular rhythm, no gallop/murmur Abdomen: soft, non tender, other - GT Extremities: no edema Laboratory Tests Test 12/14/16 04:45 White Blood Count 20.0 K/UL (4.8-10.8) H Red Blood Count 3.20 M/UL (4.70-6.10) L Hemoglobin 9.1 G/DL (14.2-18.0) L Hematocrit 28.9 % (42.0-52.0) L Mean Corpuscular Volume 90 FL (80-99) Mean Corpuscular Hemoglobin 28.5 PG (27.0-31.0) Mean Corpuscular Hemoglobin Concent 31.6 G/DL (32.0-36.0) L Red Cell Distribution Width 17.6 % (11.6-14.8) H Platelet Count 525 K/UL (150-450) H Mean Platelet Volume 6.9 FL (6.5-10.1) Neutrophils (%) (Auto) % (45.0-75.0) Lymphocytes (%) (Auto) % (20.0-45.0) Monocytes (%) (Auto) % (1.0-10.0) Eosinophils (%) (Auto) % (0.0-3.0) Basophils (%) (Auto) % (0.0-2.0) Differential Total Cells Counted 100 Neutrophils % (Manual) 89 % (45-75) H Lymphocytes % (Manual) 2 % (20-45) L Monocytes % (Manual) 4 % (1-10) Eosinophils % (Manual) 2 % (0-3) Basophils % (Manual) 0 % (0-2) Band Neutrophils 3 % (0-8) Platelet Estimate Increased H Platelet Morphology Normal Hypochromasia 1+ Anisocytosis 1+ Sodium Level 143 mEQ/L (135-145) Potassium Level 3.6 mEQ/L (3.4-4.9) Chloride Level 109 mEQ/L (98-107) H Carbon Dioxide Level 18 mEQ/L (20-30) L Anion Gap 16 (5-15) H Blood Urea Nitrogen 24 mg/dL (7-23) H Creatinine 1.5 mg/dL (0.7-1.2) H Estimat Glomerular Filtration Rate mL/min (>60) Glucose Level 171 mg/dL (74-106) H Calcium Level 8.2 mg/dL (8.6-10.2) L Total Bilirubin 0.3 mg/dL (0.0-1.2) Aspartate Amino Transf (AST/SGOT) 12 U/L (5-40) Alanine Aminotransferase (ALT/SGPT) 23 U/L (3-41) Alkaline Phosphatase 99 U/L (40-129) Total Protein 5.0 g/dL (6.6-8.7) L Albumin 1.7 g/dL (3.5-5.2) L Globulin 3.3 g/dL Albumin/Globulin Ratio 0.5 (1.0-2.7) L JORDAN NUNEZ Dec 14, 2016 10:48"
--- NOTE | 2016-12-14 10:58 | Pulmonology Progress Note ---
Assessment/Plan Assessment/Plan IMPRESSION: 1. Sepsis. 2. Leukocytosis. 3. Protein-calorie malnutrition. 4. Hypercalcemia, 5. Acute on chronic renal failure. 6. Metabolic alkalosis, possibly contraction in nature. 7. Anemia. 8. Thrombocytosis. 9. Tracheostomy and gastrostomy tube. 10. Chronic respiratory failure. 11. tachyarrythmias 12. hypotension 13. GT site bleeding 14. esophageal ca with mets to lung PLAN exams edited and reviewed no substantial changes or improvement supportive care antibiotics noted; labs reviewed; wbc again elevated no wean at present suction aspiration precautions prognosis poor oncology opinion stabilize and dc will call family medications/laboratory data/nursing notes reviewed in detail note reviewed and edited care discussed with RN and RT Subjective ROS Limited/Unobtainable: Yes Allergies: Coded Allergies: No Known Allergies (Unverified , 11/27/16) Subjective stable vital signs labs improving Objective Last 24 Hour Vital Signs Date Time Temp Pulse Resp B/P Pulse Ox O2 Delivery O2 Flow Rate FiO2 12/14/16 09:15 101 19 30 12/14/16 08:50 116 119/70 12/14/16 08:00 98.2 116 22 119/70 99 Mechanical Ventilator 30 12/14/16 08:00 112 12/14/16 08:00 30 12/14/16 06:40 98 21 30 12/14/16 05:19 101 19 30 12/14/16 04:00 100 12/14/16 04:00 99.0 107 19 126/56 99 Mechanical Ventilator 30 12/14/16 04:00 30 12/14/16 03:15 106 21 30 12/14/16 01:01 96 19 30 12/14/16 00:00 30 12/14/16 00:00 97.9 92 20 125/75 99 Mechanical Ventilator 30 12/14/16 00:00 86 12/13/16 23:20 90 19 30 12/13/16 23:18 103 21 Mechanical Ventilator 30 12/13/16 21:42 88 129/78 12/13/16 20:58 88 16 30 12/13/16 20:38 97.7 89 18 129/78 100 Mechanical Ventilator 30 12/13/16 20:00 30 12/13/16 20:00 98 12/13/16 19:19 89 22 30 12/13/16 16:33 96 17 30 12/13/16 16:00 94 3/6/17 16:00 30 12/13/16 16:00 97.3 95 18 108/59 94 Mechanical Ventilator 12/13/16 14:32 91 18 30 12/13/16 13:03 105 18 30 12/13/16 12:04 102.0 112 19 132/64 98 30 12/13/16 12:00 30 12/13/16 12:00 113 12/13/16 11:25 112 132/64 12/13/16 11:20 112 132/64 12/13/16 11:15 112 132/64 12/13/16 11:14 152 135/75 Intake and Output 12/13/16 12/14/16 18:59 06:59 Intake Total 1687.5 ml 1852.5 ml Output Total 250 ml 250 ml Balance 1437.5 ml 1602.5 ml Intake Free Water 130 ml IV Total 1237.5 ml 1227.5 ml Tube Feeding 450 ml 495 ml Output Urine Total 250 ml 200 ml Other 50 ml Objective GENERAL: An ill-appearing male. reduced LOC HEENT: Negative. Pupils reactive. NECK: Supple. Trachea is midline. Carotids 2+. on vent; trach in place LUNGS: Coarse breath sounds. Moderate air entry. no rhonchi or wheeze CARDIAC: S1 and S2. Overall, regular rhythm without murmurs, rubs, or gallops. rate control ABDOMEN: Soft and nontender. G-tube in place. no HSM no distention; EXTREMITIES: No cyanosis and no clubbing. some edema. NEUROLOGIC: Poorly responsive and withdrawn. reduced LOC reviewed and edited Laboratory Tests 12/14/16 04:45: White Blood Count 20.0H, Red Blood Count 3.20L, Hemoglobin 9.1L, Hematocrit 28.9L, Mean Corpuscular Volume 90, Mean Corpuscular Hemoglobin 28.5, Mean Corpuscular Hemoglobin Concent 31.6L, Red Cell Distribution Width 17.6H, Platelet Count 525H, Mean Platelet Volume 6.9, Neutrophils (%) (Auto) , Lymphocytes (%) (Auto) , Monocytes (%) (Auto) , Eosinophils (%) (Auto) , Basophils (%) (Auto) , Differential Total Cells Counted 100, Neutrophils % ( Manual) 89H, Lymphocytes % (Manual) 2L, Monocytes % (Manual) 4, Eosinophils % ( Manual) 2, Basophils % (Manual) 0, Band Neutrophils 3, Platelet Estimate IncreasedH, Platelet Morphology Normal, Hypochromasia 1+, Anisocytosis 1+, Sodium Level 143, Potassium Level 3.6, Chloride Level 109H, Carbon Dioxide Level 18L, Anion Gap 16H, Blood Urea Nitrogen 24H, Creatinine 1.5H, Estimat Glomerular Filtration Rate , Glucose Level 171H, Calcium Level 8.2L, Total Bilirubin 0.3, Aspartate Amino Transf (AST/SGOT) 12, Alanine Aminotransferase ( ALT/SGPT) 23, Alkaline Phosphatase 99, Total Protein 5.0L, Albumin 1.7L, Globulin 3.3, Albumin/Globulin Ratio 0.5L Current Medications Medications (Trade) Dose Ordered Sig/Judith Route PRN Reason Start Time Stop Time Status Last Admin Dose Admin Acetaminophen (Tylenol) 650 mg Q4H PRN GT Mild Pain/Temp > 100.5 12/08/16 19:00 01/07/17 18:59 12/13/16 12:35 Dextrose (D5W 1000ml) 1,000 ml @ 100 mls/hr Q10H IV 12/12/16 16:30 01/11/17 16:29 12/14/16 04:33 Epoetin Azael (Procrit (for non ESRD use)) 10,000 units TUE-TUE-TUE SUBQ 12/08/16 21:00 01/07/17 20:59 12/13/16 21:43 Hydralazine HCl (Apresoline) 5 mg Q6H PRN GT SBP>170 12/08/16 22:00 01/07/17 21:59 Lorazepam 1 mg 1 mg Q3H PRN IV For Anxiety 12/12/16 16:00 12/19/16 15:59 12/13/16 09:39 Metoprolol Tartrate 25 mg 25 mg Q12HR ORAL 12/13/16 11:00 01/12/17 10:59 12/14/16 08:50 Metronidazole (Flagyl) 500 mg EVERY 8 HOURS ORAL 12/13/16 14:00 12/20/16 23:59 12/14/16 05:52 Nystatin (Nystop Powder) 1 applic THREE TIMES A DAY TOPIC 12/09/16 09:00 01/08/17 08:59 12/14/16 08:49 Pantoprazole (Protonix) 40 mg DAILY IVP 12/09/16 09:00 01/08/17 08:59 12/14/16 08:50 Piperacillin Sod/ Tazobactam Sod/ Dextrose (Zosyn/D5W) 110 ml @ 27.5 mls/hr Q8HR IVPB 12/13/16 14:00 12/20/16 23:59 12/14/16 05:52 Potassium Chloride (KCl 10% 40mEq Oral solution) 40 meq DAILY NG 12/13/16 11:00 01/12/17 10:59 12/14/16 08:49 Vancomycin HCl (Vanco rx to dose) 1 ea DAILY PRN MISC . 12/14/16 11:00 01/13/17 10:59 RIZWAN GARSIA Dec 14, 2016 10:58
[2016-12-14 12:00] VITALS: BP 131/71
[2016-12-14] MEDS ORDERED: Vancomycin 1250mg/D5W 275ml IVPB ONE ×2 (12:30)
--- NOTE | 2016-12-14 12:33 | General Progress Note ---
Assessment/Plan Problem List: (1) Hypercalcemia of malignancy ICD Codes: E83.52 - Hypercalcemia SNOMED: 02074877 (2) Esophageal adenocarcinoma ICD Codes: C15.9 - Malignant neoplasm of esophagus, unspecified SNOMED: 261930057 (3) Respiratory failure for > 28 days ICD Codes: J96.90 - Respiratory failure, unspecified, unspecified whether with hypoxia or hypercapnia SNOMED: 022490816 (4) Sepsis ICD Codes: A41.9 - Sepsis, unspecified organism SNOMED: 26605990 Status: stable, progressing Assessment/Plan monitor h/h transfuse prn off heparin abx replace lytes follow up biopsy results vent support and resp rx feeds id follow up monitor for svt ivf/monitor renal fxn poor medical terminologist prognosis message left family to call me to discuss code status Subjective ROS Limited/Unobtainable: No Constitutional: Reports: malaise, weakness HEENT: Reports: no symptoms Cardiovascular: Reports: no symptoms Respiratory: Reports: other - hemoptysis, shortness of breath, sputum Gastrointestinal/Abdominal: Reports: no symptoms Genitourinary: Reports: no symptoms Neurologic/Psychiatric: Reports: no symptoms Endocrine: Reports: no symptoms Hematologic/Lymphatic: Reports: anemia Allergies: Coded Allergies: No Known Allergies (Unverified , 11/27/16) All Systems: reviewed and negative except above Subjective bleeding from trach site- better. obstructing tumor in the esophagus. family wants pt to be dnr Objective Last 24 Hour Vital Signs Date Time Temp Pulse Resp B/P Pulse Ox O2 Delivery O2 Flow Rate FiO2 12/14/16 11:15 95 23 30 12/14/16 09:15 101 19 30 12/14/16 08:50 116 119/70 12/14/16 08:00 98.2 116 22 119/70 99 Mechanical Ventilator 30 12/14/16 08:00 112 12/14/16 08:00 30 12/14/16 06:40 98 21 30 12/14/16 05:19 101 19 30 12/14/16 04:00 100 12/14/16 04:00 99.0 107 19 126/56 99 Mechanical Ventilator 30 12/14/16 04:00 30 12/14/16 03:15 106 21 30 12/14/16 01:01 96 19 30 12/14/16 00:00 30 12/14/16 00:00 97.9 92 20 125/75 99 Mechanical Ventilator 30 12/14/16 00:00 86 12/13/16 23:20 90 19 30 12/13/16 23:18 103 21 Mechanical Ventilator 30 12/13/16 21:42 88 129/78 12/13/16 20:58 88 16 30 12/13/16 20:38 97.7 89 18 129/78 100 Mechanical Ventilator 30 12/13/16 20:00 30 12/13/16 20:00 98 12/13/16 19:19 89 22 30 12/13/16 16:33 96 17 30 12/13/16 16:00 94 12/13/16 16:00 30 12/13/16 16:00 97.3 95 18 108/59 94 Mechanical Ventilator 12/13/16 14:32 91 18 30 12/13/16 13:03 105 18 30 Intake and Output 12/13/16 12/14/16 18:59 06:59 Intake Total 1687.5 ml 1852.5 ml Output Total 250 ml 250 ml Balance 1437.5 ml 1602.5 ml Intake Free Water 130 ml IV Total 1237.5 ml 1227.5 ml Tube Feeding 450 ml 495 ml Output Urine Total 250 ml 200 ml Other 50 ml Laboratory Tests 12/14/16 04:45: White Blood Count 20.0H, Red Blood Count 3.20L, Hemoglobin 9.1L, Hematocrit 28.9L, Mean Corpuscular Volume 90, Mean Corpuscular Hemoglobin 28.5, Mean Corpuscular Hemoglobin Concent 31.6L, Red Cell Distribution Width 17.6H, Platelet Count 525H, Mean Platelet Volume 6.9, Neutrophils (%) (Auto) , Lymphocytes (%) (Auto) , Monocytes (%) (Auto) , Eosinophils (%) (Auto) , Basophils (%) (Auto) , Differential Total Cells Counted 100, Neutrophils % ( Manual) 89H, Lymphocytes % (Manual) 2L, Monocytes % (Manual) 4, Eosinophils % ( Manual) 2, Basophils % (Manual) 0, Band Neutrophils 3, Platelet Estimate IncreasedH, Platelet Morphology Normal, Hypochromasia 1+, Anisocytosis 1+, Sodium Level 143, Potassium Level 3.6, Chloride Level 109H, Carbon Dioxide Level 18L, Anion Gap 16H, Blood Urea Nitrogen 24H, Creatinine 1.5H, Estimat Glomerular Filtration Rate , Glucose Level 171H, Calcium Level 8.2L, Total Bilirubin 0.3, Aspartate Amino Transf (AST/SGOT) 12, Alanine Aminotransferase ( ALT/SGPT) 23, Alkaline Phosphatase 99, Total Protein 5.0L, Albumin 1.7L, Globulin 3.3, Albumin/Globulin Ratio 0.5L Height (Feet): 5 Height (Inches): 9.00 Weight (Pounds): 145 Objective General Appearance: WD/WN, alert, cachetic, thin Neck: supple Cardiovascular: regular rhythm Respiratory/Chest: chest wall non-tender, lungs clear, normal breath sounds, no respiratory distress, no accessory muscle use Abdomen: normal bowel sounds, non tender, soft, no organomegaly Edema: no edema noted Arm (L), no edema noted Arm (R), no edema noted Leg (L), no edema noted Leg (R), no edema noted Pedal (L), no edema noted Pedal (R), no edema noted Generalized Skin: normal pigmentation NANCY GARCIA Dec 14, 2016 12:33
[2016-12-14 16:00] VITALS: BP 116/62
[2016-12-14] MEDS ORDERED: NS 275ml ONE (16:51)
[2016-12-14] MEDS ORDERED: Tubing IV Secondary IV ONE (16:51)
[2016-12-14] MEDS ORDERED: D5NS 1000ml IV ONE (16:51)
--- NOTE | 2016-12-14 16:59 | Consultation ---
DATE OF CONSULTATION: 12/14/2016 HEAD AND NECK SURGERY/ENT CONSULTATION REQUESTING PHYSICIAN: Kev Ayala M.D. CONSULTING PHYSICIAN: Sandip Concepcion M.D. INDICATION FOR CONSULTATION: The patient is a 76-year-old male with metastatic esophageal carcinoma, who has had some bleeding with suctioning. 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 On CT scan, he has a mass in the hypopharynx and also metastatic disease in his lungs. PAST MEDICAL HISTORY: Significant for BPH, cardiac disorders, respiratory disorder, secondary malignant neoplasm from the esophageal carcinoma diagnosed two years ago, COPD, muscle weakness, anxiety and anemia. MEDICATIONS: Magnesium, Zosyn, Tylenol, Procrit, heparin, Apresoline, Ativan, Lopressor, Flagyl, nystatin powder, Protonix and potassium. ALLERGIES: He has no known drug allergies. He is a Full Code. PHYSICAL EXAMINATION: The patient is in bed, unresponsive. Height 175.26, weight 65.771 kg, and BMI 21.4. He has a low albumin globulin. He is in bed, trach in place. I did suction the trach and there was no blood brought up. Bronchoscopy through the trach and there was some irritation of the trachea and then I did a fiberoptic laryngoscopy from above and there was some bulge by the larynx, just above it, which would be consistent with the finding on the CT scan but no active bleeding site or scab. ASSESSMENT: The suction is probably may be some bleeding from his lungs and there may be some bleeding that I could not see due to swelling in the hypopharynx. Unfortunately, this patient is in annoying situation. He is not an operative candidate. PLAN: The daughter was present. She was in the hospital and signed consent and talked to me about palliative care or Do Not Resuscitate. I told her we have a team in the hospital, we can discuss this with her, so I have ordered that per her request. Daughter's name is Bulmaro. The nurse was present during this discussion. She was clear that the family does not want him to have this chest compress like it was previously and that they understand that he is not a surgical candidate, but they do wanted to be as comfortable as possible and they will delineate this information per their request with the palliative care team. At this point from an ENT perspective, there is nothing I would do and that I believe bleeding going to major vessel would not be controllable and he would not survive the procedure. Certainly, at this hospital that would not happen and we do not have the facilities for it. So if it is determined that the family does want to be much more aggressive, I recommend he be transferred either to [facility], [facility] or [facility] where they have the appropriate staff, 24 hours a day including residence to deal with complications of would will probably be an unsuccessful procedure, although sometimes does work. Thank you very much for asking my opinion care and treatment of this patient. Sandip Concepcion M.D. DR: KAITLIN JOB#: [id number] CC:
--- NOTE | 2016-12-14 16:59 | Procedure Note ---
DATE OF PROCEDURE: 12/14/2016 SURGEON: Sandip Concepcion M.D. DISPENSING OPERATOR: None. INDICATION FOR PROCEDURE: The patient with bleeding, suctioning of the tracheostomy tube. I have been requested to evaluate whether this is coming from his oropharynx or below the tracheostomy tube. He has an active history of metastatic esophageal carcinoma, for which he is not doing well. PREOPERATIVE DIAGNOSIS: Bleeding from tracheostomy tube. POSTOPERATIVE DIAGNOSIS: Bleeding from tracheostomy tube. FINDINGS: No significant site of bleeding from the trach site, bronchoscopy, or fiberoptic laryngoscopy although there are areas where there was swelling and certainly can be hidden below those. PROCEDURES: 1. Fiberoptic nasopharyngoscopy. 2. Bronchoscopy. TECHNIQUE: The patient was prepped and draped in the usual manner. Scope was placed through the nose and then down to the larynx and then pulled back. I then placed a scope through the tracheostomy tube and evaluated down to the sterling. The scope was then removed. I then looked around the stoma by moving around the trach tube and going around the side of it. I did not see any indication of a sentinel bleed. ESTIMATED BLOOD LOSS: Zero. COUNTS: None. DRAINS: None. All sponge and needle count was correct. Consent had been signed and a time-out was done. Thanks very much for asking my opinion in the care and treatment of this patient. Sandip Concepcion M.D. DR: AIMEE JOB#: [id number] CC:
[2016-12-14 19:59] VITALS: BP 130/75
--- NOTE | 2016-12-14 22:40 | General Progress Note ---
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 - Resp failure / Trach - Trach site bleed - Dysphagia/PEG - Azotemia - Terminal Px Recommendations - transfuse PRN - IVF - PPI - Oncology opinion Subjective Allergies: Coded Allergies: No Known Allergies (Unverified , 11/27/16) Subjective awake, calm d/w at bedside d/w Pathology --> Bx showed Squamous Cell CA Objective Last 24 Hour Vital Signs Date Time Temp Pulse Resp B/P Pulse Ox O2 Delivery O2 Flow Rate FiO2 12/14/16 21:59 100 130/75 12/14/16 21:25 100 24 30 12/14/16 19:59 98.9 100 18 130/75 99 Mechanical Ventilator 30 12/14/16 19:09 109 12/14/16 19:07 110 22 30 12/14/16 16:50 101 20 30 12/14/16 16:00 118 12/14/16 16:00 99.5 111 18 116/62 99 Mechanical Ventilator 30 12/14/16 16:00 30 12/14/16 15:00 98 20 30 12/14/16 12:40 99 22 30 12/14/16 12:00 30 12/14/16 12:00 98.2 106 25 131/71 99 Mechanical Ventilator 30 12/14/16 12:00 102 12/14/16 11:15 95 23 30 12/14/16 09:15 101 19 30 12/14/16 08:50 116 119/70 12/14/16 08:00 98.2 116 22 119/70 99 Mechanical Ventilator 30 12/14/16 08:00 112 12/14/16 08:00 30 12/14/16 06:40 98 21 30 12/14/16 05:19 101 19 30 12/14/16 04:00 100 12/14/16 04:00 99.0 107 19 126/56 99 Mechanical Ventilator 30 12/14/16 04:00 30 12/14/16 03:15 106 21 30 12/14/16 01:01 96 19 30 12/14/16 00:00 30 12/14/16 00:00 97.9 92 20 125/75 99 Mechanical Ventilator 30 12/14/16 00:00 86 12/13/16 23:20 90 19 30 12/13/16 23:18 103 21 Mechanical Ventilator 30 Intake and Output 12/13/16 12/14/16 19:00 07:00 Intake Total 1615.0 ml 1902.5 ml Output Total 250 ml 250 ml Balance 1365.0 ml 1652.5 ml Intake Free Water 130 ml IV Total 1210.0 ml 1227.5 ml Tube Feeding 405 ml 545 ml Output Urine Total 250 ml 200 ml Other 50 ml Laboratory Tests 12/14/16 04:45: White Blood Count 20.0H, Red Blood Count 3.20L, Hemoglobin 9.1L, Hematocrit 28.9L, Mean Corpuscular Volume 90, Mean Corpuscular Hemoglobin 28.5, Mean Corpuscular Hemoglobin Concent 31.6L, Red Cell Distribution Width 17.6H, Platelet Count 525H, Mean Platelet Volume 6.9, Neutrophils (%) (Auto) , Lymphocytes (%) (Auto) , Monocytes (%) (Auto) , Eosinophils (%) (Auto) , Basophils (%) (Auto) , Differential Total Cells Counted 100, Neutrophils % ( Manual) 89H, Lymphocytes % (Manual) 2L, Monocytes % (Manual) 4, Eosinophils % ( Manual) 2, Basophils % (Manual) 0, Band Neutrophils 3, Platelet Estimate IncreasedH, Platelet Morphology Normal, Hypochromasia 1+, Anisocytosis 1+, Sodium Level 143, Potassium Level 3.6, Chloride Level 109H, Carbon Dioxide Level 18L, Anion Gap 16H, Blood Urea Nitrogen 24H, Creatinine 1.5H, Estimat Glomerular Filtration Rate , Glucose Level 171H, Calcium Level 8.2L, Total Bilirubin 0.3, Aspartate Amino Transf (AST/SGOT) 12, Alanine Aminotransferase ( ALT/SGPT) 23, Alkaline Phosphatase 99, Total Protein 5.0L, Albumin 1.7L, Globulin 3.3, Albumin/Globulin Ratio 0.5L Height (Feet): 5 Height (Inches): 9.00 Weight (Pounds): 145 Objective WDWN NCAT (+) trach CTA RRR Soft Flat, GT with significant bilious drainage no edema JA CHAHAL Dec 14, 2016 22:40
[2016-12-15 00:55] VITALS: BP 112/71
--- NOTE | 2016-12-15 03:58 | Progress Note ---
DATE: 12/14/2016 CARDIOLOGY PROGRESS NOTE SUBJECTIVE: The patient had a fiberoptic bronchoscopy evaluation today at trach site. No active bleeding was noted. The patient remains on ventilator support. OBJECTIVE: VITAL SIGNS: Blood pressure 119/70, pulse 116, and respirations 22. LUNGS: Bilateral breath sounds with rhonchi. HEART: Regular rhythm and rate. Normal S1 and S2. ABDOMEN: Soft. Slight distention. EXTREMITIES: No edema. IMPRESSION: 1. carcinoma. 2. Anemia. 3. Gastrointestinal bleeding. 4. Respiratory failure. 5. Secondary sinus tachycardia. 6. Paroxysmal supraventricular tachycardia. PLAN: 1. Replace blood losses as needed. 2. Continue ventilator support. 3. Antimicrobial therapy. 4. Prognosis is poor. 5. No role for antiarrhythmics at this time other than beta-jony therapy. 6. G-tube with titration based on clinical parameters. Emli Duarte M.D. DR: WILLY JOB#: [id number] CC:
[2016-12-15 04:00] VITALS: BP 111/62
[2016-12-15] MEDS: Piperacillin/Tazobactam 3.375 GM in D5W 110 ML IVPB SCH ×3 (06:22→21:05)
[2016-12-15] MEDS: metroNIDAZOLE 500mg tab ORAL SCH ×2 (06:37→13:01)
[2016-12-15 08:00] VITALS: BP 124/61
--- NOTE | 2016-12-15 08:04 | Pulmonology Progress Note ---
Assessment/Plan Assessment/Plan IMPRESSION: 1. Sepsis. 2. Leukocytosis. 3. Protein-calorie malnutrition. 4. Hypercalcemia, 5. Acute on chronic renal failure. 6. Metabolic alkalosis, possibly contraction in nature. 7. Anemia. 8. Thrombocytosis. 9. Tracheostomy and gastrostomy tube. 10. Chronic respiratory failure. 11. tachyarrythmias 12. hypotension 13. GT site bleeding 14. esophageal ca with mets to lung PLAN exams edited and reviewed no substantial changes or improvement supportive care antibiotics noted; labs reviewed; wbc elevated no wean at present suction aspiration precautions prognosis poor oncology opinion called stabilize and dc ID clearance DNR possible hospice care medications/laboratory data/nursing notes reviewed in detail note reviewed and edited care discussed with RN and RT Subjective ROS Limited/Unobtainable: Yes Allergies: Coded Allergies: No Known Allergies (Unverified , 11/27/16) Subjective stable vital signs labs noted ENT appreciated daughter wishes noted Objective Last 24 Hour Vital Signs Date Time Temp Pulse Resp B/P Pulse Ox O2 Delivery O2 Flow Rate FiO2 12/15/16 06:40 94 23 30 12/15/16 05:06 97 23 30 12/15/16 04:12 89 12/15/16 04:00 98.0 104 20 111/62 99 Mechanical Ventilator 30 12/15/16 04:00 10.0 30 12/15/16 02:49 87 16 30 12/15/16 01:02 81 17 30 12/15/16 00:55 98.0 79 20 112/71 99 Mechanical Ventilator 30 12/15/16 00:00 10.0 30 12/14/16 23:48 85 12/14/16 23:48 85 12/14/16 23:16 80 17 30 12/14/16 21:59 100 130/75 12/14/16 21:25 100 24 30 12/14/16 20:00 10.0 30 12/14/16 19:59 98.9 100 18 130/75 99 Mechanical Ventilator 30 12/14/16 19:09 109 12/14/16 19:07 110 22 30 12/14/16 16:50 101 20 30 12/14/16 16:00 118 12/14/16 16:00 99.5 111 18 116/62 99 Mechanical Ventilator 30 12/14/16 16:00 30 12/14/16 15:00 98 20 30 12/14/16 12:40 99 22 30 12/14/16 12:00 30 12/14/16 12:00 98.2 106 25 131/71 99 Mechanical Ventilator 30 12/14/16 12:00 102 12/14/16 11:15 95 23 30 12/14/16 09:15 101 19 30 12/14/16 08:50 116 119/70 Intake and Output 12/14/16 12/15/16 19:00 07:00 Intake Total 2363.333 ml 720 ml Output Total 75 ml 700 ml Balance 2288.333 ml 20 ml Intake Free Water 200 ml IV Total 1393.333 ml Tube Feeding 770 ml 720 ml Output Urine Total 75 ml 400 ml Stool Total 300 ml Objective GENERAL: An ill-appearing male. reduced LOC HEENT: Negative. Pupils reactive. NECK: Supple. Trachea is midline. Carotids 2+. on vent; trach in place; no active bleeding LUNGS: Coarse breath sounds. Moderate air entry. no rhonchi or wheeze CARDIAC: S1 and S2. Overall, regular rhythm without murmurs, rubs, or gallops. rate control ABDOMEN: Soft and nontender. G-tube in place. no HSM no distention; EXTREMITIES: No cyanosis and no clubbing. some edema. NEUROLOGIC: Poorly responsive and withdrawn. reduced LOC reviewed and edited Current Medications Medications (Trade) Dose Ordered Sig/Judith Route PRN Reason Start Time Stop Time Status Last Admin Dose Admin Acetaminophen (Tylenol) 650 mg Q4H PRN GT Mild Pain/Temp > 100.5 12/08/16 19:00 01/07/17 18:59 12/13/16 12:35 Dextrose (D5W 1000ml) 1,000 ml @ 100 mls/hr Q10H IV 12/12/16 16:30 01/11/17 16:29 12/15/16 06:21 Epoetin Azael (Procrit (for non ESRD use)) 10,000 units MON-WED-TUE SUBQ 12/08/16 21:00 01/07/17 20:59 12/13/16 21:43 Hydralazine HCl (Apresoline) 5 mg Q6H PRN GT SBP>170 12/08/16 22:00 01/07/17 21:59 Lorazepam 1 mg 1 mg Q3H PRN IV For Anxiety 12/12/16 16:00 12/19/16 15:59 12/13/16 09:39 Metoprolol Tartrate 25 mg 25 mg Q12HR ORAL 12/13/16 11:00 01/12/17 10:59 12/14/16 21:59 Metronidazole (Flagyl) 500 mg EVERY 8 HOURS ORAL 12/13/16 14:00 12/20/16 23:59 12/15/16 06:37 Nystatin (Nystop Powder) 1 applic THREE TIMES A DAY TOPIC 12/09/16 09:00 01/08/17 08:59 12/14/16 17:33 Pantoprazole (Protonix) 40 mg DAILY IVP 12/09/16 09:00 01/08/17 08:59 12/14/16 08:50 Piperacillin Sod/ Tazobactam Sod/ Dextrose (Zosyn/D5W) 110 ml @ 27.5 mls/hr Q8HR IVPB 12/13/16 14:00 12/20/16 23:59 12/15/16 06:22 Potassium Chloride (KCl 10% 40mEq Oral solution) 40 meq DAILY NG 12/13/16 11:00 01/12/17 10:59 12/14/16 08:49 Vancomycin HCl 1 ea 1 ea DAILY PRN MISC . 12/14/16 11:00 01/13/17 10:59 Vancomycin HCl/ Dextrose (Vancomycin/D5W) 110 ml @ 110 mls/hr Q24H IVPB 12/15/16 12:00 12/20/16 11:59 RIZWAN SANDERS Dec 15, 2016 08:04
[2016-12-15] MEDS: Pantoprazole Inj IVP SCH (08:45)
[2016-12-15] MEDS: Metoprolol 25mg tab ORAL SCH ×2 (08:46→21:05)
[2016-12-15] MEDS: Nystatin Powder 100,000 units/gm 15gm TOPIC SCH ×3 (08:46→18:16)
[2016-12-15] MEDS: KCl 10% 40mEq/30ml liquid NG SCH (08:47)
--- NOTE | 2016-12-15 09:07 | General Progress Note ---
Assessment/Plan Problem List: (1) Hypercalcemia of malignancy ICD Codes: E83.52 - Hypercalcemia SNOMED: 28484193 (2) Esophageal adenocarcinoma ICD Codes: C15.9 - Malignant neoplasm of esophagus, unspecified SNOMED: 594006265 (3) Respiratory failure for > 28 days ICD Codes: J96.90 - Respiratory failure, unspecified, unspecified whether with hypoxia or hypercapnia SNOMED: 598744136 (4) Sepsis ICD Codes: A41.9 - Sepsis, unspecified organism SNOMED: 83009804 Status: stable, progressing Assessment/Plan monitor h/h transfuse prn abx follow up biopsy results vent support and resp rx feeds id follow up monitor for svt ivf/monitor renal fxn poor longterm prognosis d/w dtr- family wants pt DNR. aware of poor prognosis dc planning when cleared by all Subjective ROS Limited/Unobtainable: No Constitutional: Reports: malaise, weakness HEENT: Reports: no symptoms Cardiovascular: Reports: no symptoms Respiratory: Reports: cough Gastrointestinal/Abdominal: Reports: difficulty swallowing Genitourinary: Reports: no symptoms Neurologic/Psychiatric: Reports: no symptoms Endocrine: Reports: no symptoms Hematologic/Lymphatic: Reports: anemia Allergies: Coded Allergies: No Known Allergies (Unverified , 11/27/16) All Systems: reviewed and negative except above Subjective no bleeding. on the vent. no distress. denies pain. Objective Last 24 Hour Vital Signs Date Time Temp Pulse Resp B/P Pulse Ox O2 Delivery O2 Flow Rate FiO2 12/15/16 08:53 90 18 30 12/15/16 08:46 96 124/61 12/15/16 08:00 30 12/15/16 06:40 94 23 30 12/15/16 05:06 97 23 30 12/15/16 04:12 89 12/15/16 04:00 98.0 104 20 111/62 99 Mechanical Ventilator 30 12/15/16 04:00 10.0 30 12/15/16 02:49 87 16 30 12/15/16 01:02 81 17 30 12/15/16 00:55 98.0 79 20 112/71 99 Mechanical Ventilator 30 12/15/16 00:00 10.0 30 12/14/16 23:48 85 12/14/16 23:48 85 12/14/16 23:16 80 17 30 12/14/16 21:59 100 130/75 12/14/16 21:25 100 24 30 12/14/16 20:00 10.0 30 12/14/16 19:59 98.9 100 18 130/75 99 Mechanical Ventilator 30 12/14/16 19:09 109 12/14/16 19:07 110 22 30 12/14/16 16:50 101 20 30 12/14/16 16:00 118 12/14/16 16:00 99.5 111 18 116/62 99 Mechanical Ventilator 30 12/14/16 16:00 30 12/14/16 15:00 98 20 30 12/14/16 12:40 99 22 30 12/14/16 12:00 30 12/14/16 12:00 98.2 106 25 131/71 99 Mechanical Ventilator 30 12/14/16 12:00 102 12/14/16 11:15 95 23 30 12/14/16 09:15 101 19 30 Intake and Output 12/14/16 12/15/16 19:00 07:00 Intake Total 2363.333 ml 720 ml Output Total 75 ml 700 ml Balance 2288.333 ml 20 ml Intake Free Water 200 ml IV Total 1393.333 ml Tube Feeding 770 ml 720 ml Output Urine Total 75 ml 400 ml Stool Total 300 ml Height (Feet): 5 Height (Inches): 9.00 Weight (Pounds): 145 Objective General Appearance: WD/WN, alert, cachetic, thin Neck: supple Cardiovascular: regular rhythm Respiratory/Chest: chest wall non-tender, lungs clear, normal breath sounds, no respiratory distress, no accessory muscle use Abdomen: normal bowel sounds, non tender, soft, no organomegaly Edema: no edema noted Arm (L), no edema noted Arm (R), no edema noted Leg (L), no edema noted Leg (R), no edema noted Pedal (L), no edema noted Pedal (R), no edema noted Generalized Skin: normal pigmentation NANCY GARCIA Dec 15, 2016 09:07
[2016-12-15 10:39] LABS: MEAN CORPUSCULAR HEMOGLOBIN 28.4 PG (27.0-31.0); MEAN CORPUSCULAR HGB CONC 31.2 G/DL (32.0-36.0); MEAN CORPUSCULAR VOLUME 91 FL (80-99); MEAN PLATELET VOLUME 7.1 FL (6.5-10.1); PLATELET COUNT 525 K/UL (150-450); RED BLOOD COUNT 3.19 M/UL (4.70-6.10); RED CELL DISTRIBUTION WIDTH 17.9 % (11.6-14.8)
[2016-12-15 11:21] LABS: BAND NEUTROPHILS % (MANUAL) 2 % (0-8); EOSINOPHILS % (MANUAL) 3 % (0-3); LYMPHOCYTES % (MANUAL) 4 % (20-45); NEUTROPHILS % (MANUAL) 85 % (45-75); TOTAL CELLS COUNTED 100
[2016-12-15 11:22] LABS: ANISOCYTOSIS 2+; BASOPHILS % (MANUAL) 0 % (0-2); HYPOCHROMASIA 1+; PLATELET ESTIMATE INCREASED; PLATELET MORPHOLOGY NORMAL
[2016-12-15] MEDS: Vancomycin 500mg/D5W 110ml IVPB SCH ×2 (11:23)
[2016-12-15 12:00] VITALS: BP 119/56
[2016-12-15] MEDS: Acetaminophen 650mg/20.3ml GT PRN (14:40)
--- NOTE | 2016-12-15 15:14 | Infectious Diseases Prog Note ---
Assessment/Plan Assessment/Plan A 1. pneumonia with Pseudomonas & E. coli 2. pleural effusions 3. respiratory failure 4. Probable endocarditis 5. leucocytosis worsening 6. VRE colonization 7. GI bleeding 8. Esophageal cancer P 1. continue Zosyn &Vancomycin, stop Flagyl 2. poor prognosis Subjective ROS Limited/Unobtainable: Yes Respiratory: Reports: productive cough Musculoskeletal: Reports: pain Allergies: Coded Allergies: No Known Allergies (Unverified , 11/27/16) Objective Vital Signs Last 24 Hour Vital Signs Date Time Temp Pulse Resp B/P Pulse Ox O2 Delivery O2 Flow Rate FiO2 12/15/16 15:05 75 18 30 12/15/16 13:23 81 22 30 12/15/16 12:00 83 12/15/16 12:00 30 12/15/16 10:56 77 24 30 12/15/16 08:53 90 18 30 12/15/16 08:46 96 124/61 12/15/16 08:00 97.9 96 21 124/61 100 Mechanical Ventilator 30 12/15/16 08:00 96 12/15/16 08:00 30 12/15/16 06:40 94 23 30 12/15/16 05:06 97 23 30 12/15/16 04:12 89 12/15/16 04:00 98.0 104 20 111/62 99 Mechanical Ventilator 30 12/15/16 04:00 10.0 30 12/15/16 02:49 87 16 30 12/15/16 01:02 81 17 30 12/15/16 00:55 98.0 79 20 112/71 99 Mechanical Ventilator 30 12/15/16 00:00 10.0 30 12/14/16 23:48 85 12/14/16 23:48 85 12/14/16 23:16 80 17 30 12/14/16 21:59 100 130/75 12/14/16 21:25 100 24 30 12/14/16 20:00 10.0 30 12/14/16 19:59 98.9 100 18 130/75 99 Mechanical Ventilator 30 12/14/16 19:09 109 12/14/16 19:07 110 22 30 12/14/16 16:50 101 20 30 12/14/16 16:00 118 12/14/16 16:00 99.5 111 18 116/62 99 Mechanical Ventilator 30 12/14/16 16:00 30 Height (Feet): 5 Height (Inches): 9.00 Weight (Pounds): 145 HEENT: status post trach, other - bleeding in tracheostomy Respiratory/Chest: lungs clear, other - on ventilator Cardiovascular: normal rate Abdomen: soft, non tender, other - GT in place Extremities: no edema Neurologic/Psychiatric: alert, responsive Microbiology Date/Time Source Procedure Growth Status 12/14/16 12:06 Sputum Gram Stain - Final Resulted 12/14/16 12:06 Sputum Sputum Culture - Preliminary Resulted Laboratory Tests Test 12/15/16 09:30 White Blood Count 18.0 K/UL (4.8-10.8) H Red Blood Count 3.19 M/UL (4.70-6.10) L Hemoglobin 9.0 G/DL (14.2-18.0) L Hematocrit 29.0 % (42.0-52.0) L Mean Corpuscular Volume 91 FL (80-99) Mean Corpuscular Hemoglobin 28.4 PG (27.0-31.0) Mean Corpuscular Hemoglobin Concent 31.2 G/DL (32.0-36.0) L Red Cell Distribution Width 17.9 % (11.6-14.8) H Platelet Count 525 K/UL (150-450) H Mean Platelet Volume 7.1 FL (6.5-10.1) Neutrophils (%) (Auto) % (45.0-75.0) Lymphocytes (%) (Auto) % (20.0-45.0) Monocytes (%) (Auto) % (1.0-10.0) Eosinophils (%) (Auto) % (0.0-3.0) Basophils (%) (Auto) % (0.0-2.0) Differential Total Cells Counted 100 Neutrophils % (Manual) 85 % (45-75) H Lymphocytes % (Manual) 4 % (20-45) L Monocytes % (Manual) 6 % (1-10) Eosinophils % (Manual) 3 % (0-3) Basophils % (Manual) 0 % (0-2) Band Neutrophils 2 % (0-8) Platelet Estimate Increased H Platelet Morphology Normal Hypochromasia 1+ Anisocytosis 2+ Current Medications Medications (Trade) Dose Ordered Sig/Judith Route PRN Reason Start Time Stop Time Status Last Admin Dose Admin Acetaminophen (Tylenol) 650 mg Q4H PRN GT Mild Pain/Temp > 100.5 12/08/16 19:00 01/07/17 18:59 12/15/16 14:40 Dextrose (D5W 1000ml) 1,000 ml @ 100 mls/hr Q10H IV 12/12/16 16:30 01/11/17 16:29 12/15/16 06:21 Epoetin Azael (Procrit (for non ESRD use)) 10,000 units TUE-TUE-TUE SUBQ 12/08/16 21:00 01/07/17 20:59 12/13/16 21:43 Hydralazine HCl (Apresoline) 5 mg Q6H PRN GT SBP>170 12/08/16 22:00 01/07/17 21:59 Lorazepam 1 mg 1 mg Q3H PRN IV For Anxiety 12/12/16 16:00 12/19/16 15:59 12/13/16 09:39 Metoprolol Tartrate 25 mg 25 mg Q12HR ORAL 12/13/16 11:00 01/12/17 10:59 12/15/16 08:46 Metronidazole (Flagyl) 500 mg EVERY 8 HOURS ORAL 12/13/16 14:00 12/20/16 23:59 12/15/16 13:01 Nystatin (Nystop Powder) 1 applic THREE TIMES A DAY TOPIC 12/09/16 09:00 01/08/17 08:59 12/15/16 13:01 Pantoprazole (Protonix) 40 mg DAILY IVP 12/09/16 09:00 01/08/17 08:59 12/15/16 08:45 Piperacillin Sod/ Tazobactam Sod/ Dextrose (Zosyn/D5W) 110 ml @ 27.5 mls/hr Q8HR IVPB 12/13/16 14:00 12/20/16 23:59 12/15/16 13:01 Potassium Chloride (KCl 10% 40mEq Oral solution) 40 meq DAILY NG 12/13/16 11:00 01/12/17 10:59 12/15/16 08:47 Vancomycin HCl 1 ea 1 ea DAILY PRN MISC . 12/14/16 11:00 01/13/17 10:59 Vancomycin HCl/ Dextrose (Vancomycin/D5W) 110 ml @ 110 mls/hr Q24H IVPB 12/15/16 12:00 12/20/16 11:59 12/15/16 11:23 MELISSA BULLARD Dec 15, 2016 15:14
[2016-12-15 16:00] VITALS: BP 113/61
--- NOTE | 2016-12-15 17:37 | Pre-Procedure Note/Attestation ---
Pre-Procedure Note/Attestation Complete Prior to Procedure Planned Procedure: not applicable Procedure Narrative: EGD Indications for Procedure Pre-Operative Diagnosis: dysphagia, GIB Attestation I attest that I discussed the nature of the procedure; its benefits; risks and complications; and alternatives (and the risks and benefits of such alternatives ), prior to the procedure, with the patient (or the patient's legal sales and marketing representative). I attest that, if there was a reasonable possibility of needing a blood transfusion, the patient (or the patient's legal sales and marketing representative) was given the [facility] standardized written summary, pursuant to the [place]ee [place] Blood Safety Act ([place] Health and Safety Code # 1645, as amended). I attest that I re-evaluated the patient just prior to the surgery and that there has been no change in the patient's H&P, except as documented below: DELAYED ENTRY NOTE JA CHAHAL Dec 15, 2016 17:37
--- NOTE | 2016-12-15 17:39 | Endoscopy Procedure Note ---
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 F/U not recommended: Not Applicable If not recommended, why?: JA CHAHAL Dec 15, 2016 17:39
[2016-12-15] MEDS ORDERED: Sterile Water Irrig 1000ml IRRIG ONE (17:40)
--- NOTE | 2016-12-15 17:42 | Brief Operative Note ---
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
[2016-12-15 19:00] VITALS: BP 127/58
[2016-12-15] MEDS: Epogen (for non ESRD use) SUBQ SCH (21:05)
--- NOTE | 2016-12-15 21:18 | General Progress Note ---
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 - Resp failure / Trach - Trach site bleed - Dysphagia/PEG - Azotemia - Terminal Px Recommendations - transfuse PRN - IVF - PPI - Oncology opinion - agree with hospice care Subjective Allergies: Coded Allergies: No Known Allergies (Unverified , 11/27/16) Subjective awake, calm d/w at bedside TF held intermittently due to GT site leaks Objective Last 24 Hour Vital Signs Date Time Temp Pulse Resp B/P Pulse Ox O2 Delivery O2 Flow Rate FiO2 12/15/16 21:05 72 127/58 12/15/16 20:00 30 12/15/16 19:17 72 18 30 12/15/16 19:00 97.3 85 20 127/58 99 Mechanical Ventilator 30 12/15/16 16:57 72 18 30 12/15/16 16:00 98.2 100 18 113/61 95 Mechanical Ventilator 30 12/15/16 16:00 97 12/15/16 16:00 30 12/15/16 15:05 75 18 30 12/15/16 13:23 81 22 30 12/15/16 12:00 83 12/15/16 12:00 30 12/15/16 12:00 97.7 89 23 119/56 98 Mechanical Ventilator 30 12/15/16 10:56 77 24 30 12/15/16 08:53 90 18 30 12/15/16 08:46 96 124/61 12/15/16 08:00 97.9 96 21 124/61 100 Mechanical Ventilator 30 12/15/16 08:00 96 12/15/16 08:00 30 12/15/16 06:40 94 23 30 12/15/16 05:06 97 23 30 12/15/16 04:12 89 12/15/16 04:00 98.0 104 20 111/62 99 Mechanical Ventilator 30 12/15/16 04:00 10.0 30 12/15/16 02:49 87 16 30 12/15/16 01:02 81 17 30 12/15/16 00:55 98.0 79 20 112/71 99 Mechanical Ventilator 30 12/15/16 00:00 10.0 30 12/14/16 23:48 85 12/14/16 23:48 85 12/14/16 23:16 80 17 30 12/14/16 21:59 100 130/75 12/14/16 21:25 100 24 30 Intake and Output 12/14/16 12/15/16 19:00 07:00 Intake Total 2363.333 ml 720 ml Output Total 75 ml 700 ml Balance 2288.333 ml 20 ml Intake Free Water 200 ml IV Total 1393.333 ml Tube Feeding 770 ml 720 ml Output Urine Total 75 ml 400 ml Stool Total 300 ml Laboratory Tests 12/15/16 09:30: White Blood Count 18.0H, Red Blood Count 3.19L, Hemoglobin 9.0L, Hematocrit 29.0L, Mean Corpuscular Volume 91, Mean Corpuscular Hemoglobin 28.4, Mean Corpuscular Hemoglobin Concent 31.2L, Red Cell Distribution Width 17.9H, Platelet Count 525H, Mean Platelet Volume 7.1, Neutrophils (%) (Auto) , Lymphocytes (%) (Auto) , Monocytes (%) (Auto) , Eosinophils (%) (Auto) , Basophils (%) (Auto) , Differential Total Cells Counted 100, Neutrophils % ( Manual) 85H, Lymphocytes % (Manual) 4L, Monocytes % (Manual) 6, Eosinophils % ( Manual) 3, Basophils % (Manual) 0, Band Neutrophils 2, Platelet Estimate IncreasedH, Platelet Morphology Normal, Hypochromasia 1+, Anisocytosis 2+ Height (Feet): 5 Height (Inches): 9.00 Weight (Pounds): 145 Objective WDWN NCAT (+) trach CTA RRR Soft Flat, GT with significant bilious drainage no edema JA CHAHAL Dec 15, 2016 21:18
--- NOTE | 2016-12-15 21:48 | Consultation ---
DATE OF CONSULTATION: 12/15/2016 HEMATOLOGY/ONCOLOGY CONSULTATION CONSULTING PHYSICIAN: Javy Crow M.D. REFERRING PHYSICIAN: Kev Ayala M.D. REASON FOR CONSULTATION: History of esophageal cancer and multiple pulmonary nodules. HISTORY OF PRESENT ILLNESS: The patient is an unfortunate debilitated with a trach as well as G-tube with difficulty communicating 76-year-old gentleman. The patient's history has been obtained apparently from review of all medical records as well as my discussion with Brunilda Meza at [phone]. The patient's daughter does not complain of the patient's account. Per my discussion with Brunilda, apparently the patient was diagnosed with esophageal versus throat cancer approximately two years ago. The patient was not a surgical candidate at that time. The patient did receive chemotherapy by itself for some months. Subsequently a year later, the patient's disease progressed and the patient was treated with another round of chemotherapy under the care of Dr. Billy at [facility]. Shortly after chemotherapy, the patient got quite sick and was admitted to the hospital and did undergo tracheostomy. The patient at this point also has a G-tube. The patient currently presented to the hospital with acute episode of respiratory failure and hypotension, concerning for possibility of sepsis and pneumonia. The patient also has significant drop in his hemoglobin, has been followed up with Gastroenterology team. During hospitalization, the patient has undergone a CT scan of the neck, chest, abdomen, and pelvis without contrast. The CT of note has been noncontrast since the patient does have renal insufficiency with creatinine up to 2. The patient's CT revealed evidence of multiple pulmonary nodules as well as a large cavitary lesion in the lung. There is also evidence of abdominal adenopathy. Finally, this Hematology/Oncology consultation has been requested for further evaluation. PAST MEDICAL HISTORY: History of apparent esophageal cancer; history of respiratory failure, status post tracheostomy; history of dysphagia, status post gastrostomy tube placement; history of renal failure; history of urolithiasis; history of chronic anemia; history of questionable GI bleed; history of cervical myelopathy; history of benign prostatic hyperplasia; chronic obstructive pulmonary disease; and hypertension. MEDICATIONS: Per electronic medical records. ALLERGIES: Per electronic medical records. FAMILY HISTORY: Unable to obtain from the patient. SOCIAL HISTORY: The patient apparently has had an extensive history of tobacco use and questionable history of alcohol use. REVIEW OF SYSTEMS: At this point in time unable to obtain from the patient. The patient has tracheostomy and very drowsy. Unable to give me any type of history. The patient is somewhat confused even upon arousal. PHYSICAL EXAMINATION: GENERAL: The patient is an elderly, debilitated gentleman who has trach and has a G-tube in place. VITAL SIGNS: Temperature is 98 degrees, pulse of 104, breathing at 20, and blood pressure 111/62. HEENT: Sclerae anicteric. CHEST: Rhonchi. Coarse bilaterally. CARDIAC: Regular rate and rhythm. ABDOMEN: Soft. There is a G-tube in place with some oozing around the tube. EXTREMITIES: Evidence of significant edema on all four extremities, more on the bilateral lower extremity and left upper extremity. : The patient has some scrotal edema. NECK: In the anterior neck, trach in place. LABORATORY AND DIAGNOSTIC DATA: As noted above in regard to the patient's CT report. Potassium 3.6, sodium 143, calcium at 1.5, and glucose of 171. White count of 20 with a hemoglobin of 9.1 and platelet count of 525,000. ASSESSMENT AND PLAN: 1. History of esophageal cancer based on the medical records at [facility] as well as my discussion with the patient's daughter. The patient is status post chemotherapy in multiple locations in the past. At this time, the patient with multiple pulmonary nodules, abdominal adenopathy, as well as a chronic mass within the chest. The patient has been treated for possibility of sepsis and pneumonia per Infectious Disease. I had an extensive discussion with the patient's daughter and I told her that at this point in time, I do not have access to the patient's pathology or the past treatment. However, based on his history, my recommendations were to try to obtain the records from the doctor who had been treating the patient in the past. Assuming the patient has had a history of esophageal cancer with metastatic disease, at this point in time the patient's overall status is extremely poor. The patient does have significant renal insufficiency. The patient is completely bedbound with no type of performance. He is completely dependent in terms of activities of daily life, the patient's trach as well as PEG. The patient is not a candidate for any type of chemotherapy or side effects of chemotherapy at this point in time. This has been in detail discussed with the patient's daughter. I recommended her two options, one would be for the patient to continue current measures in terms of improving the issues with infections including sepsis, pneumonia, and other issues, and if the patient's overall prognosis has improved, the patient at some point might be a candidate for further therapy. This is most likely going to be very unlikely, however, given the patient's current status. However, if that does happen, the patient might be a candidate for some other type of medications. Obviously, we need to obtain the patient's records from [facility]. I will ask the daughter to do so. The other option I have given to the patient's daughter is the option of hospice care. In fact, the patient does have metastatic disease based on the imaging studies. Assuming he did have history of esophageal cancer, given his overall performance status, with renal insufficiency, respiratory failure, need for G-tube and PEG, consideration for hospice care can be made. 2. Anemia. After the patient's overall status has improved, the patient's full anemia as well as leukocytosis workup, we will hold off on any extensive leukocytosis evaluation. 3. Thrombocytosis, most likely reactive. However, this needs to be evaluated after overall status is improved. Consideration for evaluation for myeloproliferative disease, evaluating the patient for JAK2 gene, MPL gene, calreticulin gene, and PCR for BCR/ABL will be made. 4. Questionable gastrointestinal bleed, being followed by Gastroenterology and respiratory failure, being followed by Dr. Ayala. 5. Chronic lung mass. I will defer this to Dr. Ayala in terms of need for proceeding with bronchoscopy ruling other etiology such as the tuberculosis. Javy Crow M.D. DR: LANCE JOB#: [id number] CC:
[2016-12-16] VITALS: BP 108/57
--- NOTE | 2016-12-16 01:28 | Progress Note ---
DATE: 12/15/2016 CARDIOLOGY PROGRESS NOTE SUBJECTIVE: The patient was seen by oncologist. 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 The patient's monitored rhythm is sinus and sinus tachycardia and atrial ectopies are noted, however, there is no supraventricular tachycardia seen. OBJECTIVE: LUNGS: Bilateral breath sounds with rhonchi. HEART: Regular rhythm. Rapid rate. Normal S1 and S2. ABDOMEN: Soft and distended. Positive edema. LABORATORY DATA: White count 18 and hemoglobin 9. Potassium 3.6, BUN 24, and creatinine 1.5. Albumin 1.7. IMPRESSION: 1. Metastatic carcinoma. 2. Recovering renal failure. 3. Paroxysmal supraventricular tachycardia. 4. Hypomagnesemia. 5. Respiratory failure. 6. Secondary sinus tachycardia. 7. Paroxysmal atrial ectopy. PLAN: 1. Magnesium replacement. 2. Ventilator support. 3. Hydration. 4. Avoid pressors. 5. beta agonist. 6. Continue beta-blockade. 7. No role for additional antiarrhythmics at this time. Emil Duarte M.D. DR: CECILIA JOB#: [id number] CC:
[2016-12-16 04:00] VITALS: BP 106/71
[2016-12-16] MEDS: Piperacillin/Tazobactam 3.375 GM in D5W 110 ML IVPB SCH (05:00)
[2016-12-16 06:15] LABS: MEAN CORPUSCULAR HEMOGLOBIN 28.5 PG (27.0-31.0); MEAN CORPUSCULAR VOLUME 92 FL (80-99); MEAN PLATELET VOLUME 6.8 FL (6.5-10.1); PLATELET COUNT 520 K/UL (150-450); RED BLOOD COUNT 3.34 M/UL (4.70-6.10); RED CELL DISTRIBUTION WIDTH 17.8 % (11.6-14.8); WHITE BLOOD COUNT 17.8 K/UL (4.8-10.8)
[2016-12-16 08:00] VITALS: BP 124/82
--- NOTE | 2016-12-16 08:30 | Infectious Diseases Prog Note ---
Assessment/Plan Assessment/Plan A 1. pneumonia with Pseudomonas & E. coli 2. pleural effusions 3. respiratory failure 4. Probable endocarditis 5. leucocytosis worsening 6. VRE colonization 7. GI bleeding 8. Esophageal cancer 9. necrotic lung lesion P 1. continue Zosyn &Vancomycin, 2. poor prognosis Subjective ROS Limited/Unobtainable: Yes Musculoskeletal: Reports: pain Allergies: Coded Allergies: No Known Allergies (Unverified , 11/27/16) Objective Vital Signs Last 24 Hour Vital Signs Date Time Temp Pulse Resp B/P Pulse Ox O2 Delivery O2 Flow Rate FiO2 12/16/16 07:00 109 26 30 12/16/16 05:29 117 27 30 12/16/16 04:00 97.5 108 24 106/71 99 Mechanical Ventilator 30 12/16/16 04:00 100 12/16/16 04:00 30 12/16/16 03:22 92 19 30 12/16/16 01:23 81 21 30 12/16/16 00:00 97.4 81 20 108/57 100 Mechanical Ventilator 30 12/16/16 00:00 80 12/16/16 00:00 30 12/15/16 23:07 74 21 30 12/15/16 21:29 70 18 30 12/15/16 21:05 72 127/58 12/15/16 20:00 30 12/15/16 20:00 88 12/15/16 19:17 72 18 30 12/15/16 19:00 97.3 85 20 127/58 99 Mechanical Ventilator 30 12/15/16 16:57 72 18 30 12/15/16 16:00 98.2 100 18 113/61 95 Mechanical Ventilator 30 12/15/16 16:00 97 12/15/16 16:00 30 12/15/16 15:05 75 18 30 12/15/16 13:23 81 22 30 12/15/16 12:00 83 12/15/16 12:00 30 12/15/16 12:00 97.7 89 23 119/56 98 Mechanical Ventilator 30 12/15/16 10:56 77 24 30 12/15/16 08:53 90 18 30 12/15/16 08:46 96 124/61 Height (Feet): 5 Height (Inches): 9.00 Weight (Pounds): 145 HEENT: status post trach Respiratory/Chest: rhonchi - bilaterally, other - on ventilator Cardiovascular: tachycardia, other - left Portacath Abdomen: other - rectal tube, GT Extremities: no edema Neurologic/Psychiatric: alert, responsive Microbiology Date/Time Source Procedure Growth Status 12/14/16 12:06 Sputum Gram Stain - Final Resulted 12/14/16 12:06 Sputum Culture - Preliminary Gram Negative Bacillus 1 Gram Negative Bacillus 2 Resulted Laboratory Tests Test 12/15/16 09:30 12/16/16 03:55 White Blood Count 18.0 K/UL (4.8-10.8) H 17.8 K/UL (4.8-10.8) H Red Blood Count 3.19 M/UL (4.70-6.10) L 3.34 M/UL (4.70-6.10) L Hemoglobin 9.0 G/DL (14.2-18.0) L 9.5 G/DL (14.2-18.0) L Hematocrit 29.0 % (42.0-52.0) L 30.7 % (42.0-52.0) L Mean Corpuscular Volume 91 FL (80-99) 92 FL (80-99) Mean Corpuscular Hemoglobin 28.4 PG (27.0-31.0) 28.5 PG (27.0-31.0) Mean Corpuscular Hemoglobin Concent 31.2 G/DL (32.0-36.0) L 31.0 G/DL (32.0-36.0) L Red Cell Distribution Width 17.9 % (11.6-14.8) H 17.8 % (11.6-14.8) H Platelet Count 525 K/UL (150-450) H 520 K/UL (150-450) H Mean Platelet Volume 7.1 FL (6.5-10.1) 6.8 FL (6.5-10.1) Neutrophils (%) (Auto) % (45.0-75.0) % (45.0-75.0) Lymphocytes (%) (Auto) % (20.0-45.0) % (20.0-45.0) Monocytes (%) (Auto) % (1.0-10.0) % (1.0-10.0) Eosinophils (%) (Auto) % (0.0-3.0) % (0.0-3.0) Basophils (%) (Auto) % (0.0-2.0) % (0.0-2.0) Differential Total Cells Counted 100 Neutrophils % (Manual) 85 % (45-75) H Pending Lymphocytes % (Manual) 4 % (20-45) L Pending Monocytes % (Manual) 6 % (1-10) Eosinophils % (Manual) 3 % (0-3) Basophils % (Manual) 0 % (0-2) Band Neutrophils 2 % (0-8) Platelet Estimate Increased H Pending Platelet Morphology Normal Pending Hypochromasia 1+ Anisocytosis 2+ Current Medications Medications (Trade) Dose Ordered Sig/Judith Route PRN Reason Start Time Stop Time Status Last Admin Dose Admin Acetaminophen (Tylenol) 650 mg Q4H PRN GT Mild Pain/Temp > 100.5 12/08/16 19:00 01/07/17 18:59 12/15/16 14:40 Dextrose (D5W 1000ml) 1,000 ml @ 100 mls/hr Q10H IV 12/12/16 16:30 01/11/17 16:29 12/15/16 23:47 Epoetin Azael (Procrit (for non ESRD use)) 10,000 units TUE-TUE-TUE SUBQ 12/08/16 21:00 01/07/17 20:59 12/15/16 21:05 Hydralazine HCl (Apresoline) 5 mg Q6H PRN GT SBP>170 12/08/16 22:00 01/07/17 21:59 Lorazepam 1 mg 1 mg Q3H PRN IV For Anxiety 12/12/16 16:00 12/19/16 15:59 12/13/16 09:39 Metoprolol Tartrate 25 mg 25 mg Q12HR ORAL 12/13/16 11:00 01/12/17 10:59 12/15/16 21:05 Nystatin (Nystop Powder) 1 applic THREE TIMES A DAY TOPIC 12/09/16 09:00 01/08/17 08:59 12/15/16 18:16 Pantoprazole (Protonix) 40 mg DAILY IVP 12/09/16 09:00 01/08/17 08:59 12/15/16 08:45 Piperacillin Sod/ Tazobactam Sod/ Dextrose (Zosyn/D5W) 110 ml @ 27.5 mls/hr Q8HR IVPB 12/13/16 14:00 12/20/16 23:59 12/16/16 05:00 Potassium Chloride (KCl 10% 40mEq Oral solution) 40 meq DAILY NG 12/13/16 11:00 01/12/17 10:59 12/15/16 08:47 Vancomycin HCl 1 ea 1 ea DAILY PRN MISC . 12/14/16 11:00 01/13/17 10:59 Vancomycin HCl/ Dextrose (Vancomycin/D5W) 110 ml @ 110 mls/hr Q24H IVPB 12/15/16 12:00 12/20/16 11:59 12/15/16 11:23 MELISSA BULLARD Dec 16, 2016 08:30
[2016-12-16 08:33] VITALS: BP 124/82
[2016-12-16] MEDS: Pantoprazole Inj IVP SCH (08:33)
[2016-12-16] MEDS: Nystatin Powder 100,000 units/gm 15gm TOPIC SCH (08:33)
[2016-12-16] MEDS: KCl 10% 40mEq/30ml liquid NG SCH (08:33)
[2016-12-16] MEDS: Metoprolol 25mg tab ORAL SCH (08:33)
--- NOTE | 2016-12-16 08:49 | Pulmonology Progress Note ---
Assessment/Plan Assessment/Plan IMPRESSION: 1. Sepsis. 2. Leukocytosis. 3. Protein-calorie malnutrition. 4. Hypercalcemia, 5. Acute on chronic renal failure. 6. Metabolic alkalosis, possibly contraction in nature. 7. Anemia. 8. Thrombocytosis. 9. Tracheostomy and gastrostomy tube. 10. Chronic respiratory failure. 11. tachyarrythmias 12. hypotension 13. GT site bleeding 14. esophageal ca with mets to lung PLAN exams edited and reviewed no substantial changes or improvement supportive care antibiotics noted; Vanco and zosyn labs reviewed; wbc elevated and not improved no wean at present suction aspiration precautions prognosis poor oncology opinion noted stabilize and dc ID clearance reviewed DNR possible hospice care if family agrees dc to snf medications/laboratory data/nursing notes reviewed in detail note reviewed and edited care discussed with RN and RT Subjective ROS Limited/Unobtainable: Yes Allergies: Coded Allergies: No Known Allergies (Unverified , 11/27/16) Subjective stable vital signs labs noted ENT appreciated daughter wishes noted care d/w oncology in detail Objective Last 24 Hour Vital Signs Date Time Temp Pulse Resp B/P Pulse Ox O2 Delivery O2 Flow Rate FiO2 12/16/16 08:33 117 124/82 12/16/16 07:00 109 26 30 12/16/16 05:29 117 27 30 12/16/16 04:00 97.5 108 24 106/71 99 Mechanical Ventilator 30 12/16/16 04:00 100 12/16/16 04:00 30 12/16/16 03:22 92 19 30 12/16/16 01:23 81 21 30 12/16/16 00:00 97.4 81 20 108/57 100 Mechanical Ventilator 30 12/16/16 00:00 80 12/16/16 00:00 30 12/15/16 23:07 74 21 30 12/15/16 21:29 70 18 30 12/15/16 21:05 72 127/58 12/15/16 20:00 30 12/15/16 20:00 88 12/15/16 19:17 72 18 30 12/15/16 19:00 97.3 85 20 127/58 99 Mechanical Ventilator 30 12/15/16 16:57 72 18 30 12/15/16 16:00 98.2 100 18 113/61 95 Mechanical Ventilator 30 12/15/16 16:00 97 12/15/16 16:00 30 12/15/16 15:05 75 18 30 12/15/16 13:23 81 22 30 12/15/16 12:00 83 12/15/16 12:00 30 12/15/16 12:00 97.7 89 23 119/56 98 Mechanical Ventilator 30 12/15/16 10:56 77 24 30 12/15/16 08:53 90 18 30 Intake and Output 12/15/16 12/16/16 19:00 07:00 Intake Total 1650.0 ml 1833.0 ml Output Total 100 ml 200 ml Balance 1550.0 ml 1633.0 ml Intake Free Water 200 ml 100 ml IV Total 730.0 ml 1133.0 ml Tube Feeding 720 ml 600 ml Output Urine Total 100 ml 200 ml Objective GENERAL: An ill-appearing male. reduced LOC HEENT: Negative. Pupils reactive. NECK: Supple. Trachea is midline. Carotids 2+. on vent; trach in place; no active bleeding LUNGS: Coarse breath sounds. Moderate air entry. no rhonchi or wheeze CARDIAC: S1 and S2. Overall, regular rhythm without murmurs, rubs, or gallops. rate control ABDOMEN: Soft and nontender. G-tube in place. no HSM no distention; EXTREMITIES: No cyanosis and no clubbing. some edema. NEUROLOGIC: Poorly responsive and withdrawn. reduced LOC reviewed and edited Microbiology Date/Time Source Procedure Growth Status 12/14/16 12:06 Sputum Gram Stain - Final Resulted 12/14/16 12:06 Sputum Culture - Preliminary Gram Negative Bacillus 1 Gram Negative Bacillus 2 Resulted Laboratory Tests 12/15/16 09:30: White Blood Count 18.0H, Red Blood Count 3.19L, Hemoglobin 9.0L, Hematocrit 29.0L, Mean Corpuscular Volume 91, Mean Corpuscular Hemoglobin 28.4, Mean Corpuscular Hemoglobin Concent 31.2L, Red Cell Distribution Width 17.9H, Platelet Count 525H, Mean Platelet Volume 7.1, Neutrophils (%) (Auto) , Lymphocytes (%) (Auto) , Monocytes (%) (Auto) , Eosinophils (%) (Auto) , Basophils (%) (Auto) , Differential Total Cells Counted 100, Neutrophils % ( Manual) 85H, Lymphocytes % (Manual) 4L, Monocytes % (Manual) 6, Eosinophils % ( Manual) 3, Basophils % (Manual) 0, Band Neutrophils 2, Platelet Estimate IncreasedH, Platelet Morphology Normal, Hypochromasia 1+, Anisocytosis 2+ 12/16/16 03:55: White Blood Count 17.8H, Red Blood Count 3.34L, Hemoglobin 9.5L, Hematocrit 30.7L, Mean Corpuscular Volume 92, Mean Corpuscular Hemoglobin 28.5, Mean Corpuscular Hemoglobin Concent 31.0L, Red Cell Distribution Width 17.8H, Platelet Count 520H, Mean Platelet Volume 6.8, Neutrophils (%) (Auto) , Lymphocytes (%) (Auto) , Monocytes (%) (Auto) , Eosinophils (%) (Auto) , Basophils (%) (Auto) , Neutrophils % (Manual) [Pending], Lymphocytes % (Manual) [Pending], Platelet Estimate [Pending], Platelet Morphology [Pending] Current Medications Medications (Trade) Dose Ordered Sig/Judith Route PRN Reason Start Time Stop Time Status Last Admin Dose Admin Acetaminophen (Tylenol) 650 mg Q4H PRN GT Mild Pain/Temp > 100.5 12/08/16 19:00 01/07/17 18:59 12/15/16 14:40 Dextrose (D5W 1000ml) 1,000 ml @ 100 mls/hr Q10H IV 12/12/16 16:30 01/11/17 16:29 12/15/16 23:47 Epoetin Azael (Procrit (for non ESRD use)) 10,000 units TUE-TUE-TUE SUBQ 12/08/16 21:00 01/07/17 20:59 12/15/16 21:05 Hydralazine HCl (Apresoline) 5 mg Q6H PRN GT SBP>170 12/08/16 22:00 01/07/17 21:59 Lorazepam 1 mg 1 mg Q3H PRN IV For Anxiety 12/12/16 16:00 12/19/16 15:59 12/13/16 09:39 Metoprolol Tartrate 25 mg 25 mg Q12HR ORAL 12/13/16 11:00 01/12/17 10:59 12/16/16 08:33 Nystatin (Nystop Powder) 1 applic THREE TIMES A DAY TOPIC 12/09/16 09:00 01/08/17 08:59 12/16/16 08:33 Pantoprazole (Protonix) 40 mg DAILY IVP 12/09/16 09:00 01/08/17 08:59 12/16/16 08:33 Piperacillin Sod/ Tazobactam Sod/ Dextrose (Zosyn/D5W) 110 ml @ 27.5 mls/hr Q8HR IVPB 12/13/16 14:00 12/20/16 23:59 12/16/16 05:00 Potassium Chloride (KCl 10% 40mEq Oral solution) 40 meq DAILY NG 12/13/16 11:00 01/12/17 10:59 12/16/16 08:33 Vancomycin HCl 1 ea 1 ea DAILY PRN MISC . 12/14/16 11:00 01/13/17 10:59 Vancomycin HCl/ Dextrose (Vancomycin/D5W) 110 ml @ 110 mls/hr Q24H IVPB 12/15/16 12:00 12/20/16 11:59 12/15/16 11:23 RIZWAN SANDERS Dec 16, 2016 08:49
[2016-12-16 09:14] LABS: BAND NEUTROPHILS % (MANUAL) 1 % (0-8); EOSINOPHILS % (MANUAL) 1 % (0-3); LYMPHOCYTES % (MANUAL) 6 % (20-45); NEUTROPHILS % (MANUAL) 87 % (45-75); TOTAL CELLS COUNTED 100
[2016-12-16 09:15] LABS: ANISOCYTOSIS 1+; BASOPHILS % (MANUAL) 0 % (0-2); HYPOCHROMASIA 1+; PLATELET ESTIMATE INCREASED; PLATELET MORPHOLOGY NORMAL
--- NOTE | 2016-12-16 09:29 | General Progress Note ---
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 - Resp failure / Trach - Trach site bleed - Dysphagia/PEG - Azotemia - Terminal Px Recommendations - transfuse PRN - IVF - PPI - agree with hospice care Subjective Allergies: Coded Allergies: No Known Allergies (Unverified , 11/27/16) Subjective awake, calm on TF no events overnight Objective Last 24 Hour Vital Signs Date Time Temp Pulse Resp B/P Pulse Ox O2 Delivery O2 Flow Rate FiO2 12/16/16 08:51 118 27 30 12/16/16 08:33 117 124/82 12/16/16 08:00 30 12/16/16 08:00 111 12/16/16 07:00 109 26 30 12/16/16 05:29 117 27 30 12/16/16 04:00 97.5 108 24 106/71 99 Mechanical Ventilator 30 12/16/16 04:00 100 12/16/16 04:00 30 12/16/16 03:22 92 19 30 12/16/16 01:23 81 21 30 12/16/16 00:00 97.4 81 20 108/57 100 Mechanical Ventilator 30 12/16/16 00:00 80 12/16/16 00:00 30 12/15/16 23:07 74 21 30 12/15/16 21:29 70 18 30 12/15/16 21:05 72 127/58 12/15/16 20:00 30 12/15/16 20:00 88 12/15/16 19:17 72 18 30 12/15/16 19:00 97.3 85 20 127/58 99 Mechanical Ventilator 30 12/15/16 16:57 72 18 30 12/15/16 16:00 98.2 100 18 113/61 95 Mechanical Ventilator 30 12/15/16 16:00 97 12/15/16 16:00 30 12/15/16 15:05 75 18 30 12/15/16 13:23 81 22 30 12/15/16 12:00 83 12/15/16 12:00 30 12/15/16 12:00 97.7 89 23 119/56 98 Mechanical Ventilator 30 12/15/16 10:56 77 24 30 Intake and Output 12/15/16 12/16/16 19:00 07:00 Intake Total 1650.0 ml 1833.0 ml Output Total 100 ml 200 ml Balance 1550.0 ml 1633.0 ml Intake Free Water 200 ml 100 ml IV Total 730.0 ml 1133.0 ml Tube Feeding 720 ml 600 ml Output Urine Total 100 ml 200 ml Laboratory Tests 12/15/16 09:30: White Blood Count 18.0H, Red Blood Count 3.19L, Hemoglobin 9.0L, Hematocrit 29.0L, Mean Corpuscular Volume 91, Mean Corpuscular Hemoglobin 28.4, Mean Corpuscular Hemoglobin Concent 31.2L, Red Cell Distribution Width 17.9H, Platelet Count 525H, Mean Platelet Volume 7.1, Neutrophils (%) (Auto) , Lymphocytes (%) (Auto) , Monocytes (%) (Auto) , Eosinophils (%) (Auto) , Basophils (%) (Auto) , Differential Total Cells Counted 100, Neutrophils % ( Manual) 85H, Lymphocytes % (Manual) 4L, Monocytes % (Manual) 6, Eosinophils % ( Manual) 3, Basophils % (Manual) 0, Band Neutrophils 2, Platelet Estimate IncreasedH, Platelet Morphology Normal, Hypochromasia 1+, Anisocytosis 2+ 12/16/16 03:55: White Blood Count 17.8H, Red Blood Count 3.34L, Hemoglobin 9.5L, Hematocrit 30.7L, Mean Corpuscular Volume 92, Mean Corpuscular Hemoglobin 28.5, Mean Corpuscular Hemoglobin Concent 31.0L, Red Cell Distribution Width 17.8H, Platelet Count 520H, Mean Platelet Volume 6.8, Neutrophils (%) (Auto) , Lymphocytes (%) (Auto) , Monocytes (%) (Auto) , Eosinophils (%) (Auto) , Basophils (%) (Auto) , Differential Total Cells Counted 100, Neutrophils % ( Manual) 87H, Lymphocytes % (Manual) 6L, Monocytes % (Manual) 5, Eosinophils % ( Manual) 1, Basophils % (Manual) 0, Band Neutrophils 1, Platelet Estimate IncreasedH, Platelet Morphology Normal, Hypochromasia 1+, Anisocytosis 1+ Height (Feet): 5 Height (Inches): 9.00 Weight (Pounds): 145 Objective WDWN NCAT (+) trach CTA RRR Soft Flat, GT with mild TF leak no edema JA CHAHAL Dec 16, 2016 09:29
[2016-12-16] MEDS: Vancomycin 500mg/D5W 110ml IVPB SCH ×2 (11:34)
[2016-12-16] MEDS ORDERED: Tubing Blood Filter IV ONE (13:16)
[2016-12-16] MEDS ORDERED: Tubing IV Secondary IV ONE (13:16)
[2016-12-16] MEDS ORDERED: NS 275ml ONE (13:16)
--- NOTE | 2016-12-17 01:58 | Progress Note ---
DATE: 12/16/2016 CARDIOLOGY PROGRESS NOTE SUBJECTIVE: The patient's condition remained stable and unchanged, but prognosis remains poor, in fact pre-terminal. OBJECTIVE: VITAL SIGNS: Blood pressure of 124/82, pulse 117, and respirations 26. LUNGS: Bilateral breath sounds with rhonchi. HEART: Regular rhythm. Rapid rate. Normal S1, S2. ABDOMEN: Soft. EXTREMITIES: Dependent edema. LABORATORY DATA: White count 17.8 and hemoglobin 9.5. Chemistry pending. IMPRESSION: 1. Paroxysmal supraventricular tachycardia. 2. Secondary sinus tachycardia. 3. Metastatic squamous cell of the esophagus. 4. Respiratory failure with tracheostomy. 5. Dysphagia with gastrostomy. PLAN: 1. Transfer to subacute facility. 2. Possible hospice care. 3. For now continue beta-jony. 4. Periodic diuresis titration based on clinical parameters will be required. Emil Duarte M.D. DR: SALLIE JOB#: [id number] CC:
[2016-12-17] MEDS ORDERED: VANCOMYCIN1 GM/2502 IVPB (06:38)
[2016-12-17] MEDS ORDERED: ATIVAN0.5 MG ORAL (06:38)
[2016-12-17] MEDS ORDERED: ZOSYN 3.373.375 GM/1 IVPB (06:38)
[2016-12-17] MEDS ORDERED: CENTRUM COMPLE1 EAC1 GT (06:38)
[2016-12-17] MEDS ORDERED: ALBUTEROL2.5 MG/3 M INH (06:38)
[2016-12-17] MEDS ORDERED: CHLORHEXIDINE473 ML MM (06:38)
[2016-12-17] MEDS ORDERED: HYDRALAZINE HCL10 MG GT (06:38)
[2016-12-17] MEDS ORDERED: PROTONIX40 MG GT (06:38)
--- NOTE | 2016-12-18 12:11 | Discharge Summary ---
Discharge Summary Hospital Course Date of Admission Nov 27, 2016 at 22:00 Date of Discharge Dec 16, 2016 at 13:17 Admitting Diagnosis LONG Reyes is a 76 year old male who was admitted on Nov 27, 2016 at 22:00 for Altered Mental Status Hospital Course [id number] Discharge Discharge Disposition Patient was discharged to SNF/Subacute Facility(03) Discharge Diagnoses: Caitlin Esparza NP Dec 18, 2016 12:11
--- NOTE | 2016-12-19 07:29 | Discharge Summary 2 SIG ---
DATE OF ADMISSION: 11/27/2016 DATE OF DISCHARGE: 12/16/2016 CONSULTANTS: 1. Efrain Judd M.D. 2. Cash Coughlin M.D. 3. Emil Duarte M.D. 4. Dave Hernandez M.D. 5. Ginger Meeks M.D. 6. Sandip Concepcion M.D. BRIEF HOSPITAL COURSE: The patient is a 76-year-old male, who was transferred via 911 from subacute facility. He was noted to be hypotensive at a convalescent home and on evaluation at ED, he was hypotensive and was started on IV pressors and admitted to ICU. He had laboratory findings significant for leukocytosis consistent with sepsis and evidence of acute renal failure and profound hyperkalemia. He was initially started on vancomycin and Zosyn and was followed by Infectious Disease specialist. Culture showed E. coli/Pseudomonas pneumonia. Antibiotics were adjusted. Dr. Meeks was consulted as there was bleeding from G-tube site and hematocrit dropped overnight. He underwent EGD on 12/15/2016 with findings of pharyngeal tumor with upper esophageal and oropharyngeal tumor causing complete obstruction of the lumen. Dr. Concepcion was also consulted to evaluate bleeding coming from the tracheostomy tube and he underwent fiberoptic nasopharyngoscopy and bronchoscopy. There was no sentinel bleed seen. He was eventually transferred back to subacute facility. FINAL DIAGNOSES: 1. Sepsis. 2. Hypercalcemia. 3. Acute on chronic renal failure. 4. Acute on chronic respiratory failure. 5. G-tube site bleeding. 6. 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 7. Thrombocytosis. 8. Anemia. 9. Hypernatremia. 10. Severe protein-calorie malnutrition. 11. Esophageal squamous cell carcinoma. 12. Mid sacral stage II pressure ulcer, present on admission. Kev Ayala M.D. I have been assigned to dictate discharge summary on this account and I was not involved in the patient's management. Caitlin Esparza N.P. DR: Agustín JOB#: [id number] CC: KATJA
--- NOTE | 2016-12-21 12:19 | Diagnostic Imaging Report ---
APPROVED REPORT CPT Code: 95662 Present Symptoms Shortness of breath BILATERAL: Imaging reveals a patent deep venous system bilaterally. There is no evidence of thrombus within the femoral, popliteal or tibial segments. The greater saphenous veins are also within normal limits. Doppler indicates normal spontaneous flow within these segments.
--- NOTE | 2016-12-21 12:20 | Diagnostic Imaging Report ---
APPROVED REPORT CPT Code: 71020 Present Symptoms Upper Extremity Edema: Bilateral BILATERAL UPPER EXTREMITY: Imaging reveals patency of the internal jugular, subclavian, axillary and brachial veins. The cephalic and basilic veins are also patent. Doppler indicates normal spontaneous flow within these venous segments, bilaterally.
== END 2016-12-16 13:17 | DRG 870 ==
LOC: EDBD 21:19 → EMR 21:30 → ICU 22:00 → EDBEDREQSVC 11-28 00:50 → EDBEDREQ 11-28 05:50 → ICU 11-28 06:20 → UNDOADMIN 11-28 06:20 → 2W 11-28 15:17 → ICU 12-08 18:28 → 2W 12-10 16:17
DX: A41.9 Sepsis, unspecified organism (principal); R65.21 Severe sepsis with septic shock; J15.5 Pneumonia due to Escherichia coli; J15.1 Pneumonia due to Pseudomonas; J44.0 Chronic obstructive pulmonary disease with (acute) lower respiratory infection; J90 Pleural effusion, not elsewhere classified; N17.9 Acute kidney failure, unspecified; J96.10 Chronic respiratory failure, unspecified whether with hypoxia or hypercapnia; C15.9 Malignant neoplasm of esophagus, unspecified; L89.153 Pressure ulcer of sacral region, stage 3; E46 Unspecified protein-calorie malnutrition; C78.00 Secondary malignant neoplasm of unspecified lung; J95.01 Hemorrhage from tracheostomy stoma; K94.23 Gastrostomy malfunction; I47.1 Supraventricular tachycardia; K92.2 Gastrointestinal hemorrhage, unspecified; E87.0 Hyperosmolality and hypernatremia; D64.9 Anemia, unspecified; Z68.21 Body mass index [BMI] 21.0-21.9, adult; E83.52 Hypercalcemia; D47.3 Essential (hemorrhagic) thrombocythemia; I12.9 Hypertensive chronic kidney disease with stage 1 through stage 4 chronic kidney disease, or unspecified chronic kidney disease; N18.9 Chronic kidney disease, unspecified; N40.0 Benign prostatic hyperplasia without lower urinary tract symptoms; R13.10 Dysphagia, unspecified; E86.0 Dehydration
CPT/HCPCS: 36415; 36600; 70490; 71010; 71250; 74176; 76775; 80048; 80053; 80202; 81003; 82164; 82306; 82330; 82550; 82553; 82803; 82962; 83519; 83605; 83735; 83880; 83970; 84484; 85007; 85025; 85610; 85730; 86850; 86900; 86901; 86920; 86927; 87040; 87070; 87081; 87086; 87181; 87205; 87493; 93005; 93306; 93970; 94002; 94003; 94150; 94664; J2430

== ENCOUNTER 2016-12-17 02:27 | Inpatient (IN) | payer MEDICARE, OTHER ==
[~2016-12-17] VITALS: Ht 175.3 cm; Wt 68.0 kg
[2016-12-17] VITALS (11 sets, daily range): BP systolic 62–131; BP diastolic 34–73
[~2016-12-17 02:27] MED LIST: ACETAMINOPHEN120 MG GT; EPOGEN20000 UNI1 SUBQ; FERROUS SULFAT325 MG GT; HYDRALAZINE HCL10 MG GT; MILK OF MA400 MG/51 GT; PANTOPRAZOLE SO40 MG GT; XANAX0.25 MG ORAL
--- NOTE | 2016-12-17 02:51 | Emergency Room Report ---
History of Present Illness General Chief Complaint: Malfunctioning Gastric Tube Source: Medical Record, EMS Present Illness HPI This is a 76-year-old male with a history esophageal adenocarcinoma. He also a history of chronic respiratory failure and has a tracheostomy. He also has a G-tube. He had a prolonged hospital course for respiratory failure and abscess. He later he was just discharged a few hours ago. He was brought back in for abdominal distention. Also with respiratory distress. Per EMS, skilled nursing complained that they live and leaking around the G-tube. This cause abdominal distention and there was a hard time ventilating the patient because of the pressure. Patient has no complaint. History is to the skilled nursing note, medical records and EMS. unable to give a history. Allergies: Coded Allergies: No Known Allergies (Unverified , 11/27/16) Patient History Past Medical History: see triage record, old chart reviewed Past Surgical History: other Pertinent Family History: none Social History: Denies: smoking Immunizations: other Reviewed Nursing Documentation: PMH: Agreed, PSxH: Agreed Nursing Documentation-PMH Hx Cardiac Problems: Yes - ANEMIA Hx Cancer: Yes - malignant neoplasm lung Hx Gastrointestinal Problems: No Hx Neurological Problems: No Review of Systems Eye: Denies: blurred vision, eye pain ENT: Denies: ear pain, nose congestion, throat swelling Respiratory: Reports: shortness of breath, Denies: cough Cardiovascular: Denies: chest pain, palpitations Gastrointestinal: Reports: abdominal pain, Denies: diarrhea, nausea, vomiting Musculoskeletal: Denies: back pain, joint pain Skin: Denies: rash Neurological: Denies: headache, numbness Endocrine: Denies: increased thirst, increased urine Hematologic/Lymphatic: Denies: easy bruising All Other Systems: negative except mentioned in HPI Physical Exam Vital Signs Date Time Temp Pulse Resp B/P Pulse Ox O2 Delivery O2 Flow Rate FiO2 12/17/16 02:34 122 26 104/56 73 Ambu-Bag vitals with tachycardia and hypoxia Sp02 EP Interpretation: abnormal General Appearance: moderate distress Head: normocephalic, atraumatic Eyes: bilateral eye EOMI, bilateral eye PERRL ENT: hearing grossly normal, normal pharynx Neck: full range of motion, supple, no meningismus Respiratory: chest non-tender, rhonchi Cardiovascular #1: regular rate, rhythm, no murmur, tachycardia Gastrointestinal: non tender, no mass, no organomegaly, no bruit, abnormal bowel sounds - Decreased, distended - Mostly upper abdomen however. Musculoskeletal: back normal Neurologic: alert Psychiatric: mood/affect normal Skin: warm/dry Procedures Critical Care Time Critical Care Time Critical care is mandated in this patient who presented with respiratory distress from cancer and pneumonia. Patient require my urgent intervention to attenuate the risks of metabolic collapse which may lead to cardiovascular collapse and . Critical care time is 35 minutes excluding any reportable procedure. Critical care time included evaluation, multiple reevaluation, looking at old charts, interpreting laboratory and diagnostic data, discussing case with patient and family and consultants, and charting. Additional Procedure Procedure Narrative Procedure: G-tube placement. Indication: G-tube malfunction. Description: There was lots of air leaking around the G-tube. I deflated the balloon. I pulled out the 20 [place] G-tube without any difficulty. Is a large cause of air that came out of the stoma. I place a 24 [place] G-tube in without difficulty. It to was a little small for the stoma. But this is the largest size would have in the ER. I inflated the balloon. I place the G-tube to suction. It was lots of tea feeding that came out. Patient tolerated procedure without a problem. CT scan ordered. Medical Decision Making Diagnostic Impression: Primary Impression: Sepsis Qualified Codes: A41.9 - Sepsis, unspecified organism Additional Impressions: Pneumonia Qualified Codes: J18.9 - Pneumonia, unspecified organism Chronic respiratory failure, unspecified whether with hypoxia or hypercapnia Metastasis from esophageal cancer Anemia in chronic illness Chronic kidney disease Qualified Codes: N18.9 - Chronic kidney disease, unspecified UTI (urinary tract infection) Qualified Codes: N30.00 - Acute cystitis without hematuria Proteinuria Malfunction of gastrostomy tube ER Course Patient presents with acute on chronic respiratory failure. Probably secondary to obstructive process from his lung metastasis. He grew out ESBL Escherichia coli and pseudomonas in the sputum before. These to bugs are sensitive to Zosyn. I added Levaquin also. his G-tube was too small for the stoma. There was a lot of air leakage. It is better now after place a 24 [place] G-tube. There is no evidence of obstruction but he may have an ileus. IV fluid given we 'll repeat lactic acid. His condition is terminal and he may benefit from hospice care. Laboratory Tests Test 3/10/17 03:15 12/17/16 04:45 12/17/16 05:09 White Blood Count 16.3 K/UL (4.8-10.8) H Red Blood Count 3.55 M/UL (4.70-6.10) L Hemoglobin 9.9 G/DL (14.2-18.0) L Hematocrit 32.4 % (42.0-52.0) L Mean Corpuscular Volume 91 FL (80-99) Mean Corpuscular Hemoglobin 27.9 PG (27.0-31.0) Mean Corpuscular Hemoglobin Concent 30.5 G/DL (32.0-36.0) L Red Cell Distribution Width 17.8 % (11.6-14.8) H Platelet Count 688 K/UL (150-450) H Mean Platelet Volume 6.8 FL (6.5-10.1) Neutrophils (%) (Auto) % (45.0-75.0) Lymphocytes (%) (Auto) % (20.0-45.0) Monocytes (%) (Auto) % (1.0-10.0) Eosinophils (%) (Auto) % (0.0-3.0) Basophils (%) (Auto) % (0.0-2.0) Prothrombin Time 14.0 SEC (9.30-11.50) H Prothromb Time International Ratio 1.4 (0.9-1.1) H Activated Partial Thromboplast Time 35 SEC (23-33) H Sodium Level 139 mEQ/L (135-145) Potassium Level 4.9 mEQ/L (3.4-4.9) Chloride Level 102 mEQ/L (98-107) Carbon Dioxide Level 19 mEQ/L (20-30) L Anion Gap 18 (5-15) H Blood Urea Nitrogen 34 mg/dL (7-23) H Creatinine 2.0 mg/dL (0.7-1.2) H Estimat Glomerular Filtration Rate mL/min (>60) Glucose Level 160 mg/dL (74-106) H Lactic Acid Level 3.70 mmol/L (0.66-2.22) H Pending Calcium Level 9.4 mg/dL (8.6-10.2) Total Bilirubin 0.3 mg/dL (0.0-1.2) Aspartate Amino Transf (AST/SGOT) 13 U/L (5-40) Alanine Aminotransferase (ALT/SGPT) 11 U/L (3-41) Alkaline Phosphatase 106 U/L (40-129) Troponin I < 0.30 ng/mL (<=0.30) Total Protein 5.9 g/dL (6.6-8.7) L Albumin 2.1 g/dL (3.5-5.2) L Globulin 3.8 g/dL Albumin/Globulin Ratio 0.5 (1.0-2.7) L Lipase 8 U/L (< 60) Urine Color Pale yellow Urine Appearance Slightly cloudy Urine pH 5 (4.5-8.0) Urine Specific [place] 1.010 (1.005-1.035) Urine Protein 3+ (NEGATIVE) H Urine Glucose (UA) Negative (NEGATIVE) Urine Ketones Negative (NEGATIVE) Urine Occult Blood 5+ (NEGATIVE) H Urine Nitrite Negative (NEGATIVE) Urine Bilirubin Negative (NEGATIVE) Urine Urobilinogen Normal MG/DL (0.0-1.0) Urine Leukocyte Esterase 3+ (NEGATIVE) H Urine RBC Tntc /HPF (0 - 0) H Urine WBC Tntc /HPF (0 - 0) H Urine Squamous Epithelial Cells None /LPF (NONE/OCC) Urine Bacteria Few /HPF (NONE) Urine Yeast Many /HPF (NONE) H Lab Results Impression labs with leukocytosis and elevated lactic acid. EKG Diagnostic Results Rate: normal, tachycardiac Rhythm: NSR, other - NSST changes ST Segments: no acute changes Rhythm Strip Diag. Results EP Interpretation: yes Rate: 110 Rhythm: NSR, no PVC's, no ectopy Chest X-Ray Diagnostic Results EP Interpretation: Yes Findings: no pneumothorax, other - Large effusion bilaterally. Right Lower lobe infiltrate. Number of Views: 1 CT/MRI/US Diagnostic Results CT/MRI/US Diagnostic Results : Imaging Test Ordered: CT abdomen and pelvis. Impression Read by radiologist. Moderate left and small right pleural effusion with bilateral lower lobe infiltrates. Distended gallbladder. G-tube in place. No perforation. Possible ileus. Last Vital Signs Date Time Temp Pulse Resp B/P Pulse Ox O2 Delivery O2 Flow Rate FiO2 12/17/16 02:34 122 26 104/56 73 Ambu-Bag Status: improved Disposition: ADMITTED INPATIENT Condition: Critical JOSE DELGADO M.D. Dec 17, 2016 02:51
[2016-12-17 03:22] LABS: MEAN CORPUSCULAR HEMOGLOBIN 27.9 PG (27.0-31.0); MEAN CORPUSCULAR HGB CONC 30.5 G/DL (32.0-36.0); MEAN CORPUSCULAR VOLUME 91 FL (80-99); MEAN PLATELET VOLUME 6.8 FL (6.5-10.1); PLATELET COUNT 688 K/UL (150-450); RED BLOOD COUNT 3.55 M/UL (4.70-6.10); RED CELL DISTRIBUTION WIDTH 17.8 % (11.6-14.8); WHITE BLOOD COUNT 16.3 K/UL (4.8-10.8)
[2016-12-17] MEDS ORDERED: Cefepime 1gm vial ONE (03:23)
[2016-12-17] MEDS ORDERED: Cefepime HCl 1 GM in D5W 55 ML IVPB ONE (03:30)
[2016-12-17 03:31] LABS: INR 1.4 (0.9-1.1)
[2016-12-17 03:39] LABS: ALANINE AMINOTRANSFERASE 11 U/L (3-41); ALBUMIN/GLOBULIN RATIO 0.5 (1.0-2.7); ANION GAP 18 (5-15); ASPARTATE AMINO TRANSFERASE 13 U/L (5-40); CALCIUM 9.4 mg/dL (8.6-10.2); CARBON DIOXIDE 19 mEQ/L (20-30); CHLORIDE 102 mEQ/L (98-107); HEMOLYSIS 4; LIPASE 8 U/L (< 60); POTASSIUM 4.9 mEQ/L (3.4-4.9); SODIUM 139 mEQ/L (135-145); TOTAL PROTEIN 5.9 g/dL (6.6-8.7)
[2016-12-17 03:40] LABS: TROPONIN I < 0.30 ng/mL (<=0.30)
[2016-12-17 04:26] LABS: REFLEX LACTIC ACID YES OR NO YES
[2016-12-17 04:54] LABS: APPEARANCE,URINE SLIGHTLY CLOUDY; KETONES,URINE NEGATIVE (NEGATIVE); LEUKOCYTE ESTERASE ,URINE 3+ (NEGATIVE); NITRITE,URINE NEGATIVE (NEGATIVE); PH,URINE 5 (4.5-8.0); PROTEIN,URINE 3+ (NEGATIVE); UROBILINOGEN,URINE NORMAL MG/DL (0.0-1.0)
[2016-12-17 05:00] LABS: BACTERIA,URINE FEW /HPF; RBC,URINE TNTC /HPF (0 - 0); WBC,URINE TNTC /HPF (0 - 0); YEAST,URINE MANY /HPF
[2016-12-17] MEDS ORDERED: PROTONIX40 MG GT (06:38)
[2016-12-17] MEDS ORDERED: HYDRALAZINE HCL10 MG GT (06:38)
[2016-12-17] MEDS ORDERED: ZOSYN 3.373.375 GM/1 IVPB (06:38)
[2016-12-17] MEDS ORDERED: CHLORHEXIDINE473 ML MM (06:38)
[2016-12-17] MEDS ORDERED: CENTRUM COMPLE1 EAC1 GT (06:38)
[2016-12-17] MEDS ORDERED: VANCOMYCIN1 GM/2502 IVPB (06:38)
[2016-12-17] MEDS ORDERED: ATIVAN0.5 MG ORAL (06:38)
[2016-12-17] MEDS ORDERED: ALBUTEROL2.5 MG/3 M INH (06:38)
--- NOTE | 2016-12-17 09:22 | Diagnostic Imaging Report ---
Indication: Abdominal pain Technique: Continuous helical transaxial imaging of the abdomen and pelvis was obtained from the lung bases to the pubic symphysis. No intravenous contrast was administered. Coronal 2-D reformats were also obtained. Total Dose length Product (DLP): [address] Dose Index Volume (CTDIvol): 17 mGy Comparison: none Findings: There are moderate sized bilateral pleural effusions present. There is posterior basilar infiltrate versus atelectasis. Aorta is moderately calcified. There is a central line in the SVC. The gallbladder is distended. There may be stones in the layering dependent portion of the gallbladder. Nonobstructive stones suspected within both kidneys with a small high density foci within the central aspect of both kidneys. Distended loops of small bowel are demonstrated throughout the abdomen. Many of these are fluid-filled. Obstruction is not excluded. Findings could be due to diffuse ileus. Please correlate clinically and obtain further evaluation is needed. The study is also not optimally obtained as oral contrast was only in the stomach at the time of the scan. No IV contrast was given. Arterial vascular calcifications within the aorta are noted. There is a gastrostomy which appears to be in good position. Prostate is enlarged. There is a Polanco catheter present. Proximal prostate measurement is 6 cm x 6 cm x 8 cm. Is there is a compression fracture deformity of the L1 vertebra. This is probably old. Please correlate clinically. Anasarca noted. Impression: Diffuse mild fluid-filled and distended small bowel possibly ileus. No obvious transition is identified. Obstruction is not excluded. Please correlate clinically. Moderate bilateral pleural effusions and posterior basilar pneumonia versus atelectasis. Distended gallbladder. Question of small stones versus sludge. Bilateral nonobstructive renal calculi suspected. Gastrostomy, Polanco catheter and rectal tubes noted. Atherosclerotic vascular disease. Prostate hypertrophy Anasarca Small right inguinal hernia containing fat L1 vertebral compression fracture, probably old. Please correlate clinically. The CT scanner at [facility] is accredited by the [employer] and the scans are performed using protocols designed to limit radiation exposure to as low as reasonably achievable to attain images of sufficient resolution adequate for diagnostic evaluation.
--- NOTE | 2016-12-17 13:54 | Diagnostic Imaging Report ---
Indication: Dyspnea Comparison: 28/04/17 A single view chest radiograph was obtained. Findings: Interstitial edema and bilateral pleural effusions are present. Heart size is normal. Tracheostomy and left subclavian line noted. Impression: Suspected pulmonary edema, may be noncardiogenic. No interval change
--- NOTE | 2016-12-17 15:29 | Consultation ---
DATE OF CONSULTATION: 12/17/2016 PULMONARY CONSULTATION: REASON FOR ADMISSION: Respiratory failure. REASON FOR EVALUATION: Malfunctioning G-tube. HISTORY OF PRESENT ILLNESS: The patient is a 76-year-old male with history of esophageal cancer. The patient with chronic respiratory failure and tracheostomy. The patient was just transferred back to the subacute and now back for abdominal distention. The patient also had difficulty evaluating. The patient now seen and evaluated. PAST MEDICAL HISTORY: As previously described. MEDICATIONS: Noted. ALLERGIES: Noted. SOCIAL HISTORY: Noted as well. The patient reportedly Do Not Resuscitate. PHYSICAL EXAMINATION: GENERAL: The patient is an ill-appearing male. VITAL SIGNS: In the emergency room, blood pressure 122/26, pulse rate 104, saturation 73%. Current vital signs now blood pressure 115/31, 98.8 18 62, and saturation 95%. HEENT: Tracheostomy is in midline. NECK: Supple. LUNGS: Coarse breath sounds. Moderate air entry. CARDIAC: S2. Tachycardic without murmurs, rubs, or gallops. ABDOMEN: Soft, but slightly distended. G-tube in place. EXTREMITIES: No cyanosis, clubbing, or edema. NEUROLOGIC: The patient is withdrawn. Poorly responsive. LABORATORY DATA: Reviewed. Notable for white count 16, hemoglobin 9.9, hematocrit 32, platelets 688,000. Chemistry is noted. BUN 34 and creatinine 2. IMPRESSION: 1. Multiorgan failure. 2. Respiratory failure. 3. Renal failure. 4. Esophageal cancer. 5. Leukocytosis. 6. Possible pneumonia . 7. Pleural effusion. 8. Gastrostomy tube malfunction. RECOMMENDATION: Admit ventilatory support. Resume antibiotics. ID followup. GI followup. Monitor clinically for changes, but likelyhood for recovery is poor. We will need to discuss code status and hospice care with the family in greater detail. Kev Ayala M.D. DR: Carola JOB#: [id number] CC: KATJA
[2016-12-17] MEDS ORDERED: Albuterol ud Inhalation IN-LINE PRN (16:45)
[2016-12-17] MEDS ORDERED: Acetaminophen 650mg/20.3ml GT PRN (17:00)
[2016-12-17] MEDS ORDERED: HydrALAZINE 10mg Tab GT PRN (18:00)
[2016-12-17] MEDS ORDERED: LORazepam 0.5mg tab ORAL SCH (18:00)
[2016-12-17] MEDS ORDERED: ALPRAZolam 0.25mg tab ORAL PRN (18:00)
[2016-12-17] MEDS: Piperacillin/Tazobactam 3.375 GM in D5W 110 ML IVPB SCH (19:25)
--- NOTE | 2016-12-17 21:18 | Wound Care Consultation ---
Wound Assessment Wound Assessment #1: Wound Present on Admission: Yes New Wound: No Status Change of Wound: No Wound Location Body Site Modif: mid Wound Location Body Site: sacral Wound Type: pressure ulcer Ashley Test: Does not Ashley Pressure Ulcer Stage: III - scattered Wound Thickness: Full Thickness Wound Length: 6.0 Wound Width: 9.0 Wound Depth: 0.3 Percent of Wound Vicco/Red: 80 Percent of Wound Purple/Maroon: 20 Wound Drainage Description: Serosanguineous Wound Drainage Amount: Scant Wound Drainage Odor: None/Absent Tissue Surrounding Wound: Erythemic Wound General Appearance: Reddened Wound Assessment #2: Wound Number: #2 Wound Present on Admission: Yes New Wound: No Status Change of Wound: No Wound Location Body Site: perineal area Wound Type: chemical burn Ashley Test: Does not Ashley Percent of Wound Vicco/Red: 100 Wound Drainage Amount: None Wound Drainage Odor: None/Absent Tissue Surrounding Wound: Macerated Wound General Appearance: Reddened Wound Assessment #3: Wound Number: #3 Wound Present on Admission: Yes New Wound: No Status Change of Wound: No Wound Location Body Site: abdomen Wound Type: blister - open and intact blisters Ashley Test: Does not Ashley Wound Thickness: Partial Thickness Wound Drainage Amount: None Wound Drainage Odor: None/Absent Tissue Surrounding Wound: Erythemic Wound Comment #1 Sacral scattered stage III pressure ulcers. Surrounding tissue red and purple in color. #2 Chemical burn on perineal area #3 Abdomen with open and intact blisters Recommendation -Sacral area pressure ulcers Cleanse with saline pat dry apply Triad cream cover with bordered gauze daily and PRN soiled/dislodged -Local wound care per protocol for blisters and perineal chemical burn -Turned and reposition -Keep clean and dry -Optimize nutrition -Low air loss overlay mattress -Offload heels -Assess and f/u accordingly for any changes MYESHA SAWYER RN Dec 17, 2016 21:18
[2016-12-18] VITALS (42 sets, daily range): BP systolic 58–127; BP diastolic 21–91
[2016-12-18] MEDS ORDERED: Vancomycin 1gm/D5W 275ml IVPB ONE ×2
[2016-12-18] MEDS: Piperacillin/Tazobactam 3.375 GM in D5W 110 ML IVPB SCH ×2 (05:49→14:37)
[2016-12-18 07:14] LABS: MEAN CORPUSCULAR VOLUME 93 FL (80-99); MEAN PLATELET VOLUME 7.8 FL (6.5-10.1); PLATELET COUNT 581 K/UL (150-450); RED BLOOD COUNT 3.21 M/UL (4.70-6.10); RED CELL DISTRIBUTION WIDTH 18.3 % (11.6-14.8)
[2016-12-18 07:46] LABS: ANION GAP 20 (5-15); CALCIUM 10.1 mg/dL (8.6-10.2); CARBON DIOXIDE 16 mEQ/L (20-30); CHLORIDE 103 mEQ/L (98-107); CREATININE 2.7 mg/dL (0.7-1.2); HEMOLYSIS 2; POTASSIUM 5.5 mEQ/L (3.4-4.9); SODIUM 139 mEQ/L (135-145)
--- NOTE | 2016-12-18 08:02 | Pulmonology Progress Note ---
Assessment/Plan Assessment/Plan IMPRESSION: 1. Multiorgan failure. 2. Respiratory failure. 3. Renal failure. 4. Esophageal cancer. 5. Leukocytosis. 6. Possible pneumonia . 7. Pleural effusion. 8. Gastrostomy tube malfunction. PLAN antibiotics ID and GI follow up assess for further intervention assess GT supportive care feeds per GI prognosis poor d/w family as to ongoing care impression, plan, and exam edited and reviewed in detail care discussed with RN Subjective ROS Limited/Unobtainable: Yes Allergies: Coded Allergies: No Known Allergies (Unverified , 11/27/16) Objective Last 24 Hour Vital Signs Date Time Temp Pulse Resp B/P Pulse Ox O2 Delivery O2 Flow Rate FiO2 12/18/16 07:03 107 32 100 12/18/16 04:59 111 26 100 12/18/16 04:00 50 12/18/16 04:00 97.3 101 30 127/88 98 Mechanical Ventilator 50 12/18/16 03:40 119 12/18/16 03:11 115 25 50 12/18/16 01:30 116 22 50 12/18/16 00:57 98.0 118 28 94/78 100 Mechanical Ventilator 50 12/18/16 00:00 50 12/18/16 00:00 125 12/17/16 23:30 122 26 50 12/17/16 22:35 1/1 12/17/16 21:15 124 24 50 12/17/16 20:00 97.5 123 32 90/46 94 Mechanical Ventilator 50 12/17/16 20:00 40 12/17/16 20:00 124 12/17/16 19:27 123 26 50 12/17/16 19:00 98.4 12/17/16 17:00 124 30 50 12/17/16 16:40 123 12/17/16 16:00 40 12/17/16 16:00 98.4 130 29 108/58 92 Mechanical Ventilator 50 12/17/16 14:46 126 23 40 12/17/16 13:48 97.3 124 25 104/56 97 Mechanical Ventilator 40 12/17/16 12:45 122 28 40 12/17/16 12:00 100.4 70 40 131/73 95 Venturi Mask 10.0 12/17/16 10:57 124 26 40 12/17/16 09:30 97.3 115 21 112/69 97 Mechanical Ventilator 40 12/17/16 08:31 115 31 40 12/17/16 08:30 97.3 118 24 102/67 96 Mechanical Ventilator 40 Intake and Output 12/17/16 12/18/16 19:00 07:00 Intake Total 1000 ml 32.5 ml Output Total 25 ml Balance 1000 ml 7.5 ml Intake Oral 0 ml IV Total 1000 ml 32.5 ml Output Urine Total 25 ml Objective GENERAL: The patient is an ill-appearing male. HEENT: Tracheostomy is in midline. NECK: Supple. LUNGS: Coarse breath sounds. Moderate air entry. CARDIAC: S2. Tachycardic without murmurs, rubs, or gallops. ABDOMEN: Soft, still distended. G-tube in place. no HSM EXTREMITIES: No cyanosis, clubbing, or edema. NEUROLOGIC: The patient is withdrawn. Poorly responsive. Laboratory Tests 12/17/16 17:55: Random Vancomycin Level 16.2 12/18/16 06:30: White Blood Count [Pending], Red Blood Count [Pending], Hemoglobin [Pending], Hematocrit [Pending], Mean Corpuscular Volume [Pending], Mean Corpuscular Hemoglobin [Pending], Mean Corpuscular Hemoglobin Concent [Pending], Red Cell Distribution Width [Pending], Platelet Count [Pending], Mean Platelet Volume [ Pending], Neutrophils (%) (Auto) [Pending], Lymphocytes (%) (Auto) [Pending], Monocytes (%) (Auto) [Pending], Eosinophils (%) (Auto) [Pending], Basophils (%) (Auto) [Pending], Sodium Level 139, Potassium Level 5.5H, Chloride Level 103, Carbon Dioxide Level 16L, Anion Gap 20H, Blood Urea Nitrogen 40H, Creatinine 2.7H, Estimat Glomerular Filtration Rate , Glucose Level 115H, Calcium Level 10.1 Current Medications Medications (Trade) Dose Ordered Sig/Judith Route PRN Reason Start Time Stop Time Status Last Admin Dose Admin Acetaminophen (Tylenol) 650 mg Q4H PRN GT Mild Pain/Temp > 100.5 12/17/16 17:00 4 16:59 12/17/16 18:38 Albuterol Sulfate (Proventil) 2.5 mg Q4H PRN IN-LINE Shortness of Breath 12/17/16 16:45 12/22/16 16:44 Alprazolam (Xanax) 0.25 mg Q8H PRN ORAL Anxiety 12/17/16 18:00 12/24/16 17:59 Hydralazine HCl (Apresoline) 5 mg Q6H PRN GT SBP greater than 160 12/17/16 18:00 01/16/17 17:59 Nystatin (Nystop Powder) 1 applic THREE TIMES A DAY TOPIC 12/18/16 09:00 01/17/17 08:59 Pantoprazole 40 mg 40 mg DAILY ORAL 12/18/16 09:00 01/17/17 08:59 Piperacillin Sod/ Tazobactam Sod/ Dextrose (Zosyn/D5W) 110 ml @ 27.5 mls/hr Q8HR IVPB 12/17/16 18:00 12/24/16 17:59 12/18/16 05:49 Vancomycin HCl (Vanco rx to dose) 1 ea DAILY PRN MISC Per rx protocol 12/17/16 16:45 01/16/17 16:44 RIZWAN SANDERS Dec 18, 2016 08:02
[2016-12-18 08:15] LABS: WHITE BLOOD COUNT 23.5 K/UL (4.8-10.8)
[2016-12-18] MEDS ORDERED: Sodium Polystyrene Sulfonate 15gm Powder GT ONE (09:00)
[2016-12-18] MEDS: Nystatin Powder 100,000 units/gm 15gm TOPIC SCH ×3 (09:36→18:00)
[2016-12-18 10:29] LABS: ANISOCYTOSIS 1+; BAND NEUTROPHILS % (MANUAL) 21 % (0-8); BASOPHILS % (MANUAL) 0 % (0-2); EOSINOPHILS % (MANUAL) 0 % (0-3); HYPOCHROMASIA 1+; LYMPHOCYTES % (MANUAL) 4 % (20-45); NEUTROPHILS % (MANUAL) 69 % (45-75); PLATELET ESTIMATE INCREASED; TOTAL CELLS COUNTED 100
[2016-12-18 10:30] LABS: POLYCHROMASIA OCCASIONAL
[2016-12-18 11:10] LABS: PLATELET MORPHOLOGY NORMAL
[2016-12-18] MEDS ORDERED: Sodium Polystyrene Sulfonate Enema RECTAL ONE ×2 (12:00→14:30)
[2016-12-18] MEDS ORDERED: Amiodarone 900 MG in D5W 500ml 482 ML IV SCH (13:15)
[2016-12-18] MEDS ORDERED: Levophed 4mg/4mL Inj IV ONE ×2 (13:35→23:56)
--- NOTE | 2016-12-18 13:59 | General Progress Note ---
Subjective Allergies: Coded Allergies: No Known Allergies (Unverified , 11/27/16) Subjective Assessment - GT dysfunction - leaking 100cc of apparent exhaled air per breath - ?? 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 - poor px Recommendation - GT contrast study - Hold feeds and GT use - level of care discussion with family Objective Last 24 Hour Vital Signs Date Time Temp Pulse Resp B/P Pulse Ox O2 Delivery O2 Flow Rate FiO2 12/18/16 12:59 174 39 100 12/18/16 12:00 97.7 171 30 71/54 100 Mechanical Ventilator 100 12/18/16 12:00 100 12/18/16 11:27 110 32 100 12/18/16 08:53 110 29 100 12/18/16 08:00 50 12/18/16 08:00 107 12/18/16 08:00 97.7 115 25 113/91 98 Mechanical Ventilator 100 12/18/16 07:03 107 32 100 12/18/16 04:59 111 26 100 12/18/16 04:00 50 12/18/16 04:00 97.3 101 30 127/88 98 Mechanical Ventilator 50 12/18/16 03:40 119 12/18/16 03:11 115 25 50 12/18/16 01:30 116 22 50 12/18/16 00:57 98.0 118 28 94/78 100 Mechanical Ventilator 50 12/18/16 00:00 50 12/18/16 00:00 125 12/17/16 23:30 122 26 50 12/17/16 22:35 1/12/17/16 21:15 124 24 50 12/17/16 20:00 97.5 123 32 90/46 94 Mechanical Ventilator 50 12/17/16 20:00 40 12/17/16 20:00 124 12/17/16 19:27 123 26 50 12/17/16 19:00 98.4 12/17/16 17:00 124 30 50 12/17/16 16:40 123 12/17/16 16:00 40 12/17/16 16:00 98.4 130 29 108/58 92 Mechanical Ventilator 50 12/17/16 14:46 126 23 40 Intake and Output 12/17/16 12/18/16 19:00 07:00 Intake Total 1000 ml 32.5 ml Output Total 25 ml Balance 1000 ml 7.5 ml Intake Oral 0 ml IV Total 1000 ml 32.5 ml Output Urine Total 25 ml Laboratory Tests 12/17/16 17:55: Random Vancomycin Level 16.2 12/18/16 06:30: White Blood Count 23.5*H, Red Blood Count 3.21L, Hemoglobin 9.0L, Hematocrit 30.0L, Mean Corpuscular Volume 93, Mean Corpuscular Hemoglobin 28.0, Mean Corpuscular Hemoglobin Concent 30.0L, Red Cell Distribution Width 18.3H, Platelet Count 581H, Mean Platelet Volume 7.8, Neutrophils (%) (Auto) , Lymphocytes (%) (Auto) , Monocytes (%) (Auto) , Eosinophils (%) (Auto) , Basophils (%) (Auto) , Differential Total Cells Counted 100, Neutrophils % ( Manual) 69, Lymphocytes % (Manual) 4L, Monocytes % (Manual) 6, Eosinophils % ( Manual) 0, Basophils % (Manual) 0, Band Neutrophils 21H, Platelet Estimate IncreasedH, Platelet Morphology Normal, Polychromasia Occasional, Hypochromasia 1+, Anisocytosis 1+, Sodium Level 139, Potassium Level 5.5H, Chloride Level 103 , Carbon Dioxide Level 16L, Anion Gap 20H, Blood Urea Nitrogen 40H, Creatinine 2.7H, Estimat Glomerular Filtration Rate , Glucose Level 115H, Calcium Level 10.1 Height (Feet): 5 Height (Inches): 9.00 Weight (Pounds): 150 JA CHAHAL Dec 18, 2016 13:59
--- NOTE | 2016-12-18 18:19 | History and Physical Report ---
DATE OF ADMISSION: 12/17/2016 CHIEF COMPLAINT: Sepsis, tachycardia and respiratory distress. HISTORY OF PRESENT ILLNESS: The patient is an unfortunate 76-year-old male. He has a history of esophageal cancer, who was recently admitted with sepsis and pneumonia and was [facility] back [facility] the [facility] facility, but developed shortness of breath and respiratory distress. The patient was transferred back to the hospital for further evaluation. The patient is awake and alert, but has a tracheostomy and is unable to communicate. There are no report any fever or chills. No chest pain. Workup in the emergency room was significant for white count of 16,000, and hemoglobin was 10. Creatinine of 2. INR was 1.4. Urine showed too numerous to count WBCs. The patient was acuña cultured, has been started on broad-spectrum IV antibiotics and is now admitted for further evaluation and care. PAST MEDICAL HISTORY: As above. PAST SURGICAL HISTORY: tracheostomy and a G-tube. MEDICATIONS: Current medications reconciled and reviewed. ALLERGIES: None. SOCIAL HISTORY: The patient is a prior smoker. No alcohol. No drugs. She is a Do Not Resuscitate, as per previous discussions with his daughter. FAMILY HISTORY: None. PHYSICAL EXAMINATION: GENERAL: The patient in no apparent distress. VITAL SIGNS: Temperature 97.3 degrees, blood pressure 127/88, pulse of 101, and respirations 20. HEART: Regular rate and rhythm. LUNGS: Significant for bilateral rhonchi. ABDOMEN: Soft, nontender, and nondistended. EXTREMITIES: Without clubbing, cyanosis, or edema. LABORATORY AND DIAGNOSTIC DATA: Urinalysis showed too numerous count WBCs. White count was 16,000 and hemoglobin 10. INR is 1.4. Creatinine was 2. Lactic acid was 3.7. ASSESSMENT: This is an unfortunate male admitted with complaints of sepsis. He has a history of respiratory failure, chronic obstructive pulmonary disease, esophageal cancer, and history malfunctioning gastrostomy tube. PLAN: Broad-spectrum IV antibiotics. Follow up cultures. GI evaluation. Check the patient's G-tube. Hydration. Monitor renal function. The patient is Do Not Resuscitate. The patient's overall prognosis is poor. Cash Coughlin M.D. DR: ARDHA JOB#: [id number] CC:
[2016-12-19] VITALS (49 sets, daily range): BP systolic 47–111; BP diastolic 16–67
[2016-12-19] MEDS: Piperacillin/Tazobactam 3.375 GM in D5W 110 ML IVPB SCH ×2 (01:58→13:58)
[2016-12-19] MEDS ORDERED: Levophed 4mg/4mL Inj IV ONE (04:46)
[2016-12-19 06:10] LABS: MEAN CORPUSCULAR HEMOGLOBIN 28.4 PG (27.0-31.0); MEAN CORPUSCULAR HGB CONC 30.3 G/DL (32.0-36.0); MEAN CORPUSCULAR VOLUME 94 FL (80-99); MEAN PLATELET VOLUME 7.9 FL (6.5-10.1); PLATELET COUNT 501 K/UL (150-450); RED BLOOD COUNT 3.07 M/UL (4.70-6.10); RED CELL DISTRIBUTION WIDTH 17.9 % (11.6-14.8); WHITE BLOOD COUNT 21.2 K/UL (4.8-10.8)
[2016-12-19 07:20] LABS: ALANINE AMINOTRANSFERASE 17 U/L (3-41); ALBUMIN/GLOBULIN RATIO 0.3 (1.0-2.7); ANION GAP 20 (5-15); ASPARTATE AMINO TRANSFERASE 20 U/L (5-40); CALCIUM 9.1 mg/dL (8.6-10.2); CARBON DIOXIDE 14 mEQ/L (20-30); CHLORIDE 104 mEQ/L (98-107); CREATININE 3.1 mg/dL (0.7-1.2); HEMOLYSIS 3; POTASSIUM 5.6 mEQ/L (3.4-4.9); SODIUM 138 mEQ/L (135-145); TOTAL PROTEIN 5.2 g/dL (6.6-8.7)
[2016-12-19] MEDS: Pantoprazole Inj IVP SCH (09:38)
[2016-12-19] MEDS: Amiodarone 900 MG in D5W 500ml 482 ML IV SCH (09:38)
[2016-12-19] MEDS: Nystatin Powder 100,000 units/gm 15gm TOPIC SCH ×3 (09:39→19:56)
[2016-12-19 09:52] LABS: BAND NEUTROPHILS % (MANUAL) 26 % (0-8); BASOPHILS % (MANUAL) 0 % (0-2); EOSINOPHILS % (MANUAL) 0 % (0-3); LYMPHOCYTES % (MANUAL) 10 % (20-45); NEUTROPHILS % (MANUAL) 61 % (45-75); PLATELET ESTIMATE INCREASED; TOTAL CELLS COUNTED 100
[2016-12-19 09:53] LABS: ANISOCYTOSIS 1+; HYPOCHROMASIA 1+
--- NOTE | 2016-12-19 10:27 | Critical Care Progress Note ---
Assessment/Plan Assessment/Plan IMPRESSION: 1. Multiorgan failure. 2. Respiratory failure. 3. Renal failure. 4. Esophageal cancer. 5. Leukocytosis. 6. Possible pneumonia . 7. Pleural effusion. 8. Gastrostomy tube malfunction. 9. sepsis 10. shock 11. rapid afib 12. 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 protein calorie malnutrition PLAN antibiotics ID and GI follow up gastrograffin amio drip pressors assess for further intervention assess GT per GI supportive care follow up labs and adjust prognosis poor multi organ disease significant malnutrition Critical Care - Subjective Interval Events: transferred to ICU for rapid afib possible trachesophageal fistula with air leaking via gt ROS Limited/Unobtainable: Yes Condition: critical EKG Rhythm: Atrial Fibrillation I&O: Intake and Output 12/18/16 12/19/16 19:00 07:00 Intake Total 895.25 ml 2318.15 ml Output Total 0 ml 155 ml Balance 895.25 ml 2163.15 ml Intake Oral 0 ml IV Total 895.25 ml 2318.15 ml Output Urine Total 0 ml 5 ml Stool Total 150 ml Critical Care - Objective Last 24 Hour Vital Signs Date Time Temp Pulse Resp B/P Pulse Ox O2 Delivery O2 Flow Rate FiO2 12/19/16 09:40 98/28 12/19/16 09:11 94 25 70 12/19/16 09:00 95/38 12/19/16 09:00 95 26 96/38 99 Mechanical Ventilator 70 12/19/16 08:45 96 27 98/43 98 Mechanical Ventilator 70 12/19/16 08:30 95 28 100/42 98 Mechanical Ventilator 70 12/19/16 08:15 94 35 102/40 98 Mechanical Ventilator 70 12/19/16 08:00 70 12/19/16 08:00 93 12/19/16 08:00 98.0 96 33 100/38 99 Mechanical Ventilator 70 12/19/16 08:00 98/35 12/19/16 07:45 95 34 99/36 98 Mechanical Ventilator 70 12/19/16 07:30 93 35 98/35 99 Mechanical Ventilator 70 12/19/16 07:00 92 26 70 12/19/16 06:57 96/34 12/19/16 06:00 100/34 12/19/16 06:00 99 36 100/34 99 Mechanical Ventilator 70 12/19/16 05:44 99 31 70 12/19/16 05:30 98 26 111/53 97 Mechanical Ventilator 70 12/19/16 05:00 100 23 98/38 99 Mechanical Ventilator 70 12/19/16 05:00 98/38 12/19/16 04:30 99 24 101/40 100 Mechanical Ventilator 70 12/19/16 04:00 99 12/19/16 04:00 102/41 12/19/16 04:00 70 12/19/16 04:00 97.3 101 24 102/41 100 Mechanical Ventilator 70 12/19/16 03:30 99 22 91/36 100 Mechanical Ventilator 70 12/19/16 03:19 98 24 70 12/19/16 03:04 72/34 12/19/16 03:00 95/37 12/19/16 03:00 96 22 95/37 100 Mechanical Ventilator 70 12/19/16 02:30 98 22 90/36 100 Mechanical Ventilator 70 12/19/16 02:00 99 22 90/39 100 Mechanical Ventilator 70 12/19/16 02:00 90/36 12/19/16 01:30 100 25 91/36 100 Mechanical Ventilator 80 12/19/16 01:00 99 22 99/39 100 Mechanical Ventilator 80 12/19/16 01:00 91/36 12/19/16 01:00 100 24 100 12/19/16 00:30 100 25 91/36 100 Mechanical Ventilator 80 12/19/16 00:00 99 12/19/16 00:00 97.8 99 25 95/37 100 Mechanical Ventilator 80 12/19/16 00:00 95/37 12/19/16 00:00 80 12/18/16 23:30 98 26 99/37 100 Mechanical Ventilator 100 12/18/16 23:00 95/30 12/18/16 23:00 99 24 95/30 100 Mechanical Ventilator 100 12/18/16 22:59 100 24 100 12/18/16 22:30 99 25 95/32 100 Mechanical Ventilator 100 12/18/16 22:27 97/24 12/18/16 22:00 99 25 94/32 100 Mechanical Ventilator 100 12/18/16 22:00 94/32 12/18/16 21:30 100 26 96/28 100 Mechanical Ventilator 100 12/18/16 21:00 99 24 98/27 100 Mechanical Ventilator 100 12/18/16 21:00 98/27 3/11/17 20:59 100 22 100 12/18/16 20:45 99 23 95/27 100 Mechanical Ventilator 100 12/18/16 20:30 99 24 98/22 100 Mechanical Ventilator 100 12/18/16 20:15 98 23 102/21 100 Mechanical Ventilator 100 12/18/16 20:00 100 12/18/16 20:00 101/21 12/18/16 20:00 96 12/18/16 20:00 96 23 101/21 100 Mechanical Ventilator 100 12/18/16 19:45 97.1 104 27 101/42 100 Mechanical Ventilator 100 12/18/16 19:30 99 25 84/36 100 Mechanical Ventilator 100 12/18/16 19:17 96 27 100 12/18/16 19:07 93 24 63/25 100 Mechanical Ventilator 100 12/18/16 19:05 63/25 12/18/16 18:45 92 30 89/42 100 Mechanical Ventilator 100 12/18/16 18:30 95 30 89/44 100 Mechanical Ventilator 100 12/18/16 18:30 98 12/18/16 18:15 98 33 88/45 100 Mechanical Ventilator 100 12/18/16 18:01 95/50 12/18/16 18:00 110 32 89/45 100 Mechanical Ventilator 100 12/18/16 17:45 108 33 90/50 100 Mechanical Ventilator 100 12/18/16 17:30 107 34 88/45 100 Mechanical Ventilator 100 12/18/16 17:17 105 26 100 12/18/16 17:16 112 33 94/54 98 Mechanical Ventilator 100 12/18/16 17:16 113 35 95/53 95 Mechanical Ventilator 100 12/18/16 17:00 94/46 12/18/16 17:00 114 32 93/54 98 Mechanical Ventilator 100 12/18/16 16:45 116 36 90/52 95 Mechanical Ventilator 100 12/18/16 16:30 115 34 92/50 98 Mechanical Ventilator 100 12/18/16 16:15 114 36 95/45 98 Mechanical Ventilator 100 12/18/16 16:00 97.5 125 33 88/51 93 Mechanical Ventilator 100 12/18/16 16:00 120 12/18/16 16:00 92/60 12/18/16 15:45 126 35 90/50 94 Mechanical Ventilator 100 12/18/16 15:30 129 34 92/45 95 Mechanical Ventilator 100 12/18/16 15:15 133 35 89/44 90 Mechanical Ventilator 100 12/18/16 15:01 117 33 100 12/18/16 15:00 195 12/18/16 15:00 100 12/18/16 15:00 68/45 12/18/16 15:00 132 32 88/45 92 Mechanical Ventilator 100 12/18/16 14:45 130 33 85/42 90 Mechanical Ventilator 100 12/18/16 14:30 171 36 88/40 88 Mechanical Ventilator 100 12/18/16 14:15 97.6 175 35 84/42 92 Mechanical Ventilator 100 12/18/16 14:11 68/45 12/18/16 14:00 182 35 75/32 93 Mechanical Ventilator 100 12/18/16 13:45 186 38 69/34 92 Mechanical Ventilator 12/18/16 13:30 188 35 59/35 88 Mechanical Ventilator 100 12/18/16 13:15 185 36 65/40 86 Mechanical Ventilator 100 12/18/16 13:00 97.8 195 45 68/45 100 Mechanical Ventilator 100 12/18/16 12:59 174 39 100 12/18/16 12:45 198 35 58/37 Mechanical Ventilator 100 12/18/16 12:00 97.7 171 30 71/54 100 Mechanical Ventilator 100 12/18/16 12:00 100 12/18/16 11:27 110 32 100 Labs: Labs Test 12/17/16 03:15 12/17/16 04:45 12/17/16 05:09 12/17/16 17:55 White Blood Count 16.3 K/UL (4.8-10.8) Red Blood Count 3.55 M/UL (4.70-6.10) Hemoglobin 9.9 G/DL (14.2-18.0) Hematocrit 32.4 % (42.0-52.0) Mean Corpuscular Volume 91 FL (80-99) Mean Corpuscular Hemoglobin 27.9 PG (27.0-31.0) Mean Corpuscular Hemoglobin Concent 30.5 G/DL (32.0-36.0) Red Cell Distribution Width 17.8 % (11.6-14.8) Platelet Count 688 K/UL (150-450) Mean Platelet Volume 6.8 FL (6.5-10.1) Neutrophils (%) (Auto) % (45.0-75.0) Lymphocytes (%) (Auto) % (20.0-45.0) Monocytes (%) (Auto) % (1.0-10.0) Eosinophils (%) (Auto) % (0.0-3.0) Basophils (%) (Auto) % (0.0-2.0) Prothrombin Time 14.0 SEC (9.30-11.50) Prothromb Time International Ratio 1.4 (0.9-1.1) Activated Partial Thromboplast Time 35 SEC (23-33) Sodium Level 139 mEQ/L (135-145) Potassium Level 4.9 mEQ/L (3.4-4.9) Chloride Level 102 mEQ/L (98-107) Carbon Dioxide Level 19 mEQ/L (20-30) Anion Gap 18 (5-15) Blood Urea Nitrogen 34 mg/dL (7-23) Creatinine 2.0 mg/dL (0.7-1.2) Estimat Glomerular Filtration Rate mL/min (>60) Glucose Level 160 mg/dL (74-106) Lactic Acid Level 3.70 mmol/L (0.66-2.22) 4.10 mmol/L (0.66-2.22) Calcium Level 9.4 mg/dL (8.6-10.2) Total Bilirubin 0.3 mg/dL (0.0-1.2) Aspartate Amino Transf (AST/SGOT) 13 U/L (5-40) Alanine Aminotransferase (ALT/SGPT) 11 U/L (3-41) Alkaline Phosphatase 106 U/L (40-129) Troponin I < 0.30 ng/mL (<=0.30) Total Protein 5.9 g/dL (6.6-8.7) Albumin 2.1 g/dL (3.5-5.2) Globulin 3.8 g/dL Albumin/Globulin Ratio 0.5 (1.0-2.7) Lipase 8 U/L (< 60) Urine Color Pale yellow Urine Appearance Slightly cloudy Urine pH 5 (4.5-8.0) Urine Specific [place] 1.010 (1.005-1.035) Urine Protein 3+ (NEGATIVE) Urine Glucose (UA) Negative (NEGATIVE) Urine Ketones Negative (NEGATIVE) Urine Occult Blood 5+ (NEGATIVE) Urine Nitrite Negative (NEGATIVE) Urine Bilirubin Negative (NEGATIVE) Urine Urobilinogen Normal MG/DL (0.0-1.0) Urine Leukocyte Esterase 3+ (NEGATIVE) Urine RBC Tntc /HPF (0 - 0) Urine WBC Tntc /HPF (0 - 0) Urine Squamous Epithelial Cells None /LPF (NONE/OCC) Urine Bacteria Few /HPF (NONE) Urine Yeast Many /HPF (NONE) Random Vancomycin Level 16.2 ug/mL Test 12/18/16 06:30 12/19/16 05:40 White Blood Count 23.5 K/UL (4.8-10.8) 21.2 K/UL (4.8-10.8) Red Blood Count 3.21 M/UL (4.70-6.10) 3.07 M/UL (4.70-6.10) Hemoglobin 9.0 G/DL (14.2-18.0) 8.7 G/DL (14.2-18.0) Hematocrit 30.0 % (42.0-52.0) 28.8 % (42.0-52.0) Mean Corpuscular Volume 93 FL (80-99) 94 FL (80-99) Mean Corpuscular Hemoglobin 28.0 PG (27.0-31.0) 28.4 PG (27.0-31.0) Mean Corpuscular Hemoglobin Concent 30.0 G/DL (32.0-36.0) 30.3 G/DL (32.0-36.0) Red Cell Distribution Width 18.3 % (11.6-14.8) 17.9 % (11.6-14.8) Platelet Count 581 K/UL (150-450) 501 K/UL (150-450) Mean Platelet Volume 7.8 FL (6.5-10.1) 7.9 FL (6.5-10.1) Neutrophils (%) (Auto) % (45.0-75.0) % (45.0-75.0) Lymphocytes (%) (Auto) % (20.0-45.0) % (20.0-45.0) Monocytes (%) (Auto) % (1.0-10.0) % (1.0-10.0) Eosinophils (%) (Auto) % (0.0-3.0) % (0.0-3.0) Basophils (%) (Auto) % (0.0-2.0) % (0.0-2.0) Differential Total Cells Counted 100 100 Neutrophils % (Manual) 69 % (45-75) 61 % (45-75) Lymphocytes % (Manual) 4 % (20-45) 10 % (20-45) Monocytes % (Manual) 6 % (1-10) 3 % (1-10) Eosinophils % (Manual) 0 % (0-3) 0 % (0-3) Basophils % (Manual) 0 % (0-2) 0 % (0-2) Band Neutrophils 21 % (0-8) 26 % (0-8) Platelet Estimate Increased Increased Platelet Morphology Normal Polychromasia Occasional Hypochromasia 1+ 1+ Anisocytosis 1+ 1+ Sodium Level 139 mEQ/L (135-145) 138 mEQ/L (135-145) Potassium Level 5.5 mEQ/L (3.4-4.9) 5.6 mEQ/L (3.4-4.9) Chloride Level 103 mEQ/L (98-107) 104 mEQ/L (98-107) Carbon Dioxide Level 16 mEQ/L (20-30) 14 mEQ/L (20-30) Anion Gap 20 (5-15) 20 (5-15) Blood Urea Nitrogen 40 mg/dL (7-23) 46 mg/dL (7-23) Creatinine 2.7 mg/dL (0.7-1.2) 3.1 mg/dL (0.7-1.2) Estimat Glomerular Filtration Rate mL/min (>60) mL/min (>60) Glucose Level 115 mg/dL (74-106) 120 mg/dL (74-106) Calcium Level 10.1 mg/dL (8.6-10.2) 9.1 mg/dL (8.6-10.2) Giant Platelets Rare Total Bilirubin 0.3 mg/dL (0.0-1.2) Aspartate Amino Transf (AST/SGOT) 20 U/L (5-40) Alanine Aminotransferase (ALT/SGPT) 17 U/L (3-41) Alkaline Phosphatase 87 U/L (40-129) Pro-B-Type Natriuretic Peptide 8742 pg/mL (0-450) Total Protein 5.2 g/dL (6.6-8.7) Albumin 1.4 g/dL (3.5-5.2) Globulin 3.8 g/dL Albumin/Globulin Ratio 0.3 (1.0-2.7) Random Vancomycin Level 22.7 ug/mL Objective: Sp02 EP Interpretation: reviewed, normal General Appearance: ill appearing Head: normocephalic, atraumatic Eyes: bilateral eye normal inspection ENT: normal ENT inspection, no angioedema, normal voice Neck: normal inspection, full range of motion, supple, no meningismus, carotid 2+ Respiratory: decreased breath sounds, some rhonchi Cardiovascular #1: regular rate, irregular rhythm, no murmur without MRG Gastrointestinal: non tender, soft, non-distended, no guarding, no rebound; GT in place Genitourinary: no CVA tenderness Musculoskeletal: some edema Neurologic: poor LOC Micro: Microbiology Date/Time Source Procedure Growth Status 12/17/16 03:15 Blood Blood Culture - Preliminary NO GROWTH AFTER 48 HOURS Resulted 12/17/16 03:05 Blood Blood Culture - Preliminary NO GROWTH AFTER 48 HOURS Resulted 12/17/16 04:45 Urine,Clean Catch Urine Culture - Final Angella Albicans Complete 12/17/16 04:54 Rectum VRE Culture - Final NO VANCOMYCIN RESISTANT ENTEROCOCCUS ... Complete RIZWAN SANDERS Dec 19, 2016 10:27
--- NOTE | 2016-12-19 10:34 | General Progress Note ---
Assessment/Plan Problem List: (1) Esophageal adenocarcinoma ICD Codes: C15.9 - Malignant neoplasm of esophagus, unspecified SNOMED: 920916719 (2) Hypercalcemia of malignancy ICD Codes: E83.52 - Hypercalcemia SNOMED: 57046250 (3) Chronic kidney disease ICD Codes: N18.9 - Chronic kidney disease, unspecified SNOMED: 700189134 Qualifiers: Qualified Codes: N18.9 - Chronic kidney disease, unspecified (4) Anemia in chronic illness ICD Codes: D63.8 - Anemia in other chronic diseases classified elsewhere SNOMED: 581728889 (5) Malfunction of gastrostomy tube ICD Codes: K94.23 - Gastrostomy malfunction SNOMED: 687297522 (6) Chronic respiratory failure, unspecified whether with hypoxia or hypercapnia ICD Codes: J96.10 - Chronic respiratory failure, unspecified whether with hypoxia or hypercapnia SNOMED: 36722978 (7) UTI (urinary tract infection) ICD Codes: N39.0 - Urinary tract infection, site not specified SNOMED: 10764696 Qualifiers: Qualified Codes: N30.00 - Acute cystitis without hematuria (8) Pneumonia ICD Codes: J18.9 - Pneumonia, unspecified organism SNOMED: 567977040 Qualifiers: Qualified Codes: J18.9 - Pneumonia, unspecified organism (9) Sepsis ICD Codes: A41.9 - Sepsis, unspecified organism SNOMED: 71865360 Qualifiers: Qualified Codes: A41.9 - Sepsis, unspecified organism Status: stable, progressing Assessment/Plan pressors iv abx follow up cultures follow up ct vent support resp rx poor prognosis dnr per family Subjective ROS Limited/Unobtainable: Yes Constitutional: Reports: malaise, weakness HEENT: Reports: no symptoms Cardiovascular: Reports: edema Respiratory: Reports: no symptoms Gastrointestinal/Abdominal: Reports: difficulty swallowing Genitourinary: Reports: no symptoms Neurologic/Psychiatric: Reports: no symptoms Endocrine: Reports: no symptoms Hematologic/Lymphatic: Reports: anemia Allergies: Coded Allergies: No Known Allergies (Unverified , 11/27/16) All Systems: reviewed and negative except above Subjective doing poorly now. hypotensive on pressors. on amiodarone for afib with rvr. rate better this am. just coming up from ct Objective Last 24 Hour Vital Signs Date Time Temp Pulse Resp B/P Pulse Ox O2 Delivery O2 Flow Rate FiO2 12/19/16 09:40 98/28 12/19/16 09:11 94 25 70 12/19/16 09:00 95/38 12/19/16 09:00 95 26 96/38 99 Mechanical Ventilator 70 12/19/16 08:45 96 27 98/43 98 Mechanical Ventilator 70 12/19/16 08:30 95 28 100/42 98 Mechanical Ventilator 70 12/19/16 08:15 94 35 102/40 98 Mechanical Ventilator 70 12/19/16 08:00 70 12/19/16 08:00 93 12/19/16 08:00 98.0 96 33 100/38 99 Mechanical Ventilator 70 12/19/16 08:00 98/35 12/19/16 07:45 95 34 99/36 98 Mechanical Ventilator 70 12/19/16 07:30 93 35 98/35 99 Mechanical Ventilator 70 12/19/16 07:00 92 26 70 12/19/16 06:57 96/34 12/19/16 06:00 100/34 12/19/16 06:00 99 36 100/34 99 Mechanical Ventilator 70 12/19/16 05:44 99 31 70 12/19/16 05:30 98 26 111/53 97 Mechanical Ventilator 70 12/19/16 05:00 100 23 98/38 99 Mechanical Ventilator 70 12/19/16 05:00 98/38 12/19/16 04:30 99 24 101/40 100 Mechanical Ventilator 70 12/19/16 04:00 99 12/19/16 04:00 102/41 12/19/16 04:00 70 12/19/16 04:00 97.3 101 24 102/41 100 Mechanical Ventilator 70 12/19/16 03:30 99 22 91/36 100 Mechanical Ventilator 70 12/19/16 03:19 98 24 70 12/19/16 03:04 72/34 12/19/16 03:00 95/37 12/19/16 03:00 96 22 95/37 100 Mechanical Ventilator 70 12/19/16 02:30 98 22 90/36 100 Mechanical Ventilator 70 12/19/16 02:00 99 22 90/39 100 Mechanical Ventilator 70 12/19/16 02:00 90/36 12/19/16 01:30 100 25 91/36 100 Mechanical Ventilator 80 12/19/16 01:00 99 22 99/39 100 Mechanical Ventilator 80 12/19/16 01:00 91/36 12/19/16 01:00 100 24 100 12/19/16 00:30 100 25 91/36 100 Mechanical Ventilator 80 12/19/16 00:00 99 12/19/16 00:00 97.8 99 25 95/37 100 Mechanical Ventilator 80 12/19/16 00:00 95/37 12/19/16 00:00 80 12/18/16 23:30 98 26 99/37 100 Mechanical Ventilator 100 12/18/16 23:00 95/30 12/18/16 23:00 99 24 95/30 100 Mechanical Ventilator 100 12/18/16 22:59 100 24 100 12/18/16 22:30 99 25 95/32 100 Mechanical Ventilator 100 12/18/16 22:27 97/24 12/18/16 22:00 99 25 94/32 100 Mechanical Ventilator 100 12/18/16 22:00 94/32 12/18/16 21:30 100 26 96/28 100 Mechanical Ventilator 100 12/18/16 21:00 99 24 98/27 100 Mechanical Ventilator 100 12/18/16 21:00 98/27 12/18/16 20:59 100 22 100 12/18/16 20:45 99 23 95/27 100 Mechanical Ventilator 100 12/18/16 20:30 99 24 98/22 100 Mechanical Ventilator 100 12/18/16 20:15 98 23 102/21 100 Mechanical Ventilator 100 12/18/16 20:00 100 12/18/16 20:00 101/21 12/18/16 20:00 96 12/18/16 20:00 96 23 101/21 100 Mechanical Ventilator 100 12/18/16 19:45 97.1 104 27 101/42 100 Mechanical Ventilator 100 12/18/16 19:30 99 25 84/36 100 Mechanical Ventilator 100 12/18/16 19:17 96 27 100 12/18/16 19:07 93 24 63/25 100 Mechanical Ventilator 100 12/18/16 19:05 63/25 12/18/16 18:45 92 30 89/42 100 Mechanical Ventilator 100 12/18/16 18:30 95 30 89/44 100 Mechanical Ventilator 100 12/18/16 18:30 98 12/18/16 18:15 98 33 88/45 100 Mechanical Ventilator 100 12/18/16 18:01 95/50 12/18/16 18:00 110 32 89/45 100 Mechanical Ventilator 100 12/18/16 17:45 108 33 90/50 100 Mechanical Ventilator 100 12/18/16 17:30 107 34 88/45 100 Mechanical Ventilator 100 12/18/16 17:17 105 26 100 12/18/16 17:16 112 33 94/54 98 Mechanical Ventilator 100 12/18/16 17:16 113 35 95/53 95 Mechanical Ventilator 100 12/18/16 17:00 94/46 12/18/16 17:00 114 32 93/54 98 Mechanical Ventilator 100 12/18/16 16:45 116 36 90/52 95 Mechanical Ventilator 100 12/18/16 16:30 115 34 92/50 98 Mechanical Ventilator 100 12/18/16 16:15 114 36 95/45 98 Mechanical Ventilator 100 12/18/16 16:00 97.5 125 33 88/51 93 Mechanical Ventilator 100 12/18/16 16:00 120 12/18/16 16:00 92/60 12/18/16 15:45 126 35 90/50 94 Mechanical Ventilator 100 12/18/16 15:30 129 34 92/45 95 Mechanical Ventilator 100 12/18/16 15:15 133 35 89/44 90 Mechanical Ventilator 100 12/18/16 15:01 117 33 100 12/18/16 15:00 195 12/18/16 15:00 100 12/18/16 15:00 68/45 12/18/16 15:00 132 32 88/45 92 Mechanical Ventilator 100 12/18/16 14:45 130 33 85/42 90 Mechanical Ventilator 100 12/18/16 14:30 171 36 88/40 88 Mechanical Ventilator 100 12/18/16 14:15 97.6 175 35 84/42 92 Mechanical Ventilator 100 12/18/16 14:11 68/45 12/18/16 14:00 182 35 75/32 93 Mechanical Ventilator 100 12/18/16 13:45 186 38 69/34 92 Mechanical Ventilator 12/18/16 13:30 188 35 59/35 88 Mechanical Ventilator 100 12/18/16 13:15 185 36 65/40 86 Mechanical Ventilator 100 12/18/16 13:00 97.8 195 45 68/45 100 Mechanical Ventilator 100 12/18/16 12:59 174 39 100 12/18/16 12:45 198 35 58/37 Mechanical Ventilator 100 12/18/16 12:00 97.7 171 30 71/54 100 Mechanical Ventilator 100 12/18/16 12:00 100 12/18/16 11:27 110 32 100 Intake and Output 12/18/16 12/19/16 19:00 07:00 Intake Total 895.25 ml 2318.15 ml Output Total 0 ml 155 ml Balance 895.25 ml 2163.15 ml Intake Oral 0 ml IV Total 895.25 ml 2318.15 ml Output Urine Total 0 ml 5 ml Stool Total 150 ml Laboratory Tests 12/19/16 05:40: White Blood Count 21.2H, Red Blood Count 3.07L, Hemoglobin 8.7L, Hematocrit 28.8L, Mean Corpuscular Volume 94, Mean Corpuscular Hemoglobin 28.4, Mean Corpuscular Hemoglobin Concent 30.3L, Red Cell Distribution Width 17.9H, Platelet Count 501H, Mean Platelet Volume 7.9, Neutrophils (%) (Auto) , Lymphocytes (%) (Auto) , Monocytes (%) (Auto) , Eosinophils (%) (Auto) , Basophils (%) (Auto) , Differential Total Cells Counted 100, Neutrophils % ( Manual) 61, Lymphocytes % (Manual) 10L, Monocytes % (Manual) 3, Eosinophils % ( Manual) 0, Basophils % (Manual) 0, Band Neutrophils 26H, Platelet Estimate IncreasedH, Platelet Morphology , Giant Platelets Rare, Hypochromasia 1+, Anisocytosis 1+, Sodium Level 138, Potassium Level 5.6H, Chloride Level 104, Carbon Dioxide Level 14L, Anion Gap 20H, Blood Urea Nitrogen 46H, Creatinine 3.1H, Estimat Glomerular Filtration Rate , Glucose Level 120H, Calcium Level 9.1 , Total Bilirubin 0.3, Aspartate Amino Transf (AST/SGOT) 20, Alanine Aminotransferase (ALT/SGPT) 17, Alkaline Phosphatase 87, Pro-B-Type Natriuretic Peptide 8742H, Total Protein 5.2L, Albumin 1.4L, Globulin 3.8, Albumin/Globulin Ratio 0.3L, Random Vancomycin Level 22.7 Height (Feet): 5 Height (Inches): 9.00 Weight (Pounds): 150 General Appearance: WD/WN, alert Neck: supple Cardiovascular: regular rhythm Respiratory/Chest: lungs clear Abdomen: soft, no organomegaly, no mass, decreased bowel sounds Neurologic: disoriented, unresponsive NANCY GARCIA Dec 19, 2016 10:34
--- NOTE | 2016-12-19 15:44 | General Progress Note ---
Assessment/Plan Assessment/Plan Assessment - Gastrostomy complication - resp failure - r/o enteropulmonic fistula - squamous cell CA of pharynx Recommendations - Check CT C/A - cannot use GT - ICU care - vent support Subjective Allergies: Coded Allergies: No Known Allergies (Unverified , 11/27/16) Subjective In Icu off feeds still leaking air from GT KUB negative Objective Last 24 Hour Vital Signs Date Time Temp Pulse Resp B/P Pulse Ox O2 Delivery O2 Flow Rate FiO2 12/19/16 15:29 77 22 70 12/19/16 15:09 82 39 99/32 99 Mechanical Ventilator 70 12/19/16 14:30 81 38 92/34 99 Mechanical Ventilator 70 12/19/16 14:05 74 42 78/31 99 Mechanical Ventilator 70 12/19/16 14:00 79/39 12/19/16 13:58 78/24 12/19/16 13:30 74 38 79/30 99 Mechanical Ventilator 70 12/19/16 13:14 78 23 70 12/19/16 13:00 82 33 85/38 99 Mechanical Ventilator 70 12/19/16 12:30 98.0 75 40 78/36 99 Mechanical Ventilator 70 12/19/16 12:00 110 12/19/16 12:00 70 12/19/16 12:00 110 33 96/35 99 Mechanical Ventilator 70 12/19/16 11:30 134 36 95/33 99 Mechanical Ventilator 70 12/19/16 11:00 140 33 94/32 98 Mechanical Ventilator 70 12/19/16 11:00 95/35 12/19/16 10:39 94 22 70 12/19/16 10:30 93 36 99/33 99 Mechanical Ventilator 70 12/19/16 10:00 96 35 98/40 99 Mechanical Ventilator 70 12/19/16 10:00 94/33 12/19/16 09:40 98/28 12/19/16 09:30 95 33 98/35 99 Mechanical Ventilator 70 12/19/16 09:11 94 25 70 12/19/16 09:00 95/38 12/19/16 09:00 95 26 96/38 99 Mechanical Ventilator 70 12/19/16 08:45 96 27 98/43 98 Mechanical Ventilator 70 12/19/16 08:30 95 28 100/42 98 Mechanical Ventilator 70 12/19/16 08:15 94 35 102/40 98 Mechanical Ventilator 70 12/19/16 08:00 70 12/19/16 08:00 93 12/19/16 08:00 98.0 96 33 100/38 99 Mechanical Ventilator 70 12/19/16 08:00 98/35 12/19/16 07:45 95 34 99/36 98 Mechanical Ventilator 70 12/19/16 07:30 93 35 98/35 99 Mechanical Ventilator 70 12/19/16 07:00 92 26 70 12/19/16 06:57 96/34 12/19/16 06:00 100/34 12/19/16 06:00 99 36 100/34 99 Mechanical Ventilator 70 12/19/16 05:44 99 31 70 12/19/16 05:30 98 26 111/53 97 Mechanical Ventilator 70 12/19/16 05:00 100 23 98/38 99 Mechanical Ventilator 70 12/19/16 05:00 98/38 12/19/16 04:30 99 24 101/40 100 Mechanical Ventilator 70 12/19/16 04:00 99 12/19/16 04:00 102/41 12/19/16 04:00 70 12/19/16 04:00 97.3 101 24 102/41 100 Mechanical Ventilator 70 12/19/16 03:30 99 22 91/36 100 Mechanical Ventilator 70 12/19/16 03:19 98 24 70 12/19/16 03:04 72/34 12/19/16 03:00 95/37 12/19/16 03:00 96 22 95/37 100 Mechanical Ventilator 70 12/19/16 02:30 98 22 90/36 100 Mechanical Ventilator 70 12/19/16 02:00 99 22 90/39 100 Mechanical Ventilator 70 12/19/16 02:00 90/36 12/19/16 01:30 100 25 91/36 100 Mechanical Ventilator 80 12/19/16 01:00 99 22 99/39 100 Mechanical Ventilator 80 12/19/16 01:00 91/36 12/19/16 01:00 100 24 100 12/19/16 00:30 100 25 91/36 100 Mechanical Ventilator 80 12/19/16 00:00 99 12/19/16 00:00 97.8 99 25 95/37 100 Mechanical Ventilator 80 12/19/16 00:00 95/37 12/19/16 00:00 80 12/18/16 23:30 98 26 99/37 100 Mechanical Ventilator 100 12/18/16 23:00 95/30 12/18/16 23:00 99 24 95/30 100 Mechanical Ventilator 100 12/18/16 22:59 100 24 100 12/18/16 22:30 99 25 95/32 100 Mechanical Ventilator 100 12/18/16 22:27 97/24 12/18/16 22:00 99 25 94/32 100 Mechanical Ventilator 100 12/18/16 22:00 94/32 12/18/16 21:30 100 26 96/28 100 Mechanical Ventilator 100 12/18/16 21:00 99 24 98/27 100 Mechanical Ventilator 100 12/18/16 21:00 98/27 12/18/16 20:59 100 22 100 12/18/16 20:45 99 23 95/27 100 Mechanical Ventilator 100 12/18/16 20:30 99 24 98/22 100 Mechanical Ventilator 100 12/18/16 20:15 98 23 102/21 100 Mechanical Ventilator 100 12/18/16 20:00 100 12/18/16 20:00 101/21 12/18/16 20:00 96 12/18/16 20:00 96 23 101/21 100 Mechanical Ventilator 100 12/18/16 19:45 97.1 104 27 101/42 100 Mechanical Ventilator 100 12/18/16 19:30 99 25 84/36 100 Mechanical Ventilator 100 12/18/16 19:17 96 27 100 12/18/16 19:07 93 24 63/25 100 Mechanical Ventilator 100 12/18/16 19:05 63/25 12/18/16 18:45 92 30 89/42 100 Mechanical Ventilator 100 12/18/16 18:30 95 30 89/44 100 Mechanical Ventilator 100 12/18/16 18:30 98 12/18/16 18:15 98 33 88/45 100 Mechanical Ventilator 100 12/18/16 18:01 95/50 12/18/16 18:00 110 32 89/45 100 Mechanical Ventilator 100 12/18/16 17:45 108 33 90/50 100 Mechanical Ventilator 100 12/18/16 17:30 107 34 88/45 100 Mechanical Ventilator 100 12/18/16 17:17 105 26 100 12/18/16 17:16 112 33 94/54 98 Mechanical Ventilator 100 12/18/16 17:16 113 35 95/53 95 Mechanical Ventilator 100 12/18/16 17:00 94/46 12/18/16 17:00 114 32 93/54 98 Mechanical Ventilator 100 12/18/16 16:45 116 36 90/52 95 Mechanical Ventilator 100 12/18/16 16:30 115 34 92/50 98 Mechanical Ventilator 100 12/18/16 16:15 114 36 95/45 98 Mechanical Ventilator 100 12/18/16 16:00 97.5 125 33 88/51 93 Mechanical Ventilator 100 12/18/16 16:00 120 12/18/16 16:00 92/60 12/18/16 15:45 126 35 90/50 94 Mechanical Ventilator 100 Intake and Output 12/18/16 12/19/16 19:00 07:00 Intake Total 895.25 ml 2318.15 ml Output Total 0 ml 155 ml Balance 895.25 ml 2163.15 ml Intake Oral 0 ml IV Total 895.25 ml 2318.15 ml Output Urine Total 0 ml 5 ml Stool Total 150 ml Laboratory Tests 12/19/16 05:40: White Blood Count 21.2H, Red Blood Count 3.07L, Hemoglobin 8.7L, Hematocrit 28.8L, Mean Corpuscular Volume 94, Mean Corpuscular Hemoglobin 28.4, Mean Corpuscular Hemoglobin Concent 30.3L, Red Cell Distribution Width 17.9H, Platelet Count 501H, Mean Platelet Volume 7.9, Neutrophils (%) (Auto) , Lymphocytes (%) (Auto) , Monocytes (%) (Auto) , Eosinophils (%) (Auto) , Basophils (%) (Auto) , Differential Total Cells Counted 100, Neutrophils % ( Manual) 61, Lymphocytes % (Manual) 10L, Monocytes % (Manual) 3, Eosinophils % ( Manual) 0, Basophils % (Manual) 0, Band Neutrophils 26H, Platelet Estimate IncreasedH, Platelet Morphology , Giant Platelets Rare, Hypochromasia 1+, Anisocytosis 1+, Sodium Level 138, Potassium Level 5.6H, Chloride Level 104, Carbon Dioxide Level 14L, Anion Gap 20H, Blood Urea Nitrogen 46H, Creatinine 3.1H, Estimat Glomerular Filtration Rate , Glucose Level 120H, Calcium Level 9.1 , Total Bilirubin 0.3, Aspartate Amino Transf (AST/SGOT) 20, Alanine Aminotransferase (ALT/SGPT) 17, Alkaline Phosphatase 87, Pro-B-Type Natriuretic Peptide 8742H, Total Protein 5.2L, Albumin 1.4L, Globulin 3.8, Albumin/Globulin Ratio 0.3L, Random Vancomycin Level 22.7 Height (Feet): 5 Height (Inches): 9.00 Weight (Pounds): 150 Objective Debilitated WM NCAT (+) trach coarse BS RRR soft flat abd , (+) GT with air leak no edema JA CHAHAL Dec 19, 2016 15:44
--- NOTE | 2016-12-19 22:19 | Consultation ---
DATE OF CONSULTATION: 12/19/2016 INFECTIOUS DISEASES CONSULTATION CONSULTING PHYSICIAN: Dave Hernandez M.D. REFERRING PHYSICIAN: Cash Coughlin M.D. REASON FOR CONSULTATION: Leukocytosis. HISTORY OF PRESENTING ILLNESS: This is a 76-year-old gentleman with history of esophageal cancer as well as pneumonia, who came in now at this time with increasing shortness of breath and leukocytosis and Infectious Diseases consultation has been obtained for antibiotics. PAST MEDICAL HISTORY: 1. History of esophageal cancer. 2. History of respiratory failure, status post tracheostomy. MEDICATIONS: As an inpatient, he is on norepinephrine, Protonix, amiodarone, Zosyn, fluconazole, Xanax, hydralazine, nystatin, Tylenol, albuterol, and intravenous vancomycin. ALLERGIES: No known drug allergies. SOCIAL HISTORY: Unknown. FAMILY HISTORY: Unknown. REVIEW OF SYSTEMS: Unable to obtain currently. PHYSICAL EXAMINATION: VITAL SIGNS: Temperature of 98, T-max of 98, pulse of 134, respiratory rate of 36, blood pressure 95/33, and O2 saturation of 99%. HEENT: Pupils equally reactive to light and accommodation. Mouth appears clean without thrush. NECK: Supple. No adenopathy. No JVD. Tracheostomy site appears clean. CARDIOVASCULAR: Regular rate and rhythm. No murmurs. LUNGS: Clear to auscultation bilaterally. No crackles. No wheezes. ABDOMEN: Soft and nontender. G-tube site, there is a leak. EXTREMITIES: No cyanosis, no clubbing, and no edema. LABORATORY DATA: White count of 21.2, white count of 23.5 yesterday; hemoglobin 8.7, hematocrit 28.8, MCV 94, platelet count of 501,000; and neutrophils of 61%. Sodium 138, potassium 5.6, chloride 104, bicarbonate 14, BUN 46, creatinine 3.1, and glucose 120. Calcium 9.1. Total bilirubin 0.3, AST 20, ALT 17, and alkaline phosphatase 87. Beta-natriuretic peptide 8742. Total protein 5.2 and albumin 1.4. Lipase of 8. UA showing too numerous to count white cells, too numerous to count red cells, and yeast in the urine. Cultures, rectal swab was negative for VRE. Nasal swab was negative for MRSA. Blood cultures are negative on 12/17/2016. A 12/17/2016 urine culture is growing Angella albicans. Chest x-ray is showing pulmonary edema and pleural effusion. CT abdomen and pelvis showing possible ileus, moderate bilateral pleural effusions, posterior basilar pneumonia noted, and distended gallbladder noted versus sludge. ASSESSMENT: 1. This is a 76-year-old gentleman with history of esophageal cancer, who comes in with leukocytosis and probably has an aspiration pneumonia. 2. He also has a fungal urinary tract infection. 3. Shock. PLAN: 1. Continue vancomycin, Zosyn, and fluconazole. 2. We will order sputum for Gram stain and culture. 3. We will follow up cultures and adjust antibiotics accordingly. I would like to thank, Dr. Coughlin, for this consultation. Dave Hernandez M.D. DR: NURIA JOB#: [id number] CC: Cash Coughlin M.D.
[2016-12-20] VITALS (56 sets, daily range): BP systolic 0–112; BP diastolic 0–60
[2016-12-20] MEDS: Piperacillin/Tazobactam 3.375 GM in D5W 110 ML IVPB SCH ×2 (02:05→14:09)
[2016-12-20] MEDS: Amiodarone 900 MG in D5W 500ml 482 ML IV SCH (08:02)
[2016-12-20] MEDS: Nystatin Powder 100,000 units/gm 15gm TOPIC SCH ×3 (08:03→18:00)
[2016-12-20] MEDS: Pantoprazole Inj IVP SCH (08:03)
--- NOTE | 2016-12-20 08:58 | Consultation ---
DATE OF CONSULTATION: 12/18/2016 CHIEF COMPLAINT: I was asked to see this patient by Dr. Kev Ayala for evaluation of gastrostomy tube dysfunction. HISTORY OF PRESENT ILLNESS: The patient is an unfortunate 76-year-old man with advanced is admitted to the hospital due to abdominal distention. He was recently admitted to the hospital and underwent workup and was discharged. 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 The pharynx was 100% occluded and would not allow gastrostomy catheter. The patient also was noted to have a gastrostomy tube dysfunction, which could not be evaluated endoscopically since endoscopy itself could not be achieved. The patient was able to . There was through the gastrostomy tube. The showed a catheter in the bladder . The patient was ordered to have urgent x-ray done to evaluate the status of the gastrostomy tube. The patient was subsequently admitted to the ICU due to unstable vital signs. PAST MEDICAL HISTORY: History of respiratory failure, esophageal cancer, tracheostomy status, gastrostomy. FAMILY HISTORY: Noncontributory. SOCIAL HISTORY: The patient lives in a retirement. ALLERGIES: Negative. MEDICATIONS: Noted the patient's per chart. REVIEW OF SYSTEMS: Otherwise negative. PHYSICAL EXAMINATION: GENERAL: Debilitated, thin man, seen in his room. HEENT: Normocephalic and atraumatic. Sclerae are anicteric. Oropharynx could not be evaluated. Tracheostomy was in place. CHEST: Coarse breath sounds. CARDIOVASCULAR: Regular rhythm. ABDOMEN: Soft. Gastrostomy tube is air as described above. EXTREMITIES: No edema. LABORATORY DATA: Noted. ASSESSMENT: This patient presents following gastrostomy tube dysfunction. 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 Therefore, his condition of the patient is terminal. This was assessed in the last visit. The family however is still not measures. For time being, I would check a stat x-ray of the chest and abdomen with gastrostomy tube to see where the connection is. From then, gastrostomy tube should not be used for anything else. RECOMMENDATIONS: Per above discussion and per orders written in the chart. Thank you for asking me to participate in the care of this patient. Ginger Meeks M.D. DR: CHAN JOB#: [id number] CC:
--- NOTE | 2016-12-20 08:59 | Diagnostic Imaging Report ---
Indication: Abdominal pain Technique: CT the chest, abdomen, and pelvis performed with oral contrast material only per specific request of the ordering physician. Axial, coronal, and sagittal images were generated. Dose: Total Dose Length Product - DLP [address] Dose Index - CTDIvol(s) 14.98 mGy. Comparison: CT of the chest 12/10/[address] scan of the abdomen and pelvis 12/17/2016 Findings: Chest: Again noted is a tracheostomy tube. Abnormal soft tissue is seen posterior to and partially surrounding the trachea. The upper esophageal wall appears to. There is calcification of the aorta. There is an infusion port on the left. Adenopathy is again seen in the superior mediastinum and middle mediastinum, unchanged. Mass in the lingula is unchanged. There is now extensive infiltrate with air bronchograms in the right upper lobe and right middle lobe. Infiltrate is also present in both lower lobes with volume loss. Large bilateral pleural effusions are present. Abdomen and pelvis: The liver is unchanged. Gallbladder is distended. The spleen is unremarkable. The pancreas is grossly normal. Adrenal glands are unremarkable. There are nonobstructing renal calculi bilaterally. The retroperitoneum demonstrates considerable adenopathy. This was present previously. Aorta is normal in caliber. Dilated small bowel is noted the abdomen with air-fluid levels. This is more prominent since previous study. A gastrostomy tube is in the stomach. Some free fluid is noted in the abdomen. This is new since previous exam. A Polanco catheter is in the bladder. Prostate is enlarged. Impression: Development of some ascites. Bilateral pleural effusions. Extensive infiltrate in the lungs bilaterally with nodule in the lingula. This is worsening since 12/17/2016. This likely represents inflammatory disease. Bilateral pleural effusions. Development of some ascites. Increasing dilatation of small bowel loops. No definite transition point. This may represent ileus. Polanco catheter. Nonobstructive bilateral renal calculi. No other change. Mass around the proximal esophagus and adenopathy mediastinum and retroperitoneum again identified. The CT scanner at [facility] is accredited by the [employer] and the scans are performed using protocols designed to limit radiation exposure to as low as reasonably achievable to attain images of sufficient resolution adequate for diagnostic evaluation.
--- NOTE | 2016-12-20 08:59 | Diagnostic Imaging Report ---
Indication: The stress G-tube placement Technique: XRAY ABDOMEN 1VIEW/KUB Comparison: None. Findings: Loops of dilated bowel are present but this is probably nonobstructive.. A gastrostomy tube is present over the stomach. There are bilateral pleural effusions. Bilateral pulmonary infiltrates are present. Impression: Gastrostomy tube over the stomach. Bilateral pulmonary infiltrates and bilateral pleural effusions. Dilated bowel but no definite obstruction. The above report is concordant with preliminary reading by [facility] .
--- NOTE | 2016-12-20 08:59 | Diagnostic Imaging Report ---
Indication: NG tube placement Technique: XRAY CHEST 1 V Comparison:Current exam obtained at 1435 compared obtained earlier 12/18/2016 at 927 Findings: Tracheostomy and left subclavian catheters remain. Contrast appears to be present in the stomach, presumably injected via the gastrostomy. Bilateral pulmonary infiltrates and bilateral pleural effusions remain. Impression: Contrast in the stomach. No other change from previous study.
--- NOTE | 2016-12-20 08:59 | Diagnostic Imaging Report ---
Indication: Gastrostomy tube Technique: XRAY ABDOMEN 1VIEW/KUB Comparison: Current examination obtained at 1434 compared with one obtained earlier 12/18/2016 at 1433. Findings: Contrast is injected into a gastrostomy tube. This fills the stomach. There is no evidence of extravasation. The remainder the study is unchanged. Impression: Gastrostomy tube in the stomach. The above report is concordant with preliminary reading by Statsandra .
[2016-12-20 09:34] LABS: ALANINE AMINOTRANSFERASE 19 U/L (3-41); ALBUMIN/GLOBULIN RATIO 0.3 (1.0-2.7); ASPARTATE AMINO TRANSFERASE 29 U/L (5-40); CARBON DIOXIDE 13 mEQ/L (20-30); CHLORIDE 100 mEQ/L (98-107); CREATININE 3.4 mg/dL (0.7-1.2); HEMOLYSIS 5; SODIUM 133 mEQ/L (135-145); TOTAL PROTEIN 5.1 g/dL (6.6-8.7)
[2016-12-20 09:38] LABS: MEAN CORPUSCULAR HEMOGLOBIN 27.6 PG (27.0-31.0); MEAN CORPUSCULAR HGB CONC 28.9 G/DL (32.0-36.0); MEAN CORPUSCULAR VOLUME 96 FL (80-99); MEAN PLATELET VOLUME 8.1 FL (6.5-10.1); PLATELET COUNT 354 K/UL (150-450); RED BLOOD COUNT 2.81 M/UL (4.70-6.10); RED CELL DISTRIBUTION WIDTH 17.6 % (11.6-14.8); WHITE BLOOD COUNT 14.6 K/UL (4.8-10.8)
[2016-12-20 09:39] LABS: ANION GAP 20 (5-15)
[2016-12-20 09:41] LABS: POTASSIUM 6.4 mEQ/L (3.4-4.9)
[2016-12-20 11:21] LABS: ABG PCO2 85.8 mmHg (35.0-45.0)
[2016-12-20 11:22] LABS: ABG ALLEN TEST POSITIVE
--- NOTE | 2016-12-20 11:47 | Infectious Diseases Prog Note ---
Assessment/Plan Assessment/Plan antibiotics : vancomycin iv, zosyn, fluconazole A 1. pneumonia 2. pleural effusion 3. fungal UTI 4. renal failure 5. respiratory failure 6. esophageal cancer P 1. continue zosyn, fluconazole 2. d/c iv vancomycin 3. will follow up cultures Subjective ROS Limited/Unobtainable: Yes Allergies: Coded Allergies: No Known Allergies (Unverified , 11/27/16) Objective Vital Signs Last 24 Hour Vital Signs Date Time Temp Pulse Resp B/P Pulse Ox O2 Delivery O2 Flow Rate FiO2 12/20/16 11:30 63 18 70 12/20/16 10:44 97/27 12/20/16 10:43 62 18 70 12/20/16 08:34 61 18 70 12/20/16 08:30 65 23 104/60 97 Mechanical Ventilator 70 12/20/16 08:00 63 12/20/16 08:00 62 24 101/30 97 Mechanical Ventilator 70 12/20/16 08:00 70 12/20/16 07:30 63 29 100/36 97 Mechanical Ventilator 70 12/20/16 07:00 95.2 64 19 103/21 97 Mechanical Ventilator 70 12/20/16 06:30 66 18 70 12/20/16 06:00 108/21 12/20/16 06:00 68 22 108/21 99 Mechanical Ventilator 70 12/20/16 05:32 64 18 70 12/20/16 05:30 65 31 105/25 97 Mechanical Ventilator 70 12/20/16 05:00 101/43 12/20/16 05:00 67 18 101/43 95 Mechanical Ventilator 70 12/20/16 04:30 69 18 112/28 97 Mechanical Ventilator 70 12/20/16 04:00 95.0 65 18 104/29 96 Mechanical Ventilator 70 12/20/16 04:00 106/29 12/20/16 04:00 70 12/20/16 04:00 67 12/20/16 03:20 96/28 12/20/16 03:14 62 20 70 12/20/16 03:00 64 18 96/28 97 Mechanical Ventilator 70 12/20/16 03:00 /12/20/16 02:30 64 18 93/26 98 Mechanical Ventilator 70 12/20/16 02:00 96/29 12/20/16 02:00 63 18 96/29 97 Mechanical Ventilator 70 12/20/16 01:30 64 18 94/27 97 Mechanical Ventilator 70 12/20/16 01:23 67 19 70 12/20/16 01:00 94/35 12/20/16 01:00 63 12 94/35 96 Mechanical Ventilator 70 12/20/16 00:30 64 15 89/32 97 Mechanical Ventilator 70 12/20/16 00:00 66 12/20/16 00:00 96.6 66 19 88/26 99 Mechanical Ventilator 70 12/20/16 00:00 12/20/16 00:00 70 12/19/16 23:44 64 19 70 12/19/16 23:30 65 20 92/24 97 Mechanical Ventilator 70 12/19/16 23:00 68 20 97 Mechanical Ventilator 12/19/16 23:00 91/12/19/16 22:30 67 21 93/28 97 Mechanical Ventilator 12/19/16 22:30 67 21 93/28 97 Mechanical Ventilator 12/19/16 22:00 63 20 4716 97 Mechanical Ventilator 12/19/16 22:00 47/16 12/19/16 21:40 54/23 12/19/16 21:33 57 21 70 12/19/16 21:30 58 20 54/23 95 Mechanical Ventilator 12/19/16 21:00 64 20 53/22 98 Mechanical Ventilator 12/19/16 21:00 53/22 12/19/16 20:30 69 20 94/29 98 Mechanical Ventilator 12/19/16 20:01 12/19/16 20:00 70 12/19/16 20:00 66 12/19/16 20:00 12/19/16 20:00 70 20 92/24 98 Mechanical Ventilator 12/19/16 19:30 71 21 95/33 99 Mechanical Ventilator 12/19/16 19:15 73 20 70 12/19/16 19:00 89/37 12/19/16 19:00 73 21 89/37 99 Mechanical Ventilator 12/19/16 18:35 75 22 88/40 99 Mechanical Ventilator 70 12/19/16 18:00 88/40 12/19/16 18:00 75 22 88/40 99 Mechanical Ventilator 12/19/16 17:30 75 32 91/38 99 Mechanical Ventilator 70 12/19/16 17:05 77 22 70 12/19/16 17:00 96/30 12/19/16 17:00 76 30 99/40 96 Mechanical Ventilator 70 12/19/16 16:30 77 41 97/32 99 Mechanical Ventilator 70 12/19/16 16:00 70 12/19/16 16:00 96.6 77 41 89/67 100 Mechanical Ventilator 70 12/19/16 16:00 89/67 12/19/16 16:00 76 12/19/16 15:30 96.6 77 42 100/29 100 Mechanical Ventilator 70 12/19/16 15:29 77 22 70 12/19/16 15:09 82 39 99/32 99 Mechanical Ventilator 70 12/19/16 14:30 81 38 92/34 99 Mechanical Ventilator 70 12/19/16 14:05 74 42 78/31 99 Mechanical Ventilator 70 12/19/16 14:00 79/39 12/19/16 13:58 78/24 12/19/16 13:30 74 38 79/30 99 Mechanical Ventilator 70 12/19/16 13:14 78 23 70 12/19/16 13:00 82 33 85/38 99 Mechanical Ventilator 70 12/19/16 12:30 98.0 75 40 78/36 99 Mechanical Ventilator 70 12/19/16 12:00 110 12/19/16 12:00 70 12/19/16 12:00 110 33 96/35 99 Mechanical Ventilator 70 Height (Feet): 5 Height (Inches): 9.00 Weight (Pounds): 150 HEENT: status post trach Respiratory/Chest: lungs clear Cardiovascular: normal rate, regular rhythm, no gallop/murmur Abdomen: soft, non tender, other - GT Extremities: no edema, other - left subclavian catheter Current Medications Medications (Trade) Dose Ordered Sig/Judith Route PRN Reason Start Time Stop Time Status Last Admin Dose Admin Acetaminophen (Tylenol) 650 mg Q4H PRN GT Mild Pain/Temp > 100.5 12/17/16 17:00 01/16/17 16:59 12/17/16 18:38 Albuterol Sulfate (Proventil) 2.5 mg Q4H PRN IN-LINE Shortness of Breath 12/17/16 16:45 12/22/16 16:44 Alprazolam (Xanax) 0.25 mg Q8H PRN ORAL Anxiety 12/17/16 18:00 12/24/16 17:59 Amiodarone HCl/ Dextrose (Cordarone/D5W 500ml) 500 ml @ 0 mls/hr Q24H IV 12/19/16 07:00 01/18/17 06:59 12/20/16 08:02 Fluconazole 50 ml @ 50 mls/hr Q24H IV 12/18/16 12:00 12/25/16 11:59 12/19/16 13:57 Hydralazine HCl (Apresoline) 5 mg Q6H PRN GT SBP greater than 160 12/17/16 18:00 01/16/17 17:59 Norepinephrine Bitartrate/ Dextrose (Levophed/D5W) 250 ml @ 0 mls/hr Q24H IV 12/19/16 12:30 01/18/17 12:29 12/20/16 10:44 Nystatin 1 applic 1 applic THREE TIMES A DAY TOPIC 12/18/16 09:00 01/17/17 08:59 12/20/16 08:03 Pantoprazole 40 mg 40 mg DAILY IVP 12/19/16 09:00 01/18/17 08:59 12/20/16 08:03 Piperacillin Sod/ Tazobactam Sod 3.375 gm/Dextrose 110 ml @ 27.5 mls/hr Q12HR@0200,1400 IVPB 12/19/16 02:00 12/26/16 01:59 12/20/16 02:05 Sodium Polystyrene Sulfonate (Kayexalate Enema) 30 gm ONCE ONCE RECTAL 12/20/16 12:00 12/20/16 12:01 Sodium Chloride 1,000 ml @ 100 mls/hr Q10H IV 12/18/16 14:00 01/17/17 13:59 12/20/16 06:03 Vancomycin HCl (Vanco rx to dose) 1 ea DAILY PRN MISC Per rx protocol 12/17/16 16:45 01/16/17 16:44 JORDAN NUNEZ Dec 20, 2016 11:47
[2016-12-20] MEDS ORDERED: Sodium Polystyrene Sulfonate Enema RECTAL ONE (12:00)
[2016-12-20 12:20] LABS: BAND NEUTROPHILS % (MANUAL) 23 % (0-8); EOSINOPHILS % (MANUAL) 1 % (0-3); LYMPHOCYTES % (MANUAL) 5 % (20-45); NEUTROPHILS % (MANUAL) 69 % (45-75); NUCLEATED RED BLOOD CELLS 5 /100 WBC; TOTAL CELLS COUNTED 100
[2016-12-20 12:21] LABS: ANISOCYTOSIS 1+; BASOPHILS % (MANUAL) 0 % (0-2); HYPOCHROMASIA 2+; PLATELET ESTIMATE ADEQUATE; PLATELET MORPHOLOGY NORMAL
[2016-12-20 13:08] LABS: ABG ALLEN TEST POSITIVE; ABG BASE EXCESS -20.5
--- NOTE | 2016-12-20 13:29 | General Progress Note ---
Assessment/Plan Problem List: (1) Esophageal adenocarcinoma ICD Codes: C15.9 - Malignant neoplasm of esophagus, unspecified SNOMED: 630405211 (2) Hypercalcemia of malignancy ICD Codes: E83.52 - Hypercalcemia SNOMED: 84481965 (3) Chronic kidney disease ICD Codes: N18.9 - Chronic kidney disease, unspecified SNOMED: 458864951 Qualifiers: Qualified Codes: N18.9 - Chronic kidney disease, unspecified (4) Anemia in chronic illness ICD Codes: D63.8 - Anemia in other chronic diseases classified elsewhere SNOMED: 953122107 (5) Malfunction of gastrostomy tube ICD Codes: K94.23 - Gastrostomy malfunction SNOMED: 938576678 (6) Chronic respiratory failure, unspecified whether with hypoxia or hypercapnia ICD Codes: J96.10 - Chronic respiratory failure, unspecified whether with hypoxia or hypercapnia SNOMED: 37277148 (7) UTI (urinary tract infection) ICD Codes: N39.0 - Urinary tract infection, site not specified SNOMED: 38135898 Qualifiers: Qualified Codes: N30.00 - Acute cystitis without hematuria (8) Pneumonia ICD Codes: J18.9 - Pneumonia, unspecified organism SNOMED: 830879476 Qualifiers: Qualified Codes: J18.9 - Pneumonia, unspecified organism (9) Sepsis ICD Codes: A41.9 - Sepsis, unspecified organism SNOMED: 26996833 Qualifiers: Qualified Codes: A41.9 - Sepsis, unspecified organism Status: deteriorating Assessment/Plan pressors- titrate iv abx follow up cultures ivf tranfuse prn vent support resp rx poor prognosis dnr per family d/w dtr- she is aware of grim prognosis. Subjective ROS Limited/Unobtainable: No Constitutional: Reports: malaise, weakness HEENT: Reports: no symptoms Cardiovascular: Reports: no symptoms Respiratory: Reports: shortness of breath, sputum Gastrointestinal/Abdominal: Reports: difficulty swallowing Genitourinary: Reports: no symptoms Neurologic/Psychiatric: Reports: pre-existing deficit Endocrine: Reports: no symptoms Hematologic/Lymphatic: Reports: anemia Allergies: Coded Allergies: No Known Allergies (Unverified , 11/27/16) All Systems: reviewed and negative except above Subjective doing poorly now. hypotensive on pressors. ct results noted. GT still not working. poorly responsive. Objective Last 24 Hour Vital Signs Date Time Temp Pulse Resp B/P Pulse Ox O2 Delivery O2 Flow Rate FiO2 12/20/16 12:51 65 18 70 12/20/16 11:30 63 18 70 12/20/16 10:44 97/27 12/20/16 10:43 62 18 70 12/20/16 08:34 61 18 70 12/20/16 08:30 65 23 104/60 97 Mechanical Ventilator 70 12/20/16 08:00 63 12/20/16 08:00 62 24 101/30 97 Mechanical Ventilator 70 12/20/16 08:00 70 12/20/16 07:30 63 29 100/36 97 Mechanical Ventilator 70 12/20/16 07:00 95.2 64 19 103/21 97 Mechanical Ventilator 70 12/20/16 06:30 66 18 70 12/20/16 06:00 108/21 12/20/16 06:00 68 22 108/21 99 Mechanical Ventilator 70 12/20/16 05:32 64 18 70 12/20/16 05:30 65 31 105/25 97 Mechanical Ventilator 70 12/20/16 05:00 101/43 12/20/16 05:00 67 18 101/43 95 Mechanical Ventilator 70 12/20/16 04:30 69 18 112/28 97 Mechanical Ventilator 70 12/20/16 04:00 95.0 65 18 104/29 96 Mechanical Ventilator 70 12/20/16 04:00 106/29 12/20/16 04:00 70 12/20/16 04:00 67 12/20/16 03:20 96/28 12/20/16 03:14 62 20 70 12/20/16 03:00 64 18 96/28 97 Mechanical Ventilator 70 12/20/16 03:00 96/28 12/20/16 02:30 64 18 93/26 98 Mechanical Ventilator 70 12/20/16 02:00 96/29 12/20/16 02:00 63 18 96/29 97 Mechanical Ventilator 70 12/20/16 01:30 64 18 94/27 97 Mechanical Ventilator 70 12/20/16 01:23 67 19 70 12/20/16 01:00 94/35 12/20/16 01:00 63 12 94/35 96 Mechanical Ventilator 70 12/20/16 00:30 64 15 89/32 97 Mechanical Ventilator 70 12/20/16 00:00 66 12/20/16 00:00 96.6 66 19 /26 99 Mechanical Ventilator 70 12/20/16 00:00 12/20/16 00:00 70 12/19/16 23:44 64 19 70 12/19/16 23:30 65 20 92/24 97 Mechanical Ventilator 70 12/19/16 23:00 68 20 /27 97 Mechanical Ventilator 12/19/16 23:00 9112/19/16 22:30 67 21 93/28 97 Mechanical Ventilator 12/19/16 22:30 67 21 93/28 97 Mechanical Ventilator 12/19/16 22:00 63 20 47/16 97 Mechanical Ventilator 12/19/16 22:00 47/16 12/19/16 21:40 54/23 12/19/16 21:33 57 21 70 12/19/16 21:30 58 20 54/23 95 Mechanical Ventilator 12/19/16 21:00 64 20 53/22 98 Mechanical Ventilator 12/19/16 21:00 53/22 12/19/16 20:30 69 20 94/29 98 Mechanical Ventilator 12/19/16 20:01 9212/19/16 20:00 70 12/19/16 20:00 66 12/19/16 20:00 92/24 12/19/16 20:00 70 20 92/24 98 Mechanical Ventilator 12/19/16 19:30 71 21 95/33 99 Mechanical Ventilator 12/19/16 19:15 73 20 70 12/19/16 19:00 89/37 12/19/16 19:00 73 21 89/37 99 Mechanical Ventilator 12/19/16 18:35 75 22 88/40 99 Mechanical Ventilator 70 12/19/16 18:00 88/40 12/19/16 18:00 75 22 88/40 99 Mechanical Ventilator 12/19/16 17:30 75 32 91/38 99 Mechanical Ventilator 70 12/19/16 17:05 77 22 70 12/19/16 17:00 96/30 12/19/16 17:00 76 30 99/40 96 Mechanical Ventilator 70 12/19/16 16:30 77 41 97/32 99 Mechanical Ventilator 70 12/19/16 16:00 70 12/19/16 16:00 96.6 77 41 89/67 100 Mechanical Ventilator 70 12/19/16 16:00 89/67 12/19/16 16:00 76 12/19/16 15:30 96.6 77 42 100/29 100 Mechanical Ventilator 70 12/19/16 15:29 77 22 70 12/19/16 15:09 82 39 99/32 99 Mechanical Ventilator 70 12/19/16 14:30 81 38 92/34 99 Mechanical Ventilator 70 12/19/16 14:05 74 42 78/31 99 Mechanical Ventilator 70 12/19/16 14:00 79/39 12/19/16 13:58 78/24 12/19/16 13:30 74 38 79/30 99 Mechanical Ventilator 70 Intake and Output 12/19/16 12/20/16 19:00 07:00 Intake Total 2029.44 ml 2031.90 ml Output Total 65 ml 0 ml Balance 1964.44 ml 2031.90 ml Intake Oral 0 ml 0 ml IV Total 2029.44 ml 2031.90 ml Output Urine Total 15 ml 0 ml Stool Total 50 ml 0 ml Laboratory Tests 12/20/16 08:46: White Blood Count 14.6H, Red Blood Count 2.81L, Hemoglobin 7.8L, Hematocrit 26.9L, Mean Corpuscular Volume 96, Mean Corpuscular Hemoglobin 27.6, Mean Corpuscular Hemoglobin Concent 28.9L, Red Cell Distribution Width 17.6H, Platelet Count 354, Mean Platelet Volume 8.1, Neutrophils (%) (Auto) , Lymphocytes (%) (Auto) , Monocytes (%) (Auto) , Eosinophils (%) (Auto) , Basophils (%) (Auto) , Differential Total Cells Counted 100, Neutrophils % ( Manual) 69, Lymphocytes % (Manual) 5L, Monocytes % (Manual) 2, Eosinophils % ( Manual) 1, Basophils % (Manual) 0, Band Neutrophils 23H, Nucleated Red Blood Cells 5, Platelet Estimate Adequate, Platelet Morphology Normal, Hypochromasia 2 +, Anisocytosis 1+, Sodium Level 133L, Potassium Level 6.4*H, Chloride Level 100 , Carbon Dioxide Level 13L, Anion Gap 20H, Blood Urea Nitrogen 49H, Creatinine 3.4H, Estimat Glomerular Filtration Rate , Glucose Level 83, Calcium Level 9.0, Total Bilirubin 0.3, Aspartate Amino Transf (AST/SGOT) 29, Alanine Aminotransferase (ALT/SGPT) 19, Alkaline Phosphatase 97, Total Protein 5.1L, Albumin 1.3L, Globulin 3.8, Albumin/Globulin Ratio 0.3L 12/20/16 11:06: Arterial Blood pH 6.796*L, Arterial Blood Partial Pressure CO2 85.8*H, Arterial Blood Partial Pressure O2 77.8, Arterial Blood HCO3 12.9L, Arterial Blood Oxygen Saturation 91.4L, Arterial Blood Base Excess -21.0, Inderjit Test Positive 12/20/16 12:51: Arterial Blood pH 6.827*L, Arterial Blood Partial Pressure CO2 79.0*H, Arterial Blood Partial Pressure O2 54.3L, Arterial Blood HCO3 12.8L, Arterial Blood Oxygen Saturation 82.2L, Arterial Blood Base Excess -20.5, Inderjit Test Positive Height (Feet): 5 Height (Inches): 9.00 Weight (Pounds): 150 General Appearance: WD/WN, lethargic, confused, thin Neck: supple Cardiovascular: tachycardia Respiratory/Chest: crackles/rales, rhonchi - bilaterally Abdomen: normal bowel sounds, non tender, soft, no organomegaly Edema: mild edema Neurologic: unresponsive, aphasia Skin: normal pigmentation NANCY GARCIA Dec 20, 2016 13:29
--- NOTE | 2016-12-20 13:43 | Critical Care Progress Note ---
Assessment/Plan Assessment/Plan IMPRESSION: 1. Multiorgan failure. 2. Respiratory failure. 3. Renal failure. 4. Esophageal cancer. 5. Leukocytosis. 6. Possible pneumonia . 7. Pleural effusion. 8. Gastrostomy tube malfunction. 9. sepsis 10. shock 11. rapid afib 12. 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 protein calorie malnutrition PLAN antibiotics noted ID and GI follow up gastrograffin per GI antiarrythmics pressors as needed assess for further intervention assess GT per GI supportive care follow up labs and adjust prognosis poor repeat ABG very poor; will switch ventilator multi organ disease significant malnutrition long d/w family; to decide about withdrawl of care later today medications/laboratory data/nursing notes/ICU care reviewed in detail note reviewed and edited care discussed with RN and RT ICU time spent 36 minutes Critical Care - Subjective Interval Events: DOING POORLY VERY ACIDOTIC POORLY RESPONSIVE ROS Limited/Unobtainable: Yes Condition: critical EKG Rhythm: Sinus Tachycardia Residuals: minimal Tube Feeding Tolerated: yes I&O: Intake and Output 12/19/16 12/20/16 19:00 07:00 Intake Total 2029.44 ml 2031.90 ml Output Total 65 ml 0 ml Balance 1964.44 ml 2031.90 ml Intake Oral 0 ml 0 ml IV Total 2029.44 ml 2031.90 ml Output Urine Total 15 ml 0 ml Stool Total 50 ml 0 ml Critical Care - Objective Last 24 Hour Vital Signs Date Time Temp Pulse Resp B/P Pulse Ox O2 Delivery O2 Flow Rate FiO2 12/20/16 12:51 65 18 70 12/20/16 11:30 63 18 70 12/20/16 10:44 97/27 12/20/16 10:43 62 18 70 12/20/16 08:34 61 18 70 12/20/16 08:30 65 23 104/60 97 Mechanical Ventilator 70 12/20/16 08:00 63 12/20/16 08:00 62 24 101/30 97 Mechanical Ventilator 70 12/20/16 08:00 70 12/20/16 07:30 63 29 100/36 97 Mechanical Ventilator 70 12/20/16 07:00 95.2 64 19 103/21 97 Mechanical Ventilator 70 12/20/16 06:30 66 18 70 12/20/16 06:00 108/21 12/20/16 06:00 68 22 108/21 99 Mechanical Ventilator 70 12/20/16 05:32 64 18 70 12/20/16 05:30 65 31 105/25 97 Mechanical Ventilator 70 12/20/16 05:00 101/43 12/20/16 05:00 67 18 101/43 95 Mechanical Ventilator 70 12/20/16 04:30 69 18 112/28 97 Mechanical Ventilator 70 12/20/16 04:00 95.0 65 18 104/29 96 Mechanical Ventilator 70 12/20/16 04:00 106/29 12/20/16 04:00 70 12/20/16 04:00 67 12/20/16 03:20 96/28 12/20/16 03:14 62 20 70 12/20/16 03:00 64 18 96/28 97 Mechanical Ventilator 70 12/20/16 03:00 96/12/20/16 02:30 64 18 93/26 98 Mechanical Ventilator 70 12/20/16 02:00 96/12/20/16 02:00 63 18 96/29 97 Mechanical Ventilator 70 12/20/16 01:30 64 18 94/27 97 Mechanical Ventilator 70 12/20/16 01:23 67 19 70 12/20/16 01:00 94/35 12/20/16 01:00 63 12 94/35 96 Mechanical Ventilator 70 12/20/16 00:30 64 15 89/32 97 Mechanical Ventilator 70 12/20/16 00:00 66 12/20/16 00:00 96.6 66 19 / 99 Mechanical Ventilator 70 12/20/16 00:00 88/26 12/20/16 00:00 70 12/19/16 23:44 64 19 70 12/19/16 23:30 65 20 92/24 97 Mechanical Ventilator 70 12/19/16 23:00 68 20 91/27 97 Mechanical Ventilator 12/19/16 23:00 91/27 12/19/16 22:30 67 21 93/28 97 Mechanical Ventilator 12/19/16 22:30 67 21 93/28 97 Mechanical Ventilator 12/19/16 22:00 63 20 47/16 97 Mechanical Ventilator 12/19/16 22:00 47/16 12/19/16 21:40 54/23 12/19/16 21:33 57 21 70 12/19/16 21:30 58 20 54/23 95 Mechanical Ventilator 12/19/16 21:00 64 20 53/22 98 Mechanical Ventilator 12/19/16 21:00 53/22 12/19/16 20:30 69 20 94/29 98 Mechanical Ventilator 12/19/16 20:01 92/24 12/19/16 20:00 70 12/19/16 20:00 66 12/19/16 20:00 92/24 12/19/16 20:00 70 20 92/24 98 Mechanical Ventilator 12/19/16 19:30 71 21 95/33 99 Mechanical Ventilator 12/19/16 19:15 73 20 70 12/19/16 19:00 89/37 12/19/16 19:00 73 21 89/37 99 Mechanical Ventilator 12/19/16 18:35 75 22 88/40 99 Mechanical Ventilator 70 12/19/16 18:00 88/40 12/19/16 18:00 75 22 88/40 99 Mechanical Ventilator 12/19/16 17:30 75 32 91/38 99 Mechanical Ventilator 70 12/19/16 17:05 77 22 70 12/19/16 17:00 96/30 12/19/16 17:00 76 30 99/40 96 Mechanical Ventilator 70 12/19/16 16:30 77 41 97/32 99 Mechanical Ventilator 70 12/19/16 16:00 70 12/19/16 16:00 96.6 77 41 89/67 100 Mechanical Ventilator 70 12/19/16 16:00 89/67 12/19/16 16:00 76 12/19/16 15:30 96.6 77 42 100/29 100 Mechanical Ventilator 70 12/19/16 15:29 77 22 70 12/19/16 15:09 82 39 99/32 99 Mechanical Ventilator 70 12/19/16 14:30 81 38 92/34 99 Mechanical Ventilator 70 12/19/16 14:05 74 42 78/31 99 Mechanical Ventilator 70 12/19/16 14:00 79/39 12/19/16 13:58 78/24 Labs: Labs Test 12/17/16 17:55 12/18/16 06:30 12/19/16 05:40 12/20/16 08:46 Random Vancomycin Level 16.2 ug/mL 22.7 ug/mL White Blood Count 23.5 K/UL (4.8-10.8) 21.2 K/UL (4.8-10.8) 14.6 K/UL (4.8-10.8) Red Blood Count 3.21 M/UL (4.70-6.10) 3.07 M/UL (4.70-6.10) 2.81 M/UL (4.70-6.10) Hemoglobin 9.0 G/DL (14.2-18.0) 8.7 G/DL (14.2-18.0) 7.8 G/DL (14.2-18.0) Hematocrit 30.0 % (42.0-52.0) 28.8 % (42.0-52.0) 26.9 % (42.0-52.0) Mean Corpuscular Volume 93 FL (80-99) 94 FL (80-99) 96 FL (80-99) Mean Corpuscular Hemoglobin 28.0 PG (27.0-31.0) 28.4 PG (27.0-31.0) 27.6 PG (27.0-31.0) Mean Corpuscular Hemoglobin Concent 30.0 G/DL (32.0-36.0) 30.3 G/DL (32.0-36.0) 28.9 G/DL (32.0-36.0) Red Cell Distribution Width 18.3 % (11.6-14.8) 17.9 % (11.6-14.8) 17.6 % (11.6-14.8) Platelet Count 581 K/UL (150-450) 501 K/UL (150-450) 354 K/UL (150-450) Mean Platelet Volume 7.8 FL (6.5-10.1) 7.9 FL (6.5-10.1) 8.1 FL (6.5-10.1) Neutrophils (%) (Auto) % (45.0-75.0) % (45.0-75.0) % (45.0-75.0) Lymphocytes (%) (Auto) % (20.0-45.0) % (20.0-45.0) % (20.0-45.0) Monocytes (%) (Auto) % (1.0-10.0) % (1.0-10.0) % (1.0-10.0) Eosinophils (%) (Auto) % (0.0-3.0) % (0.0-3.0) % (0.0-3.0) Basophils (%) (Auto) % (0.0-2.0) % (0.0-2.0) % (0.0-2.0) Differential Total Cells Counted 100 100 100 Neutrophils % (Manual) 69 % (45-75) 61 % (45-75) 69 % (45-75) Lymphocytes % (Manual) 4 % (20-45) 10 % (20-45) 5 % (20-45) Monocytes % (Manual) 6 % (1-10) 3 % (1-10) 2 % (1-10) Eosinophils % (Manual) 0 % (0-3) 0 % (0-3) 1 % (0-3) Basophils % (Manual) 0 % (0-2) 0 % (0-2) 0 % (0-2) Band Neutrophils 21 % (0-8) 26 % (0-8) 23 % (0-8) Platelet Estimate Increased Increased Adequate Platelet Morphology Normal Normal Polychromasia Occasional Hypochromasia 1+ 1+ 2+ Anisocytosis 1+ 1+ 1+ Sodium Level 139 mEQ/L (135-145) 138 mEQ/L (135-145) 133 mEQ/L (135-145) Potassium Level 5.5 mEQ/L (3.4-4.9) 5.6 mEQ/L (3.4-4.9) 6.4 mEQ/L (3.4-4.9) Chloride Level 103 mEQ/L (98-107) 104 mEQ/L (98-107) 100 mEQ/L (98-107) Carbon Dioxide Level 16 mEQ/L (20-30) 14 mEQ/L (20-30) 13 mEQ/L (20-30) Anion Gap 20 (5-15) 20 (5-15) 20 (5-15) Blood Urea Nitrogen 40 mg/dL (7-23) 46 mg/dL (7-23) 49 mg/dL (7-23) Creatinine 2.7 mg/dL (0.7-1.2) 3.1 mg/dL (0.7-1.2) 3.4 mg/dL (0.7-1.2) Estimat Glomerular Filtration Rate mL/min (>60) mL/min (>60) mL/min (>60) Glucose Level 115 mg/dL (74-106) 120 mg/dL (74-106) 83 mg/dL (74-106) Calcium Level 10.1 mg/dL (8.6-10.2) 9.1 mg/dL (8.6-10.2) 9.0 mg/dL (8.6-10.2) Giant Platelets Rare Total Bilirubin 0.3 mg/dL (0.0-1.2) 0.3 mg/dL (0.0-1.2) Aspartate Amino Transf (AST/SGOT) 20 U/L (5-40) 29 U/L (5-40) Alanine Aminotransferase (ALT/SGPT) 17 U/L (3-41) 19 U/L (3-41) Alkaline Phosphatase 87 U/L (40-129) 97 U/L (40-129) Pro-B-Type Natriuretic Peptide 8742 pg/mL (0-450) Total Protein 5.2 g/dL (6.6-8.7) 5.1 g/dL (6.6-8.7) Albumin 1.4 g/dL (3.5-5.2) 1.3 g/dL (3.5-5.2) Globulin 3.8 g/dL 3.8 g/dL Albumin/Globulin Ratio 0.3 (1.0-2.7) 0.3 (1.0-2.7) Nucleated Red Blood Cells 5 /100 WBC Test 12/20/16 11:06 12/20/16 12:51 Arterial Blood pH 6.796 (7.350-7.450) 6.827 (7.350-7.450) Arterial Blood Partial Pressure CO2 85.8 mmHg (35.0-45.0) 79.0 mmHg (35.0-45.0) Arterial Blood Partial Pressure O2 77.8 mmHg (75.0-100.0) 54.3 mmHg (75.0-100.0) Arterial Blood HCO3 12.9 mmol/L (22.0-26.0) 12.8 mmol/L (22.0-26.0) Arterial Blood Oxygen Saturation 91.4 % (92.0-98.0) 82.2 % (92.0-98.0) Arterial Blood Base Excess -21.0 -20.5 Inderjit Test Positive Positive Objective: Sp02 EP Interpretation: reviewed, normal General Appearance: ill appearing Head: normocephalic, atraumatic Eyes: bilateral eye normal inspection ENT: normal ENT inspection, no angioedema, normal voice Neck: normal inspection, full range of motion, supple, no meningismus, carotid 2+ Respiratory: decreased breath sounds, some rhonchi Cardiovascular #1: regular rate, irregular rhythm, no murmur without MRG Gastrointestinal: non tender, soft, non-distended, no guarding, no rebound; GT in place Genitourinary: no CVA tenderness Musculoskeletal: some edema Neurologic: poor LOC IRZWAN SANDERS Dec 20, 2016 13:43
--- NOTE | 2016-12-20 14:03 | Cardiology Report ---
APPROVED REPORT EKG Measurement Heart [id number] SD [id number] [id number] Sinus tachycardia Nonspecific T wave abnormality Abnormal ECG
[2016-12-20 15:16] LABS: ABG PCO2 71.5 mmHg (35.0-45.0)
[2016-12-20 15:17] LABS: ABG ALLEN TEST POSITIVE; ABG BASE EXCESS -20.7
[2016-12-20] MEDS ORDERED: Tubing IV Secondary IV ONE (21:29)
[2016-12-20] MEDS ORDERED: D5W 275ml ONE (21:29)
[2016-12-20] MEDS ORDERED: NS 275ml ONE (21:29)
--- NOTE | 2016-12-20 21:56 | General Progress Note ---
Assessment/Plan Assessment/Plan Assessment - Gastrostomy complication - resp failure - r/o enteropulmonic fistula - squamous cell CA of pharynx Recommendations - Family to consider end of life measures - cannot use GT - ICU care - vent support Subjective Allergies: Coded Allergies: No Known Allergies (Unverified , 11/27/16) Subjective In Icu off feeds Leaking air from GT site d/w family re findings and poor options Objective Last 24 Hour Vital Signs Date Time Temp Pulse Resp B/P Pulse Ox O2 Delivery O2 Flow Rate FiO2 12/20/16 21:27 46 18 100 12/20/16 20:00 70 12/20/16 20:00 48 12/20/16 19:30 43 21 66/22 90 Mechanical Ventilator 70 12/20/16 19:15 45 21 66/22 90 Mechanical Ventilator 70 12/20/16 19:00 43 18 100 12/20/16 19:00 42 21 67/18 90 Mechanical Ventilator 70 12/20/16 18:45 47 21 65/23 90 Mechanical Ventilator 70 12/20/16 18:30 49 21 62/23 90 Mechanical Ventilator 70 12/20/16 18:15 49 21 66/22 90 Mechanical Ventilator 70 12/20/16 18:00 55 21 68/32 90 Mechanical Ventilator 70 12/20/16 17:45 54 18 59/27 90 Mechanical Ventilator 70 12/20/16 17:30 53 18 70/30 89 Mechanical Ventilator 70 12/20/16 17:15 51 19 67/27 90 Mechanical Ventilator 70 12/20/16 17:00 55 21 78/27 88 Mechanical Ventilator 70 12/20/16 16:45 56 22 71/25 90 Mechanical Ventilator 70 12/20/16 16:32 59 20 70 12/20/16 16:30 58 21 89/25 92 Mechanical Ventilator 70 12/20/16 16:15 59 21 88/25 91 Mechanical Ventilator 70 12/20/16 16:00 58 12/20/16 16:00 70 12/20/16 16:00 96.7 59 21 86/28 91 Mechanical Ventilator 70 12/20/16 15:45 59 21 88/21 92 Mechanical Ventilator 70 12/20/16 15:30 59 21 86/30 92 Mechanical Ventilator 70 12/20/16 15:15 59 21 86/31 93 Mechanical Ventilator 70 12/20/16 15:00 60 21 89/30 96 Mechanical Ventilator 70 12/20/16 14:32 61 18 70 12/20/16 14:30 59 21 90/27 96 Mechanical Ventilator 70 12/20/16 14:00 61 24 90/28 95 Mechanical Ventilator 70 12/20/16 13:30 59 23 85/30 93 Mechanical Ventilator 70 12/20/16 13:00 59 21 77/28 93 Mechanical Ventilator 70 12/20/16 12:51 65 18 70 12/20/16 12:30 59 21 75/25 93 Mechanical Ventilator 70 12/20/16 12:00 70 12/20/16 12:00 96.0 60 20 87/32 94 Mechanical Ventilator 70 12/20/16 12:00 60 12/20/16 11:30 62 19 91/31 97 Mechanical Ventilator 70 12/20/16 11:30 63 18 70 12/20/16 11:00 63 20 103/34 95 Mechanical Ventilator 70 12/20/16 10:44 97/27 12/20/16 10:43 62 18 70 12/20/16 10:30 61 19 97/27 95 Mechanical Ventilator 70 12/20/16 10:00 59 20 95/35 97 Mechanical Ventilator 70 12/20/16 09:30 59 25 101/26 97 Mechanical Ventilator 70 12/20/16 09:00 60 20 100/36 98 Mechanical Ventilator 70 12/20/16 08:34 61 18 70 12/20/16 08:30 65 23 104/60 97 Mechanical Ventilator 70 12/20/16 08:00 63 12/20/16 08:00 62 24 101/30 97 Mechanical Ventilator 70 12/20/16 08:00 70 12/20/16 07:30 63 29 100/36 97 Mechanical Ventilator 70 12/20/16 07:00 95.2 64 19 103/21 97 Mechanical Ventilator 70 12/20/16 06:30 66 18 70 12/20/16 06:00 108/21 12/20/16 06:00 68 22 108/21 99 Mechanical Ventilator 70 12/20/16 05:32 64 18 70 12/20/16 05:30 65 31 105/25 97 Mechanical Ventilator 70 12/20/16 05:00 101/43 12/20/16 05:00 67 18 101/43 95 Mechanical Ventilator 70 12/20/16 04:30 69 18 112/28 97 Mechanical Ventilator 70 12/20/16 04:00 95.0 65 18 104/29 96 Mechanical Ventilator 70 12/20/16 04:00 106/29 12/20/16 04:00 70 12/20/16 04:00 67 12/20/16 03:20 96/12/20/16 03:14 62 20 70 12/20/16 03:00 64 18 96/28 97 Mechanical Ventilator 70 12/20/16 03:00 96/12/20/16 02:30 64 18 93/26 98 Mechanical Ventilator 70 12/20/16 02:00 96/29 12/20/16 02:00 63 18 96/29 97 Mechanical Ventilator 70 12/20/16 01:30 64 18 94/27 97 Mechanical Ventilator 70 12/20/16 01:23 67 19 70 12/20/16 01:00 94/35 12/20/16 01:00 63 12 94/35 96 Mechanical Ventilator 70 12/20/16 00:30 64 15 89/32 97 Mechanical Ventilator 70 12/20/16 00:00 66 12/20/16 00:00 96.6 66 19 88/26 99 Mechanical Ventilator 70 12/20/16 00:00 8812/20/16 00:00 70 12/19/16 23:44 64 19 70 12/19/16 23:30 65 20 92/24 97 Mechanical Ventilator 70 12/19/16 23:00 68 20 91/27 97 Mechanical Ventilator 12/19/16 23:00 9112/19/16 22:30 67 21 93/28 97 Mechanical Ventilator 12/19/16 22:30 67 21 93/28 97 Mechanical Ventilator 12/19/16 22:00 63 20 47/16 97 Mechanical Ventilator 12/19/16 22:00 47/16 Intake and Output 12/19/16 12/20/16 19:00 07:00 Intake Total 2029.44 ml 2031.90 ml Output Total 65 ml 0 ml Balance 1964.44 ml 2031.90 ml Intake Oral 0 ml 0 ml IV Total 2029.44 ml 2031.90 ml Output Urine Total 15 ml 0 ml Stool Total 50 ml 0 ml Laboratory Tests 12/20/16 08:46: White Blood Count 14.6H, Red Blood Count 2.81L, Hemoglobin 7.8L, Hematocrit 26.9L, Mean Corpuscular Volume 96, Mean Corpuscular Hemoglobin 27.6, Mean Corpuscular Hemoglobin Concent 28.9L, Red Cell Distribution Width 17.6H, Platelet Count 354, Mean Platelet Volume 8.1, Neutrophils (%) (Auto) , Lymphocytes (%) (Auto) , Monocytes (%) (Auto) , Eosinophils (%) (Auto) , Basophils (%) (Auto) , Differential Total Cells Counted 100, Neutrophils % ( Manual) 69, Lymphocytes % (Manual) 5L, Monocytes % (Manual) 2, Eosinophils % ( Manual) 1, Basophils % (Manual) 0, Band Neutrophils 23H, Nucleated Red Blood Cells 5, Platelet Estimate Adequate, Platelet Morphology Normal, Hypochromasia 2 +, Anisocytosis 1+, Sodium Level 133L, Potassium Level 6.4*H, Chloride Level 100 , Carbon Dioxide Level 13L, Anion Gap 20H, Blood Urea Nitrogen 49H, Creatinine 3.4H, Estimat Glomerular Filtration Rate , Glucose Level 83, Calcium Level 9.0, Total Bilirubin 0.3, Aspartate Amino Transf (AST/SGOT) 29, Alanine Aminotransferase (ALT/SGPT) 19, Alkaline Phosphatase 97, Total Protein 5.1L, Albumin 1.3L, Globulin 3.8, Albumin/Globulin Ratio 0.3L 12/20/16 11:06: Arterial Blood pH 6.796*L, Arterial Blood Partial Pressure CO2 85.8*H, Arterial Blood Partial Pressure O2 77.8, Arterial Blood HCO3 12.9L, Arterial Blood Oxygen Saturation 91.4L, Arterial Blood Base Excess -21.0, Inderjit Test Positive 12/20/16 12:51: Arterial Blood pH 6.827*L, Arterial Blood Partial Pressure CO2 79.0*H, Arterial Blood Partial Pressure O2 54.3L, Arterial Blood HCO3 12.8L, Arterial Blood Oxygen Saturation 82.2L, Arterial Blood Base Excess -20.5, Inderjit Test Positive 12/20/16 14:32: Arterial Blood pH 6.847*L, Arterial Blood Partial Pressure CO2 71.5*H, Arterial Blood Partial Pressure O2 70.8L, Arterial Blood HCO3 12.1L, Arterial Blood Oxygen Saturation 90.4L, Arterial Blood Base Excess -20.7, Inderjit Test Positive Height (Feet): 5 Height (Inches): 9.00 Weight (Pounds): 150 Objective Debilitated WM NCAT (+) trach coarse BS RRR soft flat abd , (+) GT with air leak no edema JA CHAHAL Dec 20, 2016 21:56
--- NOTE | 2016-12-21 10:56 | Diagnostic Imaging Report ---
Indication: Acute renal failure Technique: Grayscale and duplex images of the kidneys, retroperitoneum, and bladder were obtained. Comparison:12/10/2016 Findings: Right kidney measures 10 point cm in length. Left kidney measures 10.5 cm in length. Both kidneys demonstrate normal echogenicity. No hydronephrosis. There are cysts in the right kidney. Right renal lower pole calyceal calculi are again demonstrated, also reported on recent CT. Normal inferior vena cava. Bladder is empty, contains a Polanco catheter. Impression: Nonobstructive right renal calculi, also previously reported Right renal cysts Negative for hydronephrosis Empty bladder, containing a Polanco catheter.
--- NOTE | 2016-12-22 10:38 | Discharge Summary 2 SIG ---
DATE OF ADMISSION: 12/17/2016 DATE OF EXPIRATION: 12/20/2016 REASON FOR ADMISSION: 76-year-old male with advanced esophageal cancer with metastasis, chronic respiratory failure, tracheostomy status, G-tube, was brought for abdominal distention with respiratory distress. [facility] staff [facility] noted that the G-tube was leaking. They also reported hard time ventilating the patient. Workup in the emergency room revealed tachycardia and tachypnea. The patient was noted to have an air leak around the G-tube . G-tube was replaced to 24-[place]ian without difficulty since the previous one was apparently small for the stoma as per the ED doctor . Workup un ED revealed leukocytosis and elevated lactic acid. Chest x-ray with evidence of bilateral infiltrates and pleural effusion. CT abdomen/pelvis revealed moderate left and small right pleural effusions, bilateral lower lobe infiltrates, distended gallbladder, G-tube in place, no perforation, and possible ileus. EKG revealed sinus tachycardia, but no acute ST changes. Urinalysis with evidence of UTI. Troponin negative. Lactic acid 3.7. Hemoglobin 9.9, hematocrit 32.4, and white blood count 16.3. The patient presented with acute on chronic respiratory failure, likely secondary to the obstructive process from lung metastasis. The patient was started on aggressive fluid resuscitation as well as the empiric antibiotics. Septic workup nitiated. The patient was transferred to ICU for further management. ADMITTING DIAGNOSES: 1. Sepsis. 2. Pneumonia. 3. Pleural effusion. 4. Acute on chronic respiratory failure, tracheostomy status. 5. Esophageal adenocarcinoma with metastasis. 6. Chronic kidney disease. 7. Gastrostomy tube malfunctioning, status post replacement. 8. Urinary tract infection. 9. Anemia of chronic disease. HOSPITAL STAY: The patient was admitted to the hospital. The patient was started on the IV fluids and antibiotic. ID consult and GI consult were requested as well as the Pulmonology consult. Per monument installer, the patient had multiorgan failure including respiratory failure, renal failure, and esophageal cancer. Supplemental oxygen and pulmonary toilet were provided. . The patient was on the ventilator. The patient was followed up with daily ABG and CXR. ABG continuously demonstrated (despite optimization of settings) acute respiratory acidosis with hypercapnia. Lead Caster had a long discussion with the family regarding prognosis and futility of care and decision about withdrawal of care later. The patient with DNR status, but no decision was made to change to comfort care only, ID followed the patient for antibiotic management. The patient with pneumonia and UTI. Sputum culture revealed gram-negative bacilli. Urine culture revealed Angella. Blood cultures were negative. Antibiotic regimen optimized as per infectious disease doctor. The patient continued to have leukocytosis, although it trended down. GI followed the patient for G-tube malfunctioning. Per GI, due to G-tube complication, unable to use the G-tube. N eed rule out entero- pulmonic fistula. Leaking air around G-tube noted. GI also discussed with the family the finding and poor options. The patient was in shock and Levophed was on the maximum dose. Renal parameters were worsening. Creatinine was up to 3.4 from initial of 2.0. The patient with evidence of anemia. Last hemoglobin was 7.8 and hematocrit 26.9. No decision to transfuse until hemoglobin below 7.5. Wound care nurse seen the patient regarding sacral decubitus, stage III, present on admission, and wound care provided as per wound care nurse recommendation. The patient was noted to be asystole on the monitor and unable to assess pulse and blood pressure. Family was on the bedside and the patient was pronounced at 2130 hours. CAUSE OF : Cardiopulmonary arrest. FINAL DIAGNOSES: 1. Sepsis. 2. Septic shock. 3. Multiorgan failure. 4. Pneumonia. 5. Pleural effusion. 6. Acute on chronic hypercapnic, hypoxemic respiratory failure. 7. Tracheostomy status. 8. Esophageal adenocarcinoma with metastasis. 9. Acute renal failure/acute tubular necrosis. 10. Fungal urinary tract infection. 11. Anemia of chronic disease. 12. Gastrostomy tube malfunction, status post replacement. 13. Gastrostomy tube complication, rule out entero-pulmonic fistula. 14. Chronic obstructive pulmonary disease. 15. Sacral decubitus, stage III, present on admission. Cash Coughlin M.D. I have been assigned to dictate discharge summary on this account and I was not involved in the patient's management. Karo Gastelum N.P. ([place]te[place]) DR: LIZZIE JOB#: [id number] CC: [id number]
--- NOTE | 2017-01-12 14:51 | Diagnostic Imaging Report ---
Indication: COUGH Technique: XRAY CHEST 1 V. Comparison: 12/17/2016 Findings: The cardiomediastinal silhouette is unchanged. Lateral pulmonary infiltrates and bilateral pleural effusions remain essentially unchanged. Tracheostomy is again noted. Impression: No significant change from prior examination.
== END 2016-12-20 21:30 | disposition expired | DRG 871 ==
LOC: EDBD 02:27 → EMR 02:36 → EDBEDREQ 05:06 → 2W 05:47 → EDBEDREQ 13:07 → ICU 12-18 13:23
PROC: 5A1945Z Respiratory Ventilation, 24-96 Consecutive Hours (ICD-10-PCS; principal; 2016-12-17)
PROC: 0D20XUZ Change Feeding Device in Upper Intestinal Tract, External Approach (ICD-10-PCS; principal; 2016-12-17)
DX: A41.9 Sepsis, unspecified organism (principal); J96.21 Acute and chronic respiratory failure with hypoxia; N17.0 Acute kidney failure with tubular necrosis; J86.0 Pyothorax with fistula; R65.21 Severe sepsis with septic shock; J18.9 Pneumonia, unspecified organism; C15.9 Malignant neoplasm of esophagus, unspecified; Z43.0 Encounter for attention to tracheostomy; L89.153 Pressure ulcer of sacral region, stage 3; J96.22 Acute and chronic respiratory failure with hypercapnia; E46 Unspecified protein-calorie malnutrition; K94.23 Gastrostomy malfunction; B37.49 Other urogenital candidiasis; C78.00 Secondary malignant neoplasm of unspecified lung; Z87.891 Personal history of nicotine dependence; Z66 Do not resuscitate; J44.9 Chronic obstructive pulmonary disease, unspecified; N18.9 Chronic kidney disease, unspecified; D63.8 Anemia in other chronic diseases classified elsewhere; I48.91 Unspecified atrial fibrillation; E83.52 Hypercalcemia
CPT/HCPCS: 36415; 36600; 71010; 71250; 74000; 74176; 76775; 80048; 80053; 80202; 81003; 82803; 83605; 83690; 83880; 84484; 85007; 85025; 85610; 85730; 87040; 87070; 87081; 87086; 87181; 87205; 93005; 94002; 94003